=== PATIENT | male | born 1970 | race African-American/Black ===

== ENCOUNTER 2016-11-20 15:52 | Emergency (ER) | payer OTHER ==
[~2016-11-20] VITALS: Ht 177.8 cm; Wt 93.3 kg
[2016-11-20 16:01] VITALS: TEMP 36.8; Ht 177.8 cm; Wt 93.3 kg
--- NOTE | 2016-11-20 16:21 | EMERGENCY ROOM VISIT NOTE ---
History First contact with patient: 15:59 Chief Complaint: ALCOHOL OVERDOSE Stated Complaint: ALCOHOL History of Present Illness The patient is a 46 year old male who presents to the Emergency Room with complaints of alcohol intoxication. Patient reports no other chronic medical conditions; denies hypertension, reports chronic back pain This is an ongoing issue for this patient; who has been issued several citations for alcohol intoxication and was found with citations on his person when brought in. Review of Systems Limited due to patient's alcohol intoxication Constitutional: No fever, No chills, No sweats, No weight loss, No weakness , No fatigue, No problem reported Respiratory: No cough, No sputum, No wheezing, No shortness of breath, No dyspnea on exertion, No dyspnea at rest, No hemoptysis, No problem reported Cardiovascular: No chest pain, No orthopnea, No PND, No edema, No claudication, No palpitations, No problem reported Abdomen: No pain, No nausea, No vomiting, No diarrhea, No constipation, No GI bleeding, No problem reported Musculoskeletal: + problem reported (chronic back pain) Past Medical/Surgical History Medical Problems: (1) Alcohol Abuse-Unspec (2) Alcohol intoxication (3) Alcohol intoxication (4) Alcohol intoxication (5) Alcohol intoxication (6) Antisocial Personality (7) Back pain (8) Back strain (9) Chest pain (10) Chest pain (11) Chest pain (12) Chest pain (13) Depression (14) Depression (15) Depression (16) Diabetes (17) Esophagitis (18) Hypertension (19) Suicidal ideation (20) Unspecified Episodic Mood Disorder Family History FHx: heart disease Hypertension Social History Smoking Status: Current Every Day Smoker Alcohol Use: heavy Drug Use: none Marital Status: in relationship Housing Status: lives alone Occupation Status: unemployed Current/Historical Medications Scheduled Multivitamins/Minerals (Mvi With Minerals), 1 TAB PO DAILY Thiamine Hcl (Vitamin B-1), 100 MG PO DAILY Scheduled PRN Ibuprofen (Advil), 400-600 MG PO Q6H PRN for Pain Physical Exam Vital Signs Date Time Temp Pulse Resp B/P (MAP) Pulse Ox O2 Delivery O2 Flow Rate FiO2 11/20/16 19:06 108 18 179/119 96 Room Air 11/20/16 17:31 113 16 155/92 96 Room Air 11/20/16 16:02 105 11/20/16 16:01 36.8 113 16 180/136 97 Room Air Physical Exam GENERAL: Intoxicated, no distress HENT: Normocephalic, atraumatic. Oropharynx unremarkable. EYES: PERRL. Erythematous conjunctiva. Sclera non-icteric. NECK: Supple. No nuchal rigidity. FROM. RESPIRATORY: CTA CARDIAC: RRR GI/ABDOMEN: Soft, non distended. No tenderness to palpation. No rebound or guarding. No masses. MUSCULOSKELETAL: No edema. No discoloration. Gross motor strength 5/5 bilaterally. NEURO: Altered sensorium. No sensory or motor deficits noted. Speech slurred. SKIN: No rash or jaundice noted. Medical Decision & Procedures Laboratory Results Test 11/20/16 17:00 Ethyl Alcohol mg/dL 149.0 mg/dl (0-3) Medications Administered Medications (Trade) Dose Ordered Sig/Juan J Route Start Time Stop Time Status Last Admin Dose Admin Acetaminophen (Tylenol Tab) 650 mg NOW STAT PO 11/20/16 18:54 11/20/16 18:55 DC 11/20/16 18:58 650 MG Medical Decision Prior records/ancillary studies reviewed. Triage Nursing notes reviewed. The patient's history was concerning for altered mental status and a possible alcohol overdose. Differential diagnosis: Etiologies such as alcohol intoxication, toxicologic, infection, hypoglycemia, electrolyte abnormalities, cardiac sources, intracerebral event, neurologic, as well as others were entertained. Physical examination: As above. The patient is clinically intoxicated. No trauma noted. ER treatment provided: Monitoring Aspiration precautions The patient was frequently reassessed. Diagnostic interpretation by me: Cardiac monitoring did not reveal any evidence of dysrhythmia. The patient's blood alcohol level was 149 mg/dL. The patient's history was reviewed once they were more coherent and their intoxication cleared. The patient admitted to consuming alcohol. No additional concerning findings were noted. This appears to be consistent with an isolated overdose of alcohol. By the evaluation outlined above emergent etiologies such as trauma, infection, hypoglycemia, electrolyte abnormalities, cardiac sources, intracerebral event, neurologic,as well as others were deemed relatively unlikely. The patient was informed about the findings as listed above. The patient was counseled on the dangers of excessive alcohol use. I gave my usual and customary discussion regarding this issue. All questions were answered and the patient was pleased with the treatment. Return instructions were outlined and the patient was discharged in stable condition once their mental status improved and a safe destination was confirmed. Outpatient prescription management: None Impression Primary Impression: Alcohol abuse Additional Impression: Alcohol use with intoxication Departure Information Dispostion Home / Self-Care Condition FAIR Referrals Kevin Saldana M.D. (PCP) Patient Instructions My [facility] Additional Instructions You were evaluated today for alcohol intoxication. Your alcohol level was found to be 149mg/dL. ALCOHOL OVERDOSE INSTRUCTIONS: DO NOT drive, drink alcohol, operate machinery, or perform dangerous activities today. Rest and drink plenty of fluids. Drink alcohol responsibly and only in moderation. Return to the ER for vomiting, abdominal pain, severe headache, neck pain, vomiting blood or bloody stools, passing out, worsening of your condition, or as needed. Resident Tracking Resident Involvement: Resident Care Provided Care Provided: Adult ED Problem Qualifiers
--- NOTE | 2016-11-20 16:24 | EMERGENCY ROOM VISIT NOTE ---
History Report prepared by Fransico: Thomas Carbajal Under the Supervision of: Dr. Smitha Britt M.D. First contact with patient: 15:45 Chief Complaint: ALCOHOL OVERDOSE Stated Complaint: ALCOHOL Nursing Triage Summary: pt found outside [facility] was public drunkeness. staff told ems he is a frequent there. pt reports he has no sober ride. drank 9 beers per pt. History of Present Illness The patient is a 46 year old male who presents to the Emergency Room for an alcohol overdose occurring prior to arrival. Per the EMS, the patient was found outside [facility] after drinking 9 beers. The patient states that he was not injured. History is limited secondary to intoxication. Source of History: EMS History Limited By: intoxication Onset: prior to arrival Position: other (global) Quality: other (alcohol overdose) Review of Systems See HPI for pertinent positives & negatives. A total of 10 systems reviewed and were otherwise negative. Past Medical & Surgical Medical Problems: (1) Alcohol Abuse-Unspec (2) Alcohol intoxication (3) Alcohol intoxication (4) Alcohol intoxication (5) Alcohol intoxication (6) Antisocial Personality (7) Back pain (8) Back strain (9) Chest pain (10) Chest pain (11) Chest pain (12) Chest pain (13) Depression (14) Depression (15) Depression (16) Diabetes (17) Esophagitis (18) Hypertension (19) Suicidal ideation (20) Unspecified Episodic Mood Disorder Family History FHx: heart disease Hypertension Social History Smoking Status: Current Every Day Smoker Alcohol Use: heavy Drug Use: none Marital Status: in relationship Housing Status: lives alone Occupation Status: unemployed Current/Historical Medications Scheduled Multivitamins/Minerals (Mvi With Minerals), 1 TAB PO DAILY Thiamine Hcl (Vitamin B-1), 100 MG PO DAILY Scheduled PRN Ibuprofen (Advil), 400-600 MG PO Q6H PRN for Pain Allergies Coded Allergies: No Known Allergies (Unverified , 03/08/16) Physical Exam Vital Signs Date Time Temp Pulse Resp B/P (MAP) Pulse Ox O2 Delivery O2 Flow Rate FiO2 11/20/16 19:06 108 18 179/119 96 Room Air 11/20/16 17:31 113 16 155/92 96 Room Air 11/20/16 16:02 105 11/20/16 16:01 36.8 113 16 180/136 97 Room Air Physical Exam Vital signs reviewed. General: Odor of EtOH in the breath, disheveled 46-year-old male. No signs of trauma. HEENT: Mild scleral injection bilaterally, PERRLA, neck supple, dry mucous membranes. Cardiovascular: Regular rate and rhythm, no extra sounds. Pulmonary: Clear to auscultation bilaterally, normal work of breathing. Abdomen: Soft, nontender, nondistended, positive bowel sounds. Musculoskeletal: Upper and lower extremities atraumatic, no peripheral edema Skin: Warm, dry, no rash. Atraumatic. Neurologic: Patient is currently minimally verbal. Medical Decision & Procedures Laboratory Results Test 11/20/16 17:00 Ethyl Alcohol mg/dL 149.0 mg/dl (0-3) Laboratory results per my review. Medications Administered Medications (Trade) Dose Ordered Sig/Juan J Route Start Time Stop Time Status Last Admin Dose Admin Acetaminophen (Tylenol Tab) 650 mg NOW STAT PO 11/20/16 18:54 11/20/16 18:55 DC 11/20/16 18:58 650 MG ED Course 1620: Past medical records reviewed. The patient was evaluated in room B12. A complete history and physical examination was performed. 1853: Upon reevaluation, the patient appeared to have improvement of his symptoms. I discussed findings with him. He verbalized agreement of the treatment plan. He was discharged home. 1854: Tylenol Tab 650mg PO Medical Decision The differential diagnosis of the patient's presentation includes alcohol ingestion, illicit drug use, trauma, and dehydration. This patient was evaluated and appeared to be in no significant distress. Patient was placed on the corduroy cutting supervisor with aspiration precautions maintained. Blood alcohol level is 149. Patient was given Tylenol 650 mg after some observation in the emergency department. He did complain of a headache. Patient was awake and ambulatory. Patient was discharged to follow- up with the primary care provider for further management. Case management provided a bus token for the patient upon discharge. Medication Reconcilliation Current Medication List: was personally reviewed by me Blood Pressure Screening Patient's blood pressure: Elevated blood pressure Blood pressure disposition: Referred to PCP Impression Primary Impression: Alcohol intoxication Scribe Attestation The scribe's documentation has been prepared under my direction and personally reviewed by me in its entirety. I confirm that the note above accurately reflects all work, treatment, procedures, and medical decision making performed by me. Departure Information Dispostion Home / Self-Care Referrals Kevin Saldana M.D. (PCP) Forms HOME CARE DOCUMENTATION FORM, IMPORTANT VISIT INFORMATION Patient Instructions My [facility] Additional Instructions You were evaluated today for alcohol intoxication. Your alcohol level was found to be 149mg/dL. ALCOHOL OVERDOSE INSTRUCTIONS: DO NOT drive, drink alcohol, operate machinery, or perform dangerous activities today. Rest and drink plenty of fluids. Drink alcohol responsibly and only in moderation. Return to the ER for vomiting, abdominal pain, severe headache, neck pain, vomiting blood or bloody stools, passing out, worsening of your condition, or as needed.
[2016-11-20] MEDS ORDERED: THIA100T11 PO (16:49)
[2016-11-20] MEDS ORDERED: MULT-513 PO (16:49)
[2016-11-20] MEDS ORDERED: ACETAMINOPHEN 325 MG TAB PO STA (18:54)
[2016-11-20 19:06] VITALS: BP 179/119; PULSE 108; O2SAT 96
== END 2016-11-20 19:27 | disposition home or self-care (01) ==
LOC: EDBD 15:52 → C.EDB 15:53
DX: F10.129 Alcohol abuse with intoxication, unspecified (principal); F32.9 Major depressive disorder, single episode, unspecified; E11.9 Type 2 diabetes mellitus without complications; I10 Essential (primary) hypertension; F60.2 Antisocial personality disorder; Z82.49 Family history of ischemic heart disease and other diseases of the circulatory system; F17.210 Nicotine dependence, cigarettes, uncomplicated

== ENCOUNTER 2016-11-23 15:49 | Emergency (ER) | payer OTHER ==
[~2016-11-23] VITALS: Ht 177.8 cm; Wt 93.5 kg
[~2016-11-23 15:49] MED LIST: MULT-513 PO; THIA100T11 PO
--- NOTE | 2016-11-23 15:56 | EMERGENCY ROOM VISIT NOTE ---
History Report prepared by Fransico: Addy Estevez Under the Supervision of: Dr. Wayne Plaza M.D. First contact with patient: 15:54 Stated Complaint: ALCOHOL OVERDOSE/MHID History of Present Illness The patient is a 46 year old male who presents to the Emergency Room with an alcohol overdose beginning prior to arrival. EMS states the patient was found in the hallway of a [employer] drenched with water from head to toe. They report he had a full bottle of beer in his hand, and they did not know if the patient' s girlfriend threw him out again. When asked if the patient was suicidal, he states, "hell no". He also denies any pain and using drugs. The patient notes that he drinks everyday, and he will not state how much he consumed. HPI limited secondary to the patient's intoxication. Source of History: patient, EMS History Limited By: intoxication Review of Systems ROS limited secondary to the patient's intoxication. Past Medical & Surgical Medical Problems: (1) Alcohol Abuse-Unspec (2) Alcohol intoxication (3) Alcohol intoxication (4) Alcohol intoxication (5) Alcohol intoxication (6) Antisocial Personality (7) Back pain (8) Back strain (9) Chest pain (10) Chest pain (11) Chest pain (12) Chest pain (13) Depression (14) Depression (15) Depression (16) Diabetes (17) Esophagitis (18) Hypertension (19) Suicidal ideation (20) Unspecified Episodic Mood Disorder Family History FHx: heart disease Hypertension Social History Smoking Status: Current Every Day Smoker Alcohol Use: heavy Drug Use: none Marital Status: in relationship Housing Status: lives alone Occupation Status: unemployed Current/Historical Medications Scheduled PRN Ibuprofen (Advil), 400-600 MG PO Q6H PRN for Pain Allergies Coded Allergies: No Known Allergies (Unverified , 03/08/16) Physical Exam Vital Signs Date Time Temp Pulse Resp B/P (MAP) Pulse Ox O2 Delivery O2 Flow Rate FiO2 11/23/16 20:05 78 22 161/100 97 11/23/16 18:49 107 11/23/16 18:01 154/93 11/23/16 17:49 105 11/23/16 17:03 145/101 11/23/16 16:59 103 20 150/98 97 Room Air 11/23/16 16:49 99 11/23/16 16:01 96 11/23/16 16:00 36.7 98 20 155/104 98 Room Air 11/23/16 16:00 99 Room Air 11/23/16 15:54 155/104 Physical Exam GENERAL: Patient is heavily intoxicated. Smells of alcohol. Well appearing and in no acute distress. HEAD: No evidence of Trauma. AT/NC EYES: Injected conjunctiva. Normal EOM. Pupils equal/reactive. ENT: Mucous membranes moist, no nasal congestion, . NECK: No step-offs, no adenopathy, no meningismus, trachea is midline. LUNGS: No dyspnea. Clear to auscultation and equal bilaterally. No wheeze, no rhonchi. HEART: Regular rate and rhythm. No murmurs, rubs, gallops appreciated. ABDOMEN: Soft, nontender, bowel sounds positive, no masses appreciated, no peritonitis. BACK: No midline tenderness, no CVA tenderness EXTREMITIES: Normal motion all extremities, no cyanosis, no edema. NEUROLOGIC: Intoxicated. somnolent, slurred speech. No acute motor or sensory deficits, no focal weakness, cranial nerves grossly intact. SKIN: No rash, no jaundice, no diaphoresis. Medical Decision & Procedures Laboratory Results 11/23/16 16:35 Test 11/23/16 16:35 Anion Gap 11.0 mmol/L (3-11) Est Creatinine Clear Calc Drug Dose 103.8 ml/min Estimated GFR () 102.7 Estimated GFR (Non- 88.6 BUN/Creatinine Ratio 12.7 (10-20) Calcium Level 8.4 mg/dl (8.5-10.1) Magnesium Level 2.8 mg/dl (1.8-2.4) Total Bilirubin 0.2 mg/dl (0.2-1) Direct Bilirubin < 0.1 mg/dl (0-0.2) Aspartate Amino Transf (AST/SGOT) 37 U/L (15-37) Alanine Aminotransferase (ALT/SGPT) 39 U/L (12-78) Alkaline Phosphatase 129 U/L (45-117) Total Creatine Kinase 1641 U/L (39-308) Total Protein 7.7 gm/dl (6.4-8.2) Albumin 3.6 gm/dl (3.4-5.0) Salicylates Level < 1.7 mg/dl (2.8-20) Acetaminophen Level < 2 ug/ml (10-30) Ethyl Alcohol mg/dL 170.0 mg/dl (0-3) Laboratory results as reviewed by me. Medications Administered Medications (Trade) Dose Ordered Sig/Juan J Route Start Time Stop Time Status Last Admin Dose Admin Multivitamins 10 ml/Thiamine HCl 100 mg/Folic Acid 1 mg/Sodium Chloride 1,011.2 ml @ 500 mls/ hr Q2H2M ONCE IV 11/23/16 16:00 11/23/16 18:01 DC 11/23/16 17:05 500 MLS/HR Ibuprofen (Motrin Tab) 600 mg NOW STAT PO 11/23/16 16:59 11/23/16 17:00 DC 11/23/16 17:05 600 MG ED Course 1557: The patient was evaluated in room B05. A complete history and physical exam was performed. 1600: Ordered Multivitamins 10ml/Thiamine HCl 100mg/Folic Acid 1mg/Sodium Chloride 1,011.2 ml @ 500 mls/hr, IV 1659: The nurse called saying the patient would like Motrin. Ordered Ibuprofen 600mg PO 1902: I reevaluated the patient. He is awake and asking to be discharged. He denies suicidal and homicidal ideations. The patient demands immediate discharge. I advised him I have to watch him until he is sober and medically cleared. 1999: Reevaluated the patient. Discussed results and discharge instructions: he verbalized understanding and agreement. The patient is ready for discharge. Medical Decision Differential: Alcohol Intoxication, Drug Intoxication, Electrolyte Abnormality, Trauma, Intracranial Event, Toxicological, Excited Delirium, Serotonin Syndrome , amongst other pathologies entertained. 46 yr old intoxicated male found sleeping in hallway at local hotel. No one sober to care for him. He is unhappy being here. Given recent trip for etoh felt he is likely alcoholic (which he denies) thus given banana bag. Mildly elevated CK. Denies any muscle pains, cp, sob, nor other symptoms. He wishes to go home still. Monitored for 4 hours and etoh now legal. Sober, still demanding discharge. Advised fluids, rest, no further alcohol. He denies suicidal ideation nor psychiatric/mental health issues on multiple evaluations. Impression Primary Impression: Alcohol abuse Additional Impressions: Alcoholic intoxication Dehydration Elevated CK Scribe Attestation The scribe's documentation has been prepared under my direction and personally reviewed by me in its entirety. I confirm that the note above accurately reflects all work, treatment, procedures, and medical decision making performed by me. Departure Information Dispostion Home / Self-Care Referrals Kevin Saldana M.D. (PCP) Forms HOME CARE DOCUMENTATION FORM, IMPORTANT VISIT INFORMATION Patient Instructions Addiction Alcohol, My [facility] Additional Instructions We are always here to help. If you feel you are at risk of harm to self or others call 911 or return to emergency department. Your labs showed significant dehydration. Keep well hydrated and stop drinking alcohol. Return if body aches, fatigue, blood in urine, or other concerns. Problem Qualifiers
[2016-11-23 16:00] VITALS: TEMP 36.7; O2SAT 99; Ht 177.8 cm; Wt 93.5 kg
[2016-11-23] MEDS ORDERED: MULTI-VITAMIN INFUSION INJ 10 ML, THIAMINE HCL INJ 100 MG, FoLIC ACID INJ 1 MG in SODIU... IV ONE (16:00)
[2016-11-23] MEDS ORDERED: IBUP-1050 PO (16:49)
[2016-11-23] MEDS ORDERED: IBUPROFEN 600 MG TAB PO STA (16:59)
[2016-11-23 17:14] LABS: ALT/SGPT 39 U/L (12-78); AST/SGOT 37 U/L (15-37); BLOOD UREA NITROGEN 13 mg/dl (7-18); BUN/CREATININE RATIO 12.7 (10-20); CALCIUM 8.4 mg/dl (8.5-10.1); CARBON DIOXIDE 23 mmol/L (21-32); CHLORIDE 105 mmol/L (98-107); GLUCOSE 141 mg/dl (70-99); MAGNESIUM 2.8 mg/dl (1.8-2.4); POTASSIUM 3.3 mmol/L (3.5-5.1); SODIUM 139 mmol/L (136-145)
[2016-11-23 17:22] LABS: ACETAMINOPHEN < 2 ug/ml (10-30)
[2016-11-23 17:30] LABS: ALKALINE PHOSPHATASE 129 U/L (45-117)
[2016-11-23 20:05] VITALS: BP 161/100; PULSE 78; O2SAT 97
== END 2016-11-23 20:07 | disposition home or self-care (01) ==
LOC: EDBD 15:49 → C.EDB 15:51
DX: F10.129 Alcohol abuse with intoxication, unspecified (principal); E86.0 Dehydration; R74.8 Abnormal levels of other serum enzymes; F32.9 Major depressive disorder, single episode, unspecified; E11.9 Type 2 diabetes mellitus without complications; K20.9 Esophagitis, unspecified; I10 Essential (primary) hypertension; Z82.49 Family history of ischemic heart disease and other diseases of the circulatory system; F17.210 Nicotine dependence, cigarettes, uncomplicated

== ENCOUNTER 2016-11-28 19:54 | Emergency (ER) | payer OTHER ==
[~2016-11-28] VITALS: Ht 175.3 cm; Wt 88.3 kg
[~2016-11-28 19:54] MED LIST changes: +IBUP-1050 PO; -MULT-513 PO; -THIA100T11 PO
[2016-11-28 20:04] VITALS: TEMP 37.1; Ht 175.3 cm; Wt 88.3 kg
--- NOTE | 2016-11-28 20:58 | DIAGNOSTIC IMAGING REPORT ---
CHEST 2 VIEWS ROUTINE CLINICAL HISTORY: cough eval for pna pneumonia COMPARISON STUDY: 01/08/2016 FINDINGS: The bones soft tissues and hemidiaphragms are normal. The cardiomediastinal silhouette is normal. The lungs are clear. The pulmonary vasculature is normal. IMPRESSION: Negative chest. The above report was generated using voice recognition software. It may contain grammatical, syntax or spelling errors. Electronically signed by: Gregg Bajwa M.D. 11/28/2016 8:57 PM Dictated Date/Time: 11/28/2016 8:57 PM
[2016-11-28] MEDS ORDERED: GUAIFENESIN SUGAR FREE 100 MG/5 ML UDC PO STA (21:25)
[2016-11-28] MEDS ORDERED: ALBUTEROL HFA 8 GM INHALER INH ONE (21:30)
[2016-11-28 22:15] VITALS: BP 155/107; PULSE 85; O2SAT 99
--- NOTE | 2016-11-29 00:52 | EMERGENCY ROOM VISIT NOTE ---
History Report prepared by Fransico: Thomas Carbajal Under the Supervision of: Dr. Jose Manuel Warner M.D. First contact with patient: 20:15 Chief Complaint: COUGH Stated Complaint: ANXIETY/SOME ALCOHOL Nursing Triage Summary: patient brought in by [facility] patient picked up by eduin soliz for trespassing,police bringing in warrant patient drank beer today patient reports a cough for a few days to a week History of Present Illness The patient is a 46 year old male who presents to the Emergency Room with complaints of a constant cough for the past couple of weeks. Per the nursing staff, the patient was brought in by police because he was found trespassing. The patient states that he only drank one beer. The patient denies coughing up blood, fever, night sweats, institutionalization, and TB exposure. He denies any chest pain or shortness of breath. Source of History: patient, nursing staff Onset: a couple weeks ago Position: other (global) Quality: other (cough) Timing: constant Associated Symptoms: No fevers, No chest pain, No SOB Review of Systems See HPI for pertinent positives & negatives. A total of 10 systems reviewed and were otherwise negative. Past Medical & Surgical Medical Problems: (1) Alcohol Abuse-Unspec (2) Alcohol intoxication (3) Alcohol intoxication (4) Alcohol intoxication (5) Alcohol intoxication (6) Antisocial Personality (7) Back pain (8) Back strain (9) Chest pain (10) Chest pain (11) Chest pain (12) Chest pain (13) Depression (14) Depression (15) Depression (16) Diabetes (17) Esophagitis (18) Hypertension (19) Suicidal ideation (20) Unspecified Episodic Mood Disorder Family History FHx: heart disease Hypertension Social History Smoking Status: Current Every Day Smoker Alcohol Use: heavy Drug Use: none Marital Status: in relationship Housing Status: lives alone Occupation Status: unemployed Current/Historical Medications Scheduled PRN Ibuprofen (Advil), 400-600 MG PO Q6H PRN for Pain Allergies Coded Allergies: No Known Allergies (Unverified , 03/08/16) Physical Exam Vital Signs Date Time Temp Pulse Resp B/P (MAP) Pulse Ox O2 Delivery O2 Flow Rate FiO2 11/28/16 22:15 85 20 155/107 99 11/28/16 21:38 95 20 143/103 11/28/16 20:04 105 11/28/16 20:04 37.1 108 20 127/101 98 Room Air Physical Exam Constitutional: Vital signs reviewed. Eyes: Pupils are equal round reactive to light. Conjunctiva are noninjected. ENT: Pharynx is clear without erythema or exudate. Mucous membranes are moist. Neck supple without meningeal signs. Respiratory: Clear to auscultation bilaterally. Breath sounds are equal bilaterally. Cardiovascular: Regular rate and rhythm. No rubs or gallops. GI: Soft, nondistended and nontender. Bowel sounds are present. Musculoskeletal: No peripheral edema. No lower extremity tenderness. Integumentary: No cyanosis. Neurological: The patient is awake and alert. No focal deficits. Psychiatric: Normal affect. Medical Decision & Procedures ER Provider Diagnostic Interpretation: Radiology results as stated below per my review and the radiologist's interpretation: CHEST 2 VIEWS ROUTINE CLINICAL HISTORY: cough eval for pna pneumonia COMPARISON STUDY: 01/08/2016 FINDINGS: The bones soft tissues and hemidiaphragms are normal. The cardiomediastinal silhouette is normal. The lungs are clear. The pulmonary vasculature is normal. IMPRESSION: Negative chest. The above report was generated using voice recognition software. It may contain grammatical, syntax or spelling errors. Electronically signed by: Gregg Bajwa M.D. 11/28/2016 8:57 PM Dictated Date/Time: 11/28/2016 8:57 PM Medications Administered Medications (Trade) Dose Ordered Sig/Juan J Route Start Time Stop Time Status Last Admin Dose Admin Guaifenesin (Robitussin Sugar Free Syrup) 100 mg NOW STAT PO 11/28/16 21:25 11/28/16 21:26 DC 11/28/16 21:35 100 MG Albuterol (Ventolin Hfa Inhaler) 2 puffs NOW ONCE INH 11/28/16 21:30 11/28/16 21:31 DC 11/28/16 21:35 2 PUFFS ED Course 2014: The patient was evaluated in room B2. A complete history and physical exam was performed. 2124: Robitussin Sugar Free Syrup 100mg PO 2129: Albuterol 2 puffs INH 2204: The patient is ambulating without difficulty, and he wants to go home. The patient will be discharged home. Medical Decision This is a 46-year-old male who presents with a cough. Differential diagnosis includes pneumonia, bronchitis, lung cancer. I did perform a limited focused review of portions of the patient's old chart on the electronic medical record. The patient was here on November 23 for alcohol intoxication I did evaluate the patient as noted above. The patient is presenting with a cough. He does admit to drinking alcohol today but does not appear significantly intoxicated. He was given Robitussin for his cough. He was also given an albuterol MDI. I did order and personally review the patient's chest x-ray as described above. There is no evidence of pneumonia. The patient was informed of his test results. He was discharged and advised follow closely with his doctor. He was able to ambulate without any difficulty and was given a bus token. Medication Reconcilliation Current Medication List: was personally reviewed by me Blood Pressure Screening Patient's blood pressure: Elevated blood pressure Blood pressure disposition: Referred to PCP Impression Primary Impression: Bronchitis Scribe Attestation The scribe's documentation has been prepared under my direct and personally reviewed by me in its entirety. I confirm that the note above accurately reflects all work, treatment, procedures, and medical decision making performed by me. Departure Information Dispostion Home / Self-Care Referrals No Doctor, Assigned (PCP) Forms HOME CARE DOCUMENTATION FORM, IMPORTANT VISIT INFORMATION Patient Instructions Bronchitis Acute, My [facility] Additional Instructions You have been examined and treated today on an emergency basis only. This is not a substitute for, or an effort to provide, complete comprehensive medical care. It is impossible to recognize and treat all injuries or illnesses in a single emergency department visit. It is therefore important that you follow up closely with your physician. Call as soon as possible for an appointment. Return for worsening symptoms or if you develop fever, vomiting, chest pain or any other concerning symptoms.
== END 2016-11-28 22:15 | disposition home or self-care (01) ==
LOC: EDBD 19:54 → C.EDB 19:56
DX: J40 Bronchitis, not specified as acute or chronic (principal); F60.2 Antisocial personality disorder; F32.9 Major depressive disorder, single episode, unspecified; E11.9 Type 2 diabetes mellitus without complications; I10 Essential (primary) hypertension; F17.210 Nicotine dependence, cigarettes, uncomplicated; Z82.49 Family history of ischemic heart disease and other diseases of the circulatory system

== ENCOUNTER 2017-03-03 15:04 | Emergency (ER) | payer OTHER ==
[~2017-03-03] VITALS: Ht 177.8 cm; Wt 94.6 kg
[2017-03-03 15:08] VITALS: TEMP 36.6; Ht 177.8 cm; Wt 94.6 kg
--- NOTE | 2017-03-03 15:17 | EMERGENCY ROOM VISIT NOTE ---
History First contact with patient: 15:10 Chief Complaint: SWELLING TO EXTREMITY Stated Complaint: RIGHT ARM POSSIBLE BLOOD CLOT History of Present Illness The patient is a 46 year old male who presents to the Emergency Room from [facility] with complaints of right arm pain and swelling. The patient was working out with weights yesterday which is not unusual for him. He did not experience any pop or pain during his exercise regimen. He woke up this morning with pain in his right forearm worse with lifting any weights. Aching pain, 8/10 severity. He denies any pain in his neck, shoulder or wrist. He denies any change in sensation of his hand. He feels his forearm is much more swollen than the other side. He denies any fevers or chills, change in skin color, change in his urine. Review of Systems All systems reviewed and otherwise negative other than HPI. Constitutional: No fever, No chills Musculoskeletal: + muscle pain, + swelling, No joint pain Integumentary: No rash, No itch Past Medical/Surgical History Medical Problems: (1) Alcohol Abuse-Unspec (2) Alcohol intoxication (3) Alcohol intoxication (4) Alcohol intoxication (5) Alcohol intoxication (6) Antisocial Personality (7) Back pain (8) Back strain (9) Chest pain (10) Depression (11) Depression (12) Diabetes (13) Esophagitis (14) Hypertension (15) Suicidal ideation (16) Unspecified Episodic Mood Disorder Family History FHx: heart disease Hypertension Social History Smoking Status: Current Every Day Smoker Alcohol Use: heavy Drug Use: none Marital Status: in relationship Housing Status: lives alone Occupation Status: unemployed Current/Historical Medications Scheduled Amlodipine (Norvasc), 10 MG PO DAILY Quetiapine Fumarate (Seroquel), 100 MG PO HS Sertraline (Zoloft), 25 MG PO DAILY Scheduled PRN Acetaminophen (Tylenol), 1,000 MG PO BID PRN for Pain Physical Exam Vital Signs Date Time Temp Pulse Resp B/P (MAP) Pulse Ox O2 Delivery O2 Flow Rate FiO2 03/03/17 17:05 78 18 155/89 97 Room Air 03/03/17 15:08 36.6 95 16 169/105 100 Room Air Physical Exam General Appearance: WD/WN, + mild distress (holding right elbow stiff with pain, left leg in handcuffs to bed) Respiratory/Chest: lungs clear, normal breath sounds, no respiratory distress, no accessory muscle use Cardiovascular: regular rate, rhythm, no murmur, normal peripheral pulses Extremities: normal capillary refill (right hand), + pertinent finding ( tender to palpation on proximal part of volar forearm, No right sided neck/ shoulder/elbow/wrist pain on laura prominence palpation, Full ROM without stiffness or pain of elbow/shouder/wrist, Spurling's test negative, right proximal forearm circumference 1cm > left, biceps muscle appearance equal bilaterally, pronation and flexion of elbow notable equal power b/l) Neurologic/Psych: no motor/sensory deficits (Radial/median/ulnar nerve sensation intact distally on right hand, no motor weakness of right shoulder, elbow or wrist), alert, oriented x 3 Medical Decision & Procedures ER Provider Diagnostic Interpretation: R ELBOW MIN 3 VIEWS ROUTINE CLINICAL HISTORY: right elbow pain (proximal radial ulna anteriodly) ?fracture pain COMPARISON: None. DISCUSSION: The bones and joint spaces appear intact. There is no evidence of fracture, dislocation or bony disease. There is no evidence for soft tissue swelling. IMPRESSION: Negative study. The above report was generated using voice recognition software. It may contain grammatical, syntax or spelling errors. Electronically signed by: Gregg Bajwa M.D. 03/03/2017 3:56 PM Dictated Date/Time: 03/03/2017 3:55 PM R VENOUS DOPPLER UPR EXT UNIL HISTORY: 46 years-old Male right elbow/antecubital fossa pain and swelling ?DVT acute pain and swelling of the right upper extremity with concern for possible DVT COMPARISON: None available TECHNIQUE: Multiple real-time sonographic images of the right upper extremity deep venous structures were obtained assessing grayscale appearance, color and spectral flow FINDINGS: Study is limited secondary to patient cooperation. There is normal flow, compressibility, augmentation, and phasicity involving the deep venous structures. IMPRESSION: No sonographic evidence of deep venous thrombosis. The above report was generated using voice recognition software. It may contain grammatical, syntax or spelling errors. Electronically signed by: Adria Swanson M.D. 03/03/2017 4:57 PM Dictated Date/Time: 03/03/2017 4:56 PM Laboratory Results 03/03/17 15:40 Red Blood Count 4.71, Mean Corpuscular Volume 80.3, Mean Corpuscular Hemoglobin 27.2, Mean Corpuscular Hemoglobin Concent 33.9, Mean Platelet Volume 8.8, Neutrophils (%) (Auto) 41.7, Lymphocytes (%) (Auto) 46.5, Monocytes (%) (Auto) 9.5, Eosinophils (%) (Auto) 1.4, Basophils (%) (Auto) 0.5, Neutrophils # (Auto) 2.36, Lymphocytes # (Auto) 2.63, Monocytes # (Auto) 0.54, Eosinophils # (Auto) 0.08, Basophils # (Auto) 0.03 03/03/17 15:40 Test 03/03/17 15:40 White Blood Count 5.66 K/uL (4.8-10.8) Red Blood Count 4.71 M/uL (4.7-6.1) Hemoglobin 12.8 g/dL (14.0-18.0) Hematocrit 37.8 % (42-52) Mean Corpuscular Volume 80.3 fL (80-100) Mean Corpuscular Hemoglobin 27.2 pg (25-34) Mean Corpuscular Hemoglobin Concent 33.9 g/dl (32-36) Platelet Count 280 K/uL (130-400) Mean Platelet Volume 8.8 fL (7.4-10.4) Neutrophils (%) (Auto) 41.7 % Lymphocytes (%) (Auto) 46.5 % Monocytes (%) (Auto) 9.5 % Eosinophils (%) (Auto) 1.4 % Basophils (%) (Auto) 0.5 % Neutrophils # (Auto) 2.36 K/uL (1.4-6.5) Lymphocytes # (Auto) 2.63 K/uL (1.2-3.4) Monocytes # (Auto) 0.54 K/uL (0.11-0.59) Eosinophils # (Auto) 0.08 K/uL (0-0.5) Basophils # (Auto) 0.03 K/uL (0-0.2) RDW Standard Deviation 42.9 fL (36.4-46.3) RDW Coefficient of Variation 14.6 % (11.5-14.5) Immature Granulocyte % (Auto) 0.4 % Immature Granulocyte # (Auto) 0.02 K/uL (0.00-0.02) Anion Gap 5.0 mmol/L (3-11) Est Creatinine Clear Calc Drug Dose 133.7 ml/min Estimated GFR () 123.7 Estimated GFR (Non- 106.7 BUN/Creatinine Ratio 10.5 (10-20) Calcium Level 8.9 mg/dl (8.5-10.1) Total Bilirubin 0.2 mg/dl (0.2-1) Aspartate Amino Transf (AST/SGOT) 20 U/L (15-37) Alanine Aminotransferase (ALT/SGPT) 47 U/L (12-78) Alkaline Phosphatase 134 U/L (45-117) Total Creatine Kinase 419 U/L (39-308) Total Protein 8.1 gm/dl (6.4-8.2) Albumin 4.1 gm/dl (3.4-5.0) Globulin 4.0 gm/dl (2.5-4.0) Albumin/Globulin Ratio 1.0 (0.9-2) Medications Administered Medications (Trade) Dose Ordered Sig/Juan J Route Start Time Stop Time Status Last Admin Dose Admin Ketorolac Tromethamine (Toradol Inj) 30 mg NOW STAT IV 03/03/17 15:45 03/03/17 15:46 DC 03/03/17 15:50 30 MG ED Course 15:15 Complete history and physical was performed by myself 15:30 The patient was discussed with Dr Ca who separately performed history and physical, recommended labs, XR and US doppler 15:45 Toradol 30mg IV prescribed for pain 17:00 The patient was reassessed before discharge. Discussed normal labs, XR and US. Most likely diagnosis of muscle fatigue. Recommend he follows up with medical at [facility]. Medical Decision Prior records/ancillary studies reviewed. Triage Nursing notes reviewed. Additional history obtained from the patient. The patient's history was concerning for forearm pain. Differential diagnosis: Etiologies such as compartment syndrome, tendon injury, rhabdomyolysis, myositis , fracture, infection, nerve compression as well as others were entertained. Physical findings: As above. Patient was neurovascularly intact distally. Biceps tendon was intact. Pain was not limited to one compartment and muscles were soft to touch. ER treatment provided: Toradol 30 mg IV On reassessment the patient felt better. Diagnostics interpreted by me: The labs revealed mild anemia and mildly elevated creatine kinase which fits with history of exercising. Imaging studies: XR and US were negative for any acute pathology This appears to be consistent with muscle fatigue. By the evaluation outlined above emergent etiologies such as compartment syndrome, tendon injury, rhabdomyolysis, myositis, fracture, infection, nerve compression as well as others were entertained. as well as others were deemed relatively unlikely. The patient was informed about the findings as listed above. All questions were answered. Return instructions were outlined and the patient was discharged in stable condition. Referral: The patient was referred back to the medical team at [facility] for a recheck of the current condition in the next 1-2 days. Medication Reconcilliation Current Medication List: was personally reviewed by me Blood Pressure Screening Patient's blood pressure: Elevated blood pressure Blood pressure disposition: Elevated BP felt to be situational, Referred to PCP Impression Primary Impression: Right arm pain Departure Information Dispostion Other ([facility]) Condition GOOD Referrals [facility] (PCP) Patient Instructions My [facility] Additional Instructions You were evaluated in the ER for right arm pain and swelling. No cause was seen on US doppler or elbow XR. This is most likely due to your work out the previous day. Recommend you keep moving and stretching your elbow, shoulder and wrist to avoid any stiffness which can make it worse but do not work out until the pain has completely resolved and only then slowly work up to our maximum weights again. Take Ibuprofen (400mg three times /day) or Tylenol (650mg four times/day) as needed for pain Drink more clear liquids for the next 3 to 4 days. Follow up with the medical team at the [facility] within the next 1-2 days for a recheck of your condition and repeat blood pressure as this was elevated while in the ER. If you have an increasing pain, change in color of your urine, fevers, difficulty breathing, chest pain, recurrent vomiting or diarrhea, come back to the Emergency Department. Resident Tracking Resident Involvement: Resident Care Provided Care Provided: Adult ED
[2017-03-03] MEDS ORDERED: KETOROLAC TROMETHAMINE 60 MG/2 ML VIAL IM STA (15:43)
[2017-03-03] MEDS ORDERED: KETOROLAC TROMETHAMINE 30 MG/ML VIAL IV STA (15:45)
[2017-03-03 15:56] LABS: BASO % 0.5 %; BASO ABS # 0.03 K/uL (0-0.2); EOS % 1.4 %; EOS ABS # 0.08 K/uL (0-0.5); HEMATOCRIT 37.8 % (42-52); HEMOGLOBIN 12.8 g/dL (14.0-18.0); IG# 0.02 K/uL (0.00-0.02); LYMPH % 46.5 %; LYMPH ABS # 2.63 K/uL (1.2-3.4); MEAN CELL VOLUME 80.3 fL (80-100); MEAN CORPUSCULAR HEMOGLOBIN 27.2 pg (25-34); MEAN CORPUSCULAR HGB CONC 33.9 g/dl (32-36); MEAN PLATELET VOLUME 8.8 fL (7.4-10.4); MONO % 9.5 %; MONO ABS # 0.54 K/uL (0.11-0.59); NEUT % 41.7 %; NEUT ABS # 2.36 K/uL (1.4-6.5); PLATELET COUNT 280 K/uL (130-400); RED CELL DISTRIBUTION WIDTH CV 14.6 % (11.5-14.5); RED CELL DISTRIBUTION WIDTH SD 42.9 fL (36.4-46.3); WHITE BLOOD COUNT 5.66 K/uL (4.8-10.8)
--- NOTE | 2017-03-03 15:57 | DIAGNOSTIC IMAGING REPORT ---
R ELBOW MIN 3 VIEWS ROUTINE CLINICAL HISTORY: right elbow pain (proximal radial ulna anteriodly) ?fracture pain COMPARISON: None. DISCUSSION: The bones and joint spaces appear intact. There is no evidence of fracture, dislocation or bony disease. There is no evidence for soft tissue swelling. IMPRESSION: Negative study. The above report was generated using voice recognition software. It may contain grammatical, syntax or spelling errors. Electronically signed by: Gregg Bajwa M.D. 03/03/2017 3:56 PM Dictated Date/Time: 03/03/2017 3:55 PM
[2017-03-03] MEDS ORDERED: SERT25TA PO (16:07)
[2017-03-03] MEDS ORDERED: ACET-1256 PO (16:07)
[2017-03-03] MEDS ORDERED: QUET1TAB34 PO (16:07)
[2017-03-03] MEDS ORDERED: AMLO-114 PO (16:07)
[2017-03-03 16:17] LABS: ALBUMIN 4.1 gm/dl (3.4-5.0); CALCIUM 8.9 mg/dl (8.5-10.1); CREATININE 0.78 mg/dl (0.60-1.40); POTASSIUM 3.7 mmol/L (3.5-5.1)
[2017-03-03 16:19] LABS: TOTAL PROTEIN 8.1 gm/dl (6.4-8.2)
--- NOTE | 2017-03-03 16:59 | DIAGNOSTIC IMAGING REPORT ---
R VENOUS DOPPLER UPR EXT UNIL HISTORY: 46 years-old Male right elbow/antecubital fossa pain and swelling ?DVT acute pain and swelling of the right upper extremity with concern for possible DVT COMPARISON: None available TECHNIQUE: Multiple real-time sonographic images of the right upper extremity deep venous structures were obtained assessing grayscale appearance, color and spectral flow FINDINGS: Study is limited secondary to patient cooperation. There is normal flow, compressibility, augmentation, and phasicity involving the deep venous structures. IMPRESSION: No sonographic evidence of deep venous thrombosis. The above report was generated using voice recognition software. It may contain grammatical, syntax or spelling errors. Electronically signed by: Adria Swanson M.D. 03/03/2017 4:57 PM Dictated Date/Time: 03/03/2017 4:56 PM
[2017-03-03 17:05] VITALS: BP 155/89; PULSE 78; O2SAT 97
--- NOTE | 2017-03-03 20:52 | EMERGENCY ROOM VISIT NOTE ---
History Report prepared by Fransico: Renée Wagner Under the Supervision of: Dr. Bony Ca M.D. First contact with patient: 15:10 Chief Complaint: SWELLING TO EXTREMITY Stated Complaint: RIGHT ARM POSSIBLE BLOOD CLOT History of Present Illness The patient is a 46 year old male who presents to the Emergency Room with complaints of constant right arm swelling beginning this morning. The patient states that he was working out yesterday and did not have any injury. He is doing pull-ups and chin ups. He reports that he woke up with the pain and it is worsened with lifting the arm. He notes that the pain is aching. Pt denies LOC, headache, fevers, chills, diaphoresis, visual changes, neck pain, chest pain, breathing difficulties, nausea, vomiting, abdominal pain, back pain, melena, hematochezia, urinary symptoms, numbness, weakness, lymphadenopathy, rash, or other complaints. Source of History: patient Onset: this morning Position: arm (right) Quality: ache Timing: constant Modifying Factors (Worsening): other (lifting arm) Review of Systems See HPI for pertinent positives and negatives. A total of ten systems were reviewed and were otherwise negative. Past Medical & Surgical Medical Problems: (1) Alcohol Abuse-Unspec (2) Alcohol intoxication (3) Alcohol intoxication (4) Alcohol intoxication (5) Alcohol intoxication (6) Antisocial Personality (7) Back pain (8) Back strain (9) Chest pain (10) Depression (11) Depression (12) Diabetes (13) Esophagitis (14) Hypertension (15) Suicidal ideation (16) Unspecified Episodic Mood Disorder Family History FHx: heart disease Hypertension Social History Smoking Status: Current Every Day Smoker Alcohol Use: heavy Drug Use: none Marital Status: in relationship Housing Status: lives alone Occupation Status: unemployed Current/Historical Medications Scheduled Amlodipine (Norvasc), 10 MG PO DAILY Quetiapine Fumarate (Seroquel), 100 MG PO HS Sertraline (Zoloft), 25 MG PO DAILY Scheduled PRN Acetaminophen (Tylenol), 1,000 MG PO BID PRN for Pain Allergies Coded Allergies: No Known Allergies (Unverified , 03/08/16) Physical Exam Vital Signs Date Time Temp Pulse Resp B/P (MAP) Pulse Ox O2 Delivery O2 Flow Rate FiO2 03/03/17 17:05 78 18 155/89 97 Room Air 03/03/17 15:08 36.6 95 16 169/105 100 Room Air Physical Exam GENERAL: Awake, alert, well-appearing, in no distress HENT: Normocephalic, atraumatic. Oropharynx unremarkable. EYES: Normal conjunctiva. Sclera non-icteric. NECK: Supple. No nuchal rigidity. FROM. No JVD. RESPIRATORY: Clear to auscultation. CARDIAC: Regular rate, normal rhythm. Extremities warm and well perfused. Pulses equal. ABDOMEN: Soft, non-distended. No tenderness to palpation. No rebound or guarding. No masses. RECTAL: Deferred. MUSCULOSKELETAL: Chest examination reveals no tenderness. The back is symmetrical on inspection without obvious abnormality. There is no CVA tenderness to palpation. No joint edema. Mild tenderness of the volar right forearm flexors. No pain with passive flexion or extension, no elbow tenderness. LOWER EXTREMITIES: Calves are equal size bilaterally and non-tender. No edema. No discoloration. NEURO: Normal sensorium. No sensory or motor deficits noted. SKIN: No rash or jaundice noted. Medical Decision & Procedures ER Provider Diagnostic Interpretation: Radiology results as stated below per my review and radiologist interpretation: R ELBOW MIN 3 VIEWS ROUTINE DISCUSSION: The bones and joint spaces appear intact. There is no evidence of fracture, dislocation or bony disease. There is no evidence for soft tissue swelling. IMPRESSION: Negative study. The above report was generated using voice recognition software. It may contain grammatical, syntax or spelling errors. Electronically signed by: Gregg Bajwa M.D. 03/03/2017 3:56 PM Dictated Date/Time: 03/03/2017 3:55 PM R VENOUS DOPPLER UPR EXT UNIL FINDINGS: Study is limited secondary to patient cooperation. There is normal flow, compressibility, augmentation, and phasicity involving the deep venous structures. IMPRESSION: No sonographic evidence of deep venous thrombosis. The above report was generated using voice recognition software. It may contain grammatical, syntax or spelling errors. Electronically signed by: Adria Swanson M.D. 03/03/2017 4:57 PM Dictated Date/Time: 03/03/2017 4:56 PM Laboratory Results 03/03/17 15:40 Red Blood Count 4.71, Mean Corpuscular Volume 80.3, Mean Corpuscular Hemoglobin 27.2, Mean Corpuscular Hemoglobin Concent 33.9, Mean Platelet Volume 8.8, Neutrophils (%) (Auto) 41.7, Lymphocytes (%) (Auto) 46.5, Monocytes (%) (Auto) 9.5, Eosinophils (%) (Auto) 1.4, Basophils (%) (Auto) 0.5, Neutrophils # (Auto) 2.36, Lymphocytes # (Auto) 2.63, Monocytes # (Auto) 0.54, Eosinophils # (Auto) 0.08, Basophils # (Auto) 0.03 03/03/17 15:40 Test 03/03/17 15:40 White Blood Count 5.66 K/uL (4.8-10.8) Red Blood Count 4.71 M/uL (4.7-6.1) Hemoglobin 12.8 g/dL (14.0-18.0) Hematocrit 37.8 % (42-52) Mean Corpuscular Volume 80.3 fL (80-100) Mean Corpuscular Hemoglobin 27.2 pg (25-34) Mean Corpuscular Hemoglobin Concent 33.9 g/dl (32-36) Platelet Count 280 K/uL (130-400) Mean Platelet Volume 8.8 fL (7.4-10.4) Neutrophils (%) (Auto) 41.7 % Lymphocytes (%) (Auto) 46.5 % Monocytes (%) (Auto) 9.5 % Eosinophils (%) (Auto) 1.4 % Basophils (%) (Auto) 0.5 % Neutrophils # (Auto) 2.36 K/uL (1.4-6.5) Lymphocytes # (Auto) 2.63 K/uL (1.2-3.4) Monocytes # (Auto) 0.54 K/uL (0.11-0.59) Eosinophils # (Auto) 0.08 K/uL (0-0.5) Basophils # (Auto) 0.03 K/uL (0-0.2) RDW Standard Deviation 42.9 fL (36.4-46.3) RDW Coefficient of Variation 14.6 % (11.5-14.5) Immature Granulocyte % (Auto) 0.4 % Immature Granulocyte # (Auto) 0.02 K/uL (0.00-0.02) Anion Gap 5.0 mmol/L (3-11) Est Creatinine Clear Calc Drug Dose 133.7 ml/min Estimated GFR () 123.7 Estimated GFR (Non- 106.7 BUN/Creatinine Ratio 10.5 (10-20) Calcium Level 8.9 mg/dl (8.5-10.1) Total Bilirubin 0.2 mg/dl (0.2-1) Aspartate Amino Transf (AST/SGOT) 20 U/L (15-37) Alanine Aminotransferase (ALT/SGPT) 47 U/L (12-78) Alkaline Phosphatase 134 U/L (45-117) Total Creatine Kinase 419 U/L (39-308) Total Protein 8.1 gm/dl (6.4-8.2) Albumin 4.1 gm/dl (3.4-5.0) Globulin 4.0 gm/dl (2.5-4.0) Albumin/Globulin Ratio 1.0 (0.9-2) Laboratory results reviewed by me Medications Administered Medications (Trade) Dose Ordered Sig/Juan J Route Start Time Stop Time Status Last Admin Dose Admin Ketorolac Tromethamine (Toradol Inj) 30 mg NOW STAT IV 03/03/17 15:45 03/03/17 15:46 DC 03/03/17 15:50 30 MG ED Course 1534: The patient was evaluated in room C6. A complete history and physical exam was performed. 1543: Toradol Inj 60mg IM. 1545: Toradol 30mg IV. 1603: I reevaluated and updated the patient. 1724: I reevaluated the patient. Discussed results and discharge instructions: She verbalized understanding and agreement. The patient is ready for discharge. Medical Decision Triage Nursing notes reviewed. The patient's presentation and history were concerning for arm pain. Etiologies such as soft tissue injury, fracture, dislocation, neurovascular compromise, compartment syndrome, as well as others were entertained. The patient was evaluated. Clinically he was doing well. There is no signs of compartment syndrome on examination. He was neurovascularly intact. He had no pain with passive or active flexion of the wrist or elbow. He had some tenderness to palpation of the proximal forearm flexors. These were soft. There is no signs of infection. His pain was reproducible. He had no upper arm pain or chest pain to consider referred sources. The patient did have a slight elevation of his total CK on blood work. Imaging was unremarkable. Conservative management was recommended. The patient will be discharged back to senior care for follow-up. The patient was seen and examined with Dr. Desai, resident physician. We discussed the case and treatments ordered, reviewed the results, and determine the disposition. Please refer to the resident's note for additional details. I have been directly involved with the management and disposition as well as independently evaluated the patient as documented in this note. By the evaluation outlined above other emergent etiologies such as those listed in the differential, as well as others, were deemed relatively unlikely. The patient was educated about the findings as listed above. All questions were answered and the patient was pleased with the treatment. Return instructions were outlined and the patient was discharged in stable condition. The patient was referred to his senior care physician for follow-up for a recheck of the current condition. Medication Reconcilliation Current Medication List: was personally reviewed by me Blood Pressure Screening Patient's blood pressure: Elevated blood pressure Blood pressure disposition: Elevated BP felt to be situational Impression Primary Impression: Right arm pain Scribe Attestation The scribe's documentation has been prepared under my direction and personally reviewed by me in its entirety. I confirm that the note above accurately reflects all work, treatment, procedures, and medical decision making performed by me. Departure Information Dispostion Home / Self-Care Referrals [facility] (PCP) Patient Instructions My [facility] Additional Instructions You were evaluated in the ER for right arm pain and swelling. No cause was seen on US doppler or elbow XR. This is most likely due to your work out the previous day. Recommend you keep moving and stretching your elbow, shoulder and wrist to avoid any stiffness which can make it worse but do not work out until the pain has completely resolved and only then slowly work up to our maximum weights again. Take Ibuprofen (400mg three times /day) or Tylenol (650mg four times/day) as needed for pain Drink more clear liquids for the next 3 to 4 days. Follow up with the medical team at the senior care within the next 1-2 days for a recheck of your condition and repeat blood pressure as this was elevated while in the ER. The CPK was also mildly elevated at 419, recommend repeating in the next week to make sure stable. If you have an increasing pain, change in color of your urine, fevers, difficulty breathing, chest pain, recurrent vomiting or diarrhea, come back to the Emergency Department.
== END 2017-03-03 17:28 | disposition home or self-care (01) ==
LOC: C.EDB 15:07 → C.EDC 17:28
DX: M79.601 Pain in right arm (principal); F10.10 Alcohol abuse, uncomplicated; F17.200 Nicotine dependence, unspecified, uncomplicated; F60.2 Antisocial personality disorder; F32.9 Major depressive disorder, single episode, unspecified; E11.9 Type 2 diabetes mellitus without complications; I10 Essential (primary) hypertension; F39 Unspecified mood [affective] disorder; Z82.49 Family history of ischemic heart disease and other diseases of the circulatory system

== ENCOUNTER 2023-01-05 21:37 | Inpatient (IN) ==
[2023-01-05 22:33] LABS: Albumin Globulin Ratio 1.4 (0.9-2); BUN Creatinine Ratio 15.8 (10-20); Bilirubin,Total 0.5 mg/dl (0.2-1.0); Calcium 9.7 mg/dl (8.6-10.3); Est GFR (African American) 134.9 ml/min; Est GFR (Non-African American) 116.4 ml/min; Globulin 3.7 gm/dl (2.5-4.0); Potassium 3.2 mmol/L (3.5-5.1); Total Protein 8.7 gm/dl (6.0-8.3)
[2023-01-05] MEDS ORDERED: LORazepam 1 MG TAB SL STA (23:07)
[2023-01-05 23:31] LABS: Basophils # (auto) 0.06 K/uL (0.00-0.20); Basophils % (auto) 1.3 %; Eosinophils # (auto) 0.01 K/uL (0.00-0.50); Eosinophils % (auto) 0.2 %; Hemoglobin 15.1 g/dl (14.0-18.0); Immature Granulocytes # (auto) 0.01 K/uL (0.01-0.20); Immature Granulocytes % (auto) 0.2 %; Lymphocytes # (auto) 1.55 K/uL (1.20-3.40); Lymphocytes % (auto) 32.5 %; Mean Corpuscular Hemoglobin 28.5 pg (25.0-34.0); Mean Corpuscular Volume 79.4 fL (80.0-100.0); Mean Platelet Volume 8.6 fL (9.4-12.4); Monocytes # (auto) 0.56 K/uL (0.11-0.59); Monocytes % (auto) 11.7 %; Neutrophils # (auto) 2.58 K/uL (1.40-6.50); Neutrophils % (auto) 54.1 %; Platelet Count 262 K/uL (130-400); RDW Coefficient of Variation 14.1 % (11.5-14.5); RDW Standard Deviation 40.8 fL (36.4-46.3); Red Blood Count 5.29 M/uL (4.70-6.10); White Blood Count 4.77 K/ul (4.8-10.8)
--- NOTE | 2023-01-05 23:59 | Emergency Department Note ---
History of Present Illness General Chief complaint: Alcohol Intoxication Stated complaint: Alcohol Time Seen by Provider: 01/05/23 22:46 History of Present Illness Provider complaint: Alcohol intoxication mental health evaluation Maximum Pain Intensity: 10 52-year-old male presents emergency department. Patient reports he has been drinking beer all day and states "I want to be throughout the food". Patient states he needs help with his drinking. He denies any suicidal or homicidal ideation. He just keeps repeatedly saying "I want 302". Patient denies any fall. Patient was recently admitted to a psychiatric facility. Home Medications Medication Instructions Recorded Confirmed Type albuterol sulfate 90 mcg/actuation 2 puff inhalation QID 12/07/22 12/07/22 History aerosol inhaler amlodipine 10 mg tablet 10 mg PO DAILY 12/07/22 12/07/22 History atorvastatin 40 mg tablet 40 mg PO DAILY 12/07/22 12/07/22 History buprenorphine 8 mg-naloxone 2 mg 1 tab sublingual DAILY 12/07/22 12/07/22 History sublingual tablet gabapentin 800 mg tablet 800 mg PO TID 12/07/22 12/07/22 History lisinopril 20 mg tablet 20 mg PO DAILY 12/07/22 12/07/22 History metformin 500 mg tablet,extended 500 mg PO DAILY 12/07/22 12/07/22 History release 24 hr folic acid 1 mg tablet 1,000 mcg PO DAILY #30 tabs 12/09/22 Rx thiamine HCl (vitamin B1) 100 mg 100 mg PO DAILY #30 tabs 12/09/22 Rx tablet Allergies Allergy/AdvReac Type Severity Reaction Status Date / Time No Known Allergies Allergy Unverified 03/08/16 20:20 Past Med/Surg History Medical History Bronchitis Depression Social History Smoking Status: Current every day smoker Tobacco Type: Cigarettes Second Hand Exposure: No; Do You Dip or Chew Tobacco: No; Hx Alcohol Use: Yes Alcohol type: beer Hx Substance Use: No Preferred Language: Tamazight Communication Ability: Effective Clicker Operator Required: No Beliefs That Will Affect Care: None Current Living Situation: Family Current Living Situation Comment: lives alone Feels Safe at Home: Yes Assistive Devices: None Physical Exam Vital Signs Vital Signs - 24 hr 01/05/23 21:37 01/05/23 22:30 01/05/23 22:29 Temperature 36.6 C 36.3 C L Temperature Source Skin Oral Pulse Rate 113 H 112 H Pulse Rate [Left Brachial] 110 H Respiratory Rate 20 16 Respiratory Effort / Characteristics Respiratory Depth Normal Blood Pressure 154/111 H Blood Pressure [Left Arm] 151/125 H Blood Pressure Mean 125 Blood Pressure Mean [Left Arm] 133 Pulse Oximetry 99 99 Oxygen Delivery Method Room Air Room Air Sepsis Recent Fever Within 48 Hours No Sepsis New/Unexplained Change in Mental Status No Sepsis Action Taken by Nursing No Action Required 01/05/23 23:48 01/06/23 00:48 Temperature Temperature Source Pulse Rate Pulse Rate [Left Brachial] 112 H 112 H Respiratory Rate 18 18 Respiratory Effort / Characteristics Non-Labored Non-Labored Respiratory Depth Normal Normal Blood Pressure Blood Pressure [Left Arm] 162/123 H 173/109 H Blood Pressure Mean Blood Pressure Mean [Left Arm] 136 130 Pulse Oximetry 99 Oxygen Delivery Method Room Air Room Air Sepsis Recent Fever Within 48 Hours Sepsis New/Unexplained Change in Mental Status Sepsis Action Taken by Nursing Physical Exam GENERAL: Disheveled smells of alcohol HENT: Exam performed. - Head: Normocephalic and atraumatic. EYES: Conjunctivae and EOM are normal. Right eye exhibits no discharge. Left eye exhibits no discharge. No scleral icterus. NECK: Normal range of motion. Neck supple. No JVD present. CV: Normal rate, regular rhythm, normal heart sounds and intact distal pulses. There is no peripheral edema. Palpable radial pulses bue. PULM/CHEST: Effort normal and breath sounds normal. No respiratory distress. No stridor. no wheezes. no rales. ABD: The abdomen is soft. There is no tenderness. NEURO: Motor and sensation grossly intact. SKIN: Skin is warm and dry. He is not diaphoretic. PSYCH: Patient keeps requesting 302. Course Course 2246: The patient was evaluated in room A6. A complete history and physical exam was performed 0208: Patient medically cleared. CT scans are within normal limits. Awaiting evaluation by psychiatric case fitter. Case signed out to Dr. Britt. Administered Medications Discontinued Medications Lorazepam (Lorazepam 1 Mg Tab) 1 mg SL NOW STA Stop: 01/05/23 23:08 Last Admin: 01/05/23 23:31 Dose: 1 mg Documented By: SERENITY Medical Decision Making Laboratory Data Attestation: I reviewed the patient's lab results. 01/05/23 22:02 01/05/23 22:02 Lab Results 01/05/23 01/05/23 01/05/23 Range/Units 22:02 22:02 22:02 WBC 4.77 L (4.8-10.8) K/ul RBC 5.29 (4.70-6.10) M/uL Hgb 15.1 (14.0-18.0) g/dl Hct 42.0 (42.0-52.0) % MCV 79.4 L (80.0-100.0) fL MCH 28.5 (25.0-34.0) pg MCHC 36.0 (32.0-36.0) g/dL RDW Std Deviation 40.8 (36.4-46.3) fL RDW Coeff of Virgil 14.1 (11.5-14.5) % Plt Count 262 (130-400) K/uL MPV 8.6 L (9.4-12.4) fL Immature Gran % (Auto) 0.2 % Neut % (Auto) 54.1 % Lymph % (Auto) 32.5 % [place] % (Auto) 11.7 % Eos % (Auto) 0.2 % Baso % (Auto) 1.3 % Neut # (Auto) 2.58 (1.40-6.50) K/uL Lymph # (Auto) 1.55 (1.20-3.40) K/uL [place] # (Auto) 0.56 (0.11-0.59) K/uL Eos # (Auto) 0.01 (0.00-0.50) K/uL Baso # (Auto) 0.06 (0.00-0.20) K/uL Immature Gran # (Auto) 0.01 (0.01-0.20) K/uL Sodium 132 L (136-145) mmol/L Potassium 3.2 L (3.5-5.1) mmol/L Chloride 98 (98-107) mmol/L Carbon Dioxide 23 (21-32) mmol/L Anion Gap 11 (3-11) BUN 9 (6-23) mg/dl Creatinine 0.57 L (0.6-1.4) mg/dl Est Cr Clr Drug Dosing 153.0 ml/min Est GFR ( Amer) 134.9 ml/min Est GFR (Non-Af Amer) 116.4 ml/min BUN/Creatinine Ratio 15.8 (10-20) Glucose 101 H (70-99(Fasting)) mg/dl POC Glucose (70-99) mg/dl Calcium 9.7 (8.6-10.3) mg/dl Total Bilirubin 0.5 (0.2-1.0) mg/dl AST 57 H (13-39) U/L ALT 62 H (7-52) U/L Alkaline Phosphatase 107 H (34-104) U/L Total Protein 8.7 H (6.0-8.3) gm/dl Albumin 5.0 (3.4-5.0) gm/dl Globulin 3.7 (2.5-4.0) gm/dl Albumin/Globulin Ratio 1.4 (0.9-2) TSH (0.300-4.500) uIu/ml Salicylates (3.0-30) mg/dl Acetaminophen (10-30) ug/ml Ethyl Alcohol mg/dL 160.4 H (<10.0) mg/dl 01/05/23 01/05/23 01/05/23 Range/Units 22:02 22:02 22:33 WBC (4.8-10.8) K/ul RBC (4.70-6.10) M/uL Hgb (14.0-18.0) g/dl Hct (42.0-52.0) % MCV (80.0-100.0) fL MCH (25.0-34.0) pg MCHC (32.0-36.0) g/dL RDW Std Deviation (36.4-46.3) fL RDW Coeff of Virgil (11.5-14.5) % Plt Count (130-400) K/uL MPV (9.4-12.4) fL Immature Gran % (Auto) % Neut % (Auto) % Lymph % (Auto) % [place] % (Auto) % Eos % (Auto) % Baso % (Auto) % Neut # (Auto) (1.40-6.50) K/uL Lymph # (Auto) (1.20-3.40) K/uL [place] # (Auto) (0.11-0.59) K/uL Eos # (Auto) (0.00-0.50) K/uL Baso # (Auto) (0.00-0.20) K/uL Immature Gran # (Auto) (0.01-0.20) K/uL Sodium (136-145) mmol/L Potassium (3.5-5.1) mmol/L Chloride (98-107) mmol/L Carbon Dioxide (21-32) mmol/L Anion Gap (3-11) BUN (6-23) mg/dl Creatinine (0.6-1.4) mg/dl Est Cr Clr Drug Dosing ml/min Est GFR ( Amer) ml/min Est GFR (Non-Af Amer) ml/min BUN/Creatinine Ratio (10-20) Glucose (70-99(Fasting)) mg/dl POC Glucose 92 (70-99) mg/dl Calcium (8.6-10.3) mg/dl Total Bilirubin (0.2-1.0) mg/dl AST (13-39) U/L ALT (7-52) U/L Alkaline Phosphatase (34-104) U/L Total Protein (6.0-8.3) gm/dl Albumin (3.4-5.0) gm/dl Globulin (2.5-4.0) gm/dl Albumin/Globulin Ratio (0.9-2) TSH 0.989 (0.300-4.500) uIu/ml Salicylates < 3.0 L (3.0-30) mg/dl Acetaminophen < 3 L (10-30) ug/ml Ethyl Alcohol mg/dL (<10.0) mg/dl Imaging Data Radiologist's Impression: Cervical Spine CT 01/05/23 22:47 Exam(s): CT C SPINE EXAM: CT Cervical Spine Without Intravenous Contrast CLINICAL HISTORY: Reason for exam: etoh fall. TECHNIQUE: Axial computed tomography images of the cervical spine without intravenous contrast. CTDI is 26.43 mGy and DLP is 618.08 mGy-cm. Automated exposure control was utilized for the study. A dose lowering technique was utilized adhering to the principles of ALARA. COMPARISON: No relevant prior studies available. FINDINGS: No fracture or subluxations are noted. The vertebral body heights and alignment are preserved. No prevertebral soft tissue swelling. Note is made of multilevel cervical spondylosis with varying degrees of central canal and foramina stenoses. IMPRESSION: 1. No cervical fractures. 2. Cervical spondylosis with varying degrees of central canal and foramina stenoses. Electronically signed by: Tomás Rushing MD 01/05/23 23:[address] 01/05/23 22:47 Exam(s): CT HEAD Without Contrast EXAM: CT Head Without Intravenous Contrast CLINICAL HISTORY: Reason for exam: etoh fall. TECHNIQUE: Axial computed tomography images of the head/brain without intravenous contrast. CTDI is 39.03 mGy and DLP is 624.41 mGy-cm. Automated exposure control was utilized for the study. A dose lowering technique was utilized adhering to the principles of ALARA. COMPARISON: No relevant prior studies available. FINDINGS: Brain: Exam limited secondary to patient motion artifact. Within the limitations exam no acute intracranial hemorrhage or acute transcortical infarct is identified on this study.. Nondisplaced nasal bone fracture. No significant white matter disease. Ventricles: Unremarkable. No ventriculomegaly. Bones/joints: See above. Soft tissues: Unremarkable. Sinuses: Unremarkable as visualized. No acute sinusitis. Mastoid air cells: Unremarkable as visualized. No mastoid effusion. IMPRESSION: 1. Limited exam 2. Grossly no focal intracranial abnormality. Electronically signed by: Tomás Rushing MD 01/06/23 00:01 AM [facility] Narrative 2246: The patient was evaluated in room A6. A complete history and physical exam was performed 0208: Patient medically cleared. CT scans are within normal limits. Awaiting evaluation by psychiatric case fitter. Case signed out to Dr. Britt. Impression & Plan Alcoholic intoxication Discharge Plan Visit Data Chief Complaint: Alcohol Intoxication Stated Complaint: Alcohol ED Provider: Smitha Britt Discharge Problem: Alcoholic intoxication Patient Disposition: Still a Patient Discharge Instructions Kraarmani/Other Patient Handouts: ED [facility] Alcohol Abuse Forms Stand Alone Forms: My [facility] Crunchbutton Prescriptions Prescriptions: No Action atorvastatin 40 mg tablet 40 mg PO DAILY lisinopril 20 mg tablet 20 mg PO DAILY gabapentin 800 mg tablet 800 mg PO TID amlodipine 10 mg tablet 10 mg PO DAILY albuterol sulfate 90 mcg/actuation HFA aerosol inhaler 2 puff INHALATION QID metformin 500 mg tablet extended release 24 hr 500 mg PO DAILY buprenorphine-naloxone 8-2 mg tablet, sublingual 1 tab SUBLINGUAL DAILY thiamine HCl (vitamin B1) 100 mg tablet 100 mg PO DAILY Qty: 30 0RF folic acid 1 mg tablet 1,000 mcg PO DAILY Qty: 30 0RF Referrals Referrals: Katia Martin MD [Primary Care Provider] -
--- NOTE | 2023-01-06 00:02 | CT Scan Report ---
Exam(s): CT HEAD Without Contrast EXAM: CT Head Without Intravenous Contrast CLINICAL HISTORY: Reason for exam: etoh fall. TECHNIQUE: Axial computed tomography images of the head/brain without intravenous contrast. CTDI is 39.03 mGy and DLP is 624.41 mGy-cm. Automated exposure control was utilized for the study. A dose lowering technique was utilized adhering to the principles of ALARA. COMPARISON: No relevant prior studies available. FINDINGS: Brain: Exam limited secondary to patient motion artifact. Within the limitations exam no acute intracranial hemorrhage or acute transcortical infarct is identified on this study.. Nondisplaced nasal bone fracture. No significant white matter disease. Ventricles: Unremarkable. No ventriculomegaly. Bones/joints: See above. Soft tissues: Unremarkable. Sinuses: Unremarkable as visualized. No acute sinusitis. Mastoid air cells: Unremarkable as visualized. No mastoid effusion. IMPRESSION: 1. Limited exam 2. Grossly no focal intracranial abnormality. Electronically signed by: Tomás Rushing MD 01/06/23 00:01 AM
[2023-01-06 00:12] LABS: Acetaminophen < 3 ug/ml (10-30); Salicylate < 3.0 mg/dl (3.0-30)
--- NOTE | 2023-01-06 02:05 | Emergency Department Note ---
ED Visit Note I received this patient in signout at the change of shift from Dr. Melvin pending psychiatric case management evaluation. Patient was drinking alcohol earlier tonight and was not medically cleared for mental health case work aide's evaluation. Patient developed withdrawal symptoms with tachycardia and hypertension during the psychiatric evaluation. He is felt to be in acute alcohol withdrawal. He was given 2 mg of sublingual Ativan however he spit it out according to the nursing staff. IV access was obtained and the patient was given a banana bag and placed on the CIWA protocol for alcohol withdrawal. Intravenous Ativan was ordered. Patient was also started on the gabapentin oral load. Case was discussed with the hospitalist service who will evaluate patient for admission and further management. .
[2023-01-06] MEDS ORDERED: LORazepam 1 MG TAB SL STA (02:33)
[2023-01-06] MEDS ORDERED: MULTI-VITAMIN INFUSION 10 ML, THIAMINE HCL 100 MG, FOLIC ACID 1 MG in SODIUM CHLORIDE 0... IV ONE (02:33)
[2023-01-06] MEDS ORDERED: GABAPENTIN 1200MG ALCOHOL WITHDRAWAL LOAD PO STA (03:34)
[2023-01-06] MEDS ORDERED: LORazepam 2 MG/1 ML VIAL IV PRN ×2 (03:34)
[2023-01-06] MEDS ORDERED: Ativan IV Alcohol Withdrawal--Active Protocol IV PRN (03:34)
[2023-01-06 03:52] LABS: INR 0.9 (0.9-1.1); Prothrombin Time 10.1 Seconds (9.0-12.0)
[2023-01-06] MEDS: GABAPENTIN 600 MG TAB PO ONE ×2 (03:54→04:55)
[2023-01-06] MEDS ORDERED: cloNIDine HCL 0.1 MG TAB PO STA (03:54)
[2023-01-06 04:04] LABS: Magnesium 2.3 mg/dl (1.7-2.4)
[2023-01-06] MEDS ORDERED: METOPROLOL TARTRATE 1 MG/ML VIAL IV STA (04:18)
--- NOTE | 2023-01-06 04:19 | History & Physical Report ---
Date of Service January 06, 2023 Assessment & Plan (1) Alcohol withdrawal: Plan: hypertension, elevated secondary to illness hyperlipidemia, on statin Rx DM 2 on oral medications, well-controlled as of recent hemoglobin A1c of 5.4 last month chronic anemia, hemoglobin better than baseline secondary to hemoconcentration Hypokalemia ongoing tobacco abuse. PCU KELLI S, DT precautions Verify home medications with patient once more awake. Replace potassium ISS BG goal 1 10-1 40, carb count coverage Nicotine patch as needed DVT prophylaxis. Lovenox subcu Full code Text document was generated using [employer] voice recognition software. It may contain grammatical or spelling errors. Kindly contact undersigned for clarification of any documentation item in question. History of Present Illness Chief Complaint: Right eye pain, detox as per patient Primary Care Provider: Katia Martin MD History obtained from ER provider and records. Unable to obtain history from patient secondary to obtunded state post Ativan administration at the ER. Medical history significant for hypertension, hyperlipidemia, DM 2 on oral medications, chronic anemia (baseline hemoglobin of 13), ongoing tobacco/alcohol abuse. Recent confinement last month for alcoholic intoxication and possible aspiration patient left AGAINST MEDICAL ADVICE. Patient consulted ER last night because of right eye pain complaints and request for detox. 3 mg IV Ativan administered at the ER for alcohol withdrawal. Patient currently obtunded and unable to respond to questions. Medical History as above Surgical History : None Family History : Heart disease Personal/Social history : One 4 pack daily, alcohol abuse Allergies Allergy/AdvReac Type Severity Reaction Status Date / Time No Known Allergies Allergy Unverified 03/08/16 20:20 Home Medications Medication Instructions Recorded Confirmed Type albuterol sulfate 90 mcg/actuation 2 puff inhalation QID 12/07/22 12/07/22 History aerosol inhaler amlodipine 10 mg tablet 10 mg PO DAILY 12/07/22 12/07/22 History atorvastatin 40 mg tablet 40 mg PO DAILY 12/07/22 12/07/22 History buprenorphine 8 mg-naloxone 2 mg 1 tab sublingual DAILY 12/07/22 12/07/22 History sublingual tablet gabapentin 800 mg tablet 800 mg PO TID 12/07/22 12/07/22 History lisinopril 20 mg tablet 20 mg PO DAILY 12/07/22 12/07/22 History metformin 500 mg tablet,extended 500 mg PO DAILY 12/07/22 12/07/22 History release 24 hr folic acid 1 mg tablet 1,000 mcg PO DAILY #30 tabs 12/09/22 Rx thiamine HCl (vitamin B1) 100 mg 100 mg PO DAILY #30 tabs 12/09/22 Rx tablet Past Med/Surg History Medical History Bronchitis Depression Social History Smoking Status: Current every day smoker Tobacco Type: Cigarettes Second Hand Exposure: No; Do You Dip or Chew Tobacco: No; Hx Alcohol Use: Yes Alcohol type: beer Hx Substance Use: No Preferred Language: Yakut Communication Ability: Effective Manager Drug Safety Required: No Beliefs That Will Affect Care: None Current Living Situation: Family Current Living Situation Comment: lives alone Feels Safe at Home: Yes Assistive Devices: None Review of Systems Review of Systems: Could not be reliably obtained secondary to obtunded state Physical Exam Physical Exam: GENERAL: Obtunded, no respiratory distress SKIN: Pallor, warm HEENT: Pale palpebral conjunctivae, no ptosis, dry buccal mucosa NECK : Supple, no tenderness CHEST : CTA, no tenderness HEART : Tachycardic, no obvious murmurs ABDOMEN: Some distention, nontender EXTREMITIES : No LE swelling/tenderness, no other conspicuous deformities noted NEUROLOGIC : Obtunded, no facial asymmetry, gait and stance not assessed Results & Data Results & Data Vital Signs (Past 12 Hours) Vital Signs Temp Pulse Pulse Resp BP BP Pulse Ox 01/06/23 03:05 115 H 20 163/112 H 98 01/06/23 00:48 112 H 18 173/109 H 01/05/23 23:48 112 H 18 162/123 H 99 01/05/23 22:29 112 H 01/05/23 22:30 36.3 C L 110 H 16 151/125 H 99 01/05/23 21:37 36.6 C 113 H 20 154/111 H 99 O2 Del Method 01/06/23 03:05 Room Air 01/06/23 00:48 Room Air 01/05/23 23:48 Room Air 01/05/23 22:29 01/05/23 22:30 Room Air 01/05/23 21:37 Room Air Laboratory Results Laboratory Results WBC 4.77 K/ul (4.8-10.8) L 01/05/23 22: RBC 5.29 M/uL (4.70-6.10) 01/05/23 22: Hgb 15.1 g/dl (14.0-18.0) 01/05/23 22: Hct 42.0 % (42.0-52.0) 01/05/23 22: MCV 79.4 fL (80.0-100.0) L 01/05/23 22: MCH 28.5 pg (25.0-34.0) 01/05/23 22: MCHC 36.0 g/dL (32.0-36.0) 01/05/23: RDW Std Deviation 40.8 fL (36.4-46.3) 01/05/23: RDW Coeff of Virgil 14.1 % (11.5-14.5) 01/05/23: Plt Count 262 K/uL (130-400) 01/05/23 22: MPV 8.6 fL (9.4-12.4) L 01/05/23 22: Immature Gran % (Auto) 0.2 % 01/05/23 22: Neut % (Auto) 54.1 % 01/05/23: Lymph % (Auto) 32.5 % 01/05/23: [place] % (Auto) 11.7 % 01/05/23: Eos % (Auto) 0.2 % 01/05/23: Baso % (Auto) 1.3 % 01/05/23: Neut # (Auto) 2.58 K/uL (1.40-6.50) 01/05/23 22: Lymph # (Auto) 1.55 K/uL (1.20-3.40) 01/05/23 22: [place] # (Auto) 0.56 K/uL (0.11-0.59) 01/05/23 22: Eos # (Auto) 0.01 K/uL (0.00-0.50) 01/05/23 22: Baso # (Auto) 0.06 K/uL (0.00-0.20) 01/05/23: Immature Gran # (Auto) 0.01 K/uL (0.01-0.20) 01/05/23 22:02 PT 10.1 Seconds (9.0-12.0) 01/05/23 22:02 INR 0.9 (0.9-1.1) 01/05/23 22:02 Sodium 132 mmol/L (136-145) L 01/05/23 22:02 Potassium 3.2 mmol/L (3.5-5.1) L 01/05/23 22:02 Chloride 98 mmol/L (98-107) 01/05/23 22:02 Carbon Dioxide 23 mmol/L (21-32) 01/05/23 22:02 Anion Gap 11 (3-11) 01/05/23 22:02 BUN 9 mg/dl (6-23) 01/05/23 22:02 Creatinine 0.57 mg/dl (0.6-1.4) L 01/05/23 22:02 Est Cr Clr Drug Dosing 153.0 ml/min 01/05/23 22:02 Est GFR ( Amer) 134.9 ml/min 01/05/23 22:02 Est GFR (Non-Af Amer) 116.4 ml/min 01/05/23 22:02 BUN/Creatinine Ratio 15.8 (10-20) 01/05/23 22:02 Glucose 101 mg/dl (70-99(Fasting)) H 01/05/23 22:02 POC Glucose 92 mg/dl (70-99) 01/05/23 22:33 Calcium 9.7 mg/dl (8.6-10.3) 01/05/23 22: Magnesium 2.3 mg/dl (1.7-2.4) 01/05/23 22:02 Total Bilirubin 0.5 mg/dl (0.2-1.0) 01/05/23 22:02 AST 57 U/L (13-39) H 01/05/23 22:02 ALT 62 U/L (7-52) H 01/05/23 22:02 Alkaline Phosphatase 107 U/L (34-104) H 01/05/23 22:02 Total Protein 8.7 gm/dl (6.0-8.3) H 01/05/23 22: Albumin 5.0 gm/dl (3.4-5.0) 01/05/23 22:02 Globulin 3.7 gm/dl (2.5-4.0) 01/05/23 22:02 Albumin/Globulin Ratio 1.4 (0.9-2) 01/05/23 22:02 TSH 0.989 uIu/ml (0.300-4.500) 01/05/23 22:02 Salicylates < 3.0 mg/dl (3.0-30) L 01/05/23 22:02 Acetaminophen < 3 ug/ml (10-30) L 01/05/23 22:02 Ethyl Alcohol mg/dL 160.4 mg/dl (<10.0) H 01/05/23 22:[address] 01/05/23 22:47 Exam(s): CT C SPINE EXAM: CT Cervical Spine Without Intravenous Contrast CLINICAL HISTORY: Reason for exam: etoh fall. TECHNIQUE: Axial computed tomography images of the cervical spine without intravenous contrast. CTDI is 26.43 mGy and DLP is 618.08 mGy-cm. Automated exposure control was utilized for the study. A dose lowering technique was utilized adhering to the principles of ALARA. COMPARISON: No relevant prior studies available. FINDINGS: No fracture or subluxations are noted. The vertebral body heights and alignment are preserved. No prevertebral soft tissue swelling. Note is made of multilevel cervical spondylosis with varying degrees of central canal and foramina stenoses. IMPRESSION: 1. No cervical fractures. 2. Cervical spondylosis with varying degrees of central canal and foramina stenoses. Electronically signed by: Tomás Rushing MD 01/05/23 23:[address] 01/05/23 22:47 Exam(s): CT HEAD Without Contrast EXAM: CT Head Without Intravenous Contrast CLINICAL HISTORY: Reason for exam: etoh fall. TECHNIQUE: Axial computed tomography images of the head/brain without intravenous contrast. CTDI is 39.03 mGy and DLP is 624.41 mGy-cm. Automated exposure control was utilized for the study. A dose lowering technique was utilized adhering to the principles of ALARA. COMPARISON: No relevant prior studies available. FINDINGS: Brain: Exam limited secondary to patient motion artifact. Within the limitations exam no acute intracranial hemorrhage or acute transcortical infarct is identified on this study.. Nondisplaced nasal bone fracture. No significant white matter disease. Ventricles: Unremarkable. No ventriculomegaly. Bones/joints: See above. Soft tissues: Unremarkable. Sinuses: Unremarkable as visualized. No acute sinusitis. Mastoid air cells: Unremarkable as visualized. No mastoid effusion. IMPRESSION: 1. Limited exam 2. Grossly no focal intracranial abnormality. Electronically signed by: Tomás Rushing MD 01/06/23 00:01 AM Diagnostic Findings EKG as per my interpretation :Rate 115, sinus tachycardia, normal axis, incomplete RBBB, nonspecific T wave abnormalities
[2023-01-06] MEDS ORDERED: ACETAMINOPHEN 500 MG TAB PO PRN (04:24)
[2023-01-06] MEDS ORDERED: PROMETHAZINE HCL 6.25 MG in SODIUM CHLORIDE 0.9% 50 ML IV PRN (04:24)
[2023-01-06] MEDS: POTASSIUM CHLORIDE / WTR 10 MEQ/100 ML PLCT IV SCH ×4 (04:47→07:57)
[2023-01-06] MEDS ORDERED: DEXTROSE 50% 50 ML SYRINGE IV PRN (05:53)
[2023-01-06] MEDS ORDERED: GLUCOSE 40% GEL 15 GM TUBE PO PRN (05:53)
[2023-01-06] MEDS ORDERED: CARBOHYDRATES FOR HYPOGLYCEMIA PO PRN (05:53)
[2023-01-06] MEDS ORDERED: GLUCOSE 10 TAB/TUBE PO PRN (05:53)
[2023-01-06] MEDS ORDERED: GLUCAGON FOR INJ 1 MG VIAL SQ PRN (05:53)
[2023-01-06] MEDS: INSULIN ASPART PER UNIT CHARGE SC SCH ×4 (06:06→20:39)
--- NOTE | 2023-01-06 08:30 | XRay Report ---
XR chest 1V portable HISTORY: 52 years-old Male hyponatremia COMPARISON: 12/07/2022 TECHNIQUE: AP view of the chest FINDINGS: The cardiomediastinal and hilar silhouettes are within normal limits. No pneumothorax, pleural effusi on, airspace consolidation or pulmonary edema. Bones of the chest appear grossly intact. IMPRESSION: No acute process. ACT 112: Negative or not required by law. The above report was generated using voice recognition software. It may contain grammatical, syntax o r spelling errors. Electronically signed by: Adam Swanson M.D. 01/06/2023 8:29 AM
[2023-01-06] MEDS: ENOXAPARIN INJ 40 MG/0.4 ML SYR SQ SCH (10:36)
[2023-01-06] MEDS: GABAPENTIN 600 MG TAB PO SCH ×3 (10:36→23:33)
[2023-01-06 12:48] LABS: Basophils # (auto) 0.04 K/uL (0.00-0.20); Basophils % (auto) 0.8 %; Eosinophils # (auto) 0.03 K/uL (0.00-0.50); Eosinophils % (auto) 0.6 %; Hemoglobin 13.2 g/dl (14.0-18.0); Immature Granulocytes # (auto) 0.01 K/uL (0.01-0.20); Immature Granulocytes % (auto) 0.2 %; Lymphocytes # (auto) 1.26 K/uL (1.20-3.40); Mean Corpuscular Hemoglobin 28.6 pg (25.0-34.0); Mean Corpuscular Hgb Conc 34.7 g/dL (32.0-36.0); Mean Corpuscular Volume 82.4 fL (80.0-100.0); Mean Platelet Volume 8.6 fL (9.4-12.4); Monocytes # (auto) 0.75 K/uL (0.11-0.59); Monocytes % (auto) 14.3 %; Neutrophils # (auto) 3.16 K/uL (1.40-6.50); Neutrophils % (auto) 60.1 %; Platelet Count 199 K/uL (130-400); RDW Coefficient of Variation 14.5 % (11.5-14.5); RDW Standard Deviation 43.1 fL (36.4-46.3); Red Blood Count 4.61 M/uL (4.70-6.10); White Blood Count 5.25 K/ul (4.8-10.8)
[2023-01-06 13:02] LABS: Albumin Globulin Ratio 1.4 (0.9-2); Albumin Level 4.1 gm/dl (3.4-5.0); Bilirubin,Total 0.8 mg/dl (0.2-1.0); Calcium 8.6 mg/dl (8.6-10.3); Creatinine Clr Calc Pharmacy 142.9 ml/min; Est GFR (African American) 131.2 ml/min; Est GFR (Non-African American) 113.2 ml/min; Globulin 2.9 gm/dl (2.5-4.0); Potassium 3.8 mmol/L (3.5-5.1)
--- NOTE | 2023-01-06 13:20 | Electrocardiogram Report ---
Test Reason : Blood Pressure : / mmHG Vent. Rate : 113 BPM Atrial Rate : 113 BPM P-R Int : 168 ms QRS Dur : 080 ms QT Int : 330 ms P-R-T Axes : 063 032 014 degrees QTc Int : 452 ms Sinus tachycardia Biatrial enlargement Diffuse Minor Nonspecific T wave abnormality Abnormal ECG When compared with ECG of 06-DEC-2022 21:26, Premature ventricular complexes are no longer Present ST no longer elevated in Anterior leads Nonspecific T wave abnormality now present Confirmed by Pawan Rice ([id number]) on 01/06/2023 1:19:51 PM Referred By: REFERRED SELF Confirmed By:Pawan Rice
--- NOTE | 2023-01-06 15:05 | Communication Note ---
Date of Service: January 06, 2023 Patient was seen and examined at bedside. 52-year-old male w/ PMH of type 2 diabetes, hyperlipidemia, hypertension, bilateral hip joint arthritis, chronic back pain, schizophrenia, tobacco use disorder was brought in for detox. He is being managed for the following: Alcohol intoxication/Withdrawal Came in with request for detox, admitting alc level 160.4; was obtunded at presentation Admitting CT head/C-spine CT/CXR negative for acute findings. Patient has been counseled regarding alcohol cessation multiple times in the past; patient left AMA from his recent confinement for alcohol intoxication. He drinks 7-8 beers a day along with 3-4 drinks of bailey every day as per past interaction, today patient was drowsy and could not confirm his new baseline intake. Not sure about his last alcohol drink but given high alcohol level at presentation, most likely on the day of arrival. AWSS protocol, folic acid, thiamine, multivitamin tablets. Continue telemetry monitoring. Hyponatremia:Most likely beer potomania. Increase solute intake in diet. Improving. Hypokalemia: Monitor and replete Other chronic medical conditions: Continue with/resume home meds as and when able. hypertension, elevated secondary to illness. Continue with home amlodipine and lisinopril hyperlipidemia, on statin Rx DM 2 on oral medications, well-controlled as of recent hemoglobin A1c of 5.4 last month. Hold home metformin, on sliding scale chronic anemia, stable ongoing tobacco abuse. As needed nicotine patch. Full code DVT prophylaxis: Enoxaparin. For detailed information on the patient, refer to today's H&P note.
[2023-01-06 21:23] LABS: Appearance Urine Clear (Clear); Bilirubin Urine Negative (Negative); Blood Urine Negative (Negative); Color Urine Yellow; Glucose Urine UA Negative (Negative); Ketones Urine Trace (Negative); Leukocyte Esterase Urine Negative (Negative); Nitrite Urine Negative (Negative); Protein Urine Negative (Negative); Specific Gravity Urine 1.011 (1.000-1.030); Urobilinogen Urine Negative (Negative); pH Urine 7.5 (4.5-7.5)
[2023-01-06 21:50] LABS: Amphetamines+Metham, Urine Neg (Neg); Barbiturates, Urine Neg (Neg); Benzodiazepine, Urine Neg (Neg); Cocaine, Urine Neg (Neg); MDMA (Ecstacy), Urine Neg (Neg); Methadone, Urine Neg (Neg); Opiate, Urine Neg (Neg); Phencyclidine, Urine Neg (Neg)
[2023-01-07 07:20] LABS: Hematocrit (blood only) 37.7 % (42.0-52.0); Hemoglobin 12.9 g/dl (14.0-18.0); Mean Corpuscular Hemoglobin 28.2 pg (25.0-34.0); Mean Corpuscular Hgb Conc 34.2 g/dL (32.0-36.0); Mean Corpuscular Volume 82.5 fL (80.0-100.0); Mean Platelet Volume 8.7 fL (9.4-12.4); Platelet Count 192 K/uL (130-400); RDW Coefficient of Variation 14.2 % (11.5-14.5); RDW Standard Deviation 42.1 fL (36.4-46.3); Red Blood Count 4.57 M/uL (4.70-6.10)
[2023-01-07 07:45] LABS: Albumin Globulin Ratio 1.4 (0.9-2); Albumin Level 3.9 gm/dl (3.4-5.0); Bilirubin,Total 0.8 mg/dl (0.2-1.0); Calcium 8.9 mg/dl (8.6-10.3); Est GFR (African American) 134.9 ml/min; Est GFR (Non-African American) 116.4 ml/min; Globulin 2.7 gm/dl (2.5-4.0); Phosphorus 4.4 mg/dl (2.5-4.9); Potassium 3.4 mmol/L (3.5-5.1); Total Protein 6.6 gm/dl (6.0-8.3)
[2023-01-07] MEDS ORDERED: POTASSIUM CHLORIDE CRTAB 20 MEQ TABCR PO STA (08:38)
[2023-01-07] MEDS: INSULIN ASPART PER UNIT CHARGE SC SCH ×4 (08:39→21:42)
[2023-01-07] MEDS: BUPRENORPHINE/NALOXONE 8/2 MG TAB SL SCH (08:40)
[2023-01-07] MEDS: LORazepam 2 MG/1 ML VIAL IV PRN ×2 (08:41→13:07)
[2023-01-07] MEDS: ATORVASTATIN 40 MG TAB PO SCH (08:42)
[2023-01-07] MEDS: GABAPENTIN 600 MG TAB PO SCH ×2 (08:42→16:07)
[2023-01-07] MEDS: THIAMINE HCL 100 MG TAB PO SCH (08:43)
[2023-01-07] MEDS: FOLIC ACID 1 MG TAB PO SCH (08:43)
[2023-01-07] MEDS: amLODIPine BESYLATE 5 MG TAB PO SCH (08:43)
[2023-01-07] MEDS: MULTIVITAMIN TAB PO SCH (08:43)
[2023-01-07] MEDS: lisinopril 20 MG TAB PO SCH (08:44)
[2023-01-07] MEDS: ENOXAPARIN INJ 40 MG/0.4 ML SYR SQ SCH (08:44)
--- NOTE | 2023-01-07 15:46 | Hospitalist Progress Note ---
Date of Service January 07, 2023 Assessment & Plan (1) Alcohol withdrawal: Plan 52-year-old male w/ PMH of type 2 diabetes, hyperlipidemia, hypertension, bilateral hip joint arthritis, chronic back pain, schizophrenia, tobacco use disorder was brought in for detox. He is being managed for the following: Alcohol intoxication/Withdrawal Came in with request for detox, admitting alc level 160.4; was obtunded at presentation Admitting CT head/C-spine CT/CXR negative for acute findings. Patient has been counseled regarding alcohol cessation multiple times in the past; patient left AMA from his recent confinement for alcohol intoxication. He drinks 48 ounces of beers a day along with 5-7 drinks of bailey every day, last drink 01/05 per pt. AWSS protocol, folic acid, thiamine, multivitamin tablets. Continue telemetry monitoring. Hyponatremia:Most likely beer potomania. Increase solute intake in diet. Improving. Hypokalemia: Monitor and replete Other chronic medical conditions: Continue with/resume home meds as and when able. hypertension, elevated secondary to illness. Continue with home amlodipine and lisinopril hyperlipidemia, on statin Rx DM 2 on oral medications, well-controlled as of recent hemoglobin A1c of 5.4 last month. Hold home metformin, on sliding scale chronic anemia, stable ongoing tobacco abuse. As needed nicotine patch. Full code DVT prophylaxis: Enoxaparin. Admission and Anticipated Discharge Date Admission Date: January 06, 2023 Subjective Patient was seen and examined at bedside. Patient was drowsy, minimal history could be elicited, reports drinking 48 ounces of beer a day and several drinks of bailey. Denies pain. Denies headache or dizziness. Physical Exam Physical Exam: GENERAL: Drowsy. NAD, on RA. HEENT: No pallor, no icterus. Pupils equal, round and reactive to light. Oral mucosa moist. NECK: No JVD, no neck masses. HEART: S1 and S2 heard. Regular rate and rhythm. No murmur, no gallop. RESPIRATORY SYSTEM: Normal AP diameter. No accessory muscle use. No wheezing, no crackles. ABDOMEN: Soft, bowel sounds present, nontender, no distention. CENTRAL NERVOUS SYSTEM: No facial droop. Speech is clear. Obeys simple commands. Moves extremities. EXTREMITIES: No edema, no erythema seen. Results & Data Results & Data Vital Signs (Past 12 Hours) Vital Signs Temp Pulse Resp BP Pulse Ox Pulse Ox O2 Del Method 01/07/23 11:19 36.7 C 94 H 18 129/84 97 Room Air 01/07/23 08:27 37.4 C 99 H 18 130/85 99 Room Air 01/07/23 05:44 95
[2023-01-08] MEDS ORDERED: GABAPENTIN 600 MG TAB PO SCH (03:45)
[2023-01-08 08:25] LABS: Albumin Level 3.9 gm/dl (3.4-5.0); Bilirubin,Total 0.4 mg/dl (0.2-1.0); Calcium 8.9 mg/dl (8.6-10.3); Potassium 3.8 mmol/L (3.5-5.1)
[2023-01-08 08:31] LABS: Albumin Globulin Ratio 1.5 (0.9-2); BUN Creatinine Ratio 29.8 (10-20); Est GFR (African American) 134.9 ml/min; Est GFR (Non-African American) 116.4 ml/min; Globulin 2.6 gm/dl (2.5-4.0); Total Protein 6.5 gm/dl (6.0-8.3)
[2023-01-08] MEDS: LORazepam 2 MG/1 ML VIAL IV PRN (09:35)
[2023-01-08] MEDS: THIAMINE HCL 100 MG TAB PO SCH (09:35)
[2023-01-08] MEDS: amLODIPine BESYLATE 5 MG TAB PO SCH (09:35)
[2023-01-08] MEDS: MULTIVITAMIN TAB PO SCH (09:35)
[2023-01-08] MEDS: FOLIC ACID 1 MG TAB PO SCH (09:35)
[2023-01-08] MEDS: lisinopril 20 MG TAB PO SCH (09:35)
[2023-01-08] MEDS: ATORVASTATIN 40 MG TAB PO SCH (09:36)
[2023-01-08] MEDS: ENOXAPARIN INJ 40 MG/0.4 ML SYR SQ SCH (09:39)
[2023-01-08] MEDS: BUPRENORPHINE/NALOXONE 8/2 MG TAB SL SCH (09:39)
[2023-01-08] MEDS: INSULIN ASPART PER UNIT CHARGE SC SCH ×2 (09:40→13:35)
--- NOTE | 2023-01-08 14:20 | Discharge Summary ---
Date of Service January 08, 2023 Admission HPI Per Admitting Provider History obtained from ER provider and records. Unable to obtain history from patient secondary to obtunded state post Ativan administration at the ER. Medical history significant for hypertension, hyperlipidemia, DM 2 on oral medications, chronic anemia (baseline hemoglobin of 13), ongoing tobacco/alcohol abuse. Recent confinement last month for alcoholic intoxication and possible aspiration patient left AGAINST MEDICAL ADVICE. Patient consulted ER last night because of right eye pain complaints and request for detox. 3 mg IV Ativan administered at the ER for alcohol withdrawal. Patient currently obtunded and unable to respond to questions. Medical History as above Surgical History : None Family History : Heart disease Personal/Social history : One 4 pack daily, alcohol abuse Admission Exam Per Admitting Provider GENERAL: Drowsy. NAD, on RA. HEENT: No pallor, no icterus. Pupils equal, round and reactive to light. Oral mucosa moist. NECK: No JVD, no neck masses. HEART: S1 and S2 heard. Regular rate and rhythm. No murmur, no gallop. RESPIRATORY SYSTEM: Normal AP diameter. No accessory muscle use. No wheezing, no crackles. ABDOMEN: Soft, bowel sounds present, nontender, no distention. CENTRAL NERVOUS SYSTEM: No facial droop. Speech is clear. Obeys simple comma nds. Moves extremities. EXTREMITIES: No edema, no erythema seen. Principal Diagnosis Alcohol withdrawal Discharge Exam GENERAL: Alert and oriented x3. NAD, on RA. HEENT: No pallor, no icterus. Pupils equal, round and reactive to light. Oral mucosa moist. NECK: No JVD, no neck masses. HEART: S1 and S2 heard. Regular rate and rhythm. No murmur, no gallop. RESPIRATORY SYSTEM: Normal AP diameter. No accessory muscle use. No wheezing, no crackles. ABDOMEN: Soft, bowel sounds present, nontender, no distention. CENTRAL NERVOUS SYSTEM: No facial droop. Speech is clear. Obeys simple commands. Moves extremities. EXTREMITIES: No edema, no erythema seen. Discharge Data Allergies Allergy/AdvReac Type Severity Reaction Status Date / Time No Known Allergies Allergy Unverified 03/08/16 20:20 Consultations 01/06/23 03:30 ED Decision to Admit Stat Ordered Studies 01/05/23 22:47 CT cervical spine wo con Stat CT head/brain wo con Stat Hospital Course (1) Alcohol withdrawal: Plan 52-year-old male w/ PMH of type 2 diabetes, hyperlipidemia, hypertension, bilateral hip joint arthritis, chronic back pain, schizophrenia, tobacco use disorder was brought in for detox. He was being managed for the following: Alcohol intoxication/Withdrawal Came in with request for detox, admitting alc level 160.4; was obtunded at presentation Admitting CT head/C-spine CT/CXR negative for acute findings. Patient has been counseled regarding alcohol cessation multiple times in the past; patient left AMA from his recent confinement for alcohol intoxication. He drinks 48 ounces of beers a day along with 5-7 drinks of bailey every day, last drink 01/05 per pt. AWSS protocol, folic acid, thiamine, multivitamin tablets. Continue telemetry monitoring. Hyponatremia:Most likely beer potomania. Increase solute intake in diet. Improving. Hypokalemia: Monitor and replete Other chronic medical conditions: Continue with/resume home meds as and when able. hypertension, elevated secondary to illness. Continue with home amlodipine and lisinopril hyperlipidemia, on statin Rx DM 2 on oral medications, well-controlled as of recent hemoglobin A1c of 5.4 last month. Hold home metformin, on sliding scale chronic anemia, stable ongoing tobacco abuse. As needed nicotine patch. Full code DVT prophylaxis: Enoxaparin. On today's bedside exam, patient initially expressed regret that he left AMA last time. Later in the morning, he was upset at nursing because he could not go outside for smoking and also disappointed that his was not going to be able to move her stuff into his hospital room and stay with him during his stay at [facility]. I had d/w the patient in the morning during my rounds that if he chooses to leave AMA that there is risks of severe withdrawal including delirium/seizures/arrhythmia leading up to with he had voiced understanding and had expressed regret that he left AMA last time. Nursing reiterated the risks of leaving AMA. Patient signed AMA. [facility], [facility] Attestation I certify that this patient is under my care and that I, or a physicians corporate administrative assistant working with me, had a face to-face encounter that meets the [id number] encounter requirements with this patient. The encounter with the patient was in whole, or in part, for the following medical condition, which is the primary reason for home health care (list medical condition): I certify that, based on my findings, the following services are medically ne cessary home health services: My clinical findings support the need for the above services because: Further, I certify that my clinical findings support that this patient is homebound (i.e. absences from home require considerable and taxing effort and are for medical reasons or yarsanism services or infrequently or of short duration when for other reasons) because: Certification for Home Health Services: Based on the above findings, I certify that this patient is confined to the home and needs intermittent care home care, physical therapy and/or speech therapy or continues to need occupational therapy. The patient is under my care, and I have initiated the establishment of the plan of care. This patient will be followed by a physician who will periodically review the plan of care. Total Time Total Time Spent Total Time Spent (In Minutes): 45 Discharge Plan Discharge Items Patient Disposition: Against Medical Advice Reason For Visit: ETOH WITHDRAWAL Follow-up/Referrals: Katia Martin MD [Primary Care Provider] - Stand-Alone Forms: My [facility], Smoking Cessation Medications and DC Order Prescriptions: No Action atorvastatin 40 mg tablet 40 mg PO DAILY lisinopril 20 mg tablet 20 mg PO DAILY gabapentin 800 mg tablet 800 mg PO TID amlodipine 10 mg tablet 10 mg PO DAILY albuterol sulfate 90 mcg/actuation HFA aerosol inhaler 2 puff INHALATION QID metformin 500 mg tablet extended release 24 hr 500 mg PO DAILY buprenorphine-naloxone 8-2 mg tablet, sublingual 1 tab SUBLINGUAL DAILY thiamine HCl (vitamin B1) 100 mg tablet 100 mg PO DAILY Qty: 30 0RF folic acid 1 mg tablet 1,000 mcg PO DAILY Qty: 30 0RF Discharge Orders: Left Against Medical Advice (Routine); Ordered 01/08/23 Ordered By: Meche Espinal Admission Data Admit Date/Time: 01/06/23 04:21 Attending Provider: Meche Espinal Admit Provider: Ángel Page Primary Care Provider: Katia Martin Other Providers: Ángel Page
[2023-01-09 09:23] LABS: Marijuana Quant, GCMS Urine 77 ng/mL (<5)
[2023-01-09] MEDS ORDERED: GABAPENTIN 600 MG TAB PO SCH (15:45)
== END 2023-01-08 13:45 | disposition left against medical advice (07) | DRG 894 ==
LOC: ED 21:37 → EDINP 01-06 04:21 → 2S 01-06 05:53

== ENCOUNTER 2023-03-23 20:20 | Inpatient (IN) ==
--- NOTE | 2023-03-23 20:26 | Emergency Department Note ---
Impression & Plan Altered mental status, Dehydration ED Provider Note NAME: SHEREEN WHITE AGE: 52 SEX: M : 1970 ARRIVES VIA: Ambulance INFORMANT: Patient ED PROVIDER(S): Tomás Aguirre DO CHIEF COMPLAINT: AMS HPI: Patient is a 52-year-old male who was brought in as he was on a bench and reportedly drinking alcohol. EMS was called and he was found to be confused and tired. Per EMS there is no trauma. Bystander did call EMS as he saw him sitting there for a while. History is limited due to the confusion. Majority history was obtained from EMS. ADDITIONAL HISTORY OBTAINED: Per HPI Chronic Medical/Social Conditions Affecting Care: Per HPI PAST MEDICAL HISTORY:See Below PAST SURGICAL HISTORY:See Below FAMILY HISTORY:See Below SOCIAL HISTORY:See Below HOME MEDICATIONS:See Below ALLERGIES:See Below VITALS:See Below PHYSICAL EXAMINATION: GENERAL: Sitting up in bed, eyes are open not following commands EYE EXAM: normal conjunctiva. PERRL and EOM's grossly intact. OROPHARYNX:mucous membranes are moist NECK: supple, no nuchal rigidity, no adenopathy, non-tender LUNGS: Clear to auscultation. Normal chest wall mechanics HEART: no murmurs, S1 normal and S2 normal ABDOMEN: abdomen soft, non-tender, normo-active bowel sounds, no masses, no rebound or guarding. BACK: Back is symmetrical on inspection and there is no deformity, no midline tenderness, no CVA tenderness. SKIN: no rashes and no bruising UPPER EXTREMITIES: upper extremities are grossly normal. LOWER EXTREMITIES: No pitting edema. NEURO EXAM: Awake with eyes open groans moving upper and lower extremities but not talking, cranial nerves II-XII grossly intact, no gross weakness of arms, no gross weakness of legs. No drift. Finger to nose intact. Gross sensation intact. MEDICAL DECISION MAKING: Patient is a 52-year-old male who presents ER for above-stated complaint. IV was established blood work was obtained. Labs show no significant leukocytosis or anemia. BMP with LFTs bilirubin was unremarkable. Troponin was negative. UA was unremarkable. Alcohol was negative. There is no signs of trauma. CT of the head was negative. He is confused and not following commands intermittently mumbling. Question if he is postictal but does not appear to have bit his tongue. Patient was given IV fluids, Reglan as he did dry heave once. Thiamine and folate were negative. Completely benign abdomen. On repeat evaluation mentation was improving slightly while in the ER. Consults/Care Managements Discussions: Per MDM Triage Nursing notes reviewed. Limited review of prior medical records performed Vital Signs: reviewed and remarkable for no significant abnormalities Differential diagnosis: Differential diagnoses includes but is not limited to toxic, metabolic, infectious, traumatic, cardiac, neurologic, hematologic, psychiatric and inflammatory etiologies. ER treatment provided: See below Diagnostics interpreted by me include EKG and cardiac monitoring as listed below: -Cardiac Monitoring: An order was placed for continuous cardiac monitoring. The monitor shows a rate of 105 with sinus rhythm. -Laboratory studies:Interpreted by me as stated above in MDM and shown below. Imaging studies: Xrays: As interpreted by me:none CTs show: CT of the head per my preliminary interpretation showed no obvious large mass Procedures:none Critical Care: None Past Med/Surg History Medical History Bronchitis Depression Social History Smoking Status: Current every day smoker Tobacco Type: Cigarettes Second Hand Exposure: No; Do You Dip or Chew Tobacco: No; Hx Alcohol Use: Yes Alcohol type: beer and hard liquor Hx Substance Use: Yes Last Used Substance: Days (ago) Preferred Language: Japanese Communication Ability: Effective Hot Punch Press Operator Required: No Beliefs That Will Affect Care: None Current Living Situation: Significant Other Current Living Situation Comment: lives alone Feels Safe at Home: Yes Assistive Devices: None Allergies Allergies Allergy/AdvReac Type Severity Reaction Status Date / Time No Known Allergies Allergy Unverified 03/08/16 20:20 Home Meds Home Medications Medication Instructions Recorded Confirmed albuterol sulfate 90 mcg/actuation 2 puff inhalation Q4H PRN sob 03/24/23 03/24/23 aerosol inhaler amlodipine 10 mg tablet 10 mg PO DAILY 03/24/23 03/24/23 atorvastatin 40 mg tablet 40 mg PO DAILY 03/24/23 03/24/23 folic acid 1 mg tablet 1 mg PO DAILY 03/24/23 03/24/23 lisinopril 20 mg tablet 20 mg PO DAILY 03/24/23 03/24/23 metformin 500 mg tablet,extended 500 mg PO DAILY 01/04/24 01/04/24 release 24 hr thiamine HCl (vitamin B1) 100 mg 100 mg PO DAILY 03/24/23 03/24/23 tablet Results & Data (ED) Vital Signs Vital Signs - 24 hr 03/23/23 20:22 03/23/23 20:22 03/23/23 20:22 Temperature 37.0 C Temperature Source Oral Pulse Rate 106 H Pulse Rate [Apical] Pulse Rate from SpO2 Sensor Respiratory Rate 20 Blood Pressure 163/117 H Blood Pressure [Left Arm] Blood Pressure Mean 132 Blood Pressure Mean [Left Arm] Pulse Oximetry 99 99 Oxygen Delivery Method Room Air Room Air Room Air Sepsis Recent Fever Within 48 Hours No Sepsis New/Unexplained Change in Mental Status No Sepsis Action Taken by Nursing No Action Required 03/23/23 20:27 03/23/23 21:00 03/23/23 22:00 Temperature Temperature Source Pulse Rate 107 H 111 H 98 H Pulse Rate [Apical] Pulse Rate from SpO2 Sensor 107 H 92 H 100 H Respiratory Rate 18 19 18 Blood Pressure Blood Pressure [Left Arm] Blood Pressure Mean Blood Pressure Mean [Left Arm] Pulse Oximetry 99 100 100 Oxygen Delivery Method Sepsis Recent Fever Within 48 Hours Sepsis New/Unexplained Change in Mental Status Sepsis Action Taken by Nursing 03/23/23 22:15 03/23/23 22:15 03/23/23 22:36 Temperature Temperature Source Pulse Rate 101 H Pulse Rate [Apical] Pulse Rate from SpO2 Sensor 104 H Respiratory Rate 16 Blood Pressure 182/129 H Blood Pressure [Left Arm] Blood Pressure Mean 137 Blood Pressure Mean [Left Arm] Pulse Oximetry 99 98 Oxygen Delivery Method Room Air Sepsis Recent Fever Within 48 Hours Sepsis New/Unexplained Change in Mental Status Sepsis Action Taken by Nursing 03/23/23 22:50 03/23/23 23:42 Temperature Temperature Source Pulse Rate 103 H Pulse Rate [Apical] 99 H Pulse Rate from SpO2 Sensor 104 H Respiratory Rate 14 10 L Blood Pressure 154/117 H Blood Pressure [Left Arm] 177/120 H Blood Pressure Mean 129 Blood Pressure Mean [Left Arm] 139 Pulse Oximetry 99 99 Oxygen Delivery Method Room Air Room Air Sepsis Recent Fever Within 48 Hours Sepsis New/Unexplained Change in Mental Status Sepsis Action Taken by Nursing Laboratory Data 03/23/23 20:24 03/23/23 20:24 Lab Results 03/23/23 03/23/23 Range/Units 20:24 23:43 WBC 7.94 (4.8-10.8) K/ul RBC 4.92 (4.70-6.10) M/uL Hgb 14.1 (14.0-18.0) g/dl Hct 41.5 L (42.0-52.0) % MCV 84.3 (80.0-100.0) fL MCH 28.7 (25.0-34.0) pg MCHC 34.0 (32.0-36.0) g/dL RDW Std Deviation 39.2 (36.4-46.3) fL RDW Coeff of Virgil 12.8 (11.5-14.5) % Plt Count 316 (130-400) K/uL MPV 9.2 L (9.4-12.4) fL Immature Gran % (Auto) 0.3 % Neut % (Auto) 73.8 % Lymph % (Auto) 16.9 % [place] % (Auto) 8.2 % Eos % (Auto) 0.3 % Baso % (Auto) 0.5 % Neut # (Auto) 5.87 (1.40-6.50) K/uL Lymph # (Auto) 1.34 (1.20-3.40) K/uL [place] # (Auto) 0.65 H (0.11-0.59) K/uL Eos # (Auto) 0.02 (0.00-0.50) K/uL Baso # (Auto) 0.04 (0.00-0.20) K/uL Immature Gran # (Auto) 0.02 (0.01-0.20) K/uL Sodium 136 (136-145) mmol/L Potassium 4.0 (3.5-5.1) mmol/L Chloride 101 (98-107) mmol/L Carbon Dioxide 23 (21-32) mmol/L Anion Gap 12 H (3-11) BUN 18 (6-23) mg/dl Creatinine 0.80 (0.6-1.4) mg/dl Est Cr Clr Drug Dosing 112.4 ml/min Est GFR ( Amer) 117.4 ml/min Est GFR (Non-Af Amer) 101.3 ml/min BUN/Creatinine Ratio 22.5 H (10-20) Glucose 84 (70-99(Fasting)) mg/dl Calcium 9.7 (8.6-10.3) mg/dl Total Bilirubin 0.7 (0.2-1.0) mg/dl AST 26 (13-39) U/L ALT 15 (7-52) U/L Alkaline Phosphatase 120 H (34-104) U/L Troponin I High Sens 10.7 (0-20) pg/ml Total Protein 8.1 (6.0-8.3) gm/dl Albumin 4.8 (3.4-5.0) gm/dl Globulin 3.3 (2.5-4.0) gm/dl Albumin/Globulin Ratio 1.5 (0.9-2) Urine Color Yellow Urine Appearance Clear (Clear) Urine pH 6.0 (4.5-7.5) Ur Specific [place] 1.027 (1.000-1.030) Urine Protein 2+ H (Negative) Urine Glucose (UA) Negative (Negative) Urine Ketones 2+ H (Negative) Urine Blood Negative (Negative) Urine Nitrite Negative (Negative) Urine Bilirubin Negative (Negative) Urine Urobilinogen Negative (Negative) Ur Leukocyte Esterase Negative (Negative) Urine WBC (Auto) 1-5 (0-5) /hpf Urine RBC (Auto) 0-4 (0-4) /hpf U Hyaline Cast (Auto) 1-5 (0-5) /lpf U Epithel Cells (Auto) 0-5 (0-5) /lpf Urine Bacteria (Auto) Negative (Negative) Urine Opiates Screen Neg (Neg) Ur Methadone, Qual Neg (Neg) Urine Barbiturates Neg (Neg) Ur Phencyclidine (PCP) Neg (Neg) U Amphetamin/Meth Scrn Neg (Neg) MDMA (Ecstasy) Screen Neg (Neg) U Benzodiazepines Scrn Neg (Neg) Ur Cocaine Metabolite Neg (Neg) U Marijuana (THC) Screen Neg (Neg) Ethyl Alcohol mg/dL < 10.0 (<10.0) mg/dl Administered Medications Discontinued Medications Sodium Chloride (Nss) 1,000 mls @ 999 mls/hr IV .Q1H1M PAT Stop: 03/24/23 00:15 Last Infusion: 03/24/23 00:12 Dose: Infused Documented By: Admin: 03/23/23 22:50 Dose: 999 mls/hr Documented By: Infusion: 03/23/23 22:50 Dose: Infused Documented By: Admin: 03/23/23 22:14 Dose: 999 mls/hr Documented By: RADHA Thiamine HCl 100 mg/ Syringe 10 mls @ 2 mls/min IV NOW STA Stop: 03/23/23 22:18 Last Admin: 03/23/23 22:47 Dose: 2 mls/min Documented By: FÁTIMA Folic Acid 1 mg/ Syringe 10 mls @ 5 mls/min IV NOW STA Stop: 03/23/23 22:15 Last Admin: 03/23/23 22:47 Dose: 5 mls/min Documented By: FÁTIMA Metoclopramide HCl (Metoclopramide Hcl Inj 5 Mg/Ml 2 Ml Vial) 10 mg IV NOW STA Stop: 03/23/23 22:15 Last Admin: 03/23/23 22:47 Dose: 10 mg Documented By: FÁTIMA Imaging Data Radiologist's Impression: Head CT 03/23/23 20:45 Exam(s): CT HEAD Without Contrast EXAM: CT Head Without Intravenous Contrast CLINICAL HISTORY: Reason for exam: ams. TECHNIQUE: Axial computed tomography images of the head/brain without intravenous contrast. CTDI is 37.95 mGy and DLP is 1094.1 mGy-cm. Automated exposure control was utilized for the study. A dose lowering technique was utilized adhering to the principles of ALARA. COMPARISON: No relevant prior studies available. FINDINGS: No acute intracranial hemorrhage. No midline shift or mass effect. The territorial servin-white matter differentiation is maintained throughout. The ventricles and sulci are commensurate with age. The visualized orbits appear grossly unremarkable. The calvarium is intact. The visualized paranasal sinuses and mastoid air cells are grossly clear. IMPRESSION: No acute intracranial hemorrhage, midline shift, or mass effect. Electronically signed by: Kevin Jackson MD 03/23/23 21:26 PM Discharge Plan Visit Data Chief Complaint: Alcohol Intoxication ED Provider: Tomás Aguirre Discharge Problem: Altered mental status, Dehydration Forms Stand Alone Forms: My [facility] Prescriptions Prescriptions: No Action atorvastatin 40 mg tablet 40 mg PO DAILY lisinopril 20 mg tablet 20 mg PO DAILY thiamine HCl (vitamin B1) 100 mg tablet 100 mg PO DAILY amlodipine 10 mg tablet 10 mg PO DAILY folic acid 1 mg tablet 1 mg PO DAILY albuterol sulfate 90 mcg/actuation HFA aerosol inhaler 2 puff INHALATION Q4H PRN (Reason: sob) metformin 500 mg tablet extended release 24 hr 500 mg PO DAILY Referrals Referrals: Katia Martin MD [Primary Care Provider] - Discharge Problem: Altered mental status Qualifiers: Altered mental status type: unspecified Qualified Code(s): R41.82 - Altered mental status, unspecified
[2023-03-23 20:54] LABS: Basophils # (auto) 0.04 K/uL (0.00-0.20); Basophils % (auto) 0.5 %; Eosinophils # (auto) 0.02 K/uL (0.00-0.50); Eosinophils % (auto) 0.3 %; Hematocrit (blood only) 41.5 % (42.0-52.0); Hemoglobin 14.1 g/dl (14.0-18.0); Immature Granulocytes # (auto) 0.02 K/uL (0.01-0.20); Immature Granulocytes % (auto) 0.3 %; Lymphocytes # (auto) 1.34 K/uL (1.20-3.40); Lymphocytes % (auto) 16.9 %; Mean Corpuscular Hemoglobin 28.7 pg (25.0-34.0); Mean Corpuscular Volume 84.3 fL (80.0-100.0); Mean Platelet Volume 9.2 fL (9.4-12.4); Monocytes # (auto) 0.65 K/uL (0.11-0.59); Monocytes % (auto) 8.2 %; Neutrophils # (auto) 5.87 K/uL (1.40-6.50); Neutrophils % (auto) 73.8 %; Platelet Count 316 K/uL (130-400); RDW Coefficient of Variation 12.8 % (11.5-14.5); RDW Standard Deviation 39.2 fL (36.4-46.3); Red Blood Count 4.92 M/uL (4.70-6.10); White Blood Count 7.94 K/ul (4.8-10.8)
[2023-03-23 21:15] LABS: Albumin Globulin Ratio 1.5 (0.9-2); Albumin Level 4.8 gm/dl (3.4-5.0); BUN Creatinine Ratio 22.5 (10-20); Bilirubin,Total 0.7 mg/dl (0.2-1.0); Calcium 9.7 mg/dl (8.6-10.3); Creatinine Clr Calc Pharmacy 112.4 ml/min; Est GFR (African American) 117.4 ml/min; Est GFR (Non-African American) 101.3 ml/min; Globulin 3.3 gm/dl (2.5-4.0); Total Protein 8.1 gm/dl (6.0-8.3)
--- NOTE | 2023-03-23 21:27 | CT Scan Report ---
Exam(s): CT HEAD Without Contrast EXAM: CT Head Without Intravenous Contrast CLINICAL HISTORY: Reason for exam: ams. TECHNIQUE: Axial computed tomography images of the head/brain without intravenous contrast. CTDI is 37.95 mGy and DLP is 1094.1 mGy-cm. Automated exposure control was utilized for the study. A dose lowering technique was utilized adhering to the principles of ALARA. COMPARISON: No relevant prior studies available. FINDINGS: No acute intracranial hemorrhage. No midline shift or mass effect. The territorial servin-white matter differentiation is maintained throughout. The ventricles and sulci are commensurate with age. The visualized orbits appear grossly unremarkable. The calvarium is intact. The visualized paranasal sinuses and mastoid air cells are grossly clear. IMPRESSION: No acute intracranial hemorrhage, midline shift, or mass effect. Electronically signed by: Kevin Jackson MD 03/23/23 21:26 PM
[2023-03-23] MEDS ORDERED: THIAMINE HCL 100 MG in SYRINGE 9 ML IV STA (22:14)
[2023-03-23] MEDS ORDERED: METOCLOPRAMIDE HCL INJ 5 MG/ML 2 ML VIAL IV STA (22:14)
[2023-03-23] MEDS: SODIUM CHLORIDE 0.9% 1,000 ML IV SCH ×2 (22:14→22:50)
[2023-03-23] MEDS ORDERED: FOLIC ACID 1 MG in SYRINGE 9.8 ML IV STA (22:14)
[2023-03-23 22:58] LABS: Troponin I High Sensitivity 10.7 pg/ml (0-20)
[2023-03-24 00:03] LABS: Appearance Urine Clear (Clear); Bacteria Urine Automated Negative (Negative); Bilirubin Urine Negative (Negative); Blood Urine Negative (Negative); Color Urine Yellow; Epithelial Cell Urine Auto 0-5 /lpf (0-5); Glucose Urine UA Negative (Negative); Ketones Urine 2+ (Negative); Leukocyte Esterase Urine Negative (Negative); Nitrite Urine Negative (Negative); Protein Urine 2+ (Negative); RBC Urine Automated 0-4 /hpf (0-4); Specific Gravity Urine 1.027 (1.000-1.030); Urobilinogen Urine Negative (Negative)
[2023-03-24 00:31] LABS: Amphetamines+Metham, Urine Neg (Neg); Barbiturates, Urine Neg (Neg); Benzodiazepine, Urine Neg (Neg); Cocaine, Urine Neg (Neg); MDMA (Ecstacy), Urine Neg (Neg); Marijuana, Urine Neg (Neg); Methadone, Urine Neg (Neg); Opiate, Urine Neg (Neg); Phencyclidine, Urine Neg (Neg)
--- NOTE | 2023-03-24 01:54 | History & Physical Report ---
Date of Service March 24, 2023 Assessment & Plan (1) Altered mental status: Plan: 52-year-old male with past med history significant for type 2 diabetes, hyperlipidemia, hypertension, chronic bilateral low back pain, history of schizophrenia, history of stammering, ongoing tobacco abuse, history of alcohol abuse, was brought in because of altered mental status thought to be binge alcohol drinking. But his alcohol level and drug screen were negative in the ER. Patient is somewhat drowsy. Knows that he is in the hospital. Speaking very low voice volume. Nods head for yes or no. Denies any headache. Denies chest pain. Denies nausea. Denies shortness of breath. Afebrile. Denies drinking alcohol or drugs. Could not get much history from the patient currently. Was able to ambulate to bathroom without support in the ER. Hemodynamics are okay. Patient was admitted on January 06, 2023 for alcohol withdrawal. Patient has history of signing out AMA. Altered mental status History of alcohol withdrawal in the past Question of binge drinking Patient denies any alcoholism and drugs Alcohol level and drug screen negative CT head okay Possible alcohol withdrawal seizures and patient being postictal Will place on alcohol drawl protocol with gabapentin and IV Ativan as needed IV thiamine and IV folic acid IV fluids IV Ativan for as needed breakthrough seizures EEG Neuroconsult in a.m. Close monitoring telemetry floor History of diabetes Hold metformin Insulin sliding scale Follow the blood sugars Hypertension Continue home medications of amlodipine and lisinopril IV labetalol as needed Chronic pain Last admission he was on Suboxone Needs to confirm the patient medications when he is more awake DVT prophylaxis Lovenox Disposition Telemetry floor Full code History of Present Illness Chief Complaint: Altered mental status Primary Care Provider: Katia Martin MD 52-year-old male with past med history significant for type 2 diabetes, hyperlipidemia, hypertension, chronic bilateral low back pain, history of schizophrenia, history of stammering, ongoing tobacco abuse, history of alcohol abuse, was brought in because of altered mental status thought to be binge alcohol drinking. But his alcohol level and drug screen were negative in the ER. Patient is somewhat drowsy. Knows that he is in the hospital. Speaking very low voice volume. Nods head for yes or no. Denies any headache. Denies chest pain. Denies nausea. Denies shortness of breath. Afebrile. Denies drinking alcohol or drugs. Could not get much history from the patient currently. Was able to ambulate to bathroom without support in the ER. Hemodynamics are okay. Patient was admitted on January 06, 2023 for alcohol withdrawal. Patient has history of signing out AMA. Past medical history. As mentioned above Past surgical history. None as per [facility] Social history. Smokes quarter pack a day for 18 years as per [facility]. History of alcohol abuse. No drug use. Family history. Brother had heart disorder. Father had hypertension. Allergies Allergy/AdvReac Type Severity Reaction Status Date / Time No Known Allergies Allergy Unverified 03/08/16 20:20 Home Medications Medication Instructions Recorded Confirmed Type albuterol sulfate 90 mcg/actuation 2 puff inhalation Q4H PRN sob 03/24/23 03/24/23 History aerosol inhaler amlodipine 10 mg tablet 10 mg PO DAILY 03/24/23 03/24/23 History atorvastatin 40 mg tablet 40 mg PO DAILY 03/24/23 03/24/23 History folic acid 1 mg tablet 1 mg PO DAILY 03/24/23 03/24/23 History gabapentin 800 mg tablet 800 mg PO TID 03/24/23 03/24/23 History lisinopril 20 mg tablet 20 mg PO DAILY 03/24/23 03/24/23 History metformin 500 mg tablet,extended 500 mg PO DAILY 03/24/23 03/24/23 History release 24 hr thiamine HCl (vitamin B1) 100 mg 100 mg PO DAILY 03/24/23 03/24/23 History tablet Past Med/Surg History Medical History Bronchitis Depression Social History Smoking Status: Current every day smoker Tobacco Type: Cigarettes Second Hand Exposure: No; Do You Dip or Chew Tobacco: No; Hx Alcohol Use: Yes Alcohol type: beer and hard liquor Hx Substance Use: Yes Last Used Substance: Days (ago) Preferred Language: Kinyarwanda Communication Ability: Effective Dining Service Worker Required: No Beliefs That Will Affect Care: None Current Living Situation: Significant Other Current Living Situation Comment: lives alone Feels Safe at Home: Yes Safety Concerns: Feels Safe At This Time Assistive Devices: None Review of Systems Review of Systems: Unobtainable due to reduced consciousness Physical Exam Physical Exam: general- Drowsy. Head- atraumatic Eyes- PERRL. ENT- oropharynx clear Neck- supple, no JVD Lungs- clear to auscultation no wheezing or crackles Heart- regular rhythm; no murmur, no gallop. Abdomen- normal bowel sounds, soft, nontender, no distension Extremities- no pretibial edema, no erythema seen Neuro- Drowsy but arousable.; PERRL no facial palsy; no dysarthria; Obeys simple commands, Ambulating Skin- warm & dry Results & Data Results & Data Vital Signs (Past 12 Hours) Vital Signs Temp Pulse Pulse Resp BP BP Pulse Ox 03/23/23 23:42 103 H 10 L 154/117 H 99 03/23/23 22:50 99 H 14 177/120 H 99 03/23/23 22:36 98 03/23/23 22:15 182/129 H 03/23/23 22:15 101 H 16 99 03/23/23 22:00 98 H 18 100 03/23/23 21:00 111 H 19 100 03/23/23 20:27 107 H 18 99 03/23/23 20:22 99 03/23/23 20:22 03/23/23 20:22 37.0 C 106 H 20 163/117 H 99 O2 Del Method 03/23/23 23:42 Room Air 03/23/23 22:50 Room Air 03/23/23 22:36 Room Air 03/23/23 22:15 03/23/23 22:15 03/23/23 22:00 03/23/23 21:00 03/23/23 20:27 03/23/23 20:22 Room Air 03/23/23 20:22 Room Air 03/23/23 20:22 Room Air Diagnostic Findings Laboratory Results WBC 7.94 K/ul (4.8-10.8) 03/23/23 20:24 RBC 4.92 M/uL (4.70-6.10) 03/23/23 20:24 Hgb 14.1 g/dl (14.0-18.0) 03/23/23 20:24 Hct 41.5 % (42.0-52.0) L 03/23/23 20:24 MCV 84.3 fL (80.0-100.0) 03/23/23 20:24 MCH 28.7 pg (25.0-34.0) 03/23/23 20:24 MCHC 34.0 g/dL (32.0-36.0) 03/23/23 20: RDW Std Deviation 39.2 fL (36.4-46.3) 03/23/23 20: RDW Coeff of Virgil 12.8 % (11.5-14.5) 03/23/23 20: Plt Count 316 K/uL (130-400) 03/23/23 20:24 MPV 9.2 fL (9.4-12.4) L 03/23/23 20:24 Immature Gran % (Auto) 0.3 % 03/23/23 20: Neut % (Auto) 73.8 % 03/23/23 20: Lymph % (Auto) 16.9 % 03/23/23 20: [place] % (Auto) 8.2 % 03/23/23 20:24 Eos % (Auto) 0.3 % 03/23/23 20:24 Baso % (Auto) 0.5 % 03/23/23 20:24 Neut # (Auto) 5.87 K/uL (1.40-6.50) 03/23/23 20:24 Lymph # (Auto) 1.34 K/uL (1.20-3.40) 03/23/23 20:24 [place] # (Auto) 0.65 K/uL (0.11-0.59) H 03/23/23 20:24 Eos # (Auto) 0.02 K/uL (0.00-0.50) 03/23/23 20:24 Baso # (Auto) 0.04 K/uL (0.00-0.20) 03/23/23 20:24 Immature Gran # (Auto) 0.02 K/uL (0.01-0.20) 03/23/23 20:24 Sodium 136 mmol/L (136-145) 03/23/23 20:24 Potassium 4.0 mmol/L (3.5-5.1) 03/23/23 20:24 Chloride 101 mmol/L (98-107) 03/23/23 20:24 Carbon Dioxide 23 mmol/L (21-32) 03/23/23 20:24 Anion Gap 12 (3-11) H 03/23/23 20:24 BUN 18 mg/dl (6-23) 03/23/23 20:24 Creatinine 0.80 mg/dl (0.6-1.4) 03/23/23 20:24 Est Cr Clr Drug Dosing 112.4 ml/min 03/23/23 20:24 Est GFR ( Amer) 117.4 ml/min 03/23/23 20:24 Est GFR (Non-Af Amer) 101.3 ml/min 03/23/23 20:24 BUN/Creatinine Ratio 22.5 (10-20) H 03/23/23 20:24 Glucose 84 mg/dl (70-99(Fasting)) 03/23/23 20:24 Calcium 9.7 mg/dl (8.6-10.3) 03/23/23 20:24 Total Bilirubin 0.7 mg/dl (0.2-1.0) 03/23/23 20:24 AST 26 U/L (13-39) 03/23/23 20:24 ALT 15 U/L (7-52) 03/23/23 20:24 Alkaline Phosphatase 120 U/L (34-104) H 03/23/23 20:24 Troponin I High Sens 10.7 pg/ml (0-20) 03/23/23 20:24 Total Protein 8.1 gm/dl (6.0-8.3) 03/23/23 20:24 Albumin 4.8 gm/dl (3.4-5.0) 03/23/23 20:24 Globulin 3.3 gm/dl (2.5-4.0) 03/23/23 20:24 Albumin/Globulin Ratio 1.5 (0.9-2) 03/23/23 20:24 Urine Color Yellow 03/23/23 23:43 Urine Appearance Clear (Clear) 03/23/23 23:43 Urine pH 6.0 (4.5-7.5) 03/23/23 23:43 Ur Specific [place] 1.027 (1.000-1.030) 03/23/23 23:43 Urine Protein 2+ (Negative) H 03/23/23 23:43 Urine Glucose (UA) Negative (Negative) 03/23/23 23:43 Urine Ketones 2+ (Negative) H 03/23/23 23:43 Urine Blood Negative (Negative) 03/23/23 23:43 Urine Nitrite Negative (Negative) 03/23/23 23:43 Urine Bilirubin Negative (Negative) 03/23/23 23:43 Urine Urobilinogen Negative (Negative) 03/23/23 23:43 Ur Leukocyte Esterase Negative (Negative) 03/23/23 23:43 Urine WBC (Auto) 1-5 /hpf (0-5) 03/23/23 23:43 Urine RBC (Auto) 0-4 /hpf (0-4) 03/23/23 23:43 U Hyaline Cast (Auto) 1-5 /lpf (0-5) 03/23/23 23:43 U Epithel Cells (Auto) 0-5 /lpf (0-5) 03/23/23 23:43 Urine Bacteria (Auto) Negative (Negative) 03/23/23 23:43 Urine Opiates Screen Neg (Neg) 03/23/23 23:43 Ur Methadone, Qual Neg (Neg) 03/23/23 23:43 Urine Barbiturates Neg (Neg) 03/23/23 23:43 Ur Phencyclidine (PCP) Neg (Neg) 03/23/23 23:43 U Amphetamin/Meth Scrn Neg (Neg) 03/23/23 23:43 MDMA (Ecstasy) Screen Neg (Neg) 03/23/23 23:43 U Benzodiazepines Scrn Neg (Neg) 03/23/23 23:43 Ur Cocaine Metabolite Neg (Neg) 03/23/23 23:43 U Marijuana (THC) Screen Neg (Neg) 03/23/23 23:43 Ethyl Alcohol mg/dL < 10.0 mg/dl (<10.0) 03/23/23 20:[address] 03/23/23 20:45 Exam(s): CT HEAD Without Contrast EXAM: CT Head Without Intravenous Contrast CLINICAL HISTORY: Reason for exam: ams. TECHNIQUE: Axial computed tomography images of the head/brain without intravenous contrast. CTDI is 37.95 mGy and DLP is 1094.1 mGy-cm. Automated exposure control was utilized for the study. A dose lowering technique was utilized adhering to the principles of ALARA. COMPARISON: No relevant prior studies available. FINDINGS: No acute intracranial hemorrhage. No midline shift or mass effect. The territorial servin-white matter differentiation is maintained throughout. The ventricles and sulci are commensurate with age. The visualized orbits appear grossly unremarkable. The calvarium is intact. The visualized paranasal sinuses and mastoid air cells are grossly clear. IMPRESSION: No acute intracranial hemorrhage, midline shift, or mass effect. Electronically signed by: Kevin Jackson MD 03/23/23 21:26 PM Code Status & VTE Plan VTE Prophylaxis Plan VTE Prophylaxis will be ordered: Yes (1) Altered mental status Altered mental status type: unspecified Qualified Code(s): R41.82 - Altered mental status, unspecified
[2023-03-24] MEDS ORDERED: LORazepam 1 MG in SYRINGE 0.5 ML IV PRN (03:32)
[2023-03-24] MEDS ORDERED: GLUCOSE 10 TAB/TUBE PO PRN (03:32)
[2023-03-24] MEDS ORDERED: NITROGLYCERIN SL 0.4 MG/TAB TAB SL PRN (03:32)
[2023-03-24] MEDS ORDERED: CARBOHYDRATES FOR HYPOGLYCEMIA PO PRN (03:32)
[2023-03-24] MEDS ORDERED: LORazepam 2 MG in SYRINGE 1 ML IV PRN (03:32)
[2023-03-24] MEDS ORDERED: LORazepam 3 MG in SYRINGE 1.5 ML IV PRN (03:32)
[2023-03-24] MEDS ORDERED: ONDANSETRON INJ 2 MG/ML 2 ML VIAL IV PRN (03:32)
[2023-03-24] MEDS ORDERED: LABETALOL HCL IV 5 MG/ML 20ML IV PRN (03:32)
[2023-03-24] MEDS ORDERED: DEXTROSE 50% 50 ML SYRINGE IV PRN (03:32)
[2023-03-24] MEDS ORDERED: Ativan IV Alcohol Withdrawal--Active Protocol IV PRN (03:32)
[2023-03-24] MEDS ORDERED: GLUCOSE 40% GEL 15 GM TUBE PO PRN (03:32)
[2023-03-24] MEDS ORDERED: GLUCAGON FOR INJ 1 MG VIAL SQ PRN (03:32)
[2023-03-24] MEDS ORDERED: GABAPENTIN 1200MG ALCOHOL WITHDRAWAL LOAD PO STA (03:32)
[2023-03-24] MEDS ORDERED: ACETAMINOPHEN 325 MG TAB PO PRN (03:32)
[2023-03-24] MEDS ORDERED: GABAPENTIN 600 MG TAB PO ONE (03:45)
[2023-03-24] MEDS: SODIUM CHLORIDE 0.9% 1,000 ML IV SCH ×3 (04:41→20:55)
[2023-03-24 07:25] LABS: Basophils # (auto) 0.05 K/uL (0.00-0.20); Basophils % (auto) 1.1 %; Eosinophils # (auto) 0.03 K/uL (0.00-0.50); Eosinophils % (auto) 0.7 %; Hematocrit (blood only) 37.3 % (42.0-52.0); Hemoglobin 12.7 g/dl (14.0-18.0); Immature Granulocytes # (auto) 0.01 K/uL (0.01-0.20); Immature Granulocytes % (auto) 0.2 %; Lymphocytes # (auto) 1.06 K/uL (1.20-3.40); Lymphocytes % (auto) 23.1 %; Mean Corpuscular Hemoglobin 28.2 pg (25.0-34.0); Mean Corpuscular Volume 82.9 fL (80.0-100.0); Mean Platelet Volume 9.1 fL (9.4-12.4); Monocytes # (auto) 0.46 K/uL (0.11-0.59); Neutrophils # (auto) 2.97 K/uL (1.40-6.50); Neutrophils % (auto) 64.9 %; Platelet Count 294 K/uL (130-400); RDW Coefficient of Variation 12.9 % (11.5-14.5); RDW Standard Deviation 39.2 fL (36.4-46.3); White Blood Count 4.58 K/ul (4.8-10.8)
[2023-03-24 07:33] LABS: BUN Creatinine Ratio 19.4 (10-20); Calcium 8.3 mg/dl (8.6-10.3); Creatinine Clr Calc Pharmacy 145.1 ml/min; Est GFR (African American) 130.3 ml/min; Est GFR (Non-African American) 112.5 ml/min; Magnesium 1.9 mg/dl (1.7-2.4); Potassium 3.5 mmol/L (3.5-5.1)
[2023-03-24 07:39] LABS: Troponin I High Sensitivity 8.5 pg/ml (0-20)
--- OUTSIDE RECORDS SUMMARY | 2023-03-24 08:40 | External Medical Summary | Summary of Care ---
Author Name Unknown Organization [facility] Address [address] [place] [address] Phone [phone] Care Team Providers Care Laboratory Apparatus Glass Blower Name Role Phone Katia Martin MD Primary Care Provider [phone] Reason for Visit * Reason Onset Date Comments Medical Records Request 02/09/2023 Medical records Request from [facility] Medical Encounter Details Date Type Department Care Team (Late st Contact Info) Description 02/09/2023 Telephone General Internal Medicine [facility] [address] [place] [address] Katia Martin MD [address] [place] [address] Medical Records Request (Medical records R... Allergies No known active allergiesdocumented as of this encounter (statuses as of 02/09/2023) Medications Medication Sig Dispensed Refills Start Date End Date Status Acetaminophen 500 MG Oral Tablet (Tylenol)Indications :Chronic bilateral low back pain without sciatica,Lumbar facet arthropathy,Bilatera l hip joint arthritis Take 1 Tablet by mouth 3 times a day as needed for Pain, Breakthrough. 180 Tablet 1 02/10/2021 Active Atorvastatin Calcium 40 MG Oral Tablet (Lipitor)Indications :Type 2 diabetes mellitus with hemoglobin A1c goal of less than 7.0% (HCC),Dyslipidemia, goal LDL below 100 Take 1 Tablet by mouth in the morning. St 05/14/2022. 90 Tablet 1 05/14/2022 Active Lisinopril 20 MG Oral Tablet (Prinivil)Indication s:HTN, goal below 140/80 take 1 tablet by mouth every morning 30 Tablet 5 06/10/2022 Active amLODIPine Besylate 10 MG Oral Tablet (Norvasc)Indications :HTN, goal below 140/80 Take 1 Tablet by mouth in the morning. 90 Tablet 1 07/22/2022 Active metFORMIN HCl ER 500 MG Oral Tablet Extended Release 24 Hour (Glucophage XR)Indications:Type 2 diabetes mellitus with hemoglobin A1c goal of less than 7.0% (HCC) take 1 tablet by mouth daily WITH BREAKFAST STARTING 08/01/2019 90 Tablet 1 07/22/2022 Active Albuterol Sulfate HFA 108 (90 Base) MCG/ACT Inhalation Aerosol SolutionIndications: Bronchitis, complicated INHALE 2 PUFFS BY MOUTH 4 TIMES A DAY. 8.5 g 2 09/18/2022 Active Gabapentin 800 MG Oral Tablet (Neurontin)Indicatio ns:Lumbar facet arthropathy,Chronic bilateral low back pain without sciatica take 1 tablet by mouth every morning AT NOON and at bedtime 90 Tablet 5 11/12/2022 Active documented as of this encounter (statuses as of 02/09/2023) Active Problems Problem Noted Date Diagnosed Date Type 2 diabetes mellitus wit h diabetic neuropathy, unspecified 01/05/2021 Food insecurity 10/27/2020 Overview: Per [facility] Protocol Type 2 diabetes mellitus wit h hemoglobin A1c goal of less than 7.0% 02/22/2020 Dyslipidemia, goal LDL below 100 02/22/2020 Tobacco use disorder 02/22/2020 Lumbar facet arthropathy 02/22/2020 Bilateral hip joint arthritis 02/22/2020 HTN, goal below 130/80 09/01/2017 History of schizophrenia 09/01/2017 Chronic bilateral low back pain without sciatica 09/01/2017 [place] 09/01/2017 documented as of this encounter (statuses as of 02/09/2023) Resolved Problems Problem Noted Date Diagnosed Date Resolved Date Prediabetes 12/31/2019 02/22/2020 Overview: Per Prediabetes protocol Lipid screening 09/01/2017 02/22/2020 Screening for diabetes mellitus 09/01/2017 02/22/2020 documented as of this encounter (statuses as of 02/09/2023) Immunizations Name Administration Dates Next Due Pneumococcal Conjugate Vacci ne, 20-valent ([id number]) 05/14/2022 Pneumococcal Polysaccharide PPV23 (Pneumovax) 05/29/2019 SEASONAL INFLUENZA, PF, 6 M & Above, IM , (FLULAVAL or FLUZONE) 02/10/2021,11/29/2019,05/29/2019,01/02 TDAP (age 10 and older)(Boostrix) 11/29/2019 Zoster Vaccine Recombinant (Shingrix) 05/14/2022 documented as of this encounter Social History Tobacco Use Types Packs/Day Years Used Date Smoking Tobacco: Some Days Cigarettes 0.3 18 Smokeless Tobacco: Never Chew Alcohol Use Standard Drinks/Week Comments No 0 (1 standard drink = 0.6 oz pur e alcohol) 06/07--last 13 mths ago PHQ-2 Answer Date Recorded PHQ-2 Score 2 11/29/2019 Hunger Vital Sign Answer Date Recorded Worried About Running Out of Food in the Last Ye ar Sometimes true 05/29/2019 Ran Out of Food in the Last Year Sometimes true 05/29/2019 Sex and Gender Information Value Date Recorded Sex Assigned at Male 05/29/2019 10:07 AM EDT Gender Identity Male 05/29/2019 10:07 AM EDT Sexual Orientation Straight 05/29/2019 10 :07 AM EDT Job Start Date Occupation Industry Not on file Not on file Not on file documented as of this encounter Miscellaneous Notes * Telephone Encounter - Juan Carlos Beck OSA - 02/09/2023 11:41 AM EST Medical Records Request Med Rec Request from [facility] Med Rec Request forwarded to / documented in this encounter Plan of Treatment Health Maintenance Due Date Last Done Comments DISCUSS TOBACCO CESSATION (REFER TO SMARTSET #[id number]) 1968 Hepatitis B (1 of 3 - 3-dose series) 1968 COVID-19 Vaccine (#1) 04/22/1969 HIV Screening 10/21/1983 Diabetic Eye Exam 1986 Diabetic Foot Exam 1986 Cologuard 2013 Colonoscopy 2013 Colorectal Cancer Screening 2013 Fecal Occult Blood Test 2013 Sigmoidoscopy 2013 Depression Screening 11/28/2020 11/29/2019 HbA1c 11/03/2022 05/06/2022, 05/19, 11/29/2019, Additional history exists Influenza Vaccine (FLU shot) (#1) 2022 02/10/2021, 11/29/2019, 05/29/2019, Additional history exists Albumin/Creatinine Ratio 05/06/2023 05/06/2022, 11/19 GFR 05/06/2023 05/06/2022, 05/19, 11/29/2019, Additional history exists Lipid Panel 05/06/2027 05/06/2022, 05/19, 11/29/2019, Additional history exists DTaP,Tdap,and Td Vaccines (2 - Td or Tdap) 11/28/2029 11/29/2019 Pneumococcal Vaccine: Pediatrics (0 to 5 Years) and At-Risk Patients (6 to 64 Years) Completed 05/14/2022, 05/29/2019 GARDASIL-HPV IMMUNIZATION SERIES Aged Out No longer eligible based on patient's age to complete this topic MENINGOCOCCAL (MENACTRA/MENVEO) Aged Out No longer eligible based on patient's age to complete this topic documented as of this encounter Medical Devices Not on filedocumented as of this encounter Advance Directives Latest Code Status on File Code Status Date Activated Date Inactivated Comments Full Code 08/13/2014 9:32 PM 09/18/2014 3:06 PM This o rder reflects the patients wishes and were consensually agreed upon. Care Teams Laboratory Apparatus Glass Blower Relationship Specialty Start Date End Date Katia Martin MD [address] [place] [address] PCP - General Internal Medicine 07/27/19 documented as of this encounter
--- OUTSIDE RECORDS SUMMARY | 2023-03-24 08:40 | External Medical Summary | Summary of Care ---
Author Name Unknown Organization [facility] Address [address] [place] [address] Phone [phone] Care Team Providers Care Cvt Rn Name Role Phone Katia Martin MD Primary Care Provider [phone] Reason for Visit * Reason Comments eRx-Medication Refill Encounter Details Date Type Department Care Team (Late st Contact Info) Description 02/25/2023 Refill General Internal Medicine [facility] [address] [place] [address] Katia Martin MD [address] [place] [address] HTN, goal below 140/80 Allergies No known active allergiesdocumented as of this encounter (statuses as of 02/25/2023) Medications Medication Sig Dispensed Refills Start Date End Date Status Acetaminophen 500 MG Oral Tablet (Tylenol)Indicati ons:Chronic bilateral low back pain without sciatica,Lumbar facet arthropathy,Bilat eral hip joint arthritis Take 1 Tablet by mouth 3 times a day as needed for Pain, Breakthrough. 180 Tablet 1 02/10/2021 Active Atorvastatin Calcium 40 MG Oral Tablet (Lipitor)Indicati ons:Type 2 diabetes mellitus with hemoglobin A1c goal of less than 7.0% (HCC),Dyslipidemi a, goal LDL below 100 Take 1 Tablet by mouth in the morning. St 05/14/2022. 90 Tablet 1 05/14/2022 Active Lisinopril 20 MG Oral Tablet (Prinivil)Indicat ions:HTN, goal below 140/80 take 1 tablet by mouth every morning 30 Tablet 5 06/10/2022 Active metFORMIN HCl ER 500 MG Oral Tablet Extended Release 24 Hour (Glucophage XR)Indications:Ty pe 2 diabetes mellitus with hemoglobin A1c goal of less than 7.0% (HCC) take 1 tablet by mouth daily WITH BREAKFAST STARTING 08/01/2019 90 Tablet 1 07/22/2022 Active Albuterol Sulfate HFA 108 (90 Base) MCG/ACT Inhalation Aerosol SolutionIndicatio ns:Bronchitis, complicated INHALE 2 PUFFS BY MOUTH 4 TIMES A DAY. 8.5 g 2 09/18/2022 Active Gabapentin 800 MG Oral Tablet (Neurontin)Indica tions:Lumbar facet arthropathy,Chron ic bilateral low back pain without sciatica take 1 tablet by mouth every morning AT NOON and at bedtime 90 Tablet 5 11/12/2022 Active amLODIPine Besylate 10 MG Oral Tablet (Norvasc)Indicati ons:HTN, goal below 140/80 TAKE 1 TABLET BY MOUTH EVERY MORNING 90 Tablet 3 02/25/2023 Active amLODIPine Besylate 10 MG Oral Tablet (Norvasc)Indicati ons:HTN, goal below 140/80 Take 1 Tablet by mouth in the morning. 90 Tablet 1 07/22/2022 3 Discontinued documented as of this encounter (statuses as of 02/25/2023) Active Problems Problem Noted Date Diagnosed Date [...] as of this encounter (statuses as of 02/25/2023) Resolved Problems Problem Noted Date Diagnosed Date Resolved Date Prediabetes 12/31/2019 02/22/2020 Overview: Per Prediabetes protocol Lipid screening 09/01/2017 02/22/2020 Screening for diabetes mellitus 09/01/2017 02/22/2020 documented as of this encounter (statuses as of 02/25/2023) Immunizations Name Administration Dates Next Due Pneumococcal Conjugate Vacci ne, 20-valent ([id number]) 05/14/2022 Pneumococcal Polysaccharide PPV23 (Pneumovax) 05/29/2019 SEASONAL [...] encounter Miscellaneous Notes * Telephone Encounter - Jordon Woody RPh - 02/25/2023 5:21 PM ESTSigned Prescriptions: Disp Refills amLODIPine Besylate 10 MG Oral Tablet (Nor*90 Tab*3 Sig: TAKE 1 TABLET BY MOUTH EVERY MORNINGAuthorizing Provider: Shavonne MARTIN User: JORDON WOODY------- documented in this encounter Plan of Treatment [...] Not on filedocumented as of this encounter Visit Diagnoses Diagnosis HTN, goal below 140/80 Unspecified essential hypertension documented in this encounter Advance Directives Latest Code Status on File Code Status Date Activated Date Inactivated Comments Full Code 08/13/2014 9:32 PM 09/18/2014 3:06 PM This o rder reflects the patients wishes and were consensually agreed upon. Care Teams Cvt Rn Relationship Specialty Start Date End Date Katia Martin MD [address] [facility], [place] [address] PCP - General Internal Medicine 07/27/19 documented as of this encounter
--- OUTSIDE RECORDS SUMMARY | 2023-03-24 08:40 | External Medical Summary | Summary of Care ---
Author Name Unknown Organization [facility] Address [address] [place] [address] Phone [phone] Care Team Providers Care Engineering Technician Name Role Phone Katia Martin MD Primary Care Provider [phone] Encounter Details Date Type Department Care Team (Late st Contact Info) Description 02/09/2023 Population Health External Data Unspecified Department Allergies No known active allergiesdocumented as of [...] Next Due Pneumococcal Conjugate Vacci ne, 20-valent ([id number]) 05/14/2022 Pneumococcal Polysaccharide PPV23 (Pneumovax) 05/29/2019 SEASONAL [...] on file documented as of this encounter Plan of Treatment Health Maintenance [...] and were consensually agreed upon. Care Teams Engineering Technician Relationship Specialty Start Date End Date Katia Martin MD [address] [facility] [place] [address] PCP - General Internal Medicine 07/27/19 documented as of this encounter
[2023-03-24] MEDS: GABAPENTIN 600 MG TAB PO SCH ×2 (09:14→20:54)
[2023-03-24] MEDS: ENOXAPARIN INJ 40 MG/0.4 ML SYR SQ SCH ×2 (09:15→09:21)
[2023-03-24] MEDS: FOLIC ACID 1 MG in SYRINGE 9.8 ML IV SCH (09:16)
[2023-03-24] MEDS: THIAMINE HCL 100 MG in SYRINGE 9 ML IV SCH (09:16)
[2023-03-24] MEDS: INSULIN ASPART PER UNIT CHARGE SC SCH ×4 (09:24→21:03)
--- NOTE | 2023-03-24 14:55 | Neurology Consultation ---
Date of Consultation March 24, 2023 Assessment & Plan (1) Altered mental status: Patient presents with encephalopathy in the setting of known alcohol abuse but no active intoxication. Alcohol withdrawl is possible, doubt Wernicke as he is not confabulating and has no ophthalmoparesis. However, thiamine supplementation is reasonable. Agree with continued supportive care, otherwise reassured by his nonfocal exam. Do not suspect seizure with post-ictal period but can continue to monitor for seizures while he is admitted. I would not recommend starting an AED. Please contact us with further questions. Telehealth Consultation Telehealth Information Telehealth Information: I performed this visit using a real-time telehealth connection between my location and the patients location ([facility]). After connecting through interactive tele-video, patient was identified by name and date of and/or wristband check.Patient (or authorized healthcare passenger representative) was informed that this was a telemedicine visit and it was being conducted confidentially over secure lines. My office door was closed and no one else was present in the room with me.Patient (or authorized healthcare passenger representative) provided consent to proceed with the visit, expressed an understanding of privacy and security of the telemedicine visit, and gave permission to have a hospital passenger representative in the room in order to assist with the visit and to conduct portions of the visit, as needed. I informed the patient (or authorized healthcare passenger representative) that I reviewed their record and presented the opportunity for them to ask any questions regarding the visit today. The patient agreed to participate. History of Present Illness Reason for Consultation: [facility] Requesting Physician: Dr. Blanchard Attending Physician: Liliam Blanchard MD History of Present Illness Adolfo Duenas is a 52 yo M presenting after being found confused thought to be secondary to alcohol intoxication though alcohol level was 0. The patient denies drinking and otherwise reports feeling "fine" and requests that he be discharged. He denies any focal weakness or numbness, no headache or vision balbuena ges. He does report a remote history of seizures but has never seen neurology. He also thought he was taking a seizure medication but I was unable to find a record of any in either the [facility] or [facility]. He does otherwise have a history of alcohol withdrawal and could not tell me when his last drink was. He otherwise denies feeling confused, just tired and continued to fall asleep during our conversation. Allergies Allergy/AdvReac Type Severity Reaction Status Date / Time No Known Allergies Allergy Unverified 03/08/16 20:20 Home Medications Medication Instructions Recorded Confirmed Type albuterol sulfate 90 mcg/actuation 2 puff inhalation Q4H PRN sob 03/24/23 03/24/23 History aerosol inhaler amlodipine 10 mg tablet 10 mg PO DAILY 03/24/23 03/24/23 History atorvastatin 40 mg tablet 40 mg PO DAILY 03/24/23 03/24/23 History folic acid 1 mg tablet 1 mg PO DAILY 03/24/23 03/24/23 History gabapentin 800 mg tablet 800 mg PO TID 03/24/23 03/24/23 History lisinopril 20 mg tablet 20 mg PO DAILY 03/24/23 03/24/23 History metformin 500 mg tablet,extended 500 mg PO DAILY 03/24/23 03/24/23 History release 24 hr thiamine HCl (vitamin B1) 100 mg 100 mg PO DAILY 03/24/23 03/24/23 History tablet Patient History Medical History Bronchitis Depression Social History Smoking Status: Current every day smoker Tobacco Type: Cigarettes Second Hand Exposure: No; Do You Dip or Chew Tobacco: No; Hx Alcohol Use: Yes Alcohol type: beer and hard liquor Hx Substance Use: Yes Last Used Substance: Days (ago) Preferred Language: Belizean Communication Ability: Effective Agility Instructor Required: No Beliefs That Will Affect Care: None Current Living Situation: Significant Other Current Living Situation Comment: lives alone Feels Safe at Home: Yes Safety Concerns: Feels Safe At This Time Assistive Devices: None Physical Exam Neurological Examination: Mental Status: Alerts to voice and needs stim to maintain alertness. Oriented to person, place, and time. Fluent but speech is low volume and dysarthric, unclear baseline. Comprehension intact. Affect appropriate. Cranial Nerves: II: Reads NIHSS cards, pupils 3/3 to 2/2 III/IV/: Versions intact without nystagmus, no gaze preference. V: Facial sensation symmetric to light touch VII: Facial expression symmetric VIII: Hearing intact to voice Motor: Strength was symmetric and antigravity throughout. Pronator drift was absent. There were no abnormal movements. Sensory: Sensation to light touch was intact. Coordination: Finger to nose and heel to wilson were intact. Reflexes: Unable to assess over telemedicine Results & Data Vital Signs (Past 12 Hours) Vital Signs Temp Pulse Pulse Resp BP Pulse Ox O2 Del Method 03/24/23 08:25 89 03/24/23 07:30 92 H 20 169/108 H 99 Room Air 03/24/23 05:00 36.8 C 91 H 17 183/115 H 99 Room Air Laboratory Results Abnormal lab results 03/23/23 03/23/23 03/24/23 Range/Units 20:24 23:43 06:43 WBC 4.58 L (4.8-10.8) K/ul RBC 4.50 L (4.70-6.10) M/uL Hgb 12.7 L (14.0-18.0) g/dl Hct 41.5 L 37.3 L (42.0-52.0) % MPV 9.2 L 9.1 L (9.4-12.4) fL Lymph # (Auto) 1.06 L (1.20-3.40) K/uL Rich # (Auto) 0.65 H (0.11-0.59) K/uL Anion Gap 12 H (3-11) BUN/Creatinine Ratio 22.5 H (10-20) Glucose 69 L (70-99(Fasting)) mg/dl POC Glucose (70-99) mg/dl Calcium 8.3 L (8.6-10.3) mg/dl Alkaline Phosphatase 120 H (34-104) U/L Urine Protein 2+ H (Negative) Urine Ketones 2+ H (Negative) 03/24/23 Range/Units 12:14 WBC (4.8-10.8) K/ul RBC (4.70-6.10) M/uL Hgb (14.0-18.0) g/dl Hct (42.0-52.0) % MPV (9.4-12.4) fL Lymph # (Auto) (1.20-3.40) K/uL Rich # (Auto) (0.11-0.59) K/uL Anion Gap (3-11) BUN/Creatinine Ratio (10-20) Glucose (70-99(Fasting)) mg/dl POC Glucose 115 H (70-99) mg/dl Calcium (8.6-10.3) mg/dl Alkaline Phosphatase (34-104) U/L Urine Protein (Negative) Urine Ketones (Negative) Diagnostic Findings CT head - Unremarkable (1) Altered mental status Altered mental status type: unspecified Qualified Code(s): R41.82 - Altered mental status, unspecified
--- NOTE | 2023-03-24 15:11 | Electroencephalogram ---
EEG Procedure Note Date of Service March 24, 2023 Start / End Times Start Time: 07:33 End Time: 07:53 Referring Physician Farhat Rowe History A 52 with altered mental status. EEg performed for evaluation of epileptiform activity. Home Medication List Medication Instructions Recorded Confirmed Type albuterol sulfate 90 mcg/actuation 2 puff inhalation Q4H PRN sob 03/24/23 03/24/23 History aerosol inhaler amlodipine 10 mg tablet 10 mg PO DAILY 03/24/23 03/24/23 History atorvastatin 40 mg tablet 40 mg PO DAILY 03/24/23 03/24/23 History folic acid 1 mg tablet 1 mg PO DAILY 03/24/23 03/24/23 History gabapentin 800 mg tablet 800 mg PO TID 03/24/23 03/24/23 History lisinopril 20 mg tablet 20 mg PO DAILY 03/24/23 03/24/23 History metformin 500 mg tablet,extended 500 mg PO DAILY 03/24/23 03/24/23 History release 24 hr thiamine HCl (vitamin B1) 100 mg 100 mg PO DAILY 03/24/23 03/24/23 History tablet Inpatient Medication List Enoxaparin Sodium (Enoxaparin Inj 40 Mg/0.4 Ml Syr) 40 mg SQ Q24H [facility] Stop: 04/23/23 08:59 Last Admin: 03/24/23 09:21 Dose: Not Given Documented By: KIRAN Folic Acid 1 mg/ Syringe 10 mls @ 5 mls/min IV QAM [facility] Stop: 04/23/23 08:59 Last Admin: 03/24/23 09:16 Dose: 5 mls/min Documented By: KIRAN Sodium Chloride (Nss) 1,000 mls @ 125 mls/hr IV .Q8H [facility] Stop: 04/23/23 03:31 Last Admin: 03/24/23 12:43 Dose: 125 mls/hr Documented By: Infusion: 03/24/23 12:41 Dose: Infused Documented By: Admin: 03/24/23 04:41 Dose: 125 mls/hr Documented By: BRANDEN Thiamine HCl 100 mg/ Syringe 10 mls @ 2 mls/min IV QAM [facility] Stop: 04/23/23 08:59 Last Admin: 03/24/23 09:16 Dose: 2 mls/min Documented By: KIRAN Insulin Aspart (Insulin Aspart Per Unit Charge) 0 units SC ACHS [facility] Stop: 04/23/23 07:29 Last Admin: 03/24/23 12:42 Dose: Not Given Documented By: KIRAN Co-signed By: ERIKA Admin: 03/24/23 09:24 Dose: Not Given Documented By: KIRAN Discontinued Medications Gabapentin (Gabapentin 600 Mg Tab) 600 mg PO Q6H [facility] Stop: 03/24/23 13:46 Last Admin: 03/24/23 09:14 Dose: 600 mg Documented By: KIRAN Gabapentin (Gabapentin 600 Mg Tab) 1,200 mg PO NOW ONE Stop: 03/24/23 03:46 Last Admin: 03/24/23 04:37 Dose: 1,200 mg Documented By: BRANDEN Sodium Chloride (Nss) 1,000 mls @ 999 mls/hr IV .Q1H1M [facility] Stop: 03/24/23 00:15 Last Infusion: 03/24/23 00:12 Dose: Infused Documented By: Admin: 03/23/23 22:50 Dose: 999 mls/hr Documented By: Infusion: 03/23/23 22:50 Dose: Infused Documented By: Admin: 03/23/23 22:14 Dose: 999 mls/hr Documented By: RADHA Thiamine HCl 100 mg/ Syringe 10 mls @ 2 mls/min IV NOW STA Stop: 03/23/23 22:18 Last Admin: 03/23/23 22:47 Dose: 2 mls/min Documented By: FÁTIMA Folic Acid 1 mg/ Syringe 10 mls @ 5 mls/min IV NOW STA Stop: 03/23/23 22:15 Last Admin: 03/23/23 22:47 Dose: 5 mls/min Documented By: FÁTIMA Metoclopramide HCl (Metoclopramide Hcl Inj 5 Mg/Ml 2 Ml Vial) 10 mg IV NOW STA Stop: 03/23/23 22:15 Last Admin: 03/23/23 22:47 Dose: 10 mg Documented By: FÁTIMA Description This is a 21 electrode EEG with a single channel dedicated to limited EKG. The electrodes were placed in accordance with the International 10-20 system. Report: At the onset of the EEG the patient is awake. The background is symmetric and continuous. The background predominantly consists of low- amplitude 10-15 Hz beta activity. The posterior dominant rhythm is not well seen. No clear stage 2 sleep transients are seen. Drowsiness is characterized by reduced blink rate, and decreased myogenic artifact. Photic stimulation does not induce any abnormalities. Interpretation Impression: This is a normal awake and drowsy routine EEG. Excessive beta activity as a normal variant and can be secondary to medication side effect (ie benzodiazepines). No epileptiform activity is seen.
--- NOTE | 2023-03-24 15:39 | Hospitalist Progress Note ---
Date of Service March 24, 2023 Assessment & Plan (1) Altered mental status: Plan: 52-year-old male with past med history significant for type 2 diabetes, hyperlipidemia, hypertension, chronic bilateral low back pain, history of schizophrenia, history of stammering, ongoing tobacco abuse, history of alcohol abuse, was brought in because of altered mental status thought to be binge alcohol drinking. But his alcohol level and drug screen were negative in the ER. Patient is somewhat drowsy. Knows that he is in the hospital. Speaking very low voice volume. Nods head for yes or no. Denies any headache. Denies chest pain. Denies nausea. Denies shortness of breath. Afebrile. Denies drinking alcohol or drugs. Could not get much history from the patient currently. Was able to ambulate to bathroom without support in the ER. Hemodynamics are okay. Patient was admitted on January 06, 2023 for alcohol withdrawal. Patient has history of signing out AMA. Altered mental status likely secondary to alcoholism/withdrawal History of alcohol withdrawal in the past Question of binge drinking Patient denies any alcoholism and drugs Alcohol level and drug screen negative CT head okay Possible alcohol withdrawal seizures and patient being postictal Will place on alcohol drawl protocol with gabapentin and IV Ativan as needed IV thiamine and IV folic acid IV fluids IV Ativan for as needed breakthrough seizures EEG-normal without any epileptiform activities Appreciate neurology input and recommendation-doubt any seizures, no active intoxication, doubt any Warnicke encephalopathy and probably has alcohol withdrawal symptoms Remains pleasantly confused and wants to leave We will change thiamine and folic acid orally Has significant behavioral issues as per the [facility] Prior history of suicidal ideation not currently He does have anxiety but not aggressive Try to see his therapist as an outpatient Will ask for behavioral therapy recommendation during this admission History of diabetes Hold metformin Insulin sliding scale Follow the blood sugars Hypertension Continue home medications of amlodipine and lisinopril IV labetalol as needed Blood pressure remains elevated likely secondary to anxiety and withdrawal Chronic pain Last admission he was on Suboxone Needs to confirm the patient medications when he is more awake DVT prophylaxis Lovenox Disposition Telemetry floor Full code Discussed with the [facility] in detail Wanted to have a behavioral health evaluation while in the hospital Will get PT and OT evaluation Put him on one-to-one sitter for now and give him regular food Admission and Anticipated Discharge Date Admission Date: March 24, 2023 Subjective 03/24/2023 The patient was seen and examined in the emergency room He remains confused during my examination Not having any acute distress but felt nauseous during my examination 03/25/2023 The patient was seen and examined in the emergency room in presence of the fianc He has been all night and wants to go home Remains confused but not aggressive Denies any significant symptoms Review of Systems Review of Systems: Unobtainable due to cognitive status Physical Exam Physical Exam: Standing in the room without any acute distress Constitutional: well developed, well nourished, + ill appearing and average body habitus Eyes: PERRL, conjunctivae normal, anicteric sclerae ENMT: external ear and nose normal, oropharynx normal Neck: trachea midline, no thyromegaly Respiratory: no respiratory distress Auscultation: lungs clear to auscultation bilaterally Cardiovascular: Rate/Rhythm: regular rate and regular rhythm; not tachycardic Heart Sounds: normal S1 and normal S2; no murmur Extremities: no edema Gastrointestinal (Abdomen): Inspection/Auscultation: normal bowel sounds; abdomen not distended Percussion/Palpation: abdomen soft; abdomen nontender Musculoskeletal: No acute arthritis involving any of the joint Neurologic: Alert and awake. Remains pleasantly confused, Lymphatic: no cervical or axillary lymphadenopathy Results & Data Results & Data Vital Signs (Past 12 Hours) Vital Signs Temp Pulse Pulse Resp BP Pulse Ox O2 Del Method 03/24/23 08:25 89 03/24/23 07:30 92 H 20 169/108 H 99 Room Air 03/24/23 05:00 36.8 C 91 H 17 183/115 H 99 Room Air Laboratory Results Short CBC 03/23/23 03/24/23 Range/Units 20:24 06:43 WBC 7.94 4.58 L (4.8-10.8) K/ul Hgb 14.1 12.7 L (14.0-18.0) g/dl Hct 41.5 L 37.3 L (42.0-52.0) % Plt Count 316 294 (130-400) K/uL BMP 03/23/23 03/24/23 20:24 06:43 Sodium 136 137 Potassium 4.0 3.5 Chloride 101 105 Carbon Dioxide 23 22 BUN 18 12 Creatinine 0.80 0.62 Glucose 84 69 L Calcium 9.7 8.3 L Liver Function 03/23/23 Range/Units 20:24 Total Bilirubin 0.7 (0.2-1.0) mg/dl AST 26 (13-39) U/L ALT 15 (7-52) U/L Alkaline Phosphatase 120 H (34-104) U/L Albumin 4.8 (3.4-5.0) gm/dl Urine 03/23/23 Range/Units 23:43 Urine Color Yellow Urine Appearance Clear (Clear) Urine pH 6.0 (4.5-7.5) Ur Specific [place] 1.027 (1.000-1.030) Urine Protein 2+ H (Negative) Urine Glucose (UA) Negative (Negative) BMP 03/25/23 07:50 Sodium 136 Potassium 3.6 Chloride 102 Carbon Dioxide 26 BUN 10 Creatinine 0.71 Glucose 81 Calcium 8.8 Liver Function 03/25/23 Range/Units 07:50 Total Bilirubin 0.7 (0.2-1.0) mg/dl AST 21 (13-39) U/L ALT 15 (7-52) U/L Alkaline Phosphatase 93 (34-104) U/L Albumin 3.9 (3.4-5.0) gm/dl Medications Administered Current Inpatient Medications Acetaminophen (Acetaminophen 325 Mg Tab) 650 mg PO Q4H PRN PRN Reason: Pain or Fever Stop: 04/23/23 03:31 Dextrose (Dextrose 50% 50 Ml Syringe) 25 - 50 ml IV UD PRN; Protocol PRN Reason: Hypoglycemia Protocol Stop: 04/23/23 03:31 Enoxaparin Sodium (Enoxaparin Inj 40 Mg/0.4 Ml Syr) 40 mg SQ Q24H PAT Stop: 04/23/23 08:59 Last Admin: 03/24/23 09:21 Dose: Not Given Gabapentin (Gabapentin 600 Mg Tab) 600 mg PO Q24H PAT Stop: 03/27/23 13:46 Gabapentin (Gabapentin 600 Mg Tab) 600 mg PO Q12H PAT Stop: 03/26/23 13:46 Gabapentin (Gabapentin 600 Mg Tab) 600 mg PO Q8H PAT Stop: 03/25/23 13:46 Glucagon (Glucagon For Inj 1 Mg Vial) 1 mg SQ UD PRN; Protocol PRN Reason: Hypoglycemia Protocol Stop: 04/23/23 03:31 Glucose (Glucose 10 Tab/Tube) 4 - 8 tab PO UD PRN; Protocol PRN Reason: Hypoglycemia Treatment Stop: 04/23/23 03:31 Glucose (Glucose 40% Gel 15 Gm Tube) 15 - 30 gm PO UD PRN; Protocol PRN Reason: Hypoglycemia Protocol Stop: 04/23/23 03:31 Folic Acid 1 mg/ Syringe 10 mls @ 5 mls/min IV QAM [facility] Stop: 04/23/23 08:59 Last Admin: 03/24/23 09:16 Dose: 5 mls/min Sodium Chloride (Nss) 1,000 mls @ 125 mls/hr IV .Q8H [facility] Stop: 04/23/23 03:31 Last Admin: 03/24/23 12:43 Dose: 125 mls/hr Thiamine HCl 100 mg/ Syringe 10 mls @ 2 mls/min IV QAM [facility] Stop: 04/23/23 08:59 Last Admin: 03/24/23 09:16 Dose: 2 mls/min Lorazepam 1 mg/ Syringe 1 mls @ 2 mls/min IV UD PRN; Protocol PRN Reason: EtOH Withdrawal AWSS Score 6,7 Stop: 04/23/23 03:31 Lorazepam 2 mg/ Syringe 2 mls @ 2 mls/min IV UD PRN; Protocol PRN Reason: EtOH Withdrawal AWSS Score 8,9 Stop: 04/23/23 03:31 Lorazepam 3 mg/ Syringe 3 mls @ 2 mls/min IV ONCE PRN; Protocol PRN Reason: EtOH Withdrawal AWSS Score 10+ Lorazepam 2 mg/ Syringe 2 mls @ 2 mls/min IV Q2H PRN PRN Reason: Breakthrough Seizures Stop: 04/23/23 03:31 Insulin Aspart (Insulin Aspart Per Unit Charge) 0 units SC [facility] Stop: 04/23/23 07:29 Last Admin: 03/24/23 12:42 Dose: Not Given Labetalol HCl (Labetalol Hcl Iv 5 Mg/Ml 20ml) 5 mg IV Q4H PRN PRN Reason: Hypertension Stop: 04/23/23 03:31 Miscellaneous (Carbohydrates For Hypoglycemia ) 15 - 30 gm PO UD PRN PRN Reason: Hypoglycemia Protocol Stop: 04/23/23 03:31 Nitroglycerin (Nitroglycerin Sl 0.4 Mg/Tab Tab) 0.4 mg SL Q5M PRN PRN Reason: Chest Pain Stop: 04/23/23 03:31 Ondansetron HCl (Ondansetron Inj 2 Mg/Ml 2 Ml Vial) 4 mg IV Q6H PRN PRN Reason: Nausea Stop: 04/23/23 03:31 (1) Altered mental status Altered mental status type: unspecified Qualified Code(s): R41.82 - Altered mental status, unspecified
[2023-03-24] MEDS ORDERED: cloNIDine HCL 0.1 MG TAB PO ONE (21:32)
[2023-03-25] MEDS: SODIUM CHLORIDE 0.9% 1,000 ML IV SCH ×3 (04:28→21:49)
[2023-03-25] MEDS: GABAPENTIN 600 MG TAB PO SCH ×4 (04:37→21:52)
[2023-03-25 08:26] LABS: Albumin Globulin Ratio 1.3 (0.9-2); Albumin Level 3.9 gm/dl (3.4-5.0); BUN Creatinine Ratio 14.1 (10-20); Bilirubin,Total 0.7 mg/dl (0.2-1.0); Calcium 8.8 mg/dl (8.6-10.3); Creatinine Clr Calc Pharmacy 126.7 ml/min; Est GFR (African American) 123.3 ml/min; Est GFR (Non-African American) 106.4 ml/min; Globulin 2.9 gm/dl (2.5-4.0); Magnesium 2.1 mg/dl (1.7-2.4); Phosphorus 3.8 mg/dl (2.5-4.9); Potassium 3.6 mmol/L (3.5-5.1); Total Protein 6.8 gm/dl (6.0-8.3)
[2023-03-25] MEDS: INSULIN ASPART PER UNIT CHARGE SC SCH ×4 (10:36→21:41)
[2023-03-25] MEDS: ENOXAPARIN INJ 40 MG/0.4 ML SYR SQ SCH (10:36)
[2023-03-25] MEDS: FOLIC ACID 1 MG in SYRINGE 9.8 ML IV SCH (10:37)
[2023-03-25] MEDS: THIAMINE HCL 100 MG in SYRINGE 9 ML IV SCH (10:37)
[2023-03-26] MEDS ORDERED: GABAPENTIN 600 MG TAB PO SCH (01:45)
[2023-03-26] MEDS: SODIUM CHLORIDE 0.9% 1,000 ML IV SCH (05:02)
[2023-03-26 07:32] LABS: Basophils # (auto) 0.03 K/uL (0.00-0.20); Basophils % (auto) 0.8 %; Eosinophils # (auto) 0.04 K/uL (0.00-0.50); Eosinophils % (auto) 1.1 %; Hemoglobin 13.7 g/dl (14.0-18.0); Immature Granulocytes # (auto) 0.01 K/uL (0.01-0.20); Immature Granulocytes % (auto) 0.3 %; Lymphocytes # (auto) 1.57 K/uL (1.20-3.40); Lymphocytes % (auto) 44.4 %; Mean Corpuscular Hemoglobin 28.7 pg (25.0-34.0); Mean Corpuscular Hgb Conc 33.4 g/dL (32.0-36.0); Mean Corpuscular Volume 85.8 fL (80.0-100.0); Mean Platelet Volume 9.1 fL (9.4-12.4); Monocytes # (auto) 0.41 K/uL (0.11-0.59); Monocytes % (auto) 11.6 %; Neutrophils # (auto) 1.48 K/uL (1.40-6.50); Neutrophils % (auto) 41.8 %; Platelet Count 283 K/uL (130-400); RDW Coefficient of Variation 12.6 % (11.5-14.5); RDW Standard Deviation 39.8 fL (36.4-46.3); Red Blood Count 4.78 M/uL (4.70-6.10); White Blood Count 3.54 K/ul (4.8-10.8)
[2023-03-26 07:56] LABS: BUN Creatinine Ratio 13.4 (10-20); Calcium 8.6 mg/dl (8.6-10.3); Creatinine Clr Calc Pharmacy 134.2 ml/min; Est GFR (African American) 126.3 ml/min; Est GFR (Non-African American) 108.9 ml/min; Phosphorus 3.2 mg/dl (2.5-4.9); Potassium 3.6 mmol/L (3.5-5.1)
[2023-03-26] MEDS: INSULIN ASPART PER UNIT CHARGE SC SCH ×2 (08:00→12:53)
[2023-03-26] MEDS: ENOXAPARIN INJ 40 MG/0.4 ML SYR SQ SCH (08:24)
[2023-03-26] MEDS: THIAMINE HCL 100 MG in SYRINGE 9 ML IV SCH (08:24)
[2023-03-26] MEDS: FOLIC ACID 1 MG in SYRINGE 9.8 ML IV SCH (08:24)
--- NOTE | 2023-03-26 12:49 | Hospitalist Progress Note ---
Date of Service March 26, 2023 Assessment & Plan (1) Altered mental status: Plan: 52-year-old male with past med history significant for type 2 diabetes, hyperlipidemia, hypertension, chronic bilateral low back pain, history of schizophrenia, history of stammering, ongoing tobacco abuse, history of alcohol abuse, was brought in because of altered mental status thought to be binge alcohol drinking. But his alcohol level and drug screen were negative in the ER. Patient is somewhat drowsy. Knows that he is in the hospital. Speaking very low voice volume. Nods head for yes or no. Denies any headache. Denies chest pain. Denies nausea. Denies shortness of breath. Afebrile. Denies drinking alcohol or drugs. Could not get much history from the patient currently. Was able to ambulate to bathroom without support in the ER. Hemodynamics are okay. Patient was admitted on January 06, 2023 for alcohol withdrawal. Patient has history of signing out AMA. Altered mental status likely secondary to alcoholism/withdrawal History of alcohol withdrawal in the past Question of binge drinking Patient denies any alcoholism and drugs Alcohol level and drug screen negative CT head okay Possible alcohol withdrawal seizures and patient being postictal Will place on alcohol drawl protocol with gabapentin and IV Ativan as needed IV thiamine and IV folic acid IV fluids IV Ativan for as needed breakthrough seizures EEG-normal without any epileptiform activities Appreciate neurology input and recommendation-doubt any seizures, no active intoxication, doubt any Warnicke encephalopathy and probably has alcohol withdrawal symptoms Remains pleasantly confused and wants to leave We will change thiamine and folic acid orally Mental status has been normalized Was evaluated by behavioral service-no signs or symptoms of of psychosis, not suicidal or aggressiveness. Understand the consequences of leaving hospital and not taking medication. Has significant behavioral issues as per the [facility] Prior history of suicidal ideation not currently He does have anxiety but not aggressive Try to see his therapist as an outpatient Will ask for behavioral therapy recommendation during this admission Was evaluated by behavioral service-he was given the leaflet to contact their continue therapy At this time he does not need any therapy and he seems to be stable from the point of view History of diabetes Hold metformin Insulin sliding scale Follow the blood sugars Hypertension Continue home medications of amlodipine and lisinopril IV labetalol as needed Blood pressure remains elevated likely secondary to anxiety and withdrawal Blood pressure seems to be on the upper side at 150/101 Chronic pain Last admission he was on Suboxone Needs to confirm the patient medications when he is more awake DVT prophylaxis Lovenox Disposition Telemetry floor Full code Discussed with the [facility] in detail Wanted to have a behavioral health evaluation while in the hospital Will get PT and OT evaluation Put him on one-to-one sitter for now and give him regular food Does not need any more one-to-one sitter Likely be discharged this afternoon, if not discharged will sign out AMA, risk of not taking any medications and risk of early discharged discussed in detail with the patient He will accept the risk of going home He will get the medications and take it as directed and will be followed up with his primary care physician Admission and Anticipated Discharge Date Admission Date: March 24, 2023 Subjective 03/24/2023 The patient was seen and examined in the emergency room He remains confused during my examination Not having any acute distress but felt nauseous during my examination 03/25/2023 The patient was seen and examined in the emergency room in presence of the fianc He has been all night and wants to go home Remains confused but not aggressive Denies any significant symptoms 03/26/2023 The patient was seen and examined in telemetry unit He has been much better and denies any symptoms He does not have any tremors and has been ambulating in the room without any problem He wants to go home Review of Systems Review of Systems: All systems reviewed and are unremarkable except as noted below Physical Exam Physical Exam: Standing in the room without any acute distress Constitutional: well developed, well nourished and average body habitus; not ill appearing Eyes: PERRL, conjunctivae normal, anicteric sclerae ENMT: external ear and nose normal, oropharynx normal Neck: trachea midline, no thyromegaly Respiratory: no respiratory distress Auscultation: lungs clear to auscultation bilaterally Cardiovascular: Rate/Rhythm: regular rate and regular rhythm; not tachycardic Heart Sounds: normal S1 and normal S2; no murmur Extremities: no edema Gastrointestinal (Abdomen): Inspection/Auscultation: normal bowel sounds; abdomen not distended Percussion/Palpation: abdomen soft; abdomen nontender Musculoskeletal: No acute arthritis involving any of the joint Neurologic: normal touch/pain/proprioception and moves all extremities; no focal motor deficits No tremors involving the outstretched hand Lymphatic: no cervical or axillary lymphadenopathy Results & Data Results & Data Vital Signs (Past 12 Hours) Vital Signs Temp Pulse Resp BP Pulse Ox O2 Del Method 03/26/23 11:40 36.7 C 80 18 150/101 H 100 Room Air 03/26/23 07:12 36.3 C L 79 18 151/104 H 100 Room Air 03/26/23 03:07 36.4 C L 54 L 17 164/99 H 100 Room Air Laboratory Results Short CBC 03/26/23 Range/Units 07:07 WBC 3.54 L (4.8-10.8) K/ul Hgb 13.7 L (14.0-18.0) g/dl Hct 41.0 L (42.0-52.0) % Plt Count 283 (130-400) K/uL BMP 03/26/23 07:07 Sodium 139 Potassium 3.6 Chloride 106 Carbon Dioxide 28 BUN 9 Creatinine 0.67 Glucose 93 Calcium 8.6 Medications Administered Current Inpatient Medications Acetaminophen (Acetaminophen 325 Mg Tab) 650 mg PO Q4H PRN PRN Reason: Pain or Fever Stop: 04/23/23 03:31 Dextrose (Dextrose 50% 50 Ml Syringe) 25 - 50 ml IV UD PRN; Protocol PRN Reason: Hypoglycemia Protocol Stop: 04/23/23 03:31 Enoxaparin Sodium (Enoxaparin Inj 40 Mg/0.4 Ml Syr) 40 mg SQ Q24H PAT Stop: 04/23/23 08:59 Last Admin: 03/26/23 08:24 Dose: Not Given Folic Acid (Folic Acid 1 Mg Tab) 1 mg PO QAM PAT Stop: 04/26/23 08:59 Gabapentin (Gabapentin 600 Mg Tab) 600 mg PO Q24H PAT Stop: 03/27/23 13:46 Gabapentin (Gabapentin 600 Mg Tab) 600 mg PO Q12H PAT Stop: 03/26/23 21:01 Last Admin: 03/26/23 08:25 Dose: 600 mg Glucagon (Glucagon For Inj 1 Mg Vial) 1 mg SQ UD PRN; Protocol PRN Reason: Hypoglycemia Protocol Stop: 04/23/23 03:31 Glucose (Glucose 10 Tab/Tube) 4 - 8 tab PO UD PRN; Protocol PRN Reason: Hypoglycemia Treatment Stop: 04/23/23 03:31 Glucose (Glucose 40% Gel 15 Gm Tube) 15 - 30 gm PO UD PRN; Protocol PRN Reason: Hypoglycemia Protocol Stop: 04/23/23 03:31 Sodium Chloride (Nss) 1,000 mls @ 125 mls/hr IV .Q8H PAT Stop: 04/23/23 03:31 Last Admin: 03/26/23 05:02 Dose: 125 mls/hr Lorazepam 1 mg/ Syringe 1 mls @ 2 mls/min IV UD PRN; Protocol PRN Reason: EtOH Withdrawal AWSS Score 6,7 Stop: 04/23/23 03:31 Last Admin: 03/25/23 23:46 Dose: 2 mls/min Lorazepam 2 mg/ Syringe 2 mls @ 2 mls/min IV UD PRN; Protocol PRN Reason: EtOH Withdrawal AWSS Score 8,9 Stop: 04/23/23 03:31 Lorazepam 3 mg/ Syringe 3 mls @ 2 mls/min IV ONCE PRN; Protocol PRN Reason: EtOH Withdrawal AWSS Score 10+ Lorazepam 2 mg/ Syringe 2 mls @ 2 mls/min IV Q2H PRN PRN Reason: Breakthrough Seizures Stop: 04/23/23 03:31 Last Admin: 03/25/23 22:23 Dose: 2 mls/min Insulin Aspart (Insulin Aspart Per Unit Charge) 0 units SC [facility] Stop: 04/23/23 07:29 Last Admin: 03/26/23 08:00 Dose: Not Given Labetalol HCl (Labetalol Hcl Iv 5 Mg/Ml 20ml) 5 mg IV Q4H PRN PRN Reason: Hypertension Stop: 04/23/23 03:31 Miscellaneous (Carbohydrates For Hypoglycemia ) 15 - 30 gm PO UD PRN PRN Reason: Hypoglycemia Protocol Stop: 04/23/23 03:31 Nitroglycerin (Nitroglycerin Sl 0.4 Mg/Tab Tab) 0.4 mg SL Q5M PRN PRN Reason: Chest Pain Stop: 04/23/23 03:31 Ondansetron HCl (Ondansetron Inj 2 Mg/Ml 2 Ml Vial) 4 mg IV Q6H PRN PRN Reason: Nausea Stop: 04/23/23 03:31 Thiamine HCl (Thiamine Hcl 100 Mg Tab) 100 mg PO QAM [facility] Stop: 04/26/23 08:59 (1) Altered mental status Altered mental status type: unspecified Qualified Code(s): R41.82 - Altered mental status, unspecified
--- NOTE | 2023-03-27 08:43 | Discharge Summary ---
Date of Service March 26, 2023 Admission HPI Per Admitting Provider 52-year-old male with past med history significant for type 2 diabetes, hyperlipidemia, hypertension, chronic bilateral low back pain, history of schizophrenia, history of stammering, ongoing tobacco abuse, history of alcohol abuse, was brought in because of altered mental status thought to be binge alcohol drinking. But his alcohol level and drug screen were negative in the ER. Patient is somewhat drowsy. Knows that he is in the hospital. Speaking very low voice volume. Nods head for yes or no. Denies any headache. Denies chest pain. Denies nausea. Denies shortness of breath. Afebrile. Denies drinking alcohol or drugs. Could not get much history from the patient currently. Was able to ambulate to bathroom without support in the ER. Hemodynamics are okay. Patient was admitted on January 06, 2023 for alcohol withdrawal. Patient has history of signing out AMA. Past medical history. As mentioned above Past surgical history. None as per [facility] Social history. Smokes quarter pack a day for 18 years as per epic. History of alcohol abuse. No drug use. Family history. Brother had heart disorder. Father had hypertension. Admission Exam Per Admitting Provider Physical Exam: general- Drowsy. Head- atraumatic Eyes- PERRL. ENT- oropharynx clear Neck- supple, no JVD Lungs- clear to auscultation no wheezing or crackles Heart- regular rhythm; no murmur, no gallop. Abdomen- normal bowel sounds, soft, nontender, no distension Extremities- no pretibial edema, no erythema seen Neuro- Drowsy but arousable.; PERRL no facial palsy; no dysarthria; Obeys simple commands, Ambulating Skin- warm & dry Principal Diagnosis AMS-resolved, alcoholism without significant withdrawal symptoms, hypertension Discharge Exam Standing in the room without any acute distress Constitutional well developed, well nourished and average body habitus; not ill appearing Eyes PERRL, conjunctivae normal, anicteric sclerae ENMT external ear and nose normal, oropharynx normal Neck trachea midline, no thyromegaly Respiratory no respiratory distress Auscultation: lungs clear to auscultation bilaterally Cardiovascular Rate/Rhythm: regular rate and regular rhythm; not tachycardic Heart Sounds: normal S1 and normal S2; no murmur Extremities: no edema Gastrointestinal (Abdomen) Inspection/Auscultation: normal bowel sounds; abdomen not distended Percussion/Palpation: abdomen soft; abdomen nontender Neurologic normal touch/pain/proprioception and moves all extremities; no focal motor deficits Lymphatic no cervical or axillary lymphadenopathy Discharge Data Allergies Allergy/AdvReac Type Severity Reaction Status Date / Time No Known Allergies Allergy Unverified 03/08/16 20:20 Consultations 03/23/23 22:53 ED Decision to Admit Stat 03/24/23 08:00 Consult Neurology Routine 03/25/23 10:10 Consult Behavioral Health Liaison Routine Ordered Studies 03/23/23 20:45 CT head/brain wo con Stat Hospital Course (1) Altered mental status: 52-year-old male with past med history significant for type 2 diabetes, hyperlipidemia, hypertension, chronic bilateral low back pain, history of schizophrenia, history of stammering, ongoing tobacco abuse, history of alcohol abuse, was brought in because of altered mental status thought to be binge alcohol drinking. But his alcohol level and drug screen were negative in the ER. Patient is somewhat drowsy. Knows that he is in the hospital. Speaking very low voice volume. Nods head for yes or no. Denies any headache. Denies chest pain. Denies nausea. Denies shortness of breath. Afebrile. Denies drinking alcohol or drugs. Could not get much history from the patient currently. Was able to ambulate to bathroom without support in the ER. Hemodynamics are okay. Patient was admitted on January 06, 2023 for alcohol withdrawal. Patient has history of signing out AMA. Altered mental status likely secondary to alcoholism/withdrawal History of alcohol withdrawal in the past Question of binge drinking Patient denies any alcoholism and drugs Alcohol level and drug screen negative CT head okay Possible alcohol withdrawal seizures and patient being postictal Will place on alcohol drawl protocol with gabapentin and IV Ativan as needed IV thiamine and IV folic acid IV fluids IV Ativan for as needed breakthrough seizures EEG-normal without any epileptiform activities Appreciate neurology input and recommendation-doubt any seizures, no active intoxication, doubt any Warnicke encephalopathy and probably has alcohol withdrawal symptoms Remains pleasantly confused and wants to leave We will change thiamine and folic acid orally Mental status has been normalized Was evaluated by behavioral service-no signs or symptoms of of psychosis, not suicidal or aggressiveness. Understand the consequences of leaving hospital and not taking medication. Has significant behavioral issues as per the [facility] Prior history of suicidal ideation not currently He does have anxiety but not aggressive Try to see his therapist as an outpatient Will ask for behavioral therapy recommendation during this admission Was evaluated by behavioral service-he was given the leaflet to contact their continue therapy At this time he does not need any therapy and he seems to be stable from the point of view History of diabetes Hold metformin Insulin sliding scale Follow the blood sugars Hypertension Continue home medications of amlodipine and lisinopril IV labetalol as needed Blood pressure remains elevated likely secondary to anxiety and withdrawal Blood pressure seems to be on the upper side at 150/101 Chronic pain Last admission he was on Suboxone Needs to confirm the patient medications when he is more awake DVT prophylaxis Lovenox Disposition Telemetry floor Full code Discussed with the [facility] in detail Wanted to have a behavioral health evaluation while in the hospital Will get PT and OT evaluation Put him on one-to-one sitter for now and give him regular food Does not need any more one-to-one sitter Likely be discharged this afternoon, if not discharged will sign out AMA, risk of not taking any medications and risk of early discharged discussed in detail with the patient He will accept the risk of going home He will get the medications and take it as directed and will be followed up with his primary care physician Total Time Total Time Spent Total Time Spent (In Minutes): 45 minutes Discharge Plan Discharge Items Patient Disposition: Home - Self-Care Reason For Visit: AMS Discharge Diagnosis: AMS-resolved, alcoholism without significant withdrawal symptoms, hypertension Condition on Discharge: Fair Activity: Resume your previous activity Non-emergency contact: Primary Care Provider Call non-emergency contact if: you have any medication questions and your symptoms worsen Follow-up/Referrals: Katia aMrtin MD [Primary Care Provider] - (Date & Time 03/30/2023 4:00 PM Provider Katia Martin MD Department General Internal Medicine [facility] ) Diet: Carb Consistent or DM2, Low Potassium (2gm) and Low Sodium (2gm) Addtl Attending Provider Instructions: Please take precautions to avoid falls Take your medications as advised Strongly advised not to drink any more alcohol Please give appointments with the healthcare providers Pending Studies at Discharge: No Stand-Alone Forms: My [employer], Smoking Cessation Medications and DC Order Prescriptions: Continued atorvastatin 40 mg tablet 40 mg PO DAILY lisinopril 20 mg tablet 20 mg PO DAILY amlodipine 10 mg tablet 10 mg PO DAILY albuterol sulfate 90 mcg/actuation HFA aerosol inhaler 2 puff INHALATION Q4H PRN (Reason: sob) metformin 500 mg tablet extended release 24 hr 500 mg PO DAILY thiamine HCl (vitamin B1) 100 mg tablet 100 mg PO DAILY Qty: 30 0RF folic acid 1 mg tablet 1 mg PO DAILY Qty: 30 0RF gabapentin 800 mg tablet 800 mg PO TID Qty: 30 0RF Discharge Orders: Discharge Order (Routine); Ordered 03/26/23 Ordered By: Liliam Blanchard Admission Data Admit Date/Time: 03/24/23 01:42 Attending Provider: Liliam Blanchard Admit Provider: Farhat Rowe Primary Care Provider: Katia Martin Other Providers: Farhat Rowe; Adele De Dios; Bony Dee; Adele Calderón; Minh Gregory; Herman Chamorro; Milind Marc; Pawan Goyal; Lilia Nino; Gunner Lockwood; Edmund Bain; Lucrecia Morris; Charlie Monroy; Dayana Carpenter; Faina Cordero; Pawan Beatty Other Interventions: Discharge Summary Assessment (RN) Last Done: 03/26/23 13:09
[2023-03-27] MEDS ORDERED: THIAMINE HCL 100 MG TAB PO SCH (09:00)
[2023-03-27] MEDS ORDERED: FOLIC ACID 1 MG TAB PO SCH (09:00)
[2023-03-27] MEDS ORDERED: GABAPENTIN 600 MG TAB PO SCH (13:45)
== END 2023-03-26 14:46 | disposition home or self-care (01) | DRG 897 ==
LOC: ED 20:20 → SUATTDRO 03-24 01:42 → EDINP 03-24 01:42 → 2S 03-24 03:33

== ENCOUNTER 2023-04-14 17:21 | Inpatient (IN) ==
[2023-04-14] MEDS ORDERED: MULTI-VITAMIN INFUSION 10 ML, THIAMINE HCL 100 MG, FOLIC ACID 1 MG in SODIUM CHLORIDE 0... IV ONE (17:51)
[2023-04-14] MEDS ORDERED: THIAMINE HCL 200 MG in SODIUM CHLORIDE 0.9% 50 ML IV STA (17:51)
--- NOTE | 2023-04-14 17:53 | Emergency Department Note ---
Impression & Plan Alcohol abuse, Alcoholic intoxication, Altered mental status, Misuse of prescription only drugs ED Provider Note NAME: SHEREEN WHITE AGE: 52 SEX: M ARRIVES VIA: Ambulance INFORMANT: Patient ED PROVIDER(S): Andriy Rae MD CHIEF COMPLAINT: Alcohol intoxication. PLAN: Disposition: Admit MEDICAL DECISION MAKING: The patient is a 52-year-old gentleman with a past medical history of alcohol abuse, alcohol withdrawal, hypertension, esophagitis, medical noncompliance who presents to the emergency department via EMS for evaluation of suspected alcohol intoxication after the patient was found lying on the ground outside of the liquor store. There was no report or evidence of trauma. The patient has been brought to this emergency department numerous times recently with a recent admission at the beginning of March for altered mental status which was ultimately suspected to be related to alcohol withdrawal. Tonight the patient was found with a bottle of 800 mg tablets of gabapentin which were prescribed to be taken in the morning and evening and a 90 count was filled on 04/07 but it was noted by staff that only 19 tablets were remaining in the bottle. After the patient had metabolized this was discussed with him and he reported that he did not know why there would be any tablets missing and he is taking it as prescribed. He denies giving tablets to anyone else. He denies any single moment large ingestion. On my evaluation the patient is intoxicated appearing, somnolent but awakens to voice and will follow commands but then will return to sleep. He is afebrile with heart in the 90s and blood pressure 140s/100s and otherwise stable vital signs. Head is atraumatic. His back is atraumatic. He is moving all extremities equally without focal deficits. EKG without overt acute ischemia. WBC and platelets within normal limits. H/H similar to prior. Chemistry without metabolic acidosis. LFTs are unremarkable. Salicylates and acetaminophen are undetectable. Medical alcohol was 249 with sample taken at 1740. CT of the head and C-spine were performed and were negative for acute abnormalities. Patient was treated with IV fluid hydration with banana bag and given IV thiamine. Patient observed in the emergency department for 6+ hours and did show steady improvement though still drowsy/somnolent. He was able to awaken to request something to eat but still to impaired for independent discharge. With his permission I did attempt to contact his sister who is listed as a contact but the number is out of service. Given the persistence of the patient's somnolence which may be related to taking his gabapentin and drinking alcohol reasonable admit the patient for further observation as the patient is a high risk to suddenly develop withdrawal symptoms. AWSS ordered every 2 hours. Case was discussed with Dr. Page [facility] hospitalist who will evaluate the patient for admission. Triage Nursing notes reviewed and agree them. Prior/external medical records reviewed Vital Signs: reviewed Differential diagnosis: Alcohol intoxication, toxicologic, infection, hypoglycemia, electrolyte abnormalities, cardiac sources, intracerebral event, neurologic, trauma, as well as other pathologies. ER treatment provided: See below. Diagnostics interpreted by me: ECG: Normal sinus rhythm, 89 bpm, no ectopy, no overt ST elevation or depression, QTc 474, QRS 78 Cardiac Monitoring: An order for continuous cardiac monitoring was placed and demonstrated Normal sinus rhythm, 89 bpm, no ectopy Laboratory studies: See below Imaging studies: See below Consultation(s): [facility]. HPI: The patient is a 52-year-old gentleman with a past medical history of alcohol abuse, alcohol withdrawal, hypertension, esophagitis, medical noncompliance who presents to the emergency department via EMS for evaluation of suspected alcohol intoxication after the patient was found lying on the ground outside of the liquor store. There was no report or evidence of trauma. The patient has been brought to this emergency department numerous times recently with a recent admission at the beginning of March for altered mental status which was ultimately suspected to be related to alcohol withdrawal. Tonight the patient was found with a bottle of 800 mg tablets of gabapentin which were prescribed to be taken in the morning and evening and a 90 count was filled on 04/07 but it was noted by staff that only 19 tablets were remaining in the bottle. After the patient had metabolized this was discussed with him and he reported that he did not know why there would be any tablets missing and he is taking it as prescribed. He denies giving tablets to anyone else. He denies any single moment large ingestion. ROS: See above HPI for pertinent positives & negatives. A total of 10 systems reviewed and were otherwise negative. VITALS:See Below PHYSICAL EXAMINATION: GENERAL: Somnolent but awake and alert to voice. Intoxicated-appearing, in no distress HENT: Normocephalic, atraumatic. Oropharynx unremarkable. EYES: Normal conjunctiva. Sclera non-icteric. EOMI. No nystamgus. PEARRL. NECK: Supple. No nuchal rigidity. FROM. No JVD. RESPIRATORY: Clear to auscultation. CARDIAC: Regular rate, normal rhythm. Extremities warm and well perfused. Pulses equal. ABDOMEN: Soft, non-distended. No tenderness to palpation. No rebound or guarding. No masses. RECTAL: Deferred. MUSCULOSKELETAL: Chest examination reveals no tenderness. The back is symmetrical on inspection without obvious abnormality. There is no CVA tenderness to palpation. No joint edema. LOWER EXTREMITIES: Calves are equal size bilaterally and non-tender. No edema. No discoloration. NEURO: Mild dysarthric speech in the setting of alcohol intoxication. No focal sensory or motor deficits noted. SKIN: No rash or jaundice noted. Andriy Rae MD Past Med/Surg History Medical History HTN (hypertension) Alcohol withdrawal Alcoholic intoxication Hyponatremia Esophagitis Bronchitis Depression Social History Smoking Status: Current every day smoker Tobacco Type: Cigarettes Second Hand Exposure: No; Do You Dip or Chew Tobacco: No; Hx Alcohol Use: Yes Alcohol type: beer and hard liquor Hx Substance Use: Yes Last Used Substance: Days (ago) Preferred Language: Urdu Communication Ability: Effective [employer] Required: No Beliefs That Will Affect Care: None Current Living Situation: Significant Other Current Living Situation Comment: lives alone Feels Safe at Home: Yes Assistive Devices: None Allergies Allergies Allergy/AdvReac Type Severity Reaction Status Date / Time No Known Allergies Allergy Unverified 04/15/23 00:43 Home Meds Home Medications Medication Instructions Recorded Confirmed albuterol sulfate 90 mcg/actuation 2 puff inhalation Q4H PRN sob 03/24/23 04/15/23 aerosol inhaler amlodipine 10 mg tablet 10 mg PO QAM 03/24/23 04/15/23 atorvastatin 40 mg tablet 40 mg PO QAM 03/24/23 04/15/23 lisinopril 20 mg tablet 20 mg PO QAM 03/24/23 04/15/23 metformin 500 mg tablet,extended 500 mg PO QDB 03/24/23 04/15/23 release 24 hr Previous Rx's Medication Instructions Recorded folic acid 1 mg tablet 1 mg PO DAILY #30 tabs 03/26/23 gabapentin 800 mg tablet 800 mg PO TID #30 tabs 03/26/23 thiamine HCl (vitamin B1) 100 mg 100 mg PO DAILY #30 tabs 03/26/23 tablet Results & Data (ED) Vital Signs Vital Signs - 24 hr 04/14/23 16:53 04/14/23 17:23 04/14/23 17:29 Pulse Rate 98 H 86 87 Pulse Rate [Apical] Pulse Rhythm [Apical] Respiratory Rate 17 19 Respiratory Effort / Characteristics Non-Labored Respiratory Depth Normal Blood Pressure 145/101 H Blood Pressure [Right Arm] Blood Pressure Mean 115 Blood Pressure Mean [Right Arm] Pulse Oximetry 96 96 Oxygen Delivery Method Room Air Room Air Sepsis Recent Fever Within 48 Hours No Sepsis New/Unexplained Change in Mental Status No Sepsis Action Taken by Nursing No Action Required 04/14/23 17:31 04/14/23 17:31 04/14/23 18:54 Pulse Rate Pulse Rate [Apical] 88 Pulse Rhythm [Apical] Respiratory Rate 18 Respiratory Effort / Characteristics Respiratory Depth Blood Pressure Blood Pressure [Right Arm] Blood Pressure Mean Blood Pressure Mean [Right Arm] Pulse Oximetry 97 96 Oxygen Delivery Method Room Air Room Air Room Air Sepsis Recent Fever Within 48 Hours Sepsis New/Unexplained Change in Mental Status Sepsis Action Taken by Nursing 04/14/23 19:00 04/14/23 21:00 04/14/23 21:26 Pulse Rate 85 Pulse Rate [Apical] 87 79 Pulse Rhythm [Apical] Regular Respiratory Rate 18 20 Respiratory Effort / Characteristics Non-Labored Non-Labored Respiratory Depth Normal Normal Blood Pressure Blood Pressure [Right Arm] 149/106 H 150/101 H Blood Pressure Mean Blood Pressure Mean [Right Arm] 120 117 Pulse Oximetry 97 96 Oxygen Delivery Method Room Air Room Air Sepsis Recent Fever Within 48 Hours Sepsis New/Unexplained Change in Mental Status Sepsis Action Taken by Nursing 04/14/23 23:00 Pulse Rate Pulse Rate [Apical] 75 Pulse Rhythm [Apical] Respiratory Rate 18 Respiratory Effort / Characteristics Respiratory Depth Blood Pressure Blood Pressure [Right Arm] 134/97 Blood Pressure Mean Blood Pressure Mean [Right Arm] 109 Pulse Oximetry 97 Oxygen Delivery Method Room Air Sepsis Recent Fever Within 48 Hours Sepsis New/Unexplained Change in Mental Status Sepsis Action Taken by Nursing Laboratory Data Attestation: I reviewed the patient's lab results. 04/14/23 17:40 04/14/23 17:40 Lab Results 04/14/23 04/14/23 Range/Units 17:40 18:22 WBC 5.70 (4.8-10.8) K/ul RBC 4.85 (4.70-6.10) M/uL Hgb 13.5 L (14.0-18.0) g/dl Hct 40.7 L (42.0-52.0) % MCV 83.9 (80.0-100.0) fL MCH 27.8 (25.0-34.0) pg MCHC 33.2 (32.0-36.0) g/dL RDW Std Deviation 41.8 (36.4-46.3) fL RDW Coeff of Virgil 13.6 (11.5-14.5) % Plt Count 337 (130-400) K/uL MPV 9.1 L (9.4-12.4) fL Immature Gran % (Auto) 0.2 % Neut % (Auto) 51.6 % Lymph % (Auto) 35.6 % [place] % (Auto) 10.0 % Eos % (Auto) 1.4 % Baso % (Auto) 1.2 % Neut # (Auto) 2.94 (1.40-6.50) K/uL Lymph # (Auto) 2.03 (1.20-3.40) K/uL [place] # (Auto) 0.57 (0.11-0.59) K/uL Eos # (Auto) 0.08 (0.00-0.50) K/uL Baso # (Auto) 0.07 (0.00-0.20) K/uL Immature Gran # (Auto) 0.01 (0.01-0.20) K/uL PT 10.0 (9.0-12.0) Seconds INR 0.9 (0.9-1.1) Sodium 138 (136-145) mmol/L Potassium 3.8 (3.5-5.1) mmol/L Chloride 102 (98-107) mmol/L Carbon Dioxide 26 (21-32) mmol/L Anion Gap 10 (3-11) BUN 15 (6-23) mg/dl Creatinine 0.68 (0.6-1.4) mg/dl Est Cr Clr Drug Dosing 132.3 ml/min Est GFR ( Amer) 125.5 ml/min Est GFR (Non-Af Amer) 108.3 ml/min BUN/Creatinine Ratio 22.1 H (10-20) Glucose 118 H (70-99(Fasting)) mg/dl POC Glucose 117 H (70-99) mg/dl Calcium 8.7 (8.6-10.3) mg/dl Magnesium 2.5 H (1.7-2.4) mg/dl Total Bilirubin 0.2 (0.2-1.0) mg/dl AST 16 (13-39) U/L ALT 15 (7-52) U/L Alkaline Phosphatase 103 (34-104) U/L Total Protein 7.4 (6.0-8.3) gm/dl Albumin 4.2 (3.4-5.0) gm/dl Globulin 3.2 (2.5-4.0) gm/dl Albumin/Globulin Ratio 1.3 (0.9-2) Salicylates < 3.0 L (3.0-30) mg/dl Acetaminophen < 3 L (10-30) ug/ml Ethyl Alcohol mg/dL 249.2 H (<10.0) mg/dl Administered Medications Discontinued Medications Multivitamins 10 ml/ Thiamine HCl 100 mg/ Folic Acid 1 mg/Sodium Chloride 1,011.2 mls @ 500 mls/hr IV .Q2H2M ONE Stop: 04/14/23 19:52 Last Infusion: 04/14/23 21:04 Dose: Infused Documented By: Admin: 04/14/23 18:40 Dose: 500 mls/hr Documented By: PRUDENCIO Thiamine HCl 200 mg/ Sodium (Chloride) 52 mls @ 210 mls/hr IV NOW STA Stop: 04/14/23 18:05 Last Infusion: 04/14/23 18:43 Dose: Infused Documented By: Admin: 04/14/23 18:23 Dose: 210 mls/hr Documented By: PRUDENCIO Imaging Data Radiologist's Impression: Cervical Spine CT 04/14/23 20:00 Exam(s): CT C SPINE EXAM: CT Cervical Spine Without Intravenous Contrast CLINICAL HISTORY: Reason for exam: fall etoh. TECHNIQUE: Axial computed tomography images of the cervical spine without intravenous contrast. CTDI is 26.51 mGy and DLP is 646.59 mGy-cm. Automated exposure control was utilized for the study. A dose lowering technique was utilized adhering to the principles of ALARA. COMPARISON: January 05, 2023 FINDINGS: Vertebrae: Unremarkable. No acute fracture. Soft tissues: Unremarkable. DISCS/SPINAL CANAL/NEURAL FORAMINA: C2-C3: Unremarkable. No significant disc disease. No stenosis. C3-C4: Unremarkable. No significant disc disease. No stenosis. C4-C5: Mild degenerative disc disease. No stenosis. C5-C6: Mild degenerative there disc disease. No stenosis. C6-C7: Unremarkable. No significant disc disease. No stenosis. C7-T1: Unremarkable. No significant disc disease. No stenosis. IMPRESSION: Mild degenerative disc disease in the mid to lower cervical spine. No acute fracture, subluxation, or significant spinal stenosis is seen. Electronically signed by: Basil Gasca MD 04/14/23 21:[address] 04/14/23 20:00 Exam(s): CT HEAD Without Contrast EXAM: CT Head Without Intravenous Contrast CLINICAL HISTORY: Reason for exam: fall etoh. TECHNIQUE: Axial computed tomography images of the head/brain without intravenous contrast. CTDI is 38.55 mGy and DLP is 624.41 mGy-cm. Automated exposure control was utilized for the study. A dose lowering technique was utilized adhering to the principles of ALARA. COMPARISON: March 23, 2023 FINDINGS: Brain: A trace amount of periventricular white matter low density consistent with chronic small vessel disease. The brain is otherwise unremarkable. No acute large vessel infarct or intracranial hemorrhage is seen. Ventricles: Unremarkable. No ventriculomegaly. Bones/joints: Unremarkable. No acute fracture. Soft tissues: Unremarkable. Sinuses: Unremarkable as visualized. No acute sinusitis. Mastoid air cells: Unremarkable as visualized. No mastoid effusion. IMPRESSION: A trace amount of periventricular white matter low density consistent with chronic small vessel disease. The brain is otherwise unremarkable. No acute large vessel infarct or intracranial hemorrhage is seen. Electronically signed by: Basil Gasca MD 04/14/23 21:21 PM Discharge Plan Visit Data Chief Complaint: Alcohol Intoxication Stated Complaint: ETOH ED Provider: Andriy Rae Discharge Problem: Alcohol abuse, Alcoholic intoxication, Altered mental status, Misuse of prescription only drugs Forms Stand Alone Forms: [facility] [employer] [employer] Prescriptions Prescriptions: No Action atorvastatin 40 mg tablet 40 mg PO QAM lisinopril 20 mg tablet 20 mg PO QAM amlodipine 10 mg tablet 10 mg PO QAM albuterol sulfate 90 mcg/actuation HFA aerosol inhaler 2 puff INHALATION Q4H PRN (Reason: sob) metformin 500 mg tablet extended release 24 hr 500 mg PO QDB thiamine HCl (vitamin B1) 100 mg tablet 100 mg PO DAILY Qty: 30 0RF folic acid 1 mg tablet 1 mg PO DAILY Qty: 30 0RF gabapentin 800 mg tablet 800 mg PO TID Qty: 30 0RF Referrals Referrals: Katia Martin MD [Primary Care Provider] - Discharge Problem: Alcoholic intoxication Qualifiers: Complication of substance-induced condition: with delirium Qualified Code(s): F 10.921 - Alcohol use, unspecified with intoxication delirium Altered mental status Qualifiers: Altered mental status type: delirium Qualified Code(s): R41.0 - Disorientation, unspecified
[2023-04-14 18:15] LABS: Basophils # (auto) 0.07 K/uL (0.00-0.20); Basophils % (auto) 1.2 %; Eosinophils # (auto) 0.08 K/uL (0.00-0.50); Eosinophils % (auto) 1.4 %; Hematocrit (blood only) 40.7 % (42.0-52.0); Hemoglobin 13.5 g/dl (14.0-18.0); Immature Granulocytes # (auto) 0.01 K/uL (0.01-0.20); Immature Granulocytes % (auto) 0.2 %; Lymphocytes # (auto) 2.03 K/uL (1.20-3.40); Lymphocytes % (auto) 35.6 %; Mean Corpuscular Hemoglobin 27.8 pg (25.0-34.0); Mean Corpuscular Hgb Conc 33.2 g/dL (32.0-36.0); Mean Corpuscular Volume 83.9 fL (80.0-100.0); Mean Platelet Volume 9.1 fL (9.4-12.4); Monocytes # (auto) 0.57 K/uL (0.11-0.59); Neutrophils # (auto) 2.94 K/uL (1.40-6.50); Neutrophils % (auto) 51.6 %; Platelet Count 337 K/uL (130-400); RDW Coefficient of Variation 13.6 % (11.5-14.5); RDW Standard Deviation 41.8 fL (36.4-46.3); Red Blood Count 4.85 M/uL (4.70-6.10)
[2023-04-14 18:29] LABS: Albumin Globulin Ratio 1.3 (0.9-2); Albumin Level 4.2 gm/dl (3.4-5.0); BUN Creatinine Ratio 22.1 (10-20); Bilirubin,Total 0.2 mg/dl (0.2-1.0); Calcium 8.7 mg/dl (8.6-10.3); Creatinine Clr Calc Pharmacy 132.3 ml/min; Est GFR (African American) 125.5 ml/min; Est GFR (Non-African American) 108.3 ml/min; Globulin 3.2 gm/dl (2.5-4.0); Magnesium 2.5 mg/dl (1.7-2.4); Potassium 3.8 mmol/L (3.5-5.1); Total Protein 7.4 gm/dl (6.0-8.3)
[2023-04-14 18:33] LABS: Acetaminophen < 3 ug/ml (10-30); Salicylate < 3.0 mg/dl (3.0-30)
[2023-04-14 18:42] LABS: INR 0.9 (0.9-1.1)
--- NOTE | 2023-04-14 21:22 | CT Scan Report ---
Exam(s): CT HEAD Without Contrast EXAM: CT Head Without Intravenous Contrast CLINICAL HISTORY: Reason for exam: fall etoh. TECHNIQUE: Axial computed tomography images of the head/brain without intravenous contrast. CTDI is 38.55 mGy and DLP is 624.41 mGy-cm. Automated exposure control was utilized for the study. A dose lowering technique was utilized adhering to the principles of ALARA. COMPARISON: March 23, 2023 FINDINGS: Brain: A trace amount of periventricular white matter low density consistent with chronic small vessel disease. The brain is otherwise unremarkable. No acute large vessel infarct or intracranial hemorrhage is seen. Ventricles: Unremarkable. No ventriculomegaly. Bones/joints: Unremarkable. No acute fracture. Soft tissues: Unremarkable. Sinuses: Unremarkable as visualized. No acute sinusitis. Mastoid air cells: Unremarkable as visualized. No mastoid effusion. IMPRESSION: A trace amount of periventricular white matter low density consistent with chronic small vessel disease. The brain is otherwise unremarkable. No acute large vessel infarct or intracranial hemorrhage is seen. Electronically signed by: Basil Gasca MD 04/14/23 21:21 PM
--- NOTE | 2023-04-14 21:27 | CT Scan Report ---
Exam(s): CT C SPINE EXAM: CT Cervical Spine Without Intravenous Contrast CLINICAL HISTORY: Reason for exam: fall etoh. TECHNIQUE: Axial computed tomography images of the cervical spine without intravenous contrast. CTDI is 26.51 mGy and DLP is 646.59 mGy-cm. Automated exposure control was utilized for the study. A dose lowering technique was utilized adhering to the principles of ALARA. COMPARISON: January 05, 2023 FINDINGS: Vertebrae: Unremarkable. No acute fracture. Soft tissues: Unremarkable. DISCS/SPINAL CANAL/NEURAL FORAMINA: C2-C3: Unremarkable. No significant disc disease. No stenosis. C3-C4: Unremarkable. No significant disc disease. No stenosis. C4-C5: Mild degenerative disc disease. No stenosis. C5-C6: Mild degenerative there disc disease. No stenosis. C6-C7: Unremarkable. No significant disc disease. No stenosis. C7-T1: Unremarkable. No significant disc disease. No stenosis. IMPRESSION: Mild degenerative disc disease in the mid to lower cervical spine. No acute fracture, subluxation, or significant spinal stenosis is seen. Electronically signed by: Basil Gasca MD 04/14/23 21:26 PM
--- NOTE | 2023-04-15 02:08 | History & Physical Report ---
Date of Service April 15, 2023 Assessment & Plan (1) Encephalopathy: Plan: Secondary to alcohol intoxication Rule out gabapentin misuse hypertension, slightly elevated hyperlipidemia, on statin Rx DM 2 on oral medications, well-controlled as of recent hemoglobin A1c of 5.4 last November 2022 chronic anemia, hemoglobin at baseline ongoing tobacco abuse Medical telemetry KELLI S at risk protocol, DT precautions Hold gabapentin for now until able to query patient regarding abuse concerns. ISS BG goal 1 10-1 40, carb count coverage Nicotine patch as needed DVT prophylaxis. Lovenox subcu Full code Text document was generated using [employer] voice recognition software. It may contain grammatical or spelling errors. Kindly contact undersigned for clarification of any documentation item in question. History of Present Illness Chief Complaint: Alcohol intoxication as per records Primary Care Provider: Katia Martin MD History obtained from ER provider and records. Unable to obtain history from patient secondary to intoxicated state. Medical history significant for hypertension, hyperlipidemia, DM 2 on oral medications, chronic anemia (baseline hemoglobin of 13), ongoing tobacco/alcohol abuse. Recent confinement 3 weeks ago alcohol intoxication. Patient not answering outpatient calls from healthcare social worker as per records. Patient found lying on the ground outside a liquor store last night. Patient found to have bottle of gabapentin medications. 19 tablets remaining from 90 tabs filled last April 07 as per ER provider. Patient brought to the ER for evaluation. Patient unable to answer questions at time of exam. Medical History as above Surgical History : None Family History : Heart disease Personal/Social history : One 4 pack daily, alcohol abuse Allergies Allergy/AdvReac Type Severity Reaction Status Date / Time No Known Allergies Allergy Unverified 04/15/23 00:43 Home Medications Medication Instructions Recorded Confirmed Type albuterol sulfate 90 mcg/actuation 2 puff inhalation Q4H PRN sob 03/24/23 04/15/23 History aerosol inhaler amlodipine 10 mg tablet 10 mg PO QAM 03/24/23 04/15/23 History atorvastatin 40 mg tablet 40 mg PO QAM 03/24/23 04/15/23 History lisinopril 20 mg tablet 20 mg PO QAM 03/24/23 04/15/23 History metformin 500 mg tablet,extended 500 mg PO QDB 03/24/23 04/15/23 History release 24 hr folic acid 1 mg tablet 1 mg PO DAILY #30 tabs 03/26/23 04/15/23 Rx gabapentin 800 mg tablet 800 mg PO TID #30 tabs 03/26/23 04/15/23 Rx thiamine HCl (vitamin B1) 100 mg 100 mg PO DAILY #30 tabs 03/26/23 04/15/23 Rx tablet Past Med/Surg History Medical History HTN (hypertension) Alcohol withdrawal Alcoholic intoxication Hyponatremia Esophagitis Bronchitis Depression Social History Smoking Status: Current every day smoker Tobacco Type: Cigarettes Second Hand Exposure: No; Do You Dip or Chew Tobacco: No; Hx Alcohol Use: Yes Alcohol type: beer and hard liquor Hx Substance Use: Yes Last Used Substance: Days (ago) Preferred Language: [place] Communication Ability: Effective Educational Therapist Required: No Beliefs That Will Affect Care: None Current Living Situation: Significant Other Current Living Situation Comment: lives alone Feels Safe at Home: Yes Assistive Devices: None Review of Systems Review of Systems: Could not be reliably obtained secondary to obtunded state Physical Exam Physical Exam: GENERAL: Obtunded, lying down in the prone position, alcoholic fetor, no respiratory distress SKIN: Pallor, warm HEENT: Pale palpebral conjunctivae, no ptosis, dry buccal mucosa NECK : Supple, no tenderness CHEST : Decreased breath sounds, no tenderness HEART : RRR, no obvious murmurs ABDOMEN: Some distention, nontender EXTREMITIES : No LE swelling/tenderness, no other conspicuous deformities noted NEUROLOGIC : Obtunded, no facial asymmetry, gait and stance not assessed Results & Data Results & Data Vital Signs (Past 12 Hours) Vital Signs Pulse Pulse Resp BP BP Pulse Ox O2 Del Method 04/15/23 01:26 85 04/15/23 01:00 73 17 147/80 H 96 Room Air 04/14/23 23:00 75 18 134/97 97 Room Air 04/14/23 21:26 85 04/14/23 21:00 79 20 150/101 H 96 Room Air 04/14/23 19:00 87 18 149/106 H 97 Room Air 04/14/23 18:54 96 Room Air 04/14/23 17:31 88 18 97 Room Air 04/14/23 17:31 Room Air 04/14/23 17:29 87 04/14/23 17:23 86 19 145/101 H 96 Room Air 04/14/23 16:53 98 H 17 96 Room Air Laboratory Results Laboratory Results WBC 5.70 K/ul (4.8-10.8) 04/14/23 17:40 RBC 4.85 M/uL (4.70-6.10) 04/14/23 17:40 Hgb 13.5 g/dl (14.0-18.0) L 04/14/23 17:40 Hct 40.7 % (42.0-52.0) L 04/14/23 17:40 MCV 83.9 fL (80.0-100.0) 04/14/23 17:40 MCH 27.8 pg (25.0-34.0) 04/14/23 17:40 MCHC 33.2 g/dL (32.0-36.0) 04/14/23 17:40 RDW Std Deviation 41.8 fL (36.4-46.3) 04/14/23 17:40 RDW Coeff of Virgil 13.6 % (11.5-14.5) 04/14/23 17:40 Plt Count 337 K/uL (130-400) 04/14/23 17:40 MPV 9.1 fL (9.4-12.4) L 04/14/23 17:40 Immature Gran % (Auto) 0.2 % 04/14/23 17:40 Neut % (Auto) 51.6 % 04/14/23 17:40 Lymph % (Auto) 35.6 % 04/14/23 17:40 [place] % (Auto) 10.0 % 04/14/23 17:40 Eos % (Auto) 1.4 % 04/14/23 17:40 Baso % (Auto) 1.2 % 04/14/23 17:40 Neut # (Auto) 2.94 K/uL (1.40-6.50) 04/14/23 17:40 Lymph # (Auto) 2.03 K/uL (1.20-3.40) 04/14/23 17:40 [place] # (Auto) 0.57 K/uL (0.11-0.59) 04/14/23 17:40 Eos # (Auto) 0.08 K/uL (0.00-0.50) 04/14/23 17:40 Baso # (Auto) 0.07 K/uL (0.00-0.20) 04/14/23 17:40 Immature Gran # (Auto) 0.01 K/uL (0.01-0.20) 04/14/23 17:40 PT 10.0 Seconds (9.0-12.0) 04/14/23 17:40 INR 0.9 (0.9-1.1) 04/14/23 17:40 Sodium 138 mmol/L (136-145) 04/14/23 17:40 Potassium 3.8 mmol/L (3.5-5.1) 04/14/23 17:40 Chloride 102 mmol/L (98-107) 04/14/23 17:40 Carbon Dioxide 26 mmol/L (21-32) 04/14/23 17:40 Anion Gap 10 (3-11) 04/14/23 17:40 BUN 15 mg/dl (6-23) 04/14/23 17:40 Creatinine 0.68 mg/dl (0.6-1.4) 04/14/23 17:40 Est Cr Clr Drug Dosing 132.3 ml/min 04/14/23 17:40 Est GFR ( Amer) 125.5 ml/min 04/14/23 17:40 Est GFR (Non-Af Amer) 108.3 ml/min 04/14/23 17:40 BUN/Creatinine Ratio 22.1 (10-20) H 04/14/23 17:40 Glucose 118 mg/dl (70-99(Fasting)) H 04/14/23 17:40 POC Glucose 117 mg/dl (70-99) H 04/14/23 18:22 Calcium 8.7 mg/dl (8.6-10.3) 04/14/23 17:40 Magnesium 2.5 mg/dl (1.7-2.4) H 04/14/23 17:40 Total Bilirubin 0.2 mg/dl (0.2-1.0) 04/14/23 17:40 AST 16 U/L (13-39) 04/14/23 17:40 ALT 15 U/L (7-52) 04/14/23 17:40 Alkaline Phosphatase 103 U/L (34-104) 04/14/23 17:40 Total Protein 7.4 gm/dl (6.0-8.3) 04/14/23 17:40 Albumin 4.2 gm/dl (3.4-5.0) 04/14/23 17:40 Globulin 3.2 gm/dl (2.5-4.0) 04/14/23 17:40 Albumin/Globulin Ratio 1.3 (0.9-2) 04/14/23 17:40 Salicylates < 3.0 mg/dl (3.0-30) L 04/14/23 17:40 Acetaminophen < 3 ug/ml (10-30) L 04/14/23 17:40 Ethyl Alcohol mg/dL 249.2 mg/dl (<10.0) H 04/14/23 17:[address] 04/14/23 20:00 Exam(s): CT C SPINE EXAM: CT Cervical Spine Without Intravenous Contrast CLINICAL HISTORY: Reason for exam: fall etoh. TECHNIQUE: Axial computed tomography images of the cervical spine without intravenous contrast. CTDI is 26.51 mGy and DLP is 646.59 mGy-cm. Automated exposure control was utilized for the study. A dose lowering technique was utilized adhering to the principles of ALARA. COMPARISON: January 05, 2023 FINDINGS: Vertebrae: Unremarkable. No acute fracture. Soft tissues: Unremarkable. DISCS/SPINAL CANAL/NEURAL FORAMINA: C2-C3: Unremarkable. No significant disc disease. No stenosis. C3-C4: Unremarkable. No significant disc disease. No stenosis. C4-C5: Mild degenerative disc disease. No stenosis. C5-C6: Mild degenerative there disc disease. No stenosis. C6-C7: Unremarkable. No significant disc disease. No stenosis. C7-T1: Unremarkable. No significant disc disease. No stenosis. IMPRESSION: Mild degenerative disc disease in the mid to lower cervical spine. No acute fracture, subluxation, or significant spinal stenosis is seen. Electronically signed by: Basil Gasca MD 04/14/23 21:[address] 04/14/23 20:00 Exam(s): CT HEAD Without Contrast EXAM: CT Head Without Intravenous Contrast CLINICAL HISTORY: Reason for exam: fall etoh. TECHNIQUE: Axial computed tomography images of the head/brain without intravenous contrast. CTDI is 38.55 mGy and DLP is 624.41 mGy-cm. Automated exposure control was utilized for the study. A dose lowering technique was utilized adhering to the principles of ALARA. COMPARISON: March 23, 2023 FINDINGS: Brain: A trace amount of periventricular white matter low density consistent with chronic small vessel disease. The brain is otherwise unremarkable. No acute large vessel infarct or intracranial hemorrhage is seen. Ventricles: Unremarkable. No ventriculomegaly. Bones/joints: Unremarkable. No acute fracture. Soft tissues: Unremarkable. Sinuses: Unremarkable as visualized. No acute sinusitis. Mastoid air cells: Unremarkable as visualized. No mastoid effusion. IMPRESSION: A trace amount of periventricular white matter low density consistent with chronic small vessel disease. The brain is otherwise unremarkable. No acute large vessel infarct or intracranial hemorrhage is seen. Electronically signed by: Basil Gasca MD 04/14/23 21:21 PM Diagnostic Findings EKG as per my interpretation : Rate 90, NSR, LAD, LAFB, T wave flattening anteroseptal leads
[2023-04-15] MEDS ORDERED: LORazepam 1 MG in SYRINGE 0.5 ML IV PRN (02:11)
[2023-04-15] MEDS ORDERED: PROMETHAZINE HCL 6.25 MG in SODIUM CHLORIDE 0.9% 50 ML IV PRN ×2 (02:11→02:49)
[2023-04-15] MEDS ORDERED: LACTATED RINGER'S 1,000 ML IV ONE (02:13)
[2023-04-15] MEDS ORDERED: DEXTROSE 50% 50 ML SYRINGE IV PRN (02:49)
[2023-04-15] MEDS ORDERED: GLUCAGON FOR INJ 1 MG VIAL SQ PRN (02:49)
[2023-04-15] MEDS ORDERED: CARBOHYDRATES FOR HYPOGLYCEMIA PO PRN (02:49)
[2023-04-15] MEDS ORDERED: GLUCOSE 40% GEL 15 GM TUBE PO PRN (02:49)
[2023-04-15] MEDS ORDERED: ACETAMINOPHEN 325 MG TAB PO PRN (02:49)
[2023-04-15] MEDS ORDERED: GLUCOSE 10 TAB/TUBE PO PRN (02:49)
[2023-04-15] MEDS: INSULIN ASPART PER UNIT CHARGE SC SCH ×4 (03:41→20:38)
[2023-04-15 04:54] LABS: Basophils # (auto) 0.06 K/uL (0.00-0.20); Basophils % (auto) 1.3 %; Eosinophils # (auto) 0.06 K/uL (0.00-0.50); Eosinophils % (auto) 1.3 %; Hematocrit (blood only) 37.1 % (42.0-52.0); Hemoglobin 12.8 g/dl (14.0-18.0); Immature Granulocytes # (auto) 0.02 K/uL (0.01-0.20); Immature Granulocytes % (auto) 0.4 %; Lymphocytes # (auto) 1.69 K/uL (1.20-3.40); Lymphocytes % (auto) 36.2 %; Mean Corpuscular Hemoglobin 28.2 pg (25.0-34.0); Mean Corpuscular Hgb Conc 34.5 g/dL (32.0-36.0); Mean Corpuscular Volume 81.7 fL (80.0-100.0); Mean Platelet Volume 9.1 fL (9.4-12.4); Monocytes # (auto) 0.62 K/uL (0.11-0.59); Monocytes % (auto) 13.3 %; Neutrophils # (auto) 2.22 K/uL (1.40-6.50); Neutrophils % (auto) 47.5 %; Platelet Count 326 K/uL (130-400); RDW Coefficient of Variation 13.4 % (11.5-14.5); RDW Standard Deviation 39.8 fL (36.4-46.3); Red Blood Count 4.54 M/uL (4.70-6.10); White Blood Count 4.67 K/ul (4.8-10.8)
[2023-04-15 05:06] LABS: BUN Creatinine Ratio 18.6 (10-20); Calcium 8.4 mg/dl (8.6-10.3); Creatinine Clr Calc Pharmacy 152.4 ml/min; Est GFR (Non-African American) 114.8 ml/min
[2023-04-15 06:41] LABS: Appearance Urine Clear (Clear); Bilirubin Urine Negative (Negative); Blood Urine Negative (Negative); Color Urine Yellow; Glucose Urine UA Negative (Negative); Ketones Urine Negative (Negative); Leukocyte Esterase Urine Negative (Negative); Nitrite Urine Negative (Negative); Protein Urine Negative (Negative); Specific Gravity Urine 1.018 (1.000-1.030); Urobilinogen Urine Negative (Negative); pH Urine 6.5 (4.5-7.5)
[2023-04-15 07:06] LABS: Amphetamines+Metham, Urine Neg (Neg); Barbiturates, Urine Neg (Neg); Benzodiazepine, Urine Neg (Neg); Cocaine, Urine Neg (Neg); MDMA (Ecstacy), Urine Neg (Neg); Marijuana, Urine Neg (Neg); Methadone, Urine Neg (Neg); Opiate, Urine Neg (Neg); Phencyclidine, Urine Neg (Neg)
[2023-04-15] MEDS ORDERED: GABAPENTIN 800 MG TAB PO SCH (09:00)
[2023-04-15] MEDS: ATORVASTATIN 40 MG TAB PO SCH (09:59)
[2023-04-15] MEDS: ENOXAPARIN INJ 40 MG/0.4 ML SYR SQ SCH (09:59)
[2023-04-15] MEDS: FOLIC ACID 1 MG TAB PO SCH (09:59)
[2023-04-15] MEDS: lisinopril 20 MG TAB PO SCH (10:00)
[2023-04-15] MEDS: THIAMINE HCL 100 MG TAB PO SCH (10:00)
[2023-04-15] MEDS: amLODIPine BESYLATE 5 MG TAB PO SCH (10:01)
[2023-04-15] MEDS ORDERED: PNEUMOCOCCAL VACCINE (PCV20) 20-VAL CONJ-DIP CRM/PF 0.5 ML SYR IM ONE (11:53)
--- NOTE | 2023-04-15 13:37 | Communication Note ---
Date of Service: April 15, 2023 Pt was seen while down in the ED. Was awake, stutters when he speaks. Was requesting a change to his diet/meals ordered, wanted regular food. Was AAOx3 on exam though appeared confused at times during the evaluation. States that he has been taking his gabapentin "two to three times a day". Denies abnormal use of the gabapentin, states he just drank too much last night and passed out. Was agreeable to staying as long as he got food and snacks. For further details, please refer to the History and Physical from the same date of service.
--- NOTE | 2023-04-15 17:25 | Electrocardiogram Report ---
Test Reason : Blood Pressure : / mmHG Vent. Rate : 089 BPM Atrial Rate : 089 BPM P-R Int : 142 ms QRS Dur : 078 ms QT Int : 390 ms P-R-T Axes : 061 -21 023 degrees QTc Int : 474 ms Normal sinus rhythm Low voltage QRS Incomplete right bundle branch block Abnormal ECG When compared with ECG of 02-APR-2023 06:25, ST no longer elevated in Anterior leads Nonspecific T wave abnormality now evident in Anterior leads Confirmed by Andrea Ramon ([id number]) on 04/15/2023 5:25:04 PM Referred By: REFERRED SELF Confirmed By:Ron Ramon
[2023-04-16 07:27] LABS: Hematocrit (blood only) 39.4 % (42.0-52.0); Hemoglobin 13.2 g/dl (14.0-18.0); Mean Corpuscular Hemoglobin 28.1 pg (25.0-34.0); Mean Corpuscular Hgb Conc 33.5 g/dL (32.0-36.0); Mean Corpuscular Volume 83.8 fL (80.0-100.0); Platelet Count 340 K/uL (130-400); RDW Coefficient of Variation 13.5 % (11.5-14.5); RDW Standard Deviation 41.5 fL (36.4-46.3); White Blood Count 4.42 K/ul (4.8-10.8)
[2023-04-16 08:08] LABS: Albumin Globulin Ratio 1.5 (0.9-2); BUN Creatinine Ratio 17.9 (10-20); Bilirubin,Total 0.4 mg/dl (0.2-1.0); Calcium 9.1 mg/dl (8.6-10.3); Creatinine Clr Calc Pharmacy 133.5 ml/min; Est GFR (African American) 126.3 ml/min; Est GFR (Non-African American) 108.9 ml/min; Globulin 2.7 gm/dl (2.5-4.0); Magnesium 2.2 mg/dl (1.7-2.4); Phosphorus 4.1 mg/dl (2.5-4.9); Total Protein 6.7 gm/dl (6.0-8.3)
[2023-04-16] MEDS: FOLIC ACID 1 MG TAB PO SCH (08:08)
[2023-04-16] MEDS: amLODIPine BESYLATE 5 MG TAB PO SCH (08:08)
[2023-04-16] MEDS: ATORVASTATIN 40 MG TAB PO SCH (08:08)
[2023-04-16] MEDS: lisinopril 20 MG TAB PO SCH (08:08)
[2023-04-16] MEDS: THIAMINE HCL 100 MG TAB PO SCH (08:08)
[2023-04-16] MEDS: ENOXAPARIN INJ 40 MG/0.4 ML SYR SQ SCH (08:10)
--- NOTE | 2023-04-16 08:43 | Discharge Summary ---
Discharge Summary Date of Service April 16, 2023 Notes For Next Care Provider Pt left AMA while starting to undergo alcohol withdrawal- was becoming increasingly agitated. Was alert and oriented to self, place and time. Discussed risks and benefit of his decision and pt stated that he would still like to be discharged. Please ensure close follow up. Please encourage alcohol cessation Medication Changes From Visit None Admission HPI Per Admitting Provider History obtained from ER provider and records. Unable to obtain history from patient secondary to intoxicated state. Medical history significant for hypertension, hyperlipidemia, DM 2 on oral medications, chronic anemia (baseline hemoglobin of 13), ongoing tobacco/alcohol abuse. Recent confinement 3 weeks ago alcohol intoxication. Patient not answering outpatient calls from child protective services social worker as per records. Patient found lying on the ground outside a liquor store last night. Patient found to have bottle of gabapentin medications. 19 tablets remaining from 90 tabs filled last April 07 as per ER provider. Patient brought to the ER for evaluation. Patient unable to answer questions at time of exam. Medical History as above Surgical History : None Family History : Heart disease Personal/Social history : One 4 pack daily, alcohol abuse Admission Exam Per Admitting Provider GENERAL: Obtunded, lying down in the prone position, alcoholic fetor, no respiratory distress SKIN: Pallor, warm HEENT: Pale palpebral conjunctivae, no ptosis, dry buccal mucosa NECK : Supple, no tenderness CHEST : Decreased breath sounds, no tenderness HEART : RRR, no obvious murmurs ABDOMEN: Some distention, nontender EXTREMITIES : No LE swelling/tenderness, no other conspicuous deformities noted NEUROLOGIC : Obtunded, no facial asymmetry, gait and stance not assessed Principal Dx & Hospital Course #1 = Principal Diagnosis (1) Encephalopathy: Plan Pt is a 52yoM with PMHx significant for hypertension, hyperlipidemia, DM 2 on oral medications, chronic anemia (baseline hemoglobin of 13), ongoing tobacco/alcohol abuse admitted with acute alcohol intoxication. Encephalopathy Alcohol Intoxication Pt presented with encephalopathy secondary to alcohol intoxication There was a question of gabapentin misuse as patient was found to have bottle of gabapentin medications with 19 tablets remaining from 90 tabs filled last April 07 as per ER provider. Pt was AAOx3 the morning after admission and denied misuse, states that he has been taking his gabapentin as prescribed. Alcohol level of 249.2 on admission Urine toxicology screen completely negative UA without signs of infection Electrolytes within normal limits CT head with no acute changes, notes chronic ischemic disease Was placed on AWSS protocol with DT precautions Gabapentin was held out of concern for possible overdose On 04/16 pt becoming increasingly agitated and refusing medications. He left AMA while there was concern that he was starting to undergo alcohol withdrawal. At that time, he was alert and oriented to self, place and time. Discussed risks and benefit of his decision to leave AMA and pt stated that he would still like to be discharged. Please ensure close follow up Please encourage alcohol cessation Hypertension-BP slightly elevated on admission but within normal limits on discharge. His home medications were continued. Hyperlipidemia- on statin Rx, continue DMII-on oral medications, well-controlled as of recent hemoglobin A1c of 5.4 last November 2022. ISS while hospitalized. Continue home metformin after discharge Chronic anemia- hemoglobin at baseline Ongoing tobacco abuse- encourage cessation Discharge Exam General: Alert, oriented. Stutters when he speaks Skin: No noted rashes or bruises Psych: Anxious mood and affect HEENT: NC/AT Chest: Nontender to palpation. CV: RRR Resp: Breath sounds clear bilaterally, no increased effort of breathing. Abdomen: Soft, nontender, nondistended. Extremities: No edema in lower extremities bilaterally. Updated Medication List Medication Instructions Recorded Confirmed Type albuterol sulfate 90 mcg/actuation 2 puff inhalation Q4H PRN sob 03/24/23 04/15/23 History aerosol inhaler amlodipine 10 mg tablet 10 mg PO QAM 03/24/23 04/15/23 History atorvastatin 40 mg tablet 40 mg PO QAM 03/24/23 04/15/23 History lisinopril 20 mg tablet 20 mg PO QAM 03/24/23 04/15/23 History metformin 500 mg tablet,extended 500 mg PO QDB 03/24/23 04/15/23 History release 24 hr folic acid 1 mg tablet 1 mg PO DAILY #30 tabs 03/26/23 04/15/23 Rx gabapentin 800 mg tablet 800 mg PO TID #30 tabs 03/26/23 04/15/23 Rx thiamine HCl (vitamin B1) 100 mg 100 mg PO DAILY #30 tabs 03/26/23 04/15/23 Rx tablet Hospital Stay Data Consultations 04/15/23 00:24 ED Decision to Admit Stat Diagnostic Imagining Performed 04/14/23 20:00 CT cervical spine wo con Stat CT head/brain wo con Stat Cervical Spine CT 04/14/23 20:00 Exam(s): CT C SPINE EXAM: CT Cervical Spine Without Intravenous Contrast CLINICAL HISTORY: Reason for exam: fall etoh. TECHNIQUE: Axial computed tomography images of the cervical spine without intravenous contrast. CTDI is 26.51 mGy and DLP is 646.59 mGy-cm. Automated exposure control was utilized for the study. A dose lowering technique was utilized adhering to the principles of ALARA. COMPARISON: January 05, 2023 FINDINGS: Vertebrae: Unremarkable. No acute fracture. Soft tissues: Unremarkable. DISCS/SPINAL CANAL/NEURAL FORAMINA: C2-C3: Unremarkable. No significant disc disease. No stenosis. C3-C4: Unremarkable. No significant disc disease. No stenosis. C4-C5: Mild degenerative disc disease. No stenosis. C5-C6: Mild degenerative there disc disease. No stenosis. C6-C7: Unremarkable. No significant disc disease. No stenosis. C7-T1: Unremarkable. No significant disc disease. No stenosis. IMPRESSION: Mild degenerative disc disease in the mid to lower cervical spine. No acute fracture, subluxation, or significant spinal stenosis is seen. Electronically signed by: Basil Gasca MD 04/14/23 21:[address] 04/14/23 20:00 Exam(s): CT HEAD Without Contrast EXAM: CT Head Without Intravenous Contrast CLINICAL HISTORY: Reason for exam: fall etoh. TECHNIQUE: Axial computed tomography images of the head/brain without intravenous contrast. CTDI is 38.55 mGy and DLP is 624.41 mGy-cm. Automated exposure control was utilized for the study. A dose lowering technique was utilized adhering to the principles of ALARA. COMPARISON: March 23, 2023 FINDINGS: Brain: A trace amount of periventricular white matter low density consistent with chronic small vessel disease. The brain is otherwise unremarkable. No acute large vessel infarct or intracranial hemorrhage is seen. Ventricles: Unremarkable. No ventriculomegaly. Bones/joints: Unremarkable. No acute fracture. Soft tissues: Unremarkable. Sinuses: Unremarkable as visualized. No acute sinusitis. Mastoid air cells: Unremarkable as visualized. No mastoid effusion. IMPRESSION: A trace amount of periventricular white matter low density consistent with chronic small vessel disease. The brain is otherwise unremarkable. No acute large vessel infarct or intracranial hemorrhage is seen. Electronically signed by: Basil Gasca MD 04/14/23 21:21 PM Pending Results Patient Have Any Pending Studies at Discharge: No Total Time Total Time Spent Total Time Spent (In Minutes): > 30 minutes
== END 2023-04-16 10:56 | disposition left against medical advice (07) | DRG 894 ==
LOC: EDSEX → ED 17:21 → EDINP 04-15 02:10 → 2S 04-15 22:05

== ENCOUNTER 2023-04-27 10:44 | Inpatient (IN) ==
--- NOTE | 2023-04-27 10:55 | Emergency Department Note ---
Impression & Plan Metabolic encephalopathy, Alcohol use with intoxication, Alcohol abuse ED Provider Note NAME: SHEREEN WHITE AGE: 52 SEX: M : 1970 ARRIVES VIA: Ambulance INFORMANT: [Patient][, ] ED PROVIDER(S): [Mustapha Worrell MD] CHIEF COMPLAINT: Confusion MEDICAL DECISION MAKING: Patient presents due to concern for confusion and possible alcohol intoxication as the patient does have a known history. IV was established and blood work was obtained. Left eye exotropia noted and confusion so CT head obtained along with a chest x-ray. Patient's blood work showed a leukopenia with a normal hemoglobin and platelet count kidney functions unremarkable. Alcohol +184 talk screen and urine drug screen ordered. CT head shows acute on chronic maxillary sinusitis chest x-ray is negative. Patient was reset several times and reportedly did have chest pain. EKG does not show any significant changes but is tachycardic. The patient was ordered IV fluids. The patient could only intermittently respond but does have a prior history of encephalopathy. CT angiography's were ordered but the patient was not cooperative with the exam. When I went back to see the patient the patient was calm and could intermittently tell me that he wanted a soda but was unable to convey anything else. Patient does have a prior history of using medications inappropriately as he had been noted to take gabapentin potentially not under the prescribed uses. Given the patient's persistent encephalopathy I did speak with Mary Aguirre PA-C and the patient was admitted by Dr. Jackson. Patient was ordered CIWA protocol and thiamine as well as a banana bag. Discussion w/ other healthcare providers: Nubia Aguirre PA-C and Dr. Jackson Prior /Outside records reviewed: I did review a discharge summary from Dr. Beauchamp. The patient left AMA while starting undergo alcohol drawl become increasingly agitated and was oriented and alert. Patient did have a recent confinement weeks prior to this due to concern for alcohol intoxication. Patient was noted of gabapentin filled with the remaining tablets. Patient was noted to have encephalopathy. Differential diagnosis: Infection, dehydration, metabolic abnormality, hypo/hyperglycemia, electrolyte imbalance, anemia, UTI, pneumonia, thyroid dysfunction among others were considered. Diagnostics, as interpreted by me: ECG: [none] Cardiac monitoring: An order was placed for continuous cardiac monitoring. The monitor shows a rate of [] with [] rhythm. [Patient was placed on pulse oximetry] Medical decision rules: [none] Imaging studies: [I informally interpreted the patient's [] with formal report to follow.] [] HPI: Patient presents due to concern for being found on parking lot likely intoxicated. The patient has a prior history of being undomiciled and alcohol abuse. No reported trauma but does have a known history of the alcohol use. No reported additional substances on scene. History is limited given the patient's confusion and possible alcohol intoxication. PAST MEDICAL HISTORY: [See Below] PAST SURGICAL HISTORY: [See Below] SOCIAL HISTORY: [See Below] HOME MEDICATIONS: [See Below] ALLERGIES: [See Below] VITALS: [See Below] PHYSICAL EXAMINATION: GENERAL: NAD, non-toxic. EYE EXAM: Normal conjunctiva. PERRL, no anisocoria and EOM's grossly intact w/o pain. With eyes closed and trying to open left eye exotropia noted. When awake eyes are midline. OROPHARYNX: Moist mucus membranes, grossly normal dentition. NECK: Trachea midline, no stridor. [Supple, no nuchal rigidity, no adenopathy, non-tender. No signs of meningismus. FROM of the neck with good chin to chest and neck extension.] LUNGS: Clear to auscultation. Normal chest wall mechanics. HEART: Tachycardic and regular, no MRG. ABDOMEN: Abdomen soft, non-tender, no masses, no rebound or guarding. BACK: No CVA TTP. SKIN: No rashes and no bruising. UPPER EXTREMITIES: Upper extremities are grossly normal. LOWER EXTREMITIES: Grossly normal, no edema. NEURO EXAM: Awake and alert follows basic commands moves all 4 extremities weakly occasionally able to utter comprehensible words but other times will just monitor. 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 Beliefs That Will Affect Care: None Current Living Situation: Significant Other Current Living Situation Comment: with significant other Other Information That Helps Us Care for You: No Feels Safe at Home: Yes Safety Concerns: Feels Safe At This Time Assistive Devices: None Allergies Allergies Allergy/AdvReac Type Severity Reaction Status Date / Time No Known Allergies Allergy Verified 04/27/23 15:23 Home Meds Home Medications Medication Instructions Recorded Confirmed albuterol sulfate 90 mcg/actuation 2 puff inhalation Q4H PRN sob 03/24/23 04/27/23 aerosol inhaler amlodipine 10 mg tablet 10 mg PO QAM 03/24/23 04/27/23 atorvastatin 40 mg tablet 40 mg PO QAM 03/24/23 04/27/23 lisinopril 20 mg tablet 20 mg PO QAM 03/24/23 04/27/23 metformin 500 mg tablet,extended 500 mg PO QDB 03/24/23 04/27/23 release 24 hr acetaminophen 500 mg tablet 500 mg PO TID PRN Pain 04/25/23 04/27/23 (Tylenol Extra Strength) Previous Rx's Medication Instructions Recorded gabapentin 800 mg tablet 800 mg PO TID #30 tabs 03/26/23 folic acid 1 mg tablet 1 mg PO QAM #30 tabs 04/28/23 thiamine HCl (vitamin B1) 100 mg 100 mg PO DAILY #30 tabs 04/28/23 tablet Results & Data (ED) Vital Signs Vital Signs - 24 hr 04/27/23 10:57 04/27/23 11:03 04/27/23 11:03 Temperature 36.8 C Temperature Source Axillary Pulse Rate 89 Pulse Rate [Apical] 90 Respiratory Rate 26 H 25 H Blood Pressure 165/117 H Blood Pressure Mean 133 Pulse Oximetry 94 94 94 Oxygen Delivery Method Room Air Room Air Room Air Oxygen Flow Rate 0 Sepsis Recent Fever Within 48 Hours No Sepsis New/Unexplained Change in Mental Status No Sepsis Action Taken by Nursing No Action Required 04/27/23 12:03 Temperature Temperature Source Pulse Rate 98 H Pulse Rate [Apical] Respiratory Rate Blood Pressure Blood Pressure Mean Pulse Oximetry Oxygen Delivery Method Oxygen Flow Rate Sepsis Recent Fever Within 48 Hours Sepsis New/Unexplained Change in Mental Status Sepsis Action Taken by Long Term Medications Current Medication List: was personally reviewed by vt Laboratory Data Attestation: I reviewed the patient's lab results. 04/28/23 07:10 04/28/23 07:10 Lab Results 04/27/23 04/27/23 Range/Units 10:54 10:54 WBC 3.76 L (4.8-10.8) K/ul RBC 5.14 (4.70-6.10) M/uL Hgb 14.1 (14.0-18.0) g/dl Hct 41.6 L (42.0-52.0) % MCV 80.9 (80.0-100.0) fL MCH 27.4 (25.0-34.0) pg MCHC 33.9 (32.0-36.0) g/dL RDW Std Deviation 39.7 (36.4-46.3) fL RDW Coeff of Virgil 13.5 (11.5-14.5) % Plt Count 239 (130-400) K/uL MPV 9.1 L (9.4-12.4) fL Immature Gran % (Auto) 0.3 % Neut % (Auto) 40.1 % Lymph % (Auto) 48.7 % Cannon % (Auto) 9.8 % Eos % (Auto) 0.3 % Baso % (Auto) 0.8 % Neut # (Auto) 1.51 (1.40-6.50) K/uL Lymph # (Auto) 1.83 (1.20-3.40) K/uL Cannon # (Auto) 0.37 (0.11-0.59) K/uL Eos # (Auto) 0.01 (0.00-0.50) K/uL Baso # (Auto) 0.03 (0.00-0.20) K/uL Immature Gran # (Auto) 0.01 (0.01-0.20) K/uL Sodium 138 (136-145) mmol/L Potassium 3.0 L (3.5-5.1) mmol/L Chloride 102 (98-107) mmol/L Carbon Dioxide 25 (21-32) mmol/L Anion Gap 11 (3-11) BUN 11 (6-23) mg/dl Creatinine 0.75 (0.6-1.4) mg/dl Est Cr Clr Drug Dosing 108.9 ml/min Est GFR ( Amer) 120.5 ml/min Est GFR (Non-Af Amer) 104.0 ml/min BUN/Creatinine Ratio 14.7 (10-20) Glucose 116 H (70-99(Fasting)) mg/dl Calcium 8.4 L (8.6-10.3) mg/dl Total Bilirubin 0.3 (0.2-1.0) mg/dl AST 24 (13-39) U/L ALT 20 (7-52) U/L Alkaline Phosphatase 114 H (34-104) U/L Troponin I High Sens 10.8 Cancelled (0-20) pg/ml Total Protein 7.6 (6.0-8.3) gm/dl Albumin 4.2 (3.4-5.0) gm/dl Globulin 3.4 (2.5-4.0) gm/dl Albumin/Globulin Ratio 1.2 (0.9-2) Salicylates < 3.0 L (3.0-30) mg/dl Acetaminophen < 3 L (10-30) ug/ml Ethyl Alcohol mg/dL 184.9 H (<10.0) mg/dl Administered Medications Discontinued Medications Folic Acid (Folic Acid 1 Mg Tab) 1 mg PO QAM PAT Stop: 05/28/23 08:59 Last Admin: 04/28/23 10:03 Dose: 1 mg Documented By: Gabapentin (Gabapentin 600 Mg Tab) 600 mg PO Q6H PAT Stop: 04/28/23 10:01 Last Admin: 04/28/23 09:31 Dose: 600 mg Documented By: Admin: 04/28/23 03:44 Dose: 600 mg Documented By: JAGRUTI Gabapentin (Gabapentin 600 Mg Tab) 1,200 mg PO NOW ONE Stop: 04/27/23 21:55 Last Admin: 04/27/23 22:14 Dose: 1,200 mg Documented By: JAGRUTI Sodium Chloride (Nss) 500 mls @ 999 mls/hr IV .Q31M ONE Stop: 04/27/23 11:48 Last Infusion: 04/27/23 17:05 Dose: Infused Documented By: Admin: 04/27/23 11:43 Dose: 999 mls/hr Documented By: DEVENDRA Calcium Gluconate () 1,000 mg in 60 mls @ 240 mls/hr IV NOW STA Stop: 04/27/23 14:47 Last Infusion: 04/27/23 17:04 Dose: Infused Documented By: Admin: 04/27/23 16:01 Dose: 240 mls/hr Documented By: RADHA Sodium Chloride (Nss) 1,000 mls @ 999 mls/hr IV .Q1H1M ONE Stop: 04/27/23 16:56 Last Infusion: 04/27/23 17:04 Dose: Infused Documented By: Admin: 04/27/23 16:01 Dose: 999 mls/hr Documented By: RADHA Multivitamins 10 ml/ Thiamine HCl 100 mg/ Folic Acid 1 mg/Sodium Chloride 1,011.2 mls @ 500 mls/hr IV .Q2H2M ONE Stop: 04/27/23 18:01 Last Infusion: 04/27/23 19:47 Dose: Infused Documented By: Admin: 04/27/23 17:09 Dose: 500 mls/hr Documented By: RADHA Thiamine HCl 500 mg/ Sodium (Chloride) 55 mls @ 210 mls/hr IV NOW STA Stop: 04/27/23 16:14 Last Infusion: 04/27/23 17:54 Dose: Infused Documented By: Admin: 04/27/23 17:11 Dose: 210 mls/hr Documented By: RADHA Potassium Chloride ([place] / Wtr) 10 meq in 100 mls @ 100 mls/hr IV Q1H PAT Stop: 04/27/23 20:44 Last Infusion: 04/27/23 21:43 Dose: Infused Documented By: Admin: 04/27/23 20:29 Dose: 100 mls/hr Documented By: Infusion: 04/27/23 20:29 Dose: Infused Documented By: Admin: 04/27/23 20:01 Dose: 100 mls/hr Documented By: Infusion: 04/27/23 19:54 Dose: Infused Documented By: Admin: 04/27/23 18:54 Dose: 100 mls/hr Documented By: Infusion: 04/27/23 18:54 Dose: Infused Documented By: Admin: 04/27/23 17:54 Dose: 100 mls/hr Documented By: RADHA Lorazepam 1 mg/ Syringe 1 mls @ 2 mls/min IV NOW STA Stop: 04/27/23 16:53 Last Admin: 04/27/23 17:08 Dose: 2 mls/min Documented By: RADHA Lorazepam 1 mg/ Syringe 1 mls @ 2 mls/min IV Q6H PRN PRN Reason: CIWA score > 6 Stop: 05/27/23 16:57 Last Admin: 04/28/23 12:37 Dose: 2 mls/min Documented By: Potassium Chloride/Sodium Chloride (Normal Saline W/20 Meq Kcl) 20 meq in 1,000 mls @ 75 mls/hr IV .[id number] PAT Stop: 05/27/23 19:59 Last Infusion: 04/28/23 08:40 Dose: Infused Documented By: Admin: 04/27/23 20:28 Dose: 75 mls/hr Documented By: JAGRUTI Insulin Aspart (Insulin Aspart Per Unit Charge) 0 units SC ACHS PAT Stop: 05/27/23 20:59 Last Admin: 04/28/23 12:43 Dose: Not Given Documented By: Admin: 04/28/23 09:08 Dose: Not Given Documented By: Admin: 04/27/23 21:06 Dose: 2 units Documented By: JAGRUTI Co-signed By: PATRIZIA Labetalol HCl (Labetalol Hcl Iv 5 Mg/Ml 20ml) 10 mg IV NOW STA Stop: 04/27/23 17:59 Last Admin: 04/27/23 19:46 Dose: Not Given Documented By: JAGRUTI Ondansetron HCl (Ondansetron Inj 2 Mg/Ml 2 Ml Vial) 4 mg IV NOW STA Stop: 04/27/23 15:57 Last Admin: 04/27/23 16:01 Dose: 4 mg Documented By: RADHA Potassium Chloride (Potassium Chloride Crtab 20 Meq Tabcr) 40 meq PO NOW STA Stop: 04/28/23 08:23 Last Admin: 04/28/23 08:57 Dose: 40 meq Documented By: Thiamine HCl (Thiamine Hcl 100 Mg Tab) 200 mg PO BID PAT Stop: 05/28/23 08:59 Last Admin: 04/28/23 10:03 Dose: 200 mg Documented By: Imaging Data Radiologist's Impression: Chest X-Ray 04/27/23 11:11 XR chest 1V portable HISTORY: Alcohol intoxication. COMPARISON: Chest 04/25/2023. FINDINGS: The cardiac silhouette remains borderline enlarged. The lungs are clear. No pleural effusions. No pneumothorax. No evidence for pulmonary edema. No acute fractures. IMPRESSION: No significant change compared to the prior study. No acute process. ACT 112: Negative or not required by law. Electronically signed by: Julio Downing M.D. 04/27/2023 11:[address] 04/27/23 11:[address] DOSE: 625.8 mGy.cm HISTORY: Alcohol intoxication. etoh, L eye exotropia TECHNIQUE: Multiaxial CT images of the head were performed without the use of intravenous contrast. Automated exposure control was utilized for this study. A dose lowering technique was utilized adhering to the principles of ALARA. Comparison: Head CT 04/25/2023. 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 There is a small fluid level and mild mucosal thickening within the partially visualized left maxillary sinus. Partially visualized left anterior ethmoid air cells are noted. The calvarium and skull base are intact. The ventricles and sulci are within normal limits. There is no mass, hematoma, midline shift, or acute infarct. Impression: 1. No acute infarct or intracranial hemorrhage. 2. Acute on chronic left maxillary sinusitis. ACT 112: Negative or not required by law. Electronically signed by: Julio Downing M.D. 04/27/2023 11:37 AM Discharge Plan Visit Data Chief Complaint: Alcohol Intoxication Stated Complaint: ETOH ED Provider: Mustapha Worrell Discharge Problem: Metabolic encephalopathy, Alcohol use with intoxication, Alcohol abuse Patient Disposition: Admitted As Inpatient Discharge Instructions Interventions: ED Discharge Assessment Last Done: 04/27/23 19:15
[2023-04-27 11:27] LABS: Basophils # (auto) 0.03 K/uL (0.00-0.20); Basophils % (auto) 0.8 %; Eosinophils # (auto) 0.01 K/uL (0.00-0.50); Eosinophils % (auto) 0.3 %; Hematocrit (blood only) 41.6 % (42.0-52.0); Hemoglobin 14.1 g/dl (14.0-18.0); Immature Granulocytes # (auto) 0.01 K/uL (0.01-0.20); Immature Granulocytes % (auto) 0.3 %; Lymphocytes # (auto) 1.83 K/uL (1.20-3.40); Lymphocytes % (auto) 48.7 %; Mean Corpuscular Hemoglobin 27.4 pg (25.0-34.0); Mean Corpuscular Hgb Conc 33.9 g/dL (32.0-36.0); Mean Corpuscular Volume 80.9 fL (80.0-100.0); Mean Platelet Volume 9.1 fL (9.4-12.4); Monocytes # (auto) 0.37 K/uL (0.11-0.59); Monocytes % (auto) 9.8 %; Neutrophils # (auto) 1.51 K/uL (1.40-6.50); Neutrophils % (auto) 40.1 %; Platelet Count 239 K/uL (130-400); RDW Coefficient of Variation 13.5 % (11.5-14.5); RDW Standard Deviation 39.7 fL (36.4-46.3); Red Blood Count 5.14 M/uL (4.70-6.10); White Blood Count 3.76 K/ul (4.8-10.8)
--- NOTE | 2023-04-27 11:33 | XRay Report ---
XR chest 1V portable HISTORY: Alcohol intoxication. COMPARISON: Chest 04/25/2023. FINDINGS: The cardiac silhouette remains borderline enlarged. The lungs are clear. No pleural effusio ns. No pneumothorax. No evidence for pulmonary edema. No acute fractures. IMPRESSION: No significant change compared to the prior study. No acute process. ACT 112: Negative or not required by law. Electronically signed by: Julio Downing M.D. 04/27/2023 11:32 AM
--- NOTE | 2023-04-27 11:38 | CT Scan Report ---
HEAD CT NONCONTRAST CT DOSE: 625.8 mGy.cm HISTORY: Alcohol intoxication. etoh, L eye exotropia TECHNIQUE: Multiaxial CT images of the head were performed without the use of intravenous contrast. A utomated exposure control was utilized for this study. A dose lowering technique was utilized adheri ng to the principles of ALARA. Comparison: Head CT 04/25/2023. 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 There is a small fluid level and mild mucosal thi ckening within the partially visualized left maxillary sinus. Partially visualized left anterior ethm oid air cells are noted. The calvarium and skull base are intact. The ventricles and sulci are within normal limits. There is no mass, hematoma, midline shift, or acute infarct. Impression: 1. No acute infarct or intracranial hemorrhage. 2. Acute on chronic left maxillary sinusitis. ACT 112: Negative or not required by law. Electronically signed by: Julio Downing M.D. 04/27/2023 11:37 AM
[2023-04-27 11:39] LABS: Albumin Globulin Ratio 1.2 (0.9-2); Albumin Level 4.2 gm/dl (3.4-5.0); BUN Creatinine Ratio 14.7 (10-20); Bilirubin,Total 0.3 mg/dl (0.2-1.0); Calcium 8.4 mg/dl (8.6-10.3); Creatinine Clr Calc Pharmacy 108.9 ml/min; Est GFR (African American) 120.5 ml/min; Globulin 3.4 gm/dl (2.5-4.0); Total Protein 7.6 gm/dl (6.0-8.3)
[2023-04-27 11:40] LABS: Acetaminophen < 3 ug/ml (10-30); Salicylate < 3.0 mg/dl (3.0-30)
[2023-04-27] MEDS: SODIUM CHLORIDE 0.9% 500 ML IV ONE (11:43)
--- NOTE | 2023-04-27 15:05 | Electrocardiogram Report ---
Test Reason : Blood Pressure : / mmHG Vent. Rate : 085 BPM Atrial Rate : 085 BPM P-R Int : 104 ms QRS Dur : 084 ms QT Int : 386 ms P-R-T Axes : 063 -03 -63 degrees QTc Int : 459 ms Poor data quality, interpretation may be adversely affected Sinus rhythm with short [place] Incomplete right bundle branch block Left ventricular hypertrophy with repolarization abnormality Borderline Criteria for Anteroseptal infarct Nonspecific ST abnormality Anterolateral leads Abnormal ECG When compared with ECG of 25-APR-2023 02:35, Nonspecific ST abnormality Anterolateral leads now present Borderline Criteria for Anteroseptal infarct now present Confirmed by Pawan Rice ([id number]) on 04/27/2023 3:05:28 PM Referred By: Confirmed By:Pawan Rice
[2023-04-27 15:17] LABS: Troponin I High Sensitivity 10.8 pg/ml (0-20)
[2023-04-27] MEDS: CALCIUM GLUCONATE 1,000 MG/60 ML BAG IV STA (16:01)
[2023-04-27] MEDS: SODIUM CHLORIDE 0.9% 1,000 ML IV ONE (16:01)
[2023-04-27] MEDS: ONDANSETRON INJ 2 MG/ML 2 ML VIAL IV STA (16:01)
--- NOTE | 2023-04-27 16:58 | Electrocardiogram Report ---
Test Reason : Blood Pressure : / mmHG Vent. Rate : 125 BPM Atrial Rate : 125 BPM P-R Int : 128 ms QRS Dur : 080 ms QT Int : 328 ms P-R-T Axes : 082 031 030 degrees QTc Int : 473 ms Sinus tachycardia with occasional Premature ventricular complexes Possible Old Anteroseptal infarct Abnormal ECG When compared with ECG of 27-APR-2023 10:54, Premature ventricular complexes are now Present Nonspecific ST abnormality Anterolateral leads no longer present Confirmed by Pawan Rice ([id number]) on 04/27/2023 4:57:53 PM Referred By: Confirmed By:Pawan Rice
[2023-04-27] MEDS: LORazepam 1 MG in SYRINGE 0.5 ML IV STA (17:08)
[2023-04-27] MEDS: MULTI-VITAMIN INFUSION 10 ML, THIAMINE HCL 100 MG, FOLIC ACID 1 MG in SODIUM CHLORIDE 0... IV ONE (17:09)
[2023-04-27] MEDS: THIAMINE HCL 500 MG in SODIUM CHLORIDE 0.9% 50 ML IV STA (17:11)
--- NOTE | 2023-04-27 17:45 | History & Physical Report ---
Date of Service April 27, 2023 Assessment & Plan (1) Alcohol intoxication: (2) Metabolic encephalopathy: (3) Alcohol withdrawal: (4) COVID-19: (5) Hypokalemia: (6) T2DM (type 2 diabetes mellitus): Plan This is a 52-year-old -[place] male who has a significant past medical history of schizophrenia, T2DM, HTN, HLD, chronic back pain, tobacco abuse and alcohol abuse who presents to ED secondary to altered mental status. Alcohol intoxication Metabolic encephalopathy Alcohol withdrawal admit to PCU pt presented intoxicated and is not entering phase of withdrawal in setting of elevated BP/tacyhcardia will give lorazepam 1mg x 1 now AWSS protocol lorazepam 1mg q6 hr prn CIWA > 6 DT precautions, seizure precautions received banana bag in ED continue IVF NSS + 20meq KCL @ 75cc/hr keep npo for now until more alert once more alert would recommend adding librium taper daily thiamine, folic acid pt with multiple ER visits/evals for intoxication Once pt becomes sober would benefit from Psych eval in setting of known hx of schizophrenia as pt appears catatonic, not maintaining hygiene vs pure alcohol abuse/addiction Pt would benefit from counseling and offering rehab once sober Hypokalemia replace with K riders and KCL in IVF follow in a.m SARS COV-2 positive asymptomatic he does not meet critera for directed therapies monitor, supportive care T2DM prescribed metformin, unknown compliance a1c in a.m. novolog per protocol HTN bp significantly elevated in setting of withdrawal pt prescribed amlodipine and lisinopril but unlikely compliant monitor closely, may need IV antihypertensive therapy if persists despite ativan HLD prescribed statin, unknown compliance DVT ppx: SQ Lovenox FULL CODE Dispo: admit to PCU PCP: Dr. Martin Pt was seen and examined in collaboration with Dr. Jackson, please see addendum A total of 76 minutes was spent coordinating, documenting, and providing care for this patient excluding time spent in the performance of separately billed services. This included personally viewing all current laboratories and imaging studies, medication reconciliation, outpatient chart review, and discussion with specialists. History of Present Illness Chief Complaint: Altered mental status Primary Care Provider: Katia Martin MD This is a 52-year-old -[place] male who has a significant past medical history of schizophrenia, T2DM, HTN, HLD, chronic back pain, tobacco abuse and alcohol abuse who presents to ED secondary to altered mental status. Of significance patient has had multiple recent visits to ED as well as recent hospitalization. He was seen on 04/25 secondary to altered mental status as well as a positive COVID-19 diagnosis. His alcohol level during that evaluation was elevated at 104.3. He ultimately stabilized and was discharged home. He was then again seen on 04/17/2023 due to being found intoxicated lying down and unresponsive outside of [facility]. At that point time he was also found to have a bottle of gabapentin on him and 5 empty shooter bottles. He obtained sobriety and was discharged home. Lastly he was then hospitalized 04/15 and ended up signing out AMA on 04/16 due to entering alcohol withdrawal becoming agitated and being discharged home. Currently patient is awake and alert but minimally responsive to verbal communication. ROS unobtainable due to current altered mental status. Unable to elicit appropriate past medical, social and family history. It is unknown if patient may have also consumed additional substances. In ED he was significantly hypertensive and tachycardic. Lab work notable for low potassium 3.0 and elevated ethyl alcohol at 184.9. He was started on IV fluids. He was also ordered a banana bag and IV thiamine. Allergies Allergy/AdvReac Type Severity Reaction Status Date / Time No Known Allergies Allergy Verified 04/27/23 15:23 Home Medications Medication Instructions Recorded Confirmed Type albuterol sulfate 90 mcg/actuation 2 puff inhalation Q4H PRN sob 03/24/23 04/27/23 History aerosol inhaler amlodipine 10 mg tablet 10 mg PO QAM 03/24/23 04/27/23 History atorvastatin 40 mg tablet 40 mg PO QAM 03/24/23 04/27/23 History lisinopril 20 mg tablet 20 mg PO QAM 03/24/23 04/27/23 History metformin 500 mg tablet,extended 500 mg PO QDB 03/24/23 04/27/23 History release 24 hr gabapentin 800 mg tablet 800 mg PO TID #30 tabs 03/26/23 04/27/23 Rx acetaminophen 500 mg tablet 500 mg PO TID PRN Pain 04/25/23 04/27/23 History (Tylenol Extra Strength) Past Med/Surg History Medical History (Updated 04/27/23 @ 17:49 by Mary Aguirre PA-C) T2DM (type 2 diabetes mellitus) HTN (hypertension) Alcohol withdrawal Alcoholic intoxication Hyponatremia Esophagitis Bronchitis Depression Family History Other Coronary heart disease Social History Smoking Status: Current every day smoker Tobacco Type: Cigarettes Second Hand Exposure: No; Do You Dip or Chew Tobacco: No; Hx Alcohol Use: Yes Alcohol type: beer and hard liquor Hx Substance Use: No Preferred Language: Upper Sorbian Communication Ability: Effective Advertising Solicitor Required: No Beliefs That Will Affect Care: None Current Living Situation: Significant Other Current Living Situation Comment: with significant other Other Information That Helps Us Care for You: No Feels Safe at Home: Yes Safety Concerns: Feels Safe At This Time Assistive Devices: None Review of Systems Review of Systems: Unobtainable due to cognitive status Physical Exam Physical Exam: Constitutional: WD/WN, male, appears catatonic, vitals as above, NAD, sitting up in bed, doesn't answer questions approp, smells of urine Head: Normocephalic, Atraumatic Eyes: PERRL, conjunctivae normal, anicteric sclerae ENMT: external ear and nose normal, oropharynx normal dry membranes Neck: trachea midline, no thyromegaly normal visual inspection Respiratory: normal respiratory effort, lungs clear to auscultation, no wheeze, rales, rhonchi. Normal insp/exp effort, no accessory muscle use Cardiovascular: tachycardic rate, regular rhythm, no murmur, no edema Vessels: no JVD or carotid bruit Chest: normal inspection of chest Abdomen: normal bowel sounds, soft, nontender, no hepatosplenomegaly Musculoskeletal: no cyanosis or clubbing, pt will not follow commands to perform MSK exam Skin: no rashes, warm and dry normal turgor Neurologic: PERRL, no face palsy,+garbled speech , unable to access CN's II-XI. Psychiatric: alert but not oriented, euthymic affect Lymphatic: no cervical or axillary lymphadenopathy : deferred Results & Data Results & Data Vital Signs (Past 12 Hours) Vital Signs Temp Pulse Pulse Resp BP Pulse Ox O2 Del Method 04/27/23 16:13 91 H 04/27/23 12:03 98 H 04/27/23 11:03 90 25 H 94 Room Air 04/27/23 11:03 94 Room Air 04/27/23 10:57 36.8 C 89 26 H 165/117 H 94 Room Air O2 Flow Rate 04/27/23 16:13 04/27/23 12:03 04/27/23 11:03 04/27/23 11:03 0 04/27/23 10:57 Laboratory Results I have independently reviewed and interpreted patient's admitting labs including CBC, CMP, PTT, ETOH, APAP, ASA and troponin. Diagnostic Findings Chest X-Ray 04/27/23 11:11 XR chest 1V portable HISTORY: Alcohol intoxication. COMPARISON: Chest 04/25/2023. FINDINGS: The cardiac silhouette remains borderline enlarged. The lungs are clear. No pleural effusions. No pneumothorax. No evidence for pulmonary edema. No acute fractures. IMPRESSION: No significant change compared to the prior study. No acute process. ACT 112: Negative or not required by law. Electronically signed by: Julio Downing M.D. 04/27/2023 11:[address] 04/27/23 11:[address] DOSE: 625.8 mGy.cm HISTORY: Alcohol intoxication. etoh, L eye exotropia TECHNIQUE: Multiaxial CT images of the head were performed without the use of intravenous contrast. Automated exposure control was utilized for this study. A dose lowering technique was utilized adhering to the principles of ALARA. Comparison: Head CT 04/25/2023. 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 There is a small fluid level and mild mucosal thickening within the partially visualized left maxillary sinus. Partially visualized left anterior ethmoid air cells are noted. The calvarium and skull base are intact. The ventricles and sulci are within normal limits. There is no mass, hematoma, midline shift, or acute infarct. Impression: 1. No acute infarct or intracranial hemorrhage. 2. Acute on chronic left maxillary sinusitis. ACT 112: Negative or not required by law. Electronically signed by: Julio Downing M.D. 04/27/2023 11:37 AM Medications Administered Medication List Multivitamins 10 ml/ Thiamine HCl 100 mg/ Folic Acid 1 mg/Sodium Chloride 1,011.2 mls @ 500 mls/hr IV .Q2H2M ONE Stop: 04/27/23 18:01 Last Admin: 04/27/23 17:09 Dose: 500 mls/hr Documented By: RADHA Discontinued Medications Sodium Chloride (Nss) 500 mls @ 999 mls/hr IV .Q31M ONE Stop: 04/27/23 11:48 Last Infusion: 04/27/23 17:05 Dose: Infused Documented By: Admin: 04/27/23 11:43 Dose: 999 mls/hr Documented By: DEVENDRA Calcium Gluconate () 1,000 mg in 60 mls @ 240 mls/hr IV NOW STA Stop: 04/27/23 14:47 Last Infusion: 04/27/23 17:04 Dose: Infused Documented By: Admin: 04/27/23 16:01 Dose: 240 mls/hr Documented By: RADHA Sodium Chloride (Nss) 1,000 mls @ 999 mls/hr IV .Q1H1M ONE Stop: 04/27/23 16:56 Last Infusion: 04/27/23 17:04 Dose: Infused Documented By: Admin: 04/27/23 16:01 Dose: 999 mls/hr Documented By: RADHA Thiamine HCl 500 mg/ Sodium (Chloride) 55 mls @ 210 mls/hr IV NOW STA Stop: 04/27/23 16:14 Last Admin: 04/27/23 17:11 Dose: 210 mls/hr Documented By: RADHA Lorazepam 1 mg/ Syringe 1 mls @ 2 mls/min IV NOW STA Stop: 04/27/23 16:53 Last Admin: 04/27/23 17:08 Dose: 2 mls/min Documented By: RADHA Ondansetron HCl (Ondansetron Inj 2 Mg/Ml 2 Ml Vial) 4 mg IV NOW STA Stop: 04/27/23 15:57 Last Admin: 04/27/23 16:01 Dose: 4 mg Documented By: RADHA ECG Additional Comments: I have independently reviewed and interpreted patient's admitting EKG which revealed: 125 bpm, ST, PVC COVID-19 Results Results COVID-19 Adm Lab Results: RBC 5.14 M/uL (4.70-6.10) 04/27/23 WBC 3.76 K/ul (4.8-10.8) L 04/27/23 Hgb 14.1 g/dl (14.0-18.0) 04/27/23 Hct 41.6 % (42.0-52.0) L 04/27/23 Plt Count 239 K/uL (130-400) 04/27/23 Neutrophils (%) (Auto) 40.1 % 04/27/23 Lymphocytes (%) (Auto) 48.7 % 04/27/23 Monocytes # (Auto) 0.37 K/uL (0.11-0.59) 04/27/23 Eosinophils # (Auto) 0.01 K/uL (0.00-0.50) 04/27/23 Immature Granulocyte % (Auto) 0.3 % 04/27/23 Neutrophils # (Auto) 1.51 K/uL (1.40-6.50) 04/27/23 Lymphocytes # (Auto) 1.83 K/uL (1.20-3.40) 04/27/23 Monocytes # (Auto) 0.37 K/uL (0.11-0.59) 04/27/23 Eosinophils # (Auto) 0.01 K/uL (0.00-0.50) 04/27/23 Basophils # (Auto) 0.03 K/uL (0.00-0.20) 04/27/23 Immature Granulocyte # (Auto) 0.01 K/uL (0.01-0.20) 4 Na 138 mmol/L (136-145) 04/27/23 K 3.0 mmol/L (3.5-5.1) L 04/27/23 Cl 102 mmol/L (98-107) 04/27/23 CO2 25 mmol/L (21-32) 04/27/23 Anion Gap 11 (3-11) 04/27/23 BUN 11 mg/dl (6-23) 04/27/23 Creatinine 0.75 mg/dl (0.6-1.4) 04/27/23 BUN/Creatinine Ratio 14.7 (10-20) 04/27/23 Glucose Level 116 mg/dl (70-99(Fasting)) H 04/27/23 Ca 8.4 mg/dl (8.6-10.3) L 04/27/23 Total Bilirubin 0.3 mg/dl (0.2-1.0) 04/27/23 AST/SGOT 24 U/L (13-39) 04/27/23 ALT/SGPT 20 U/L (7-52) 04/27/23 Alkaline Phosphatase 114 U/L (34-104) H 04/27/23 Total Protein 7.6 gm/dl (6.0-8.3) 04/27/23 Albumin 4.2 gm/dl (3.4-5.0) 04/27/23 Globulin 3.4 gm/dl (2.5-4.0) 04/27/23 Albumin/Globulin Ratio 1.2 (0.9-2) 04/27/23 Chest X-Ray 04/27/23 Code Status & VTE Plan Code Status FULL CODE VTE Prophylaxis Plan VTE Prophylaxis will be ordered: No Reason for no VTE drug order: Treatment not indicated Supervising Physician Co-Signing Physician Notes I have seen and examined the patient and have discussed the case with the provider above. I have reviewed the advanced practitioner's documentation, and I agree with, and take responsibility for that plan of care. 52-year-old man with history of schizophrenia and alcohol abuse presents again with alcohol intoxication and evidence of alcohol withdrawal. The patient is confused and unable to answer questions appropriately. He is able to sit up in bed and drink his milk and is more awake and alert. History as noted above. There is concerned that he frequently signed out AGAINST MEDICAL ADVICE and comes back again. As he is clearing up mentally he is declining to answer some of my questions and saying that he just wants to go upstairs and rest. I am concerned that he will wake up in the morning and want to leave again. As noted above suggest there may be a component of schizophrenia here that is uncontrolled. Will ask psychiatry to evaluate. He does not report any suicidal ideations but again is encephalopathic at this time and the history is limited as a result. He is well-nourished well-developed and in no acute distress. He is moving arms and legs appropriately. Workup reviewed including his positive COVID test from 2 days ago. It is unclear the length of time he has had symptoms. He is hypertensive and tachycardic but appears in NAD on exam. CV exam with tachy rate and reg rhythm, no murmurs or edema. Examines as euvolemic. Lungs are CTAB. Abdomen is soft NTND. He does not qualify for any specific treatment at this time. I cannot get him to answer me when I ask if he thinks he has a problem with alcohol. I cannot get him to answer the question of where he lives. He mentions something about a fianc which she is not present in the room. Social obstacles are unclear but are present as noted and case management notes during prior visits. Now that he is more awake, will order gabapentin taper for alcohol withdrawal. Cont to monitor progress on telemetry. I spent a total of30 minutes coordinating, documenting, and providing care for this patient excluding time spent in the performance of separately billed services DO Manuel (1) Alcohol intoxication Complication of substance-induced condition: uncomplicated Qualified Code(s): F10.920 - Alcohol use, unspecified with intoxication, uncomplicated
[2023-04-27] MEDS: POTASSIUM CHLORIDE / WTR 10 MEQ/100 ML PLCT IV SCH (17:54)
[2023-04-27 19:04] LABS: Appearance Urine Clear (Clear); Bilirubin Urine Negative (Negative); Blood Urine Negative (Negative); Color Urine Yellow; Glucose Urine UA Negative (Negative); Ketones Urine Negative (Negative); Leukocyte Esterase Urine Negative (Negative); Nitrite Urine Negative (Negative); Protein Urine Negative (Negative); Urobilinogen Urine Negative (Negative)
[2023-04-27 19:35] LABS: Amphetamines+Metham, Urine Neg (Neg); Barbiturates, Urine Neg (Neg); Benzodiazepine, Urine Neg (Neg); Cocaine, Urine Neg (Neg); MDMA (Ecstacy), Urine Neg (Neg); Marijuana, Urine Neg (Neg); Methadone, Urine Neg (Neg); Opiate, Urine Neg (Neg); Phencyclidine, Urine Neg (Neg)
[2023-04-27] MEDS ORDERED: ALUMINUM/MAGNESIUM SUSP 30 ML UDC PO PRN (19:41)
[2023-04-27] MEDS ORDERED: DEXTROSE 50% 50 ML SYRINGE IV PRN (19:41)
[2023-04-27] MEDS ORDERED: ACETAMINOPHEN 325 MG TAB PO PRN (19:41)
[2023-04-27] MEDS ORDERED: GLUCAGON FOR INJ 1 MG VIAL SQ PRN (19:41)
[2023-04-27] MEDS ORDERED: GLUCOSE 10 TAB/TUBE PO PRN (19:41)
[2023-04-27] MEDS ORDERED: POLYETHYLENE (MIRALAX) 17 GM PACK PO PRN (19:41)
[2023-04-27] MEDS ORDERED: ONDANSETRON INJ 2 MG/ML 2 ML VIAL IV PRN (19:41)
[2023-04-27] MEDS ORDERED: MAGNESIUM HYDROXIDE SUSP 30 ML UDC PO PRN (19:41)
[2023-04-27] MEDS ORDERED: CARBOHYDRATES FOR HYPOGLYCEMIA PO PRN (19:41)
[2023-04-27] MEDS ORDERED: GLUCOSE 40% GEL 15 GM TUBE PO PRN (19:41)
[2023-04-27] MEDS: LABETALOL HCL IV 5 MG/ML 20ML IV STA (19:46)
[2023-04-27] MEDS: NSS + 20MEQ KCL 20 MEQ/1,000 ML BAG IV SCH (20:28)
[2023-04-27] MEDS: INSULIN ASPART PER UNIT CHARGE SC SCH (21:06)
[2023-04-27] MEDS ORDERED: GABAPENTIN 1200MG ALCOHOL WITHDRAWAL LOAD PO STA (21:54)
[2023-04-27] MEDS: GABAPENTIN 600 MG TAB PO ONE (22:14)
[2023-04-28] MEDS: GABAPENTIN 600 MG TAB PO SCH ×2 (03:44→08:58)
[2023-04-28 07:41] LABS: Basophils # (auto) 0.03 K/uL (0.00-0.20); Basophils % (auto) 0.8 %; Eosinophils # (auto) 0.03 K/uL (0.00-0.50); Eosinophils % (auto) 0.8 %; Hematocrit (blood only) 40.7 % (42.0-52.0); Hemoglobin 14.1 g/dl (14.0-18.0); Immature Granulocytes # (auto) 0.01 K/uL (0.01-0.20); Immature Granulocytes % (auto) 0.3 %; Lymphocytes # (auto) 1.92 K/uL (1.20-3.40); Lymphocytes % (auto) 48.1 %; Mean Corpuscular Hemoglobin 28.5 pg (25.0-34.0); Mean Corpuscular Hgb Conc 34.6 g/dL (32.0-36.0); Mean Corpuscular Volume 82.4 fL (80.0-100.0); Mean Platelet Volume 9.4 fL (9.4-12.4); Monocytes # (auto) 0.53 K/uL (0.11-0.59); Monocytes % (auto) 13.3 %; Neutrophils # (auto) 1.47 K/uL (1.40-6.50); Neutrophils % (auto) 36.7 %; Platelet Count 237 K/uL (130-400); RDW Coefficient of Variation 13.8 % (11.5-14.5); RDW Standard Deviation 40.8 fL (36.4-46.3); Red Blood Count 4.94 M/uL (4.70-6.10); White Blood Count 3.99 K/ul (4.8-10.8)
[2023-04-28 08:07] LABS: Albumin Globulin Ratio 1.3 (0.9-2); Albumin Level 3.9 gm/dl (3.4-5.0); Bilirubin,Total 0.5 mg/dl (0.2-1.0); Calcium 8.3 mg/dl (8.6-10.3); Creatinine Clr Calc Pharmacy 116.7 ml/min; Globulin 3.1 gm/dl (2.5-4.0); Magnesium 1.9 mg/dl (1.7-2.4); Potassium 3.4 mmol/L (3.5-5.1)
[2023-04-28] MEDS: POTASSIUM CHLORIDE CRTAB 20 MEQ TABCR PO STA (08:57)
[2023-04-28] MEDS: FOLIC ACID 1 MG TAB PO SCH (08:58)
[2023-04-28] MEDS ORDERED: FOLIC ACID 1 MG in SYRINGE 9.8 ML IV SCH (09:00)
[2023-04-28] MEDS ORDERED: THIAMINE HCL 100 MG TAB PO SCH (09:00)
[2023-04-28] MEDS ORDERED: THIAMINE HCL 200 MG in SODIUM CHLORIDE 0.9% 50 ML IV SCH (09:00)
[2023-04-28] MEDS ORDERED: FOLIC ACID 1 MG TAB PO SCH (09:00)
[2023-04-28 09:09] LABS: Estimated Average Glucose 117 mg/dl; Hemoglobin A1C 5.7 % (4.5-5.6)
[2023-04-28] MEDS: THIAMINE HCL 100 MG TAB PO SCH (10:03)
[2023-04-28] MEDS: LORazepam 1 MG in SYRINGE 0.5 ML IV PRN (12:37)
--- NOTE | 2023-04-28 14:44 | Discharge Summary ---
Date of Service April 28, 2023 Admission HPI Per Admitting Provider This is a 52-year-old -[place] male who has a significant past medical history of schizophrenia, T2DM, HTN, HLD, chronic back pain, tobacco abuse and alcohol abuse who presents to ED secondary to altered mental status. Of significance patient has had multiple recent visits to ED as well as recent hospitalization. He was seen on 04/25 secondary to altered mental status as well as a positive COVID-19 diagnosis. His alcohol level during that evaluation was elevated at 104.3. He ultimately stabilized and was discharged home. He was then again seen on 04/17/2023 due to being found intoxicated lying down and unresponsive outside of [facility]. At that point time he was also found to have a bottle of gabapentin on him and 5 empty shooter bottles. He obtained sobriety and was discharged home. Lastly he was then hospitalized 04/15 and ended up signing out AMA on 04/16 due to entering alcohol withdrawal becoming agitated and being discharged home. Currently patient is awake and alert but minimally responsive to verbal communication. ROS unobtainable due to current altered mental status. Unable to elicit appropriate past medical, social and family history. It is unknown if patient may have also consumed additional substances. In ED he was significantly hypertensive and tachycardic. Lab work notable for low potassium 3.0 and elevated ethyl alcohol at 184.9. He was started on IV fluids. He was also ordered a banana bag and IV thiamine. Admission Exam Per Admitting Provider Constitutional: WD/WN, male, appears catatonic, vitals as above, NAD, sitting up in bed, doesn't answer questions approp, smells of urine Head: Normocephalic, Atraumatic Eyes: PERRL, conjunctivae normal, anicteric sclerae ENMT: external ear and nose normal, oropharynx normal dry membranes Neck: trachea midline, no thyromegaly normal visual inspection Respiratory: normal respiratory effort, lungs clear to auscultation, no wheeze, rales, rhonchi. Normal insp/exp effort, no accessory muscle use Cardiovascular: tachycardic rate, regular rhythm, no murmur, no edema Vessels: no JVD or carotid bruit Chest: normal inspection of chest Abdomen: normal bowel sounds, soft, nontender, no hepatosplenomegaly Musculoskeletal: no cyanosis or clubbing, pt will not follow commands to perform MSK exam Skin: no rashes, warm and dry normal turgor Neurologic: PERRL, no face palsy,+garbled speech , unable to access CN's II-XI. Psychiatric: alert but not oriented, euthymic affect Lymphatic: no cervical or axillary lymphadenopathy : deferred Principal Diagnosis Alcohol intoxication High risks of severe Withdrawal Infection due to COVID-19 virus Discharge Exam GENERAL: Alert and oriented x4. NAD, on RA. HEENT: No pallor, no icterus. Pupils equal, round and reactive to light. Oral mucosa moist. NECK: No JVD, no neck masses. HEART: S1 and S2 heard. Regular rate and rhythm. No murmur, no gallop. RESPIRATORY SYSTEM: Normal AP diameter. No accessory muscle use. No wheezing, no crackles. ABDOMEN: Soft, bowel sounds present, nontender, no distention. CENTRAL NERVOUS SYSTEM: No facial droop. garbled speech. Obeys simple commands. Moves extremities. EXTREMITIES: No edema, no erythema seen. Discharge Data Allergies Allergy/AdvReac Type Severity Reaction Status Date / Time No Known Allergies Allergy Verified 04/27/23 15:23 Consultations 04/27/23 16:08 ED Decision to Admit Stat 04/28/23 10:36 Consult Behavioral Health Liaison Routine Ordered Studies 04/27/23 11:11 CT head/brain wo con Stat Hospital Course (1) Alcohol intoxication: (2) Metabolic encephalopathy: (3) Alcohol withdrawal: (4) COVID-19: (5) Hypokalemia: (6) T2DM (type 2 diabetes mellitus): Plan Per prior attending with addendum: This is a 52-year-old -[place] male who has a significant past medical history of schizophrenia, T2DM, HTN, HLD, chronic back pain, tobacco abuse and alcohol abuse who presents to ED secondary to altered mental status. Alcohol intoxication Metabolic encephalopathy Alcohol withdrawal admit to PCU pt presented intoxicated and is not entering phase of withdrawal in setting of elevated BP/tacyhcardia will give lorazepam 1mg x 1 now AWSS protocol lorazepam 1mg q6 hr prn CIWA > 6 DT precautions, seizure precautions received banana bag in ED continue IVF NSS + 20meq KCL @ 75cc/hr keep npo for now until more alert once more alert would recommend adding librium taper daily thiamine, folic acid pt with multiple ER visits/evals for intoxication Once pt becomes sober would benefit from Psych eval in setting of known hx of schizophrenia as pt appears catatonic, not maintaining hygiene vs pure alcohol abuse/addiction Pt would benefit from counseling and offering rehab once sober Hypokalemia replace with K riders and KCL in IVF follow in a.m SARS COV-2 positive asymptomatic he does not meet critera for directed therapies monitor, supportive care T2DM prescribed metformin, unknown compliance a1c in a.m. novolog per protocol HTN bp significantly elevated in setting of withdrawal pt prescribed amlodipine and lisinopril but unlikely compliant monitor closely, may need IV antihypertensive therapy if persists despite ativan HLD prescribed statin, unknown compliance DVT ppx: SQ Lovenox FULL CODE Dispo: admit to PCU PCP: Dr. Martin Pt was seen and examined in collaboration with Dr. Jackson, please see addendum A total of 76 minutes was spent coordinating, documenting, and providing care for this patient excluding time spent in the performance of separately billed services. This included personally viewing all current laboratories and imaging studies, medication reconciliation, outpatient chart review, and discussion with specialists. Addendum 04/28/2023: Patient was seen and examined at bedside as a follow-up of alcohol intoxication/risks of severe withdrawal/metabolic encephalopathy/electrolyte abnormality/infection due to COVID-19 virus. Patient was already pacing in the room, asked him to have a seat and stay calm. He was oriented x 4. He stated he wants to go home. Upon further questioning, he stated he will quit drinking alcohol. But declined inpatient rehab in the near future. Initially I counseled him if he were to quit drinking, it would be safe for him to stay in the hospital to manage his alcohol withdrawal syndrome which might put him into risks of severe withdrawal/seizure/arrhythmia and including . He voiced understanding and was agreeable to stay. Later on he decided to leave the hospital, upon bringing up the issues with not treating for alcohol withdrawal, he decided to sign AMA. Patient encouraged to follow-up with his PCP in a week time and encouraged to come back to the hospital if he has withdrawal symptoms if he actually decides to quit drinking. Home Health Attestation I certify that this patient is under my care and that I, or a physicians catering administrative assistant working with me, had a face to-face encounter that meets the home health [id number] encounter requirements with this patient. The encounter with the patient was in whole, or in part, for the following medical condition, which is the primary reason for home health care (list medical condition): I certify that, based on my findings, the following services are medically necessary home health services: My clinical findings support the need for the above services because: Further, I certify that my clinical findings support that this patient is homebound (i.e. absences from home require considerable and taxing effort and are for medical reasons or [facility] services or infrequently or of short duration when for other reasons) because: Certification for Home Health Services: Based on the above findings, I certify that this patient is confined to the home and needs intermittent detention care, physical therapy and/or speech therapy or continues to need occupational therapy. The patient is under my care, and I have initiated the establishment of the plan of care. This patient will be followed by a physician who will periodically review the plan of care. Total Time Total Time Spent Total Time Spent (In Minutes): 45 Discharge Plan Discharge Items Patient Disposition: Against Medical Advice Reason For Visit: ALCOHOL WITHDRAWAL Activity: Resume your previous activity Non-emergency contact: Primary Care Provider Follow-up/Referrals: Katia Martin MD [Primary Care Provider] - Pending Studies at Discharge: No Stand-Alone Forms: My [facility], Smoking Cessation Medications and DC Order Prescriptions: New folic acid 1 mg Tablet 1 mg PO QAM Qty: 30 0RF thiamine HCl (vitamin B1) 100 mg Tablet 100 mg PO DAILY Qty: 30 0RF Continued atorvastatin 40 mg tablet 40 mg PO QAM Rx Instructions: LAST FILLED 09/26/22- 90 DAYS lisinopril 20 mg tablet 20 mg PO QAM Rx Instructions: LAST FILLED 02/25/23-30 DAYS amlodipine 10 mg tablet 10 mg PO QAM Rx Instructions: LAST FILLED 03/31/23--30 DAYS albuterol sulfate 90 mcg/actuation HFA aerosol inhaler 2 puff INHALATION Q4H PRN (Reason: sob) Rx Instructions: LAST FILLED 09/26/22 metformin 500 mg tablet extended release 24 hr 500 mg PO QDB Rx Instructions: LAST FILLED 07/22/22--90 DAYS gabapentin 800 mg tablet 800 mg PO TID Qty: 30 0RF Rx Instructions: LAST FILLED 04/07/23-30 DAYS acetaminophen [Tylenol Extra Strength] 500 mg Tablet 500 mg PO TID PRN (Reason: Pain) Discharge Orders: Left Against Medical Advice (Routine); Ordered 04/28/23 Ordered By: Meche Espinal Admission Data Admit Date/Time: 04/27/23 16:23 Attending Provider: Meche Espinal Admit Provider: Lisa Jackson Primary Care Provider: Katia Martin Other Providers: Lisa Jackson
[2023-04-28] MEDS ORDERED: GABAPENTIN 600 MG TAB PO SCH (18:00)
[2023-04-29] MEDS ORDERED: GABAPENTIN 600 MG TAB PO SCH (22:00)
== END 2023-04-28 14:54 | disposition left against medical advice (07) | DRG 894 ==
LOC: ED 10:44 → SUATTDRO 16:23 → 2S 16:23

== ENCOUNTER 2023-09-09 10:29 | Inpatient (IN) ==
--- NOTE | 2023-09-09 10:42 | Emergency Department Note ---
Impression & Plan Alcohol withdrawal ADMIT ED Provider Note HPI: History obtained from bedside RN via EMS report. The patient is a 52-year-old gentleman with history of alcohol abuse, presents the emergency department with assumed alcohol intoxication. Patient was found outside of a liquor store sleeping on the sidewalk with empty liquor bottle nearby. Police were contacted and the patient was brought in via EMS for assessment. On arrival here to the ED the patient is very lethargic, he does respond to verbal stimuli but he is not speaking to me. Patient is hemodynamically stable on arrival, no outward evidence of trauma is noted. ROS: - Per HPI Differential Diagnosis: Alcohol intoxication, polysubstance abuse/drug intoxication, underlying psychiatric disorder, intracranial injury to include subdural hematoma, epidural hematoma, amongst other potential pathologies. *Outpatient medications and allergy history reviewed. PE: General: Lethargic appearing but alert to verbal stimuli, disheveled appearing, no outward evidence of trauma is noted HEENT: Normocephalic, trachea midline Eyes: Extraocular eye movement is intact, no scleral erythema Pulmonary: Clear to auscultation bilaterally, no wheezing Cardio: Regular rate and rhythm GI: Abdomen is soft to palpation : No suprapubic tenderness MSK: No evidence of trauma or malformation of the extremities, no edema Skin: No evidence of rash Neuro: Alert, no focal deficits Psychiatric: Lethargic INDEPENDENT INTERPRETATIONS: media monitor: (As interpreted by myself): - An order was placed for continuous cardiac monitoring - Patient was noted to be in sinus rhythm with a rate of 75 Interventions provided in ED: -IV banana bag, IV Ativan Medical Decision Making: IV was established and lab work obtained, patient was ordered an IV banana bag, lab work shows no critical electrolyte abnormalities, alcohol level is not elevated very much and only at 23.9, CT imaging of the head was therefore obtained and does not show any evidence of any acute intracranial process. On my reassessment the patient remains with some apparent encephalopathy, at times answer certain questions appropriately and at times will fall back asleep. He does not have any focal deficits. He is not tachycardic, he is not significantly hypertensive, he has had similar presentations in the past and he does have a history of alcohol withdrawal syndrome. I do have concern that with his metabolic encephalopathy he would require admission for observation and further monitoring for alcohol withdrawal syndrome. Patient was ordered a dose of IV Ativan. Case was discussed with the on-call [facility] hospitalist service, Dr. Espinal, and the patient was placed for admission in stable condition. Consultants/Discussions held with other healthcare providers: -Hospitalist, Dr. Espinal Diagnosis: 1. Altered mental status, acute 2. Concern for alcohol withdrawal syndrome Disposition: Admission Gregg Mcfarlane DO Emergency Medicine Past Med/Surg History Problem List (Updated 09/09/23 @ 15:26 by Gregg Mcfarlane DO) Alcohol withdrawal (Acute) AMS (altered mental status) (Acute) T2DM (type 2 diabetes mellitus) Hypokalemia Metabolic encephalopathy (Acute) Altered mental state (Acute) Alcohol intoxication (Acute) COVID-19 (Acute) Encephalopathy Misuse of prescription only drugs (Acute) Hyponatremia (Acute) Alcoholic intoxication (Acute) Alcohol withdrawal AMS (altered mental status) (Acute) Dehydration (Acute) Altered mental status (Acute) Hypoxia (Acute) Nausea (Acute) Left sided abdominal pain (Acute) Alcohol use with intoxication (Acute) Alcohol abuse (Acute) Right arm pain (Acute) Medical History HTN (hypertension) Bronchitis Depression Family History Other Coronary heart disease Social History Smoking Status: Unknown if ever smoked Tobacco Type: Cigarettes Second Hand Exposure: No; Do You Dip or Chew Tobacco: No; Hx Alcohol Use: Yes Alcohol type: beer and hard liquor Hx Substance Use: No Preferred Language: Occitan Communication Ability: Effective [employer] Required: No Beliefs That Will Affect Care: None Current Living Situation: Significant Other Current Living Situation Comment: with significant other Feels Safe at Home: Declines to Answer Assistive Devices: None Allergies Allergies Allergy/AdvReac Type Severity Reaction Status Date / Time No Known Allergies Allergy Verified 04/27/23 15:23 Home Meds Home Medications Medication Instructions Recorded Confirmed amlodipine 10 mg tablet 10 mg PO QAM 03/24/23 09/09/23 atorvastatin 40 mg tablet 40 mg PO QAM 03/24/23 09/09/23 lisinopril 20 mg tablet 20 mg PO QAM 03/24/23 09/09/23 metformin 500 mg tablet,extended 500 mg PO QDB 03/24/23 09/09/23 release 24 hr acetaminophen 500 mg tablet 500 mg PO TID PRN Pain 04/25/23 09/09/23 (Tylenol Extra Strength) Previous Rx's Medication Instructions Recorded gabapentin 800 mg tablet 800 mg PO TID #30 tabs 03/26/23 folic acid 1 mg tablet 1 mg PO QAM #30 tabs 04/28/23 thiamine HCl (vitamin B1) 100 mg 100 mg PO DAILY #30 tabs 04/28/23 tablet Results & Data (ED) Vital Signs Vital Signs - 24 hr 09/09/23 10:21 09/09/23 10:21 09/09/23 10:40 Temperature 36.3 C L Temperature Source Oral Pulse Rate 83 Pulse Rate [Apical] Respiratory Rate 12 Respiratory Effort / Characteristics Non-Labored Spontaneous Respiratory Depth Normal Respiratory Pattern Regular Blood Pressure 143/98 H Blood Pressure [Left Arm] Blood Pressure Mean 113 Blood Pressure Mean [Left Arm] Pulse Oximetry 99 99 99 Oxygen Delivery Method Room Air Room Air Room Air Oxygen Flow Rate 0 Sepsis Recent Fever Within 48 Hours No Sepsis New/Unexplained Change in Mental Status N/A Sepsis Action Taken by Nursing No Action Required 09/09/23 12:07 09/09/23 12:21 09/09/23 14:53 Temperature Temperature Source Pulse Rate 86 Pulse Rate [Apical] 80 77 Respiratory Rate 18 18 Respiratory Effort / Characteristics Non-Labored Spontaneous Non-Labored Spontaneous Respiratory Depth Normal Normal Respiratory Pattern Regular Regular Blood Pressure Blood Pressure [Left Arm] 146/84 H 130/80 Blood Pressure Mean Blood Pressure Mean [Left Arm] 104 96 Pulse Oximetry 100 99 Oxygen Delivery Method Room Air Room Air Oxygen Flow Rate Sepsis Recent Fever Within 48 Hours Sepsis New/Unexplained Change in Mental Status Sepsis Action Taken by Nursing Laboratory Data 09/09/23 10:55 Lab Results 09/09/23 09/09/23 09/09/23 Range/Units 10:55 10:57 11:25 Sodium 137 (136-145) mmol/L Potassium 3.4 L (3.5-5.1) mmol/L Chloride 103 (98-107) mmol/L Carbon Dioxide 25 (21-32) mmol/L Anion Gap 9 (3-11) BUN 13 (6-23) mg/dl Creatinine 0.67 (0.6-1.4) mg/dl Est Cr Clr Drug Dosing 135.5 ml/min Est GFR ( Amer) 126.3 ml/min Est GFR (Non-Af Amer) 108.9 ml/min BUN/Creatinine Ratio 19.4 (10-20) Glucose 77 (70-99(Fasting)) mg/dl POC Glucose 67 L* 178 H (70-99) mg/dl Calcium 8.9 (8.6-10.3) mg/dl Total Bilirubin 0.4 (0.2-1.0) mg/dl AST 24 (13-39) U/L ALT 16 (7-52) U/L Alkaline Phosphatase 93 (34-104) U/L Total Protein 6.9 (6.0-8.3) gm/dl Albumin 4.0 (3.4-5.0) gm/dl Globulin 2.9 (2.5-4.0) gm/dl Albumin/Globulin Ratio 1.4 (0.9-2) Ethyl Alcohol mg/dL 23.9 H (<10.0) mg/dl Administered Medications Discontinued Medications Dextrose (Dextrose 50% 50 Ml Syringe) 50 ml IV NOW ONE Stop: 09/09/23 11:00 Last Admin: 09/09/23 11:04 Dose: 50 ml Documented By: IFEOMA Multivitamins 10 ml/ Thiamine HCl 100 mg/ Folic Acid 1 mg/Sodium Chloride 1,011.2 mls @ 500 mls/hr IV .Q2H2M ONE Stop: 09/09/23 12:41 Last Admin: 09/09/23 11:26 Dose: 500 mls/hr Documented By: IFEOMA Lorazepam (Lorazepam 1 Mg/1 Ml Syr Ed Inj Use) 1 mg IV ONE STA Stop: 09/09/23 13:15 Last Admin: 09/09/23 13:21 Dose: 1 mg Documented By: SALINAS Imaging Data Radiologist's Impression: Head CT 09/09/23 13:17 CT head/brain wo con CLINICAL HISTORY: 52 years-old Male with AMS. Acutely altered mental status TECHNIQUE: Multiple axial CT images of the head were obtained without contrast. A dose lowering technique was utilized adhering to the principles of ALARA. CT DOSE: 625.8 mGy.cm COMPARISON: 09/01/2023 FINDINGS: No acute intracranial hemorrhage, midline shift, intracranial mass, hydrocephalus, territorial ischemia or abnormal extra-axial collection. The calvarium is intact. Chronic appearing nasal bone fractures, angulated on the left. The paranasal sinuses, mastoid air cells, and middle ear cavities are clear. IMPRESSION: No acute intracranial abnormality. ACT 112: Negative or not required by law. The above report was generated using voice recognition software. It may contain grammatical, syntax or spelling errors. Electronically signed by: Adam Swanson M.D. 09/09/2023 2:34 PM Discharge Plan Visit Data Chief Complaint: Alcohol Intoxication Stated Complaint: ETOH OD ED Provider: Gregg Mcfarlane Discharge Problem: Alcohol withdrawal Forms Stand Alone Forms: My [facility] Prescriptions Prescriptions: No Action atorvastatin 40 mg tablet 40 mg PO QAM lisinopril 20 mg tablet 20 mg PO QAM amlodipine 10 mg tablet 10 mg PO QAM metformin 500 mg tablet extended release 24 hr 500 mg PO QDB gabapentin 800 mg tablet 800 mg PO TID Qty: 30 0RF Rx Instructions: LAST FILLED 04/07/23-30 DAYS acetaminophen [Tylenol Extra Strength] 500 mg Tablet 500 mg PO TID PRN (Reason: Pain) folic acid 1 mg Tablet 1 mg PO QAM Qty: 30 0RF thiamine HCl (vitamin B1) 100 mg Tablet 100 mg PO DAILY Qty: 30 0RF Referrals Referrals: Katia Martin MD [Primary Care Provider] - Discharge Problem: Alcohol withdrawal Qualifiers: Complication of substance-induced condition: uncomplicated Qualified Code(s): F 10.930 - Alcohol use, unspecified with withdrawal, uncomplicated
[2023-09-09] MEDS: DEXTROSE 50% 50 ML SYRINGE IV ONE (11:04)
[2023-09-09] MEDS: MULTI-VITAMIN INFUSION 10 ML, THIAMINE HCL 100 MG, FOLIC ACID 1 MG in SODIUM CHLORIDE 0... IV ONE (11:26)
[2023-09-09 11:45] LABS: Bilirubin,Total 0.4 mg/dl (0.2-1.0); Calcium 8.9 mg/dl (8.6-10.3); Potassium 3.4 mmol/L (3.5-5.1)
[2023-09-09 11:51] LABS: Albumin Globulin Ratio 1.4 (0.9-2); BUN Creatinine Ratio 19.4 (10-20); Creatinine Clr Calc Pharmacy 135.5 ml/min; Est GFR (African American) 126.3 ml/min; Est GFR (Non-African American) 108.9 ml/min; Globulin 2.9 gm/dl (2.5-4.0); Total Protein 6.9 gm/dl (6.0-8.3)
[2023-09-09] MEDS: LORazepam 1 MG/1 ML SYR ED Inj Use IV STA (13:21)
--- NOTE | 2023-09-09 14:33 | History & Physical Report ---
Date of Service September 09, 2023 Assessment & Plan (1) AMS (altered mental status): (2) Alcohol intoxication: (3) Hypokalemia: (4) Metabolic encephalopathy: (5) T2DM (type 2 diabetes mellitus): Plan: Alcohol intoxication Metabolic encephalopathy Alcohol withdrawal - admit to PCU pt presented intoxicated and is not entering phase of withdrawal - ER administered lorazepam 1mg x 1 - AWSS protocol, alcohol level 24 in the ER, there was delay in results for this by several hours due to machine dysfunction and therefore likely was higher when he arrived here. - lorazepam 1mg q6 hr prn CIWA > 6 - DT precautions, seizure precautions - received banana bag in ED, not yet completed, pt is pulling IV line out earlier delaying time for fluids, continue IVF NSS + 40 meq KCL @ 80 cc/hr x 500 ml - Allow diet as he is tolerating at bedside - Pt is tolerating gabapentin as outpatient - will switch to librium taper while here for possible withdrawal - daily thiamine, folic acid - pt with multiple ER visits/evals for intoxication - CT head negative today. Reviewed personally. He has had 6 CT of the head since March 2023 for similar presentation. His most recent was on 09/02/23 and was negative. Await results. - Once pt becomes sober would benefit from Psych eval in setting of known hx of schizophrenia as pt appears catatonic, not maintaining hygiene vs pure alcohol abuse/addiction Pt would benefit from counseling and offering rehab once sober. Pt denies visual and auditory hallucinations, SI or HI. T2DM - prescribed metformin - pt does not list this in meds that he takes -- pt glucose was in 60s on arrival and given 1 amp D50 with glucose to 170s. - a1c 5.7 in Fe - novolog per protocol HTN - bp slightly elevated - pt prescribed amlodipine and lisinopril - unknown compliance - monitor closely, may need IV antihypertensive therapy if persists despite ativan HLD - prescribed statin, unknown compliance Schizophrenia Depression - Consider Psychiatric eval, does not appear to be on any medication for mood stabilization, likely is contributing to behavior. Would recommend therapist and establishment without outpt psych on discharge. DVT ppx: SQ Lovenox FEN/GI: Allow once more awake Lines: PIV x 1 Code: FULL A total of 78 minutes were spent with greater than 50% of that time face to face with the patient, personally reviewing all current laboratories, imaging studies, past medication reconciliation, outpatient chart review, and discussion with specialists to collaborate care for the patient with attending. Please see attending documentation for corrections and/or additions. History of Present Illness Chief Complaint: AMS, alcohol intoxication Primary Care Provider: Katia Martin MD This is a 52-year-old -English male who has a significant past medical history of schizophrenia, T2DM, HTN, HLD, chronic back pain, tobacco abuse and alcohol abuse who presents to ED secondary to altered mental status. Pt was found outside of a liquor store earlier today, EMS brought him to the hospital. He was noted that he was recently seen in the ER in the past week for similar presentation. He has been admitted to our facility back in April where his alcohol was found to be intoxicated, tachycardic with concern for withdrawal. He did leave AMA when his symptoms improved. Today the patient is able to follow commands without difficulty, but he is difficult to understand due to soft-spoken and somewhat dry mouth making it difficult to understand him. He is lethargic and falls asleep easily during exam, but then is easily awoken with verbal stimuli and tapping his shoulder. He denies any acute pain. Patient states that he last drank around 10 PM last night, states he had beer, cannot quantify the amount. He cannot recall how he arrived to the ER but knows that he is in the hospital. Patient is very hungry, asking for food and what we are going to feed him while he is here, requesting jovon crackers and eating an entire 1 at once. Patient states that he lives by himself in [facility]. He walks without assistive devices, denies any recent falls. He does recall being on blood pressure medication, Seroquel at night, gabapentin for chronic pain and nerve pain and is asking for gabapentin. Today the patient is found to have an alcohol level of 23.8. No tachycardia, mildly hypokalemic with potassium of 3.4 on admission Allergies Allergy/AdvReac Type Severity Reaction Status Date / Time No Known Allergies Allergy Verified 04/27/23 15:23 Home Medications Medication Instructions Recorded Confirmed Type amlodipine 10 mg tablet 10 mg PO QAM 03/24/23 09/09/23 History atorvastatin 40 mg tablet 40 mg PO QAM 03/24/23 09/09/23 History lisinopril 20 mg tablet 20 mg PO QAM 03/24/23 09/09/23 History metformin 500 mg tablet,extended 500 mg PO QDB 03/24/23 09/09/23 History release 24 hr gabapentin 800 mg tablet 800 mg PO TID #30 tabs 03/26/23 09/09/23 Rx acetaminophen 500 mg tablet 500 mg PO TID PRN Pain 04/25/23 09/09/23 History (Tylenol Extra Strength) folic acid 1 mg tablet 1 mg PO QAM #30 tabs 04/28/23 09/09/23 Rx thiamine HCl (vitamin B1) 100 mg 100 mg PO DAILY #30 tabs 04/28/23 09/09/23 Rx tablet Past Med/Surg History Problem List (Updated 09/09/23 @ 15:26 by Gregg Mcfarlane DO) Alcohol withdrawal (Acute) AMS (altered mental status) (Acute) T2DM (type 2 diabetes mellitus) Hypokalemia Metabolic encephalopathy (Acute) Altered mental state (Acute) Alcohol intoxication (Acute) COVID-19 (Acute) Encephalopathy Misuse of prescription only drugs (Acute) Hyponatremia (Acute) Alcoholic intoxication (Acute) Alcohol withdrawal AMS (altered mental status) (Acute) Dehydration (Acute) Altered mental status (Acute) Hypoxia (Acute) Nausea (Acute) Left sided abdominal pain (Acute) Alcohol use with intoxication (Acute) Alcohol abuse (Acute) Right arm pain (Acute) Medical History HTN (hypertension) Bronchitis Depression Family History Other Coronary heart disease Social History Smoking Status: Unknown if ever smoked Tobacco Type: Cigarettes Second Hand Exposure: No; Do You Dip or Chew Tobacco: No; Hx Alcohol Use: Yes Alcohol type: beer and hard liquor Hx Substance Use: No Preferred Language: Upper Sorbian Communication Ability: Effective Forensic Photographer Required: No Beliefs That Will Affect Care: None Current Living Situation: Significant Other Current Living Situation Comment: with significant other Feels Safe at Home: Declines to Answer Assistive Devices: None Review of Systems Review of Systems: Constitutional: No fever, sweats or chills Eyes: No diplopia, no worsening or blurred vision ENT: normal hearing, no trouble swallowing Respiratory: No cough, sputum, dyspnea at rest or on exertion Cardiovascular: No chest pain, tightness or palpitations Abdomen: No pain, nausea, vomiting, diarrhea or constipation Musculoskeletal: No joint pain, calf pain, swelling Neurologic: + generalized weakness, + nerve pain with associated numbness/tingling, walks independently Psychiatric: + schizophrenia, depression, no suicidal or homicidal ideations, no auditory or visual hallucinations Skin: No rash or itch Physical Exam Physical Exam: Please see attending addendum Results & Data Results & Data Vital Signs (Past 12 Hours) Vital Signs Temp Pulse Pulse Resp BP BP Pulse Ox 09/09/23 12:21 80 18 146/84 H 100 09/09/23 12:07 86 09/09/23 10:40 99 09/09/23 10:21 99 09/09/23 10:21 36.3 C L 83 12 143/98 H 99 O2 Del Method O2 Flow Rate 09/09/23 12:21 Room Air 09/09/23 12:07 09/09/23 10:40 Room Air 09/09/23 10:21 Room Air 0 09/09/23 10:21 Room Air Laboratory Results 09/09/23 09/09/23 09/09/23 11:25 10:57 10:55 Sodium 137 Potassium 3.4 L Chloride 103 Carbon Dioxide 25 Anion Gap 9 BUN 13 Creatinine 0.67 Est Cr Clr Drug Dosing 135.5 Est GFR ( Amer) 126.3 Est GFR (Non-Af Amer) 108.9 BUN/Creatinine Ratio 19.4 Glucose 77 POC Glucose 178 H 67 L* Calcium 8.9 Total Bilirubin 0.4 AST 24 ALT 16 Alkaline Phosphatase 93 Total Protein 6.9 Albumin 4.0 Globulin 2.9 Albumin/Globulin Ratio 1.4 Ethyl Alcohol mg/dL 23.9 H Code Status & VTE Plan Code Status Full code Supervising Physician Co-Signing Physician Notes 52 yo M w/ PMH of alc abuse, admissions from alc intoxications/leaving AMA, non compliance, schizophrenia, T2DM, HTN, HLD, Chronic back pain, tobacco abuse presented to ED as he was found outside liquor store altered/sleeping w/ bottle of liquor nearby. He is very drowsy at bedside exam, his voice is very soft and difficult to understand most of it. He denies pain, denies taking any other drugs, reports he lives alone in [facility]. Per ED, pt has been refusing IVF. Pt reports he is very hungry and eating voraciously. Food will be ordered, RN made aware. Alc intoxication/toxic encephalopathy/high risk of withdrawal: BMP and CT H reviewed. Replete PO KCL 40 meq x 1 . Pt refusing iv lines per nursing. Maintain iv lines , will need some IVF. Send CBC, urine drug screen. Tele monitoring. AWSS, libirium taper, ativan prn, iv thiamine, iv folic acid and ivf. Upon Exam: GENERAL: drowsy, nad, minimally cooperative, incomprehensible/soft speech. HEENT: No pallor, no icterus. Pupils equal, round and reactive to light. Oral mucosa dry. NECK: No JVD, no neck masses. HEART: S1 and S2 heard. Regular rate and rhythm. No murmur, no gallop. RESPIRATORY SYSTEM: Normal AP diameter. No accessory muscle use. No wheezing, no crackles. ABDOMEN: Soft, bowel sounds present, nontender, no distention. CENTRAL NERVOUS SYSTEM: No facial droop. Moves extremities. EXTREMITIES: No edema, no erythema seen. I have seen and examined the patient and have discussed the case with the provider above. I agree with the assessment and plan as stated.
--- NOTE | 2023-09-09 14:36 | CT Scan Report ---
CT head/brain wo con CLINICAL HISTORY: 52 years-old Male with AMS. Acutely altered mental status TECHNIQUE: Multiple axial CT images of the head were obtained without contrast. A dose lowering tech nique was utilized adhering to the principles of ALARA. CT DOSE: 625.8 mGy.cm COMPARISON: 09/01/2023 FINDINGS: No acute intracranial hemorrhage, midline shift, intracranial mass, hydrocephalus, territorial ischem ia or abnormal extra-axial collection. The calvarium is intact. Chronic appearing nasal bone fractures, angulated on the left. The paranasal sinuses, mastoid air cells, and middle ear cavities are clear. IMPRESSION: No acute intracranial abnormality. ACT 112: Negative or not required by law. The above report was generated using voice recognition software. It may contain grammatical, syntax o r spelling errors. Electronically signed by: Adam Swanson M.D. 09/09/2023 2:34 PM
[2023-09-09 15:47] LABS: Hematocrit (blood only) 33.3 % (42.0-52.0); Hemoglobin 10.7 g/dl (14.0-18.0); Mean Corpuscular Hemoglobin 26.2 pg (25.0-34.0); Mean Corpuscular Hgb Conc 32.1 g/dL (32.0-36.0); Mean Corpuscular Volume 81.4 fL (80.0-100.0); Mean Platelet Volume 8.4 fL (9.4-12.4); Platelet Count 318 K/uL (130-400); RDW Coefficient of Variation 14.6 % (11.5-14.5); RDW Standard Deviation 42.6 fL (36.4-46.3); Red Blood Count 4.09 M/uL (4.70-6.10); White Blood Count 5.79 K/ul (4.8-10.8)
[2023-09-09] MEDS ORDERED: GLUCOSE 40% GEL 15 GM TUBE PO PRN (16:44)
[2023-09-09] MEDS ORDERED: DEXTROSE 50% 50 ML SYRINGE IV PRN (16:44)
[2023-09-09] MEDS ORDERED: GLUCAGON FOR INJ 1 MG VIAL SQ PRN (16:44)
[2023-09-09] MEDS ORDERED: GLUCOSE 10 TAB/TUBE PO PRN (16:44)
[2023-09-09] MEDS ORDERED: CARBOHYDRATES FOR HYPOGLYCEMIA PO PRN (16:44)
[2023-09-09] MEDS ORDERED: chlordiazePOXIDE ALCOHOL WITHDRAWL 50MG PO STA (16:44)
[2023-09-09] MEDS: INSULIN ASPART PER UNIT CHARGE SC SCH (17:10)
[2023-09-09] MEDS: chlordiazePOXIDE HCl 25 MG CAP PO SCH (17:15)
[2023-09-09] MEDS: POTASSIUM CHLORIDE 40 MEQ in SODIUM CHLORIDE 0.9% 1,000 ML IV SCH (17:27)
--- NOTE | 2023-09-09 20:31 | Communication Note ---
Date of Service: September 09, 2023 Patient asking for home gabapentin Rx. KELLI S score of 3 as per RN. Hold Librium protocol for now while on gabapentin. Librium protocol may need to be resumed if with elevated KELLI scores.
[2023-09-09] MEDS: GABAPENTIN 800 MG TAB PO SCH (21:06)
[2023-09-10 07:02] LABS: Hematocrit (blood only) 32.3 % (42.0-52.0); Hemoglobin 10.4 g/dl (14.0-18.0); Mean Corpuscular Hemoglobin 26.4 pg (25.0-34.0); Mean Corpuscular Hgb Conc 32.2 g/dL (32.0-36.0); Mean Platelet Volume 8.6 fL (9.4-12.4); Platelet Count 313 K/uL (130-400); RDW Coefficient of Variation 14.5 % (11.5-14.5); RDW Standard Deviation 42.5 fL (36.4-46.3); Red Blood Count 3.94 M/uL (4.70-6.10); White Blood Count 4.32 K/ul (4.8-10.8)
[2023-09-10 07:35] LABS: Estimated Average Glucose 108 mg/dl; Hemoglobin A1C 5.4 % (4.5-5.6)
[2023-09-10 07:54] LABS: Calcium 8.7 mg/dl (8.6-10.3); Creatinine Clr Calc Pharmacy 156.5 ml/min; Est GFR (Non-African American) 115.6 ml/min; Potassium 4.2 mmol/L (3.5-5.1)
[2023-09-10] MEDS: FOLIC ACID 1 MG TAB PO SCH (08:22)
[2023-09-10] MEDS: THIAMINE HCL 100 MG TAB PO SCH (08:22)
[2023-09-10] MEDS: LORazepam 1 MG in SYRINGE 0.5 ML IV PRN (12:31)
[2023-09-10] MEDS ORDERED: LORazepam 0.5 MG in SYRINGE 0.25 ML IV PRN (12:52)
[2023-09-10] MEDS ORDERED: LORazepam 1 MG in SYRINGE 0.5 ML IV PRN (12:52)
[2023-09-10] MEDS: chlordiazePOXIDE HCl 25 MG CAP PO SCH (13:57)
--- NOTE | 2023-09-10 14:44 | Hospitalist Progress Note ---
Date of Service September 10, 2023 Assessment & Plan (1) AMS (altered mental status): Plan: Acute metabolic encephalopathy Alcohol intoxication Alcohol withdrawal pt presented intoxicated and is not entering phase of withdrawal - ER administered lorazepam 1mg x 1 - AWSS protocol, alcohol level 24 in the ER, there was delay in results for this by several hours due to machine dysfunction and therefore likely was higher when he arrived here. - DT precautions, seizure precautions - received banana bag in ED, not yet completed, pt is pulling IV line out earlier delaying time for fluids, continue IVF NSS + 40 meq KCL @ 80 cc/hr x 500 ml - Allow diet as he is tolerating at bedside - Pt is tolerating gabapentin as outpatient - will switch to librium taper while here for possible withdrawal - daily thiamine, folic acid - pt with multiple ER visits/evals for intoxication - CT head negative today. Reviewed personally. He has had 6 CT of the head since March 2023 for similar presentation. His most recent was on 09/02/23 and was negative.-Repeat CT of the head has been unremarkable - Once pt becomes sober would benefit from Psych eval in setting of known hx of schizophrenia as pt appears catatonic, not maintaining hygiene vs pure alcohol abuse/addiction -Gets agitated at times -Will continue Librium as a tapering dose and the patient might need intravenous Ativan as needed -Will get a psychiatric evaluation on further improvement (2) Alcohol intoxication: Plan: Remains alert and awake (3) Hypokalemia: Plan: Electrolytes have been normalized Will monitor (4) Metabolic encephalopathy: Plan: As above Is complicated by known schizophrenia and with ongoing alcoholism (5) T2DM (type 2 diabetes mellitus): Plan: T2DM - prescribed metformin - pt does not list this in meds that he takes -- pt glucose was in 60s on arrival and given 1 amp D50 with glucose to 170s. - a1c 5.7 in Feb - novolog per protocol HTN - bp slightly elevated - pt prescribed amlodipine and lisinopril - unknown compliance - monitor closely, may need IV antihypertensive therapy if persists despite ativan HLD - prescribed statin, unknown compliance Schizophrenia Depression - Consider Psychiatric eval, does not appear to be on any medication for mood stabilization, likely is contributing to behavior. Would recommend therapist and establishment without outpt psych on discharge. - DVT ppx: SQ Lovenox FEN/GI: Allow once more awake Lines: PIV x 1 Code: FULL Admission and Anticipated Discharge Date Admission Date: September 09, 2023 Subjective 09/10/2023 The patient was seen and examined in medical telemetry unit He is a schizophrenic and was admitted with alcoholism and possible withdrawal He has been agitated at times He has not been keeping his IV lines Review of Systems Review of Systems: All systems reviewed and are unremarkable except as noted below Physical Exam Physical Exam: Lying in bed without any acute distress Constitutional: + ill appearing and average body habitus Eyes: PERRL, conjunctivae normal, anicteric sclerae ENMT: external ear and nose normal, oropharynx normal Neck: trachea midline, no thyromegaly Respiratory: no respiratory distress Auscultation: lungs clear to auscultation bilaterally Cardiovascular: Rate/Rhythm: regular rate and regular rhythm; not tachycardic Heart Sounds: normal S1 and normal S2; no murmur Extremities: no edema Gastrointestinal (Abdomen): Inspection/Auscultation: normal bowel sounds; abdomen not distended Percussion/Palpation: abdomen soft; abdomen nontender Musculoskeletal: No acute arthritis involving any of the joints Neurologic: normal touch/pain/proprioception and moves all extremities; no focal motor deficits Lymphatic: no cervical or axillary lymphadenopathy Results & Data Results & Data Vital Signs (Past 12 Hours) Vital Signs Temp Pulse Pulse Pulse Resp BP Pulse Ox 09/10/23 11:38 36.8 C 65 14 129/81 98 09/10/23 07:45 60 09/10/23 07:42 36.9 C 63 16 147/92 H 99 09/10/23 03:27 36.7 C 65 18 129/83 99 O2 Del Method 09/10/23 11:38 Room Air 09/10/23 07:45 09/10/23 07:42 Room Air 09/10/23 03:27 Room Air Laboratory Results Short CBC 09/09/23 09/10/23 Range/Units 15:17 06:17 WBC 5.79 4.32 L (4.8-10.8) K/ul Hgb 10.7 L 10.4 L (14.0-18.0) g/dl Hct 33.3 L 32.3 L (42.0-52.0) % Plt Count 318 313 (130-400) K/uL BMP 09/10/23 06:17 Sodium 141 Potassium 4.2 D Chloride 109 H Carbon Dioxide 29 BUN 11 Creatinine 0.58 L Glucose 95 Calcium 8.7 Medications Administered Current Inpatient Medications Chlordiazepoxide HCl (Chlordiazepoxide Hcl 25 Mg Cap) 50 mg PO Q6H PAT Stop: 09/11/23 08:01 Last Admin: 09/10/23 13:57 Dose: 50 mg Chlordiazepoxide HCl (Chlordiazepoxide Hcl 25 Mg Cap) 50 mg PO Q8H PAT Stop: 09/12/23 08:01 Chlordiazepoxide HCl (Chlordiazepoxide Hcl 25 Mg Cap) 25 mg PO Q8H PAT Stop: 09/13/23 08:01 Chlordiazepoxide HCl (Chlordiazepoxide Hcl 10 Mg Cap) 10 mg PO Q12H [facility] Stop: 09/14/23 08:01 Dextrose (Dextrose 50% 50 Ml Syringe) 25 - 50 ml IV UD PRN; Protocol PRN Reason: Hypoglycemia Protocol Stop: 10/09/23 16:43 Folic Acid (Folic Acid 1 Mg Tab) 1 mg PO QAM PAT Stop: 10/10/23 08:59 Last Admin: 09/10/23 08:22 Dose: 1 mg Gabapentin (Gabapentin 800 Mg Tab) 800 mg PO TID PAT Stop: 10/09/23 20:34 Last Admin: 09/10/23 13:57 Dose: 800 mg Glucagon (Glucagon For Inj 1 Mg Vial) 1 mg SQ UD PRN; Protocol PRN Reason: Hypoglycemia Protocol Stop: 10/09/23 16:43 Glucose (Glucose 40% Gel 15 Gm Tube) 15 - 30 gm PO UD PRN; Protocol PRN Reason: Hypoglycemia Protocol Stop: 10/09/23 16:43 Glucose (Glucose 10 Tab/Tube) 4 - 8 tab PO UD PRN; Protocol PRN Reason: Hypoglycemia Treatment Stop: 10/09/23 16:43 Potassium Chloride 40 meq/ (Sodium Chloride) 1,020 mls @ 80 mls/hr IV .[id number] [facility] Stop: 10/09/23 17:29 Last Admin: 09/10/23 06:16 Dose: 80 mls/hr Insulin Aspart (Insulin Aspart Per Unit Charge) 0 units SC ACHS [facility] Stop: 10/09/23 16:43 Last Admin: 09/10/23 13:54 Dose: Not Given Miscellaneous (Carbohydrates For Hypoglycemia ) 15 - 30 gm PO UD PRN PRN Reason: Hypoglycemia Protocol Stop: 10/09/23 16:43 Thiamine HCl (Thiamine Hcl 100 Mg Tab) [facility] [place] [place] Stop: 10/10/23 08:59 Last Admin: 09/10/23 08:22 Dose: 100 mg
[2023-09-10] MEDS ORDERED: chlordiazePOXIDE HCl 25 MG CAP PO SCH (20:00)
--- NOTE | 2023-09-11 14:51 | Hospitalist Progress Note ---
Date of Service September 11, 2023 Assessment & Plan (1) AMS (altered mental status): Plan: Acute metabolic encephalopathy Alcohol intoxication Alcohol withdrawal pt presented intoxicated and is not entering phase of withdrawal - ER administered lorazepam 1mg x 1 - AWSS protocol, alcohol level 24 in the ER, there was delay in results for this by several hours due to machine dysfunction and therefore likely was higher when he arrived here. - DT precautions, seizure precautions - received banana bag in ED, not yet completed, pt is pulling IV line out earlier delaying time for fluids, continue IVF NSS + 40 meq KCL @ 80 cc/hr x 500 ml - Allow diet as he is tolerating at bedside - Pt is tolerating gabapentin as outpatient - will switch to librium taper while here for possible withdrawal - daily thiamine, folic acid - pt with multiple ER visits/evals for intoxication - CT head negative today. Reviewed personally. He has had 6 CT of the head since March 2023 for similar presentation. His most recent was on 09/02/23 and was negative.-Repeat CT of the head has been unremarkable - Once pt becomes sober would benefit from Psych eval in setting of known hx of schizophrenia as pt appears catatonic, not maintaining hygiene vs pure alcohol abuse/addiction -Gets agitated at times -Will continue Librium as a tapering dose and the patient might need intravenous Ativan as needed -Will get a psychiatric evaluation on further improvement -Remains medically stable and has not been taking anything intravenously -Will change IV to oral medications -He was agreeable to a psychiatrist for his schizophrenia Schizophrenia Depression - Consider Psychiatric eval, does not appear to be on any medication for mood stabilization, likely is contributing to behavior. Would recommend therapist and establishment without outpt psych on discharge. -Awaiting psychiatric evaluation (2) Alcohol intoxication: Plan: Remains alert and awake No signs of withdrawal and or intoxication (3) Hypokalemia: Plan: Electrolytes have been normalized Will monitor (4) Metabolic encephalopathy: Plan: As above Is complicated by known schizophrenia and with ongoing alcoholism (5) T2DM (type 2 diabetes mellitus): Plan: T2DM - prescribed metformin - pt does not list this in meds that he takes -- pt glucose was in 60s on arrival and given 1 amp D50 with glucose to 170s. - a1c 5.7 in Apr - novolog per protocol HTN - bp slightly elevated - pt prescribed amlodipine and lisinopril - unknown compliance - monitor closely, may need IV antihypertensive therapy if persists despite ativan HLD - prescribed statin, unknown compliance - DVT ppx: SQ Lovenox FEN/GI: Allow once more awake Lines: PIV x 1 Code: FULL Admission and Anticipated Discharge Date Admission Date: September 09, 2023 Subjective 09/10/2023 The patient was seen and examined in medical telemetry unit He is a schizophrenic and was admitted with alcoholism and possible withdrawal He has been agitated at times He has not been keeping his IV lines 09/11/2023 The patient was seen and examined in medical telemetry unit He has been stable and did not have any more aggressiveness or agitation Not been giving his IV lines Agreed to have psychiatric evaluation for his schizophrenia Review of Systems Review of Systems: All systems reviewed and are unremarkable except as noted below Physical Exam Physical Exam: Lying in bed without any acute distress Constitutional: + ill appearing and average body habitus Eyes: PERRL, conjunctivae normal, anicteric sclerae ENMT: external ear and nose normal, oropharynx normal Neck: trachea midline, no thyromegaly Respiratory: no respiratory distress Auscultation: lungs clear to auscultation bilaterally Cardiovascular: Rate/Rhythm: regular rate and regular rhythm; not tachycardic Heart Sounds: normal S1 and normal S2; no murmur Extremities: no edema Gastrointestinal (Abdomen): Inspection/Auscultation: normal bowel sounds; abdomen not distended Percussion/Palpation: abdomen soft; abdomen nontender Musculoskeletal: No acute arthritis involving any of the joints Neurologic: normal touch/pain/proprioception and moves all extremities; no focal motor deficits Lymphatic: no cervical or axillary lymphadenopathy Results & Data Results & Data Vital Signs (Past 12 Hours) Vital Signs Temp Pulse Pulse Resp BP Pulse Ox O2 Del Method 09/11/23 14:39 77 09/11/23 11:21 36.7 C 69 18 127/80 98 Room Air 09/11/23 07:57 73 09/11/23 07:53 36.5 C 59 L 18 151/93 H 100 Room Air 09/11/23 04:03 36.6 C 72 18 115/73 98 Room Air Medications Administered Current Inpatient Medications Chlordiazepoxide HCl (Chlordiazepoxide Hcl 25 Mg Cap) 50 mg PO Q8H PAT Stop: 09/12/23 08:01 Chlordiazepoxide HCl (Chlordiazepoxide Hcl 25 Mg Cap) 25 mg PO Q8H PAT Stop: 09/13/23 08:01 Chlordiazepoxide HCl (Chlordiazepoxide Hcl 10 Mg Cap) 10 mg PO Q12H PAT Stop: 09/14/23 08:01 Dextrose (Dextrose 50% 50 Ml Syringe) 25 - 50 ml IV UD PRN; Protocol PRN Reason: Hypoglycemia Protocol Stop: 10/09/23 16:43 Folic Acid (Folic Acid 1 Mg Tab) 1 mg PO QAM PAT Stop: 10/10/23 08:59 Last Admin: 09/11/23 08:24 Dose: 1 mg Gabapentin (Gabapentin 800 Mg Tab) 800 mg PO TID PAT Stop: 10/09/23 20:34 Last Admin: 09/11/23 13:11 Dose: 800 mg Glucagon (Glucagon For Inj 1 Mg Vial) 1 mg SQ UD PRN; Protocol PRN Reason: Hypoglycemia Protocol Stop: 10/09/23 16:43 Glucose (Glucose 40% Gel 15 Gm Tube) 15 - 30 gm PO UD PRN; Protocol PRN Reason: Hypoglycemia Protocol Stop: 10/09/23 16:43 Glucose (Glucose 10 Tab/Tube) 4 - 8 tab PO UD PRN; Protocol PRN Reason: Hypoglycemia Treatment Stop: 10/09/23 16:43 Potassium Chloride 40 meq/ (Sodium Chloride) 1,020 mls @ 80 mls/hr IV .[id number] [facility] Stop: 10/09/23 17:29 Last Admin: 09/11/23 06:50 Dose: Not Given Insulin Aspart (Insulin Aspart Per Unit Charge) 0 units SC ACHS PAT Stop: 10/09/23 16:43 Last Admin: 09/11/23 13:11 Dose: Not Given Miscellaneous (Carbohydrates For Hypoglycemia ) 15 - 30 gm PO UD PRN PRN Reason: Hypoglycemia Protocol Stop: 10/09/23 16:43 Thiamine HCl (Thiamine Hcl 100 Mg Tab) 100 mg PO QAM [facility] Stop: 10/10/23 08:59 Last Admin: 09/11/23 08:23 Dose: 100 mg
[2023-09-11] MEDS: chlordiazePOXIDE HCl 25 MG CAP PO SCH (16:14)
[2023-09-11] MEDS ORDERED: chlordiazePOXIDE HCl 25 MG CAP PO SCH (20:00)
[2023-09-12 07:48] LABS: BUN Creatinine Ratio 19.1 (10-20); Calcium 8.4 mg/dl (8.6-10.3); Creatinine Clr Calc Pharmacy 133.5 ml/min; Est GFR (African American) 125.5 ml/min; Est GFR (Non-African American) 108.3 ml/min; Magnesium 1.9 mg/dl (1.7-2.4); Phosphorus 3.8 mg/dl (2.5-4.9); Potassium 3.9 mmol/L (3.5-5.1)
[2023-09-12] MEDS ORDERED: chlordiazePOXIDE HCl 25 MG CAP PO SCH (16:00)
--- NOTE | 2023-09-13 07:24 | Discharge Summary ---
Date of Service September 13, 2023 Admission HPI Per Admitting Provider This is a 52-year-old -[place] male who has a significant past medical history of schizophrenia, T2DM, HTN, HLD, chronic back pain, tobacco abuse and alcohol abuse who presents to ED secondary to altered mental status. Pt was found outside of a liquor store earlier today, EMS brought him to the hospital. He was noted that he was recently seen in the ER in the past week for similar presentation. He has been admitted to our facility back in April where his alcohol was found to be intoxicated, tachycardic with concern for withdrawal. He did leave AMA when his symptoms improved. Today the patient is able to follow commands without difficulty, but he is difficult to understand due to soft-spoken and somewhat dry mouth making it difficult to understand him. He is lethargic and falls asleep easily during exam, but then is easily awoken with verbal stimuli and tapping his shoulder. He denies any acute pain. Patient states that he last drank around 10 PM last night, states he had beer, cannot quantify the amount. He cannot recall how he arrived to the ER but knows that he is in the hospital. Patient is very hungry, asking for food and what we are going to feed him while he is here, requesting jovon crackers and eating an entire 1 at once. Patient states that he lives by himself in [facility]. He walks without assistive devices, denies any recent falls. He does recall being on blood pressure medication, Seroquel at night, gabapentin for chronic pain and nerve pain and is asking for gabapentin. Today the patient is found to have an alcohol level of 23.8. No tachycardia, mildly hypokalemic with potassium of 3.4 on admission Admission Exam Per Admitting Provider GENERAL: drowsy, nad, minimally cooperative, incomprehensible/soft speech. HEENT: No pallor, no icterus. Pupils equal, round and reactive to light. Oral mucosa dry. NECK: No JVD, no neck masses. HEART: S1 and S2 heard. Regular rate and rhythm. No murmur, no gallop. RESPIRATORY SYSTEM: Normal AP diameter. No accessory muscle use. No wheezing, no crackles. ABDOMEN: Soft, bowel sounds present, nontender, no distention. CENTRAL NERVOUS SYSTEM: No facial droop. Moves extremities. EXTREMITIES: No edema, no erythema seen. Principal Diagnosis ALCOHOL INTOXICATION, HYPOKALEMIA Discharge Exam Lying in bed without any acute distress Constitutional + ill appearing and average body habitus Eyes PERRL, conjunctivae normal, anicteric sclerae ENMT external ear and nose normal, oropharynx normal Neck trachea midline, no thyromegaly Respiratory no respiratory distress Auscultation: lungs clear to auscultation bilaterally Cardiovascular Rate/Rhythm: regular rate and regular rhythm; not tachycardic Heart Sounds: normal S1 and normal S2; no murmur Extremities: no edema Gastrointestinal (Abdomen) Inspection/Auscultation: normal bowel sounds; abdomen not distended Percussion/Palpation: abdomen soft; abdomen nontender Neurologic normal touch/pain/proprioception and moves all extremities; no focal motor deficits Lymphatic no cervical or axillary lymphadenopathy Discharge Data Allergies Allergy/AdvReac Type Severity Reaction Status Date / Time No Known Allergies Allergy Verified 04/27/23 15:23 Consultations 09/09/23 13:23 ED Decision to Admit Stat 09/12/23 07:46 Consult Behavioral Health Liaison Routine Ordered Studies 09/09/23 13:17 CT head/brain wo con Stat Hospital Course (1) AMS (altered mental status): Acute metabolic encephalopathy Alcohol intoxication Alcohol withdrawal pt presented intoxicated and is not entering phase of withdrawal - ER administered lorazepam 1mg x 1 - AWSS protocol, alcohol level 24 in the ER, there was delay in results for this by several hours due to machine dysfunction and therefore likely was higher when he arrived here. - DT precautions, seizure precautions - received banana bag in ED, not yet completed, pt is pulling IV line out earlier delaying time for fluids, continue IVF NSS + 40 meq KCL @ 80 cc/hr x 500 ml - Allow diet as he is tolerating at bedside - Pt is tolerating gabapentin as outpatient - will switch to librium taper while here for possible withdrawal - daily thiamine, folic acid - pt with multiple ER visits/evals for intoxication - CT head negative today. Reviewed personally. He has had 6 CT of the head since March 2023 for similar presentation. His most recent was on 09/02/23 and was negative.-Repeat CT of the head has been unremarkable - Once pt becomes sober would benefit from Psych eval in setting of known hx of schizophrenia as pt appears catatonic, not maintaining hygiene vs pure alcohol abuse/addiction -Gets agitated at times -Will continue Librium as a tapering dose and the patient might need intravenous Ativan as needed -Will get a psychiatric evaluation on further improvement -Remains medically stable and has not been taking anything intravenously -Will change IV to oral medications -He was agreeable to a psychiatrist for his schizophrenia Schizophrenia Depression - Consider Psychiatric eval, does not appear to be on any medication for mood stabilization, likely is contributing to behavior. Would recommend therapist and establishment without outpt psych on discharge. -Awaiting psychiatric evaluation (2) Alcohol intoxication: Remains alert and awake No signs of withdrawal and or intoxication (3) Hypokalemia: Electrolytes have been normalized Will monitor (4) Metabolic encephalopathy: As above Is complicated by known schizophrenia and with ongoing alcoholism (5) T2DM (type 2 diabetes mellitus): T2DM - prescribed metformin - pt does not list this in meds that he takes -- pt glucose was in 60s on arrival and given 1 amp D50 with glucose to 170s. - a1c 5.7 in Apr - novolog per protocol HTN - bp slightly elevated - pt prescribed amlodipine and lisinopril - unknown compliance - monitor closely, may need IV antihypertensive therapy if persists despite ativan HLD - prescribed statin, unknown compliance - DVT ppx: SQ Lovenox FEN/GI: Allow once more awake Lines: PIV x 1 Code: FULL Total Time Total Time Spent Total Time Spent (In Minutes): 20 minutes Discharge Plan Discharge Items Patient Disposition: Against Medical Advice Reason For Visit: ALCOHOL INTOXICATION, HYPOKALEMIA Activity: Resume your previous activity Non-emergency contact: Primary Care Provider Follow-up/Referrals: Katia Martin MD [Primary Care Provider] - Pending Studies at Discharge: No Stand-Alone Forms: My [facility] [employer], Smoking Cessation Medications and DC Order Prescriptions: Continued atorvastatin 40 mg tablet 40 mg PO QAM lisinopril 20 mg tablet 20 mg PO QAM amlodipine 10 mg tablet 10 mg PO QAM metformin 500 mg tablet extended release 24 hr 500 mg PO QDB gabapentin 800 mg tablet 800 mg PO TID Qty: 30 0RF Rx Instructions: LAST FILLED 04/07/23-30 DAYS acetaminophen [Tylenol Extra Strength] 500 mg Tablet 500 mg PO TID PRN (Reason: Pain) folic acid 1 mg Tablet 1 mg PO QAM Qty: 30 0RF thiamine HCl (vitamin B1) 100 mg Tablet 100 mg PO DAILY Qty: 30 0RF Discharge Orders: Discharge Order (Routine); Ordered 09/12/23 Ordered By: Liliam Blanchard Left Against Medical Advice (Routine); Ordered 09/12/23 Ordered By: Liliam Blanchard Admission Data Admit Date/Time: 09/09/23 14:41 Attending Provider: Liliam Blanchard Admit Provider: Meche Espinal Primary Care Provider: Katia Martin Other Providers: Meche Espinal
== END 2023-09-12 10:05 | disposition left against medical advice (07) | DRG 894 ==
LOC: ED 10:29 → SUATTDRO 14:41 → EDINP 14:41 → 2W 20:24

== ENCOUNTER 2025-02-28 13:23 | Observation (INO) ==
--- NOTE | 2025-02-28 13:42 | Emergency Department Note ---
Impression & Plan Altered mental status, Alcohol use disorder ED Provider Note CHIEF COMPLAINT: Altered mental status HISTORY OF PRESENTING ILLNESS: This 54-year-old male patient presents to the emergency department via EMS for evaluation of altered mental status. The patient was found at [facility] with altered mental status. EMS stated that he had alcohol in his pockets, but did not smell like alcohol. The patient only mumbles when questions are asked. The patient was unable to give any additional history. REVIEW OF SYSTEMS: Unable to obtain ALLERGIES: NKDA MEDICATIONS: See below PAST MEDICAL HISTORY: See below PHYSICAL EXAM: VITALS: Vitals are noted on the nurse's note and reviewed by myself. GENERAL: The patient was curled up on the bed sleeping and would only mumble when questions were asked. SKIN: Capillary refill <2 sec. EYES: PERRLA. EOMI. Conjunctivae without injection, sclerae without icterus. NOSE: Patent without discharge. MOUTH: Mucous membranes dry. Uvula midline. Airway patent. NECK: Supple without nuchal rigidity. HEART: Regular rate and rhythm without murmurs gallops or rubs. LUNGS: Clear to auscultation bilaterally without wheezes, rales or rhonchi. No retractions or accessory muscle use. ABDOMEN: Positive bowel sounds x 4. Normal tympanic percussion. Soft, nontender to palpation. No masses or hepatosplenomegaly. Mccollum sign negative. No CVA tenderness. No guarding, rigidity, or rebound tenderness. No focal RLQ or LLQ tenderness. MUSCULOSKELETAL: The patient has edema of the left olecranon bursa, but no erythema, warmth, or tenderness to palpation. No significant peripheral edema. Peripheral pulses 2+. NEURO: The patient is altered and only mumbling in bed. Unclear whether this is true altered mental status or patient not wanting to cooperate. DIFFERENTIAL DIAGNOSIS: Differential diagnosis includes alcohol intoxication, drug intoxication, toxicologic, infection, hypoglycemia, DKA, electrolyte abnormalities, cardiac sources, intracerebral event, neurologic, trauma, psychosis, acute intracranial abnormality, acute intracranial bleed, pneumonia, other acute cardiopulmonary etiology, UTI, sepsis, as well as other pathologies. ED COURSE AND MEDICAL DECISION MAKING: HISTORY FROM INDEPENDENT HISTORIAN: All history is obtained from the patient's EMS due to his altered mental status. MEDICATIONS GIVEN: 1 L normal saline solution bolus. Ativan 1 mg IV. MONITOR: Continuous catcher filter tip: Order was placed for continuous catcher filter tip. Patient was placed on the catcher filter tip and continuous pulse ox. Patient was noted to be in sinus tachycardia at an initial rate of 100 bpm per my interpretation. EKG: EKG was interpreted by myself as sinus rhythm at 98 bpm with no acute ST or T wave changes and no significant change from his previous EKG. INTERPRETATION OF LABS: I interpreted the labs with full lab results as below in the lab section of this note. Laboratory results pertinent to the emergent complaint are discussed in the MDM section below. The patient was advised to follow up with their PCP and/or specialist(s) for further outpatient monitoring and management of any abnormal results. INTERPRETATION OF IMAGING: Imaging studies were interpreted by myself and read by radiology as per the imaging section of this note. The patient was advised to follow up with their PCP and/or specialist(s) for further outpatient management of any non-emergent abnormal findings. Chest x-ray shows cardiomegaly with no acute cardiopulmonary etiology. CT scan of the head without contrast showed no acute intracranial abnormalities. CHRONIC MEDICAL/SOCIAL CONDITIONS AFFECTING CARE: Alcohol use disorder. Unhoused. CONSULTATIONS: On-call hospitalist MDM SUMMARY: I examined the patient. The patient presents via EMS for evaluation of altered mental status after being found at [facility]. EMS states that the patient had alcohol in his pockets, but did not smell of alcohol. The patient does have a history of alcohol use disorder, alcohol withdrawal/encephalopathy, as well as diabetes. The patient also has frequent ER visits for altered mental status. The patient does appear more altered than usual at today's ER visit. An IV lock was placed and labs were drawn. The patient was given 1 L normal saline solution bolus. The patient did some persisting hypertension and tachycardia and he was given Ativan 1 mg IV to treat for possible withdrawal. This did improve his vital signs somewhat. White blood cell count normal at 5.39. Hemoglobin low, but stable at 12.7. Platelet count normal at 298. Coags were normal. VBG normal. Sodium low at 135, but CMP otherwise normal. Magnesium normal. High-sensitivity troponin normal. Lipase normal. Urinalysis normal. Urine drug screen negative. Medical alcohol level of 13.8. Chest x-ray shows cardiomegaly with no acute cardiopulmonary etiology. CT scan of the head without contrast showed no acute intracranial abnormalities. The patient was observed in the emergency department for 6 hours, but did not have improvement of his symptoms as per his usual course. The patient symptoms may be secondary to encephalopathy from his alcohol use disorder. I had a meaningful discussion about this patient with Dr. Olivier who agrees with my assessment and the treatment plan. Due to the patient's persisting symptoms without improvement per his usual course, the patient will be admitted for further evaluation and treatment. I spoke with the on-call hospitalist who agreed to admit the patient for further management. Please refer to their dictation for further details. The patient's care was transferred in stable condition. DIAGNOSIS: Altered mental status Alcohol use disorder Past Med/Surg History Problem List (Updated 03/01/25 @ 11:40 by John Saenz DO) Prediabetes Psychiatric diagnosis Altered mental status (Acute) Abdominal pain (Acute) Hypertension (Acute) Alcohol use disorder (Acute) Hypertension (Acute) Chest pain (Acute) Alcohol withdrawal (Acute) T2DM (type 2 diabetes mellitus) Hypokalemia Metabolic encephalopathy (Acute) Altered mental state (Acute) Alcohol intoxication (Acute) COVID-19 (Acute) Encephalopathy Misuse of prescription only drugs (Acute) Hyponatremia (Acute) Alcoholic intoxication (Acute) Alcohol withdrawal AMS (altered mental status) (Acute) Dehydration (Acute) Altered mental status (Acute) Hypoxia (Acute) Nausea (Acute) Left sided abdominal pain (Acute) Alcohol use with intoxication (Acute) Alcohol abuse (Acute) Right arm pain (Acute) Medical History HTN (hypertension) Bronchitis Depression Family History Other Coronary heart disease Social History Smoking Status: Current every day smoker Tobacco Type: Cigarettes Cigarettes Per Day: 3; Second Hand Exposure: No; Do You Dip or Chew Tobacco: No; Tobacco Cessation Education Requested by Patient: No Hx Alcohol Use: Yes Alcohol type: beer Hx Substance Use: No Preferred Language: Romanian Communication Ability: Effective 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 Beliefs That Will Affect Care: None Current Living Situation: Alone and Homeless Current Living Situation Comment: with significant other Other Information That Helps Us Care for You: No Feels Safe at Home: Yes Safety Concerns: Feels Safe At This Time Gender Identity: Male Assistive Devices: None Allergies Allergies Allergy/AdvReac Type Severity Reaction Status Date / Time No Known Allergies Allergy Verified 02/20/25 19:32 Home Meds Home Medications Medication Instructions Recorded Confirmed Unobtainable 02/19/25 02/28/25 Results & Data (ED) Vital Signs Vital Signs - 24 hr 02/28/25 16:00 02/28/25 18:00 02/28/25 20:30 Pulse Rate [Apical] 97 H 89 88 Respiratory Rate 16 16 18 Respiratory Effort / Characteristics Non-Labored Spontaneous Non-Labored Spontaneous Non-Labored Spontaneous Respiratory Depth Normal Normal Normal Respiratory Pattern Regular Regular Regular Blood Pressure [Right Arm] 171/133 H 102/82 122/84 Blood Pressure Mean [Right Arm] 145 88 96 Blood Pressure Position [Right Arm] Lying Pulse Oximetry 100 96 96 Oxygen Delivery Method Room Air Room Air Room Air Laboratory Data 03/01/25 06:19 03/01/25 06:19 Lab Results 02/28/25 02/28/25 02/28/25 Range/Units 13:31 13:46 14:40 WBC 5.39 (4.8-10.8) K/ul RBC 4.84 (4.70-6.10) M/uL Hgb 12.7 L (14.0-18.0) g/dL Hct 38.2 L (42.0-52.0) % MCV 78.9 L (80.0-100.0) fL MCH 26.2 (25.0-34.0) pg MCHC 33.2 (32.0-36.0) g/dL RDW Std Deviation 43.5 (36.4-46.3) fL RDW Coeff of Virgil 15.4 H (11.5-14.5) % Plt Count 298 (130-400) K/uL MPV 8.7 L (9.4-12.4) fL Immature Gran % (Auto) 0.2 % Neut % (Auto) 57.7 % Lymph % (Auto) 30.6 % Atkinson % (Auto) 10.6 % Eos % (Auto) 0.2 % Baso % (Auto) 0.7 % Neut # (Auto) 3.11 (1.40-6.50) K/uL Lymph # (Auto) 1.65 (1.20-3.40) K/uL Atkinson # (Auto) 0.57 (0.11-0.59) K/uL Eos # (Auto) 0.01 (0.00-0.50) K/uL Baso # (Auto) 0.04 (0.00-0.20) K/uL Immature Gran # (Auto) 0.01 (0.01-0.20) K/uL PT 10.3 (9.0-12.0) Seconds INR 1.0 (0.9-1.1) APTT 28 (21-31) Seconds PTT Ratio 1.0 VBG pH 7.41 (7.36-7.41) VBG pCO2 41 (38-50) mmHg VBG pO2 46 mmHg VBG HCO3 26 mmol/L VBG O2 Saturation 80.8 % VBG Base Excess 1.2 mEq/L Sodium 135 L (136-145) mmol/L Potassium 3.9 (3.5-5.1) mmol/L Chloride 99 (98-107) mmol/L Carbon Dioxide 26 (21-32) mmol/L Anion Gap 10 (3-11) BUN 7 (6-23) mg/dl Creatinine 0.65 (0.6-1.4) mg/dl Est Cr Clr Drug Dosing 132.6 ml/min eGFR 110.59 BUN/Creatinine Ratio 10.8 (10-20) Glucose 85 (70-99(Fasting)) mg/dl POC Glucose 123 H (70-99) mg/dl Calcium 9.2 (8.6-10.3) mg/dl Magnesium 2.2 (1.7-2.4) mg/dl Total Bilirubin 0.3 (0.2-1.0) mg/dl AST 25 (13-39) U/L ALT 14 (7-52) U/L Alkaline Phosphatase 98 (34-104) U/L Troponin I High Sens 5.3 (0-20) pg/ml Total Protein 7.9 (6.0-8.3) gm/dl Albumin 4.2 (3.4-5.0) gm/dl Globulin 3.7 (2.5-4.0) gm/dl Albumin/Globulin Ratio 1.1 (0.9-2) Lipase 18 (11-82) U/L Urine Color Urine Appearance (Clear) Urine pH (4.5-7.5) Ur Specific [place] (1.000-1.030) Urine Protein (Negative) Urine Glucose (UA) (Negative) Urine Ketones (Negative) Urine Blood (Negative) Urine Nitrite (Negative) Urine Bilirubin (Negative) Urine Urobilinogen (Negative) Ur Leukocyte Esterase (Negative) Urine Comment Urine Opiates Screen (Neg) Ur Methadone, Qual (Neg) Urine Fentanyl Screen (Neg) Urine Barbiturates (Neg) Ur Phencyclidine (PCP) (Neg) U Amphetamin/Meth Scrn (Neg) MDMA (Ecstasy) Screen (Neg) U Benzodiazepines Scrn (Neg) Ur Cocaine Metabolite (Neg) U Marijuana (THC) Screen (Neg) Ethyl Alcohol mg/dL 13.8 H (<10.0) mg/dl 02/28/25 Range/Units 15:03 WBC (4.8-10.8) K/ul RBC (4.70-6.10) M/uL Hgb (14.0-18.0) g/dL Hct (42.0-52.0) % MCV (80.0-100.0) fL MCH (25.0-34.0) pg MCHC (32.0-36.0) g/dL RDW Std Deviation (36.4-46.3) fL RDW Coeff of Virgil (11.5-14.5) % Plt Count (130-400) K/uL MPV (9.4-12.4) fL Immature Gran % (Auto) % Neut % (Auto) % Lymph % (Auto) % Atkinson % (Auto) % Eos % (Auto) % Baso % (Auto) % Neut # (Auto) (1.40-6.50) K/uL Lymph # (Auto) (1.20-3.40) K/uL Atkinson # (Auto) (0.11-0.59) K/uL Eos # (Auto) (0.00-0.50) K/uL Baso # (Auto) (0.00-0.20) K/uL Immature Gran # (Auto) (0.01-0.20) K/uL PT (9.0-12.0) Seconds INR (0.9-1.1) APTT (21-31) Seconds PTT Ratio VBG pH (7.36-7.41) VBG pCO2 (38-50) mmHg VBG pO2 mmHg VBG HCO3 mmol/L VBG O2 Saturation % VBG Base Excess mEq/L Sodium (136-145) mmol/L Potassium (3.5-5.1) mmol/L Chloride (98-107) mmol/L Carbon Dioxide (21-32) mmol/L Anion Gap (3-11) BUN (6-23) mg/dl Creatinine (0.6-1.4) mg/dl Est Cr Clr Drug Dosing ml/min eGFR BUN/Creatinine Ratio (10-20) Glucose (70-99(Fasting)) mg/dl POC Glucose (70-99) mg/dl Calcium (8.6-10.3) mg/dl Magnesium (1.7-2.4) mg/dl Total Bilirubin (0.2-1.0) mg/dl AST (13-39) U/L ALT (7-52) U/L Alkaline Phosphatase (34-104) U/L Troponin I High Sens (0-20) pg/ml Total Protein (6.0-8.3) gm/dl Albumin (3.4-5.0) gm/dl Globulin (2.5-4.0) gm/dl Albumin/Globulin Ratio (0.9-2) Lipase (11-82) U/L Urine Color Yellow Urine Appearance Clear (Clear) Urine pH 8.0 H (4.5-7.5) Ur Specific [place] 1.007 (1.000-1.030) Urine Protein Negative (Negative) Urine Glucose (UA) Negative (Negative) Urine Ketones Negative (Negative) Urine Blood Negative (Negative) Urine Nitrite Negative (Negative) Urine Bilirubin Negative (Negative) Urine Urobilinogen Negative (Negative) Ur Leukocyte Esterase Negative (Negative) Urine Comment Urine Opiates Screen Neg (Neg) Ur Methadone, Qual Neg (Neg) Urine Fentanyl Screen Neg (Neg) Urine Barbiturates Neg (Neg) Ur Phencyclidine (PCP) Neg (Neg) U Amphetamin/Meth Scrn Neg (Neg) MDMA (Ecstasy) Screen Neg (Neg) U Benzodiazepines Scrn Neg (Neg) Ur Cocaine Metabolite Neg (Neg) U Marijuana (THC) Screen Neg (Neg) Ethyl Alcohol mg/dL (<10.0) mg/dl Administered Medications Discontinued Medications Acetaminophen (Acetaminophen 325 Mg Tab) 650 mg PO QID PRN PRN Reason: pain/fever Stop: 03/30/25 20:50 Last Admin: 03/01/25 02:43 Dose: 650 mg Documented By: CHINYERE Enoxaparin Sodium (Enoxaparin Inj 40 Mg/0.4 Ml Syr) 40 mg SQ [facility] Stop: 03/31/25 08:59 Last Admin: 03/01/25 08:25 Dose: 40 mg Documented By: quincy Folic Acid (Folic Acid 1 Mg Tab) [facility] Stop: 03/31/25 08:59 Last Admin: 03/01/25 08:24 Dose: 1 mg Documented By: quincy Sodium Chloride (Nss) 1,000 mls @ 999 mls/hr IV .[id number] ONE Stop: 02/28/25 14:46 Last Infusion: 02/28/25 19:34 Dose: Infused Documented By: Admin: 02/28/25 15:03 Dose: 999 mls/hr Documented By: CHANTELLE Thiamine HCl 100 mg/ Syringe 10 mls @ 2 mls/min IV NOW STA Stop: 02/28/25 20:11 Last Admin: 02/28/25 20:46 Dose: 2 mls/min Documented By: Sodium Chloride (Nss) 1,000 mls @ 75 mls/hr IV .[id number] ONE Stop: 03/01/25 09:36 Last Infusion: 03/01/25 10:46 Dose: Infused Documented By: quincy Admin: 02/28/25 20:46 Dose: 75 mls/hr Documented By: Insulin Aspart (Insulin Aspart Per Unit Charge) 0 units SC ACHS [facility] Stop: 03/31/25 00:39 Last Admin: 03/01/25 08:22 Dose: Not Given Documented By: quincy Admin: 03/01/25 01:49 Dose: Not Given Documented By: CHINYERE Lorazepam (Lorazepam 1 Mg/1 Ml Syr Ed Inj Use) 1 mg IV ONE STA Stop: 02/28/25 16:33 Last Admin: 02/28/25 16:39 Dose: 1 mg Documented By: CHANTELLE Multivitamins (Multivitamin Tab) 1 tab PO QAM [facility] Stop: 03/31/25 08:59 Last Admin: 03/01/25 08:24 Dose: 1 tab Documented By: quincy Thiamine HCl (Thiamine Hcl 100 Mg Tab) 100 mg PO QAM [facility] Stop: 03/31/25 08:59 Last Admin: 03/01/25 08:24 Dose: 100 mg Documented By: [facility] Imaging Data Radiologist's Impression: Chest X-Ray 02/28/25 13:46 SINGLE VIEW CHEST CLINICAL HISTORY: Chest pain FINDINGS: An AP, portable, supine chest radiograph is compared to study dated 02/20/2025 and correlated with chest CT dated 12/09/2014. The examination is degraded by portable technique, apical lordotic positioning, and patient rotation. The heart is enlarged. The pulmonary vasculature is noncongested. Chronic interstitial thickening is similar to previous. No airspace consolidation or large pleural effusion is identified. No pneumothorax is seen. The skeletal structures are osteopenic. The bony thorax is grossly intact. IMPRESSION: Cardiomegaly with no acute cardiopulmonary abnormality identified. ACT 112: Negative or not required by law. Electronically signed by: Spencer Orourke M.D. 02/28/2025 3:[address] 02/28/25 13:46 CT head without contrast History: AMS Comparison: 11/10/2024 Technique: Using multidetector thin collimation helical acquisition technique, axial, coronal and sagittal CT images from the skull base to the vertex were obtained without intravenous contrast. Dose reduction techniques were achieved by using automatic exposure control and/or adjustment of mA and/or kV according to patient size and/or use of iterative reconstruction technique. Findings: No intracranial hemorrhage, mass-effect, or midline shift. The ventricles are proportionate to the cerebral sulci. The servin to white matter differentiation of the cerebral hemispheres is preserved. The basal cisterns are patent. The visualized paranasal sinuses are clear. Mastoid air cells are clear. Impression: No acute intracranial pathology. Electronically signed by Andrae Heller 02-28-2025 4:27 PM Discharge Plan Visit Data Chief Complaint: Altered Mental Status Stated Complaint: AMS ED Provider: Chad Olivier ED Midlevel Provider: Mercy Meza Discharge Problem: Altered mental status, Alcohol use disorder Patient Disposition: Admitted As Inpatient Condition: Fair Discharge Instructions Interventions: ED Discharge Assessment Last Done: 03/01/25 00:53 Discharge Problem: Altered mental status Qualifiers: Altered mental status type: unspecified Qualified Code(s): R41.82 - Altered mental status, unspecified
[2025-02-28 14:55] LABS: Base Excess VBG 1.2 mEq/L; HCO3 VBG 26 mmol/L; Oxygen Saturation VBG 80.8 %; PCO2 VBG 41 mmHg (38-50); PO2 VBG 46 mmHg; pH VBG 7.41 (7.36-7.41)
[2025-02-28 15:01] LABS: Hematocrit (blood only) 38.2 % (42.0-52.0); Hemoglobin 12.7 g/dL (14.0-18.0); Immature Granulocytes # (auto) 0.01 K/uL (0.01-0.20); Immature Granulocytes % (auto) 0.2 %; Mean Corpuscular Hemoglobin 26.2 pg (25.0-34.0); Mean Corpuscular Volume 78.9 fL (80.0-100.0); Platelet Count 298 K/uL (130-400); RDW Standard Deviation 43.5 fL (36.4-46.3); Red Blood Count 4.84 M/uL (4.70-6.10); White Blood Count 5.39 K/ul (4.8-10.8)
[2025-02-28] MEDS: SODIUM CHLORIDE 0.9% 1,000 ML IV ONE ×2 (15:03→20:46)
--- NOTE | 2025-02-28 15:10 | XRay Report ---
SINGLE VIEW CHEST CLINICAL HISTORY: Chest pain FINDINGS: An AP, portable, supine chest radiograph is compared to study dated 02/20/2025 and correlate d with chest CT dated 12/09/2014. The examination is degraded by portable technique, apical lordotic p ositioning, and patient rotation. The heart is enlarged. The pulmonary vasculature is noncongested. Chronic interstitial thickening is similar to previous. No airspace consolidation or large pleural ef fusion is identified. No pneumothorax is seen. The skeletal structures are osteopenic. The bony thora x is grossly intact. IMPRESSION: Cardiomegaly with no acute cardiopulmonary abnormality identified. ACT 112: Negative or not required by law. Electronically signed by: Spencer Orourke M.D. 02/28/2025 3:08 PM
[2025-02-28 15:17] LABS: Appearance Urine Clear (Clear); Glucose Urine UA Negative (Negative)
[2025-02-28 15:19] LABS: Alanine Aminotransferase 14.0 U/L (7-52); Albumin Globulin Ratio 1.1 (0.9-2); Albumin Level 4.2 gm/dl (3.4-5.0); Alkaline Phosphatase 98.0 U/L (34-104); Anion Gap 10.0 (3-11); Bilirubin,Total 0.3 mg/dl (0.2-1.0); Blood Urea Nitrogen 7.0 mg/dl (6-23); Calcium 9.2 mg/dl (8.6-10.3); Carbon Dioxide 26.0 mmol/L (21-32); Chloride 99.0 mmol/L (98-107); Creatinine Clr Calc Pharmacy 132.6 ml/min; Globulin 3.7 gm/dl (2.5-4.0); Glucose 85.0 mg/dl (70-99(Fasting)); Lipase 18.0 U/L (11-82); Magnesium 2.2 mg/dl (1.7-2.4); Potassium 3.9 mmol/L (3.5-5.1); Sodium 135.0 mmol/L (136-145); Total Protein 7.9 gm/dl (6.0-8.3)
[2025-02-28 15:29] LABS: INR 1.0 (0.9-1.1); Partial Thromboplastin Time 28 Seconds (21-31); Prothrombin Time 10.3 Seconds (9.0-12.0)
[2025-02-28 15:55] LABS: Amphetamines+Metham, Urine Neg (Neg); MDMA (Ecstacy), Urine Neg (Neg); Marijuana, Urine Neg (Neg)
--- NOTE | 2025-02-28 16:27 | CT Scan Report ---
CT head without contrast History: AMS Comparison: 11/10/2024 Technique: Using multidetector thin collimation helical acquisition technique, axial, coronal and sagittal CT images from the skull base to the vertex were obtained without intravenous contrast. Dose reduction techniques were achieved by using automatic exposure control and/or adjustment of mA and/or kV according to patient size and/or use of iterative reconstruction technique. Findings: No intracranial hemorrhage, mass-effect, or midline shift. The ventricles are proportionate to the cerebral sulci. The servin to white matter differentiation of the cerebral hemispheres is preserved. The basal cisterns are patent. The visualized paranasal sinuses are clear. Mastoid air cells are clear. Impression: No acute intracranial pathology. Electronically signed by Andrea Heller 02-28-2025 4:27 PM
--- NOTE | 2025-02-28 16:28 | Electrocardiogram Report ---
Test Reason : Blood Pressure : */* mmHG Vent. Rate : 98 BPM Atrial Rate : 98 BPM P-R Int : 130 ms QRS Dur : 72 ms QT Int : 380 ms P-R-T Axes : 65 3 36 degrees QTcB Int : 485 ms Poor data quality, interpretation may be adversely affected Sinus rhythm with sinus arrhythmia Increased R/S ratio in V1, consider early transition or posterior infarct Abnormal ECG When compared with ECG of 20-Feb-2025 19:25, No significant change Confirmed by Lonnie Viveros ([id number]) on 02/28/2025 4:28:19 PM Referred By: Confirmed By: Lonnie Viveros
[2025-02-28] MEDS: LORazepam 1 MG/1 ML SYR ED Inj Use IV STA (16:39)
--- NOTE | 2025-02-28 20:15 | History & Physical Report ---
Date of Service February 28, 2025 Assessment & Plan (1) Altered mental status: Plan: Assessment and plan below following discussion of case with ED provider and reviewing patient history/pertinent normal/abnormal diagnostic test results. Encephalopathy ? Organic brain disease, history alcohol/substance abuse ? Psychosis history mood disorder/schizophrenia as per records hypertension, currently stable, initially elevated upon arrival at the ER hyperlipidemia, on statin Rx DM 2 on oral medications, well-controlled as of recent hemoglobin A1c of 5.4 last August 2023 chronic anemia, hemoglobin at baseline ongoing tobacco abuse OBS Admit to medical telemetry Consider MRI brain if mentation unimproved in a.m. May benefit from inpatient Neurology and Psychiatry evaluations if mentation does not improve overnight. KELLI S at risk protocol, DT precautions ISS BG goal 1 10-1 40, carb count coverage, update hemoglobin A1c Nicotine patch as needed PT OT eval DVT prophylaxis. Lovenox subcu Full code Text document was generated using [employer] voice recognition software. It may contain grammatical or spelling errors. Kindly contact undersigned for clarification of any documentation item in question. History of Present Illness Chief Complaint: Sick as per patient. Altered mental status as per records Primary Care Provider: Katia Martin MD History obtained from patient, ER provider and records. Limited history from patient secondary disorientation. Medical history significant for hypertension, hyperlipidemia, DM 2 on oral medications, chronic anemia (baseline hemoglobin of 12-13), mood disorder/schizophrenia as per records, ongoing tobacco/alcohol abuse. Last confinement August 2023 for metabolic encephalopathy in the setting of alcohol intoxication/withdrawal. 3 [facility] ER visits this month. Last ER visit last week for abdominal pain. Patient not feeling well the last few days. Patient found confused outside a local restaurant. Patient mumbling to himself. Patient denies headache, chest pain, cough, SOB, abdominal pain. Medical History as above Surgical History : None Family History : Heart disease Personal/Social history : One 4 pack daily, alcohol abuse Allergies Allergy/AdvReac Type Severity Reaction Status Date / Time No Known Allergies Allergy Verified 02/20/25 19:32 Home Medications Medication Instructions Recorded Confirmed Type Unobtainable 02/19/25 02/28/25 History Past Med/Surg History Problem List (Updated 02/28/25 @ 23:33 by Mercy Meza PA-C) Altered mental status (Acute) Abdominal pain (Acute) Hypertension (Acute) Alcohol use disorder (Acute) Hypertension (Acute) Chest pain (Acute) Alcohol withdrawal (Acute) T2DM (type 2 diabetes mellitus) Hypokalemia Metabolic encephalopathy (Acute) Altered mental state (Acute) Alcohol intoxication (Acute) COVID-19 (Acute) Encephalopathy Misuse of prescription only drugs (Acute) Hyponatremia (Acute) Alcoholic intoxication (Acute) Alcohol withdrawal AMS (altered mental status) (Acute) Dehydration (Acute) Altered mental status (Acute) Hypoxia (Acute) Nausea (Acute) Left sided abdominal pain (Acute) Alcohol use with intoxication (Acute) Alcohol abuse (Acute) Right arm pain (Acute) Medical History HTN (hypertension) Bronchitis Depression Family History Other Coronary heart disease Social History Smoking Status: Current every day smoker Tobacco Type: Cigarettes Cigarettes Per Day: 3; Second Hand Exposure: No; Do You Dip or Chew Tobacco: No; Tobacco Cessation Education Requested by Patient: No Hx Alcohol Use: Yes Alcohol type: beer Hx Substance Use: No Preferred Language: Ukrainian Communication Ability: Effective Pharmacy Tech Required: No Beliefs That Will Affect Care: None Current Living Situation: Alone and Homeless Current Living Situation Comment: with significant other Other Information That Helps Us Care for You: No Feels Safe at Home: Yes Safety Concerns: Feels Safe At This Time Gender Identity: Male Assistive Devices: None Review of Systems Review of Systems: Could not be reliably obtained secondary to disorientation/incoherence Physical Exam Physical Exam: GENERAL: Disoriented, mumbling to self, incoherent, covered with blankets, no respiratory distress SKIN: Pallor, warm HEENT: Pale palpebral conjunctivae, no ptosis, dry buccal mucosa NECK : Supple, no tenderness CHEST : Decreased breath sounds, no tenderness HEART : RRR, no obvious murmurs ABDOMEN: Some distention, nontender EXTREMITIES : No LE swelling/tenderness, no other conspicuous deformities noted NEUROLOGIC : Incoherent, no facial asymmetry, gait and stance not assessed Results & Data Results & Data Vital Signs (Past 12 Hours) Vital Signs Temp Pulse Pulse Resp BP BP Pulse Ox 02/28/25 18:00 89 16 102/82 96 02/28/25 16:00 97 H 16 171/133 H 100 02/28/25 14:50 96 02/28/25 14:12 97 H 02/28/25 13:31 36.4 C L 100 H 16 178/126 H 100 02/28/25 13:30 36.4 C L 100 H 16 178/126 H 100 02/28/25 13:30 100 O2 Del Method 02/28/25 18:00 Room Air 02/28/25 16:00 Room Air 02/28/25 14:50 Room Air 02/28/25 14:12 02/28/25 13:31 Room Air 02/28/25 13:30 Room Air 02/28/25 13:30 Room Air Laboratory Results Laboratory Results WBC 5.39 K/ul (4.8-10.8) 02/28/25 14:40 RBC 4.84 M/uL (4.70-6.10) 02/28/25 14:40 Hgb 12.7 g/dL (14.0-18.0) L 02/28/25 14:40 Hct 38.2 % (42.0-52.0) L 02/28/25 14:40 MCV 78.9 fL (80.0-100.0) L 02/28/25 14:40 MCH 26.2 pg (25.0-34.0) 02/28/25 14:40 MCHC 33.2 g/dL (32.0-36.0) 02/28/25 14:40 RDW Std Deviation 43.5 fL (36.4-46.3) 02/28/25 14:40 RDW Coeff of Virgil 15.4 % (11.5-14.5) H 02/28/25 14:40 Plt Count 298 K/uL (130-400) 02/28/25 14:40 MPV 8.7 fL (9.4-12.4) L 02/28/25 14:40 Immature Gran % (Auto) 0.2 % 02/28/25 14:40 Neut % (Auto) 57.7 % 02/28/25 14:40 Lymph % (Auto) 30.6 % 02/28/25 14:40 Divide % (Auto) 10.6 % 02/28/25 14:40 Eos % (Auto) 0.2 % 02/28/25 14:40 Baso % (Auto) 0.7 % 02/28/25 14:40 Neut # (Auto) 3.11 K/uL (1.40-6.50) 02/28/25 14:40 Lymph # (Auto) 1.65 K/uL (1.20-3.40) 02/28/25 14:40 Divide # (Auto) 0.57 K/uL (0.11-0.59) 02/28/25 14:40 Eos # (Auto) 0.01 K/uL (0.00-0.50) 02/28/25 14:40 Baso # (Auto) 0.04 K/uL (0.00-0.20) 02/28/25 14:40 Immature Gran # (Auto) 0.01 K/uL (0.01-0.20) 02/28/25 14:40 PT 10.3 Seconds (9.0-12.0) 02/28/25 14:40 INR 1.0 (0.9-1.1) 02/28/25 14:40 APTT 28 Seconds (21-31) 02/28/25 14:40 PTT Ratio 1.0 02/28/25 14:40 VBG pH 7.41 (7.36-7.41) 02/28/25 14:40 VBG pCO2 41 mmHg (38-50) 02/28/25 14:40 VBG pO2 46 mmHg 02/28/25 14:40 VBG HCO3 26 mmol/L 02/28/25 14:40 VBG O2 Saturation 80.8 % 02/28/25 14:40 VBG Base Excess 1.2 mEq/L 02/28/25 14:40 Sodium 135 mmol/L (136-145) L 02/28/25 14:40 Potassium 3.9 mmol/L (3.5-5.1) 02/28/25 14:40 Chloride 99 mmol/L (98-107) 02/28/25 14:40 Carbon Dioxide 26 mmol/L (21-32) 02/28/25 14:40 Anion Gap 10 (3-11) 02/28/25 14:40 BUN 7 mg/dl (6-23) 02/28/25 14:40 Creatinine 0.65 mg/dl (0.6-1.4) 02/28/25 14:40 Est Cr Clr Drug Dosing 132.6 ml/min 02/28/25 14:40 eGFR 110.59 02/28/25 14:40 BUN/Creatinine Ratio 10.8 (10-20) 02/28/25 14:40 Glucose 85 mg/dl (70-99(Fasting)) 02/28/25 14:40 POC Glucose 123 mg/dl (70-99) H 02/28/25 13:31 Calcium 9.2 mg/dl (8.6-10.3) 02/28/25 14:40 Magnesium 2.2 mg/dl (1.7-2.4) 02/28/25 14:40 Total Bilirubin 0.3 mg/dl (0.2-1.0) 02/28/25 14:40 AST 25 U/L (13-39) 02/28/25 14:40 ALT 14 U/L (7-52) 02/28/25 14:40 Alkaline Phosphatase 98 U/L (34-104) 02/28/25 14:40 Troponin I High Sens 5.3 pg/ml (0-20) 02/28/25 14:40 Total Protein 7.9 gm/dl (6.0-8.3) 02/28/25 14:40 Albumin 4.2 gm/dl (3.4-5.0) 02/28/25 14:40 Globulin 3.7 gm/dl (2.5-4.0) 02/28/25 14:40 Albumin/Globulin Ratio 1.1 (0.9-2) 02/28/25 14:40 Lipase 18 U/L (11-82) 02/28/25 14:40 Urine Color Yellow 02/28/25 15:03 Urine Appearance Clear (Clear) 02/28/25 15:03 Urine pH 8.0 (4.5-7.5) H 02/28/25 15:03 Ur Specific [place] 1.007 (1.000-1.030) 02/28/25 15:03 Urine Protein Negative (Negative) 02/28/25 15:03 Urine Glucose (UA) Negative (Negative) 02/28/25 15:03 Urine Ketones Negative (Negative) 02/28/25 15:03 Urine Blood Negative (Negative) 02/28/25 15:03 Urine Nitrite Negative (Negative) 02/28/25 15:03 Urine Bilirubin Negative (Negative) 02/28/25 15:03 Urine Urobilinogen Negative (Negative) 02/28/25 15:03 Ur Leukocyte Esterase Negative (Negative) 02/28/25 15:03 Urine Comment 02/28/25 15:03 Urine Opiates Screen Neg (Neg) 02/28/25 15:03 Ur Methadone, Qual Neg (Neg) 02/28/25 15:03 Urine Fentanyl Screen Neg (Neg) 02/28/25 15:03 Urine Barbiturates Neg (Neg) 02/28/25 15:03 Ur Phencyclidine (PCP) Neg (Neg) 02/28/25 15:03 U Amphetamin/Meth Scrn Neg (Neg) 02/28/25 15:03 MDMA (Ecstasy) Screen Neg (Neg) 02/28/25 15:03 U Benzodiazepines Scrn Neg (Neg) 02/28/25 15:03 Ur Cocaine Metabolite Neg (Neg) 02/28/25 15:03 U Marijuana (THC) Screen Neg (Neg) 02/28/25 15:03 Ethyl Alcohol mg/dL 13.8 mg/dl (<10.0) H 02/28/25 13:46 Impressions Chest X-Ray 02/28/25 13:46 SINGLE VIEW CHEST CLINICAL HISTORY: Chest pain FINDINGS: An AP, portable, supine chest radiograph is compared to study dated 02/20/2025 and correlated with chest CT dated 12/09/2014. The examination is degraded by portable technique, apical lordotic positioning, and patient rotation. The heart is enlarged. The pulmonary vasculature is noncongested. Chronic interstitial thickening is similar to previous. No airspace consolidation or large pleural effusion is identified. No pneumothorax is seen. The skeletal structures are osteopenic. The bony thorax is grossly intact. IMPRESSION: Cardiomegaly with no acute cardiopulmonary abnormality identified. ACT 112: Negative or not required by law. Electronically signed by: Spencer Orourke M.D. 02/28/2025 3:[address] 02/28/25 13:46 CT head without contrast History: AMS Comparison: 11/10/2024 Technique: Using multidetector thin collimation helical acquisition technique, axial, coronal and sagittal CT images from the skull base to the vertex were obtained without intravenous contrast. Dose reduction techniques were achieved by using automatic exposure control and/or adjustment of mA and/or kV according to patient size and/or use of iterative reconstruction technique. Findings: No intracranial hemorrhage, mass-effect, or midline shift. The ventricles are proportionate to the cerebral sulci. The servin to white matter differentiation of the cerebral hemispheres is preserved. The basal cisterns are patent. The visualized paranasal sinuses are clear. Mastoid air cells are clear. Impression: No acute intracranial pathology. Electronically signed by Andrea Heller 02-28-2025 4:27 PM Diagnostic Findings EKG as per my interpretation :Rate 100, NSR, normal axis, incomplete RBBB, no ischemia (1) Altered mental status Altered mental status type: unspecified Qualified Code(s): R41.82 - Altered mental status, unspecified
[2025-02-28] MEDS: THIAMINE HCL 100 MG in SYRINGE 9 ML IV STA (20:46)
[2025-02-28] MEDS ORDERED: PROMETHAZINE 6.25 MG/50.25 ML BAG IV PRN (20:51)
[2025-02-28] MEDS ORDERED: LORazepam Inj 1 MG in SYRINGE 0.5 ML IV PRN (22:39)
[2025-03-01] MEDS ORDERED: DEXTROSE 50% 50 ML SYRINGE IV PRN (00:40)
[2025-03-01] MEDS ORDERED: GLUCOSE 10 TAB/TUBE PO PRN (00:40)
[2025-03-01] MEDS ORDERED: GLUCAGON FOR INJ 1 MG VIAL SQ PRN (00:40)
[2025-03-01] MEDS ORDERED: CARBOHYDRATES FOR HYPOGLYCEMIA PO PRN (00:40)
[2025-03-01] MEDS ORDERED: GLUCOSE 40% GEL 15 GM TUBE PO PRN (00:40)
[2025-03-01] MEDS: INSULIN ASPART PER UNIT CHARGE SC SCH (01:49)
[2025-03-01 01:56] LABS: Influenza A virus by PCR Negative (Neg); Influenza B virus by PCR Negative (Neg); SARS CoV2 RNA(COVID-19) Ceph NEGATIVE (Negative)
[2025-03-01] MEDS: ACETAMINOPHEN 325 MG TAB PO PRN (02:43)
[2025-03-01 06:39] LABS: Hematocrit (blood only) 32.5 % (42.0-52.0); Hemoglobin 10.8 g/dL (14.0-18.0); Immature Granulocytes # (auto) 0.01 K/uL (0.01-0.20); Immature Granulocytes % (auto) 0.3 %; Mean Corpuscular Hemoglobin 26.5 pg (25.0-34.0); Mean Corpuscular Volume 79.9 fL (80.0-100.0); Platelet Count 247 K/uL (130-400); RDW Standard Deviation 44.5 fL (36.4-46.3); Red Blood Count 4.07 M/uL (4.70-6.10); White Blood Count 3.57 K/ul (4.8-10.8)
[2025-03-01 07:15] LABS: Anion Gap 5.0 (3-11); Blood Urea Nitrogen 11.0 mg/dl (6-23); Calcium 8.1 mg/dl (8.6-10.3); Carbon Dioxide 25.0 mmol/L (21-32); Chloride 108.0 mmol/L (98-107); Creatinine Clr Calc Pharmacy 102.0 ml/min; Glucose 82.0 mg/dl (70-99(Fasting)); Potassium 3.6 mmol/L (3.5-5.1); Sodium 138.0 mmol/L (136-145)
[2025-03-01 07:51] VITALS: RESP 18; TEMP 98.2; O2SAT 98
[2025-03-01 07:51] LABS: Hemoglobin A1C 5.8 % (4.5-5.6)
[2025-03-01] MEDS: MULTIVITAMIN TAB PO SCH (08:24)
[2025-03-01] MEDS: FOLIC ACID 1 MG TAB PO SCH (08:24)
[2025-03-01] MEDS: THIAMINE HCL 100 MG TAB PO SCH (08:24)
[2025-03-01] MEDS: ENOXAPARIN INJ 40 MG/0.4 ML SYR SQ SCH (08:25)
--- NOTE | 2025-03-01 11:43 | Discharge Summary ---
Discharge Summary Date of Service March 01, 2025 Principal Dx & Hospital Course #1 = Principal Diagnosis (1) Alcohol intoxication: (2) Metabolic encephalopathy: (3) Alcohol use disorder: (4) Hypertension: (5) Psychiatric diagnosis: (6) Prediabetes: Plan Patient 54-year-old gentleman presented to the emergency room with altered mental status and found to be in toxic 8 with alcohol. Patient was observed in the hospital. No significant signs of withdrawal. On the morning of discharge he was up and ambulating on his own in the halls. Requesting double breakfast portion. Seems to be back to his baseline mental status. He denied excessive alcohol use despite his alcohol level. Reviewing his history and previous visits has had multiple visits to the emergency room for alcohol intoxication. Has not seen his PCP for greater than 2 years. Is not on any chronic medications that been prescribed in the past. Patient has been no-show and has not followed up with his outpatient appointments as scheduled. Patient does not meet any criteria for inpatient behavioral health unit care at this time. No other acute medical issues require hospital level care at this time. He seems back to his baseline. Case management will be involved to help coordinate outpatient follow-up care. Recommend close follow-up with his PCP, may need referral to behavioral health specialist. Reviewing his history he does carry a mental health diagnosis of mood disorder/schizophrenia. Notes For Next Care Provider Recommend close monitoring outpatient Consider psychiatry consultation outpatient Medication Changes From Visit None Admission HPI Per Admitting Provider History obtained from patient, ER provider and records. Limited history from patient secondary disorientation. Medical history significant for hypertension, hyperlipidemia, DM 2 on oral medications, chronic anemia (baseline hemoglobin of 12-13), mood disorder/schizophrenia as per records, ongoing tobacco/alcohol abuse. Last confinement August 2023 for metabolic encephalopathy in the setting of alcohol intoxication/withdrawal. [address] [facility] ER visits this month. Last ER visit last week for abdominal pain. Patient not feeling well the last few days. Patient found confused outside a local restaurant. Patient mumbling to himself. Patient denies headache, chest pain, cough, SOB, abdominal pain. Medical History as above Surgical History : None Family History : Heart disease Personal/Social history : One 4 pack daily, alcohol abuse Admission Exam Per Admitting Provider See H&P Discharge Exam Constitutional: Alert, nontoxic, no acute distress, up and ambulating halls HEENT: Mucous membranes moist. Lungs: Clear to auscultation, decreased, no wheezes rales or rhonchi CV: S1-S2, regular Abdomen: Soft, nontender, nondistended Extremities: No significant edema Neuro: No focal deficits Psych: Cooperative, normal mood Updated Medication List Medication Instructions Recorded Confirmed Type Unobtainable 02/19/25 02/28/25 History Hospital Stay Data Consultations 02/28/25 19:27 ED Decision to Admit Stat Diagnostic Imagining Performed 02/28/25 13:46 CT head/brain wo con Stat Reviewed imaging, laboratory and diagnostic studies. Pertinent findings as below. Hemoglobin A1c 5.8% WBC 3.5 Hemoglobin 10.8 Platelets of 247 Coags within normal range Electrolytes stable Creatinine 0.70 LFTs within normal range Urinalysis negative for signs of infection Urine drug screen negative COVID, influenza, RSV negative EKG sinus rhythm Chest x-ray cardiomegaly with no acute abnormalities Head CT no acute intracranial pathology Pending Results Patient Have Any Pending Studies at Discharge: No Discharge Instructions Given to Patient (Per Discharging Provider) Strongly recommend you follow-up with your mental health issues either with your PCP or with a outpatient psychiatrist Strongly recommend you stop all beer and alcohol Total Time Total Time Spent Total Time Spent (In Minutes): 35
[2025-03-01 12:04] VITALS: BP 114/76; PULSE 83
--- NOTE | 2025-03-01 14:55 | Emergency Department Note ---
ED Visit Note Late entry for 02/28 I was consulted by the Advanced Practice Provider, Mercy Timmons. I performed a substantive portion of the visit. This includes aspects of: History: This is a well-known 54-year-old male to the emergency department presenting for altered mental status. He was found at a local restaurant and was altered. He does have known alcohol use disorder. Workup was initiated including imaging and labs. MDM: Patient's vital signs remained stable. Labs shows slightly worsening leukopenia and anemia. There is no significant electrolyte derangements or significant kidney dysfunction from baseline. No changes in LFTs. CTH independently interpreted by me reveals no evidence of ICH. No significant hydrocephalus. No major skull fractures. CTH does not demonstrate findings to suggest an etiology of the patient's symptoms or presentation, today. CXR independently interpreted by me reveals no evidence of focal consolidation to suggest pna. No large pneumothorax or pleural effusion. No obvious displaced rib fracture. He was managed with IV fluid resuscitation as well as Ativan. The patient's ethanol level does not explain his acute encephalopathy. We have found no objective evidence of the etiology of his acute encephalopathy. Given that we are unable to explain the patient's acute encephalopathy and concerns for safety, the patient will be admitted to the hospitalist service. Chad Olivier DO Emergency Medicine .
== END 2025-03-01 14:05 | disposition home or self-care (01) ==
LOC: ED 13:23 → 2N 13:23

== ENCOUNTER 2025-03-03 14:15 | Observation (INO) ==
--- NOTE | 2025-03-03 14:39 | Emergency Department Note ---
Impression & Plan Altered mental status, Anemia, Weakness ED Provider Note NAME: SHEREEN WHITE AGE: 54 SEX: M : 1970 ARRIVES VIA: Ambulance INFORMANT: Patient ED PROVIDER(S): Tomás Aguirre DO CHIEF COMPLAINT: Altered mental status HPI: Patient is a 54-year-old known alcoholic, diabetic who presents to the ER as he was walking around sheets asking for money. He was evaluated by the police and cited. He was slightly confused but did request to go to the hospital. He denies any headache or change in vision. No chest pain or shortness of breath. No nausea, vomiting or diarrhea. No dysuria, urgency or frequency. He notes he just does not feel well. He is oriented to person but not place or year. He is unable to give any other additional history. ADDITIONAL HISTORY OBTAINED: Per HPI Chronic Medical/Social Conditions Affecting Care: Per HPI PAST MEDICAL HISTORY:See Below PAST SURGICAL HISTORY:See Below FAMILY HISTORY:See Below SOCIAL HISTORY:See Below HOME MEDICATIONS:See Below ALLERGIES:See Below VITALS:See Below PHYSICAL EXAMINATION: GENERAL: Sitting up in bed, alert, small marijuana on him, covered in urine EYE EXAM: normal conjunctiva. PERRL and EOM's grossly intact. OROPHARYNX: no exudate, no erythema, lips, buccal mucosa, and tongue normal and mucous membranes are moist NECK: supple, no nuchal rigidity, no adenopathy, non-tender LUNGS: Clear to auscultation. Normal chest wall mechanics HEART: no murmurs, S1 normal and S2 normal ABDOMEN: abdomen soft, non-tender, normo-active bowel sounds, no masses, no rebound or guarding. UPPER EXTREMITIES: upper extremities are grossly normal. LOWER EXTREMITIES: No pitting edema. NEURO EXAM: Oriented to person but not place or year, cranial nerves II-XII intact, normal speech, no weakness of arms, no weakness of legs. MEDICAL DECISION MAKING: Patient is a 54-year-old male who is an alcoholic brought in by EMS. IV was established blood work was obtained. Labs show no significant leukocytosis. Mild anemia 12. BMP along LFTs bilirubin and troponin was negative. Lipase was normal. Alcohol of 14. CT of the head was negative. Chest x-ray unremarkable. Patient was very agitated slurring his words with a smell of marijuana. He was given Ativan. He was updated bedside. Discussed case with the hospitalist for further evaluation management treatment. Consults/Care Managements Discussions: Per MDM Triage Nursing notes reviewed. Limited review of prior medical records performed Vital Signs: reviewed and remarkable for no significant abnormalities Differential diagnosis: Differential diagnoses includes but is not limited to toxic, metabolic, infectious, traumatic, cardiac, neurologic, hematologic, psychiatric and inflammatory etiologies. ER treatment provided: See below Diagnostics interpreted by me include EKG and cardiac monitoring as listed below: -Cardiac Monitoring: An order was placed for continuous cardiac monitoring. The monitor shows a rate of 92 with sinus rhythm. -ECG: Sinus rhythm rate of 97 Normal axis No PVCs QTc 462 -Laboratory studies:Interpreted by me as stated above in MDM and shown below. Imaging studies: Xrays: As interpreted by me: Portable AP upright 1 view of the chest shows no focal Lutrate CTs show: CT head was negative per radiology Procedures:none Critical Care: None Past Med/Surg History Problem List (Updated 03/03/25 @ 17:26 by Tomás Aguirre DO) Weakness (Acute) Anemia (Acute) Altered mental status (Acute) Episode of confusion Prediabetes Psychiatric diagnosis Altered mental status (Acute) Abdominal pain (Acute) Hypertension (Acute) Alcohol use disorder (Acute) Hypertension (Acute) Chest pain (Acute) Alcohol withdrawal (Acute) T2DM (type 2 diabetes mellitus) Hypokalemia Metabolic encephalopathy (Acute) Altered mental state (Acute) Alcohol intoxication (Acute) COVID-19 (Acute) Encephalopathy Misuse of prescription only drugs (Acute) Hyponatremia (Acute) Alcoholic intoxication (Acute) Alcohol withdrawal AMS (altered mental status) (Acute) Dehydration (Acute) Altered mental status (Acute) Hypoxia (Acute) Nausea (Acute) Left sided abdominal pain (Acute) Alcohol use with intoxication (Acute) Alcohol abuse (Acute) Right arm pain (Acute) Medical History HTN (hypertension) Bronchitis Depression Family History Other Coronary heart disease Social History Smoking Status: Current every day smoker Tobacco Type: Cigarettes Cigarettes Per Day: 3; Second Hand Exposure: No; Do You Dip or Chew Tobacco: No; Hx Alcohol Use: Yes Alcohol type: beer Hx Substance Use: No Preferred Language: Khmer Communication Ability: Effective Returner Required: No Beliefs That Will Affect Care: None Current Living Situation: Alone and Homeless Current Living Situation Comment: with significant other Feels Safe at Home: Yes and Declines to Answer Gender Identity: Male Assistive Devices: None Allergies Allergies Allergy/AdvReac Type Severity Reaction Status Date / Time No Known Allergies Allergy Verified 02/20/25 19:32 Home Meds Home Medications Medication Instructions Recorded Confirmed Unobtainable 02/19/25 03/03/25 Results & Data (ED) Vital Signs Vital Signs - 24 hr 03/03/25 14:15 03/03/25 14:42 03/03/25 14:45 Temperature 36.2 C L Temperature Source Oral Pulse Rate 102 H 100 H Pulse Rate [Apical] Pulse Rate from SpO2 Sensor 100 H Respiratory Rate 18 18 Blood Pressure 156/99 H Blood Pressure [Left Arm] Blood Pressure Mean 118 Blood Pressure Mean [Left Arm] Pulse Oximetry 99 96 99 Oxygen Delivery Method Room Air Room Air Sepsis Recent Fever Within 48 Hours No Sepsis New/Unexplained Change in Mental Status No Sepsis Action Taken by Nursing No Action Required 03/03/25 14:51 03/03/25 15:09 03/03/25 15:09 Temperature Temperature Source Pulse Rate 102 H Pulse Rate [Apical] Pulse Rate from SpO2 Sensor 105 H Respiratory Rate 16 Blood Pressure 149/103 H 149/103 H Blood Pressure [Left Arm] Blood Pressure Mean 123 123 Blood Pressure Mean [Left Arm] Pulse Oximetry 90 Oxygen Delivery Method Sepsis Recent Fever Within 48 Hours Sepsis New/Unexplained Change in Mental Status Sepsis Action Taken by Nursing 03/03/25 15:09 03/03/25 15:09 03/03/25 15:09 Temperature Temperature Source Pulse Rate Pulse Rate [Apical] Pulse Rate from SpO2 Sensor Respiratory Rate Blood Pressure 149/103 H 149/103 H 149/103 H Blood Pressure [Left Arm] Blood Pressure Mean 123 123 123 Blood Pressure Mean [Left Arm] Pulse Oximetry Oxygen Delivery Method Sepsis Recent Fever Within 48 Hours Sepsis New/Unexplained Change in Mental Status Sepsis Action Taken by Nursing 03/03/25 15:09 03/03/25 15:12 03/03/25 15:21 Temperature Temperature Source Pulse Rate 102 H 102 H Pulse Rate [Apical] 90 Pulse Rate from SpO2 Sensor 101 H 102 H Respiratory Rate 11 L 21 12 Blood Pressure Blood Pressure [Left Arm] 149/103 H Blood Pressure Mean Blood Pressure Mean [Left Arm] 118 Pulse Oximetry 97 98 93 Oxygen Delivery Method Room Air Sepsis Recent Fever Within 48 Hours Sepsis New/Unexplained Change in Mental Status Sepsis Action Taken by Nursing 03/03/25 15:21 03/03/25 15:30 03/03/25 15:30 Temperature Temperature Source Pulse Rate 91 H 87 Pulse Rate [Apical] Pulse Rate from SpO2 Sensor 93 H 87 Respiratory Rate 10 L 12 Blood Pressure 136/95 Blood Pressure [Left Arm] Blood Pressure Mean 107 Blood Pressure Mean [Left Arm] Pulse Oximetry 96 94 Oxygen Delivery Method Sepsis Recent Fever Within 48 Hours Sepsis New/Unexplained Change in Mental Status Sepsis Action Taken by Nursing 03/03/25 15:30 03/03/25 15:30 03/03/25 15:30 Temperature Temperature Source Pulse Rate Pulse Rate [Apical] Pulse Rate from SpO2 Sensor Respiratory Rate Blood Pressure 136/95 136/95 136/95 Blood Pressure [Left Arm] Blood Pressure Mean 107 107 107 Blood Pressure Mean [Left Arm] Pulse Oximetry Oxygen Delivery Method Sepsis Recent Fever Within 48 Hours Sepsis New/Unexplained Change in Mental Status Sepsis Action Taken by Nursing 03/03/25 15:30 03/03/25 15:31 03/03/25 15:42 Temperature Temperature Source Pulse Rate 92 H 82 Pulse Rate [Apical] Pulse Rate from SpO2 Sensor 82 Respiratory Rate 13 Blood Pressure 136/95 Blood Pressure [Left Arm] Blood Pressure Mean 107 Blood Pressure Mean [Left Arm] Pulse Oximetry 95 Oxygen Delivery Method Sepsis Recent Fever Within 48 Hours Sepsis New/Unexplained Change in Mental Status Sepsis Action Taken by Nursing 03/03/25 15:51 03/03/25 16:00 03/03/25 16:01 Temperature Temperature Source Pulse Rate 85 106 H Pulse Rate [Apical] Pulse Rate from SpO2 Sensor 87 Respiratory Rate 11 L 17 Blood Pressure 160/112 H Blood Pressure [Left Arm] Blood Pressure Mean 120 Blood Pressure Mean [Left Arm] Pulse Oximetry 93 Oxygen Delivery Method Sepsis Recent Fever Within 48 Hours Sepsis New/Unexplained Change in Mental Status Sepsis Action Taken by Nursing 03/03/25 16:01 03/03/25 16:01 03/03/25 16:01 Temperature Temperature Source Pulse Rate Pulse Rate [Apical] Pulse Rate from SpO2 Sensor Respiratory Rate Blood Pressure 160/112 H 160/112 H 160/112 H Blood Pressure [Left Arm] Blood Pressure Mean 120 120 120 Blood Pressure Mean [Left Arm] Pulse Oximetry Oxygen Delivery Method Sepsis Recent Fever Within 48 Hours Sepsis New/Unexplained Change in Mental Status Sepsis Action Taken by Nursing 03/03/25 16:01 03/03/25 16:12 03/03/25 16:21 Temperature Temperature Source Pulse Rate 88 81 Pulse Rate [Apical] Pulse Rate from SpO2 Sensor Respiratory Rate 18 16 Blood Pressure 160/112 H Blood Pressure [Left Arm] Blood Pressure Mean 120 Blood Pressure Mean [Left Arm] Pulse Oximetry Oxygen Delivery Method Sepsis Recent Fever Within 48 Hours Sepsis New/Unexplained Change in Mental Status Sepsis Action Taken by Nursing 03/03/25 16:30 03/03/25 16:31 03/03/25 16:31 Temperature Temperature Source Pulse Rate 86 Pulse Rate [Apical] Pulse Rate from SpO2 Sensor Respiratory Rate 15 Blood Pressure 183/117 H 183/117 H Blood Pressure [Left Arm] Blood Pressure Mean 129 129 Blood Pressure Mean [Left Arm] Pulse Oximetry Oxygen Delivery Method Sepsis Recent Fever Within 48 Hours Sepsis New/Unexplained Change in Mental Status Sepsis Action Taken by Nursing 03/03/25 16:31 03/03/25 16:31 03/03/25 16:31 Temperature Temperature Source Pulse Rate Pulse Rate [Apical] Pulse Rate from SpO2 Sensor Respiratory Rate Blood Pressure 183/117 H 183/117 H 183/117 H Blood Pressure [Left Arm] Blood Pressure Mean 129 129 129 Blood Pressure Mean [Left Arm] Pulse Oximetry Oxygen Delivery Method Sepsis Recent Fever Within 48 Hours Sepsis New/Unexplained Change in Mental Status Sepsis Action Taken by Nursing 03/03/25 16:42 03/03/25 16:51 03/03/25 17:00 Temperature Temperature Source Pulse Rate 91 H 98 H 100 H Pulse Rate [Apical] Pulse Rate from SpO2 Sensor Respiratory Rate 25 H 21 13 Blood Pressure Blood Pressure [Left Arm] Blood Pressure Mean Blood Pressure Mean [Left Arm] Pulse Oximetry Oxygen Delivery Method Sepsis Recent Fever Within 48 Hours Sepsis New/Unexplained Change in Mental Status Sepsis Action Taken by Nursing 03/03/25 17:01 03/03/25 17:01 03/03/25 17:01 Temperature Temperature Source Pulse Rate Pulse Rate [Apical] Pulse Rate from SpO2 Sensor Respiratory Rate Blood Pressure 129/100 129/100 129/100 Blood Pressure [Left Arm] Blood Pressure Mean 113 113 113 Blood Pressure Mean [Left Arm] Pulse Oximetry Oxygen Delivery Method Sepsis Recent Fever Within 48 Hours Sepsis New/Unexplained Change in Mental Status Sepsis Action Taken by Nursing 03/03/25 17:01 03/03/25 17:01 03/03/25 17:12 Temperature Temperature Source Pulse Rate 97 H Pulse Rate [Apical] Pulse Rate from SpO2 Sensor Respiratory Rate 14 Blood Pressure 129/100 129/100 Blood Pressure [Left Arm] Blood Pressure Mean 113 113 Blood Pressure Mean [Left Arm] Pulse Oximetry Oxygen Delivery Method Sepsis Recent Fever Within 48 Hours Sepsis New/Unexplained Change in Mental Status Sepsis Action Taken by Nursing Laboratory Data 03/03/25 14:50 03/03/25 14:50 Lab Results 03/03/25 Range/Units 14:50 WBC 5.26 (4.8-10.8) K/ul RBC 4.67 L (4.70-6.10) M/uL Hgb 12.5 L (14.0-18.0) g/dL Hct 37.6 L (42.0-52.0) % MCV 80.5 (80.0-100.0) fL MCH 26.8 (25.0-34.0) pg MCHC 33.2 (32.0-36.0) g/dL RDW Std Deviation 46.8 H (36.4-46.3) fL RDW Coeff of Virgil 16.2 H (11.5-14.5) % Plt Count 304 (130-400) K/uL MPV 8.4 L (9.4-12.4) fL Immature Gran % (Auto) 0.2 % Neut % (Auto) 65.3 % Lymph % (Auto) 24.0 % Piute % (Auto) 9.3 % Eos % (Auto) 0.4 % Baso % (Auto) 0.8 % Neut # (Auto) 3.44 (1.40-6.50) K/uL Lymph # (Auto) 1.26 (1.20-3.40) K/uL Piute # (Auto) 0.49 (0.11-0.59) K/uL Eos # (Auto) 0.02 (0.00-0.50) K/uL Baso # (Auto) 0.04 (0.00-0.20) K/uL Immature Gran # (Auto) 0.01 (0.01-0.20) K/uL Sodium 139 (136-145) mmol/L Potassium 4.0 (3.5-5.1) mmol/L Chloride 103 (98-107) mmol/L Carbon Dioxide 28 (21-32) mmol/L Anion Gap 8 (3-11) BUN 13 (6-23) mg/dl Creatinine 0.89 (0.6-1.4) mg/dl Est Cr Clr Drug Dosing 89.7 ml/min eGFR 100.58 BUN/Creatinine Ratio 14.6 (10-20) Glucose 80 (70-99(Fasting)) mg/dl Calcium 9.0 (8.6-10.3) mg/dl Magnesium 2.2 (1.7-2.4) mg/dl Total Bilirubin 0.2 (0.2-1.0) mg/dl AST 20 (13-39) U/L ALT 12 (7-52) U/L Alkaline Phosphatase 86 (34-104) U/L Troponin I High Sens 4.9 (0-20) pg/ml Total Protein 7.2 (6.0-8.3) gm/dl Albumin 3.9 (3.4-5.0) gm/dl Globulin 3.3 (2.5-4.0) gm/dl Albumin/Globulin Ratio 1.2 (0.9-2) Lipase 21 (11-82) U/L Ethyl Alcohol mg/dL 14.0 H (<10.0) mg/dl Administered Medications Discontinued Medications Lorazepam (Lorazepam 1 Mg/1 Ml Syr Ed Inj Use) 2 mg IV ONE STA Stop: 03/03/25 15:00 Last Admin: 03/03/25 15:20 Dose: 2 mg Documented By: COLLEEN Lorazepam (Lorazepam 1 Mg/1 Ml Syr Ed Inj Use) Confirm Administered Dose 2 mg .ROUTE .STK-MED ONE Stop: 03/03/25 15:01 Last Admin: 03/03/25 15:20 Dose: Not Given Documented By: COLLEEN Imaging Data Radiologist's Impression: Chest X-Ray 03/03/25 14:19 Exam: AP Portable Chest Exam reason: Nonspecific chest pain Comparison: 02/28/2025 Technique: A single AP portable view of the chest was obtained Findings: The lungs are well-expanded. No focal areas of consolidation are identified. The cardiac and mediastinal silhouettes are within normal limits. There is no pneumothorax and no acute bony abnormalities are seen. Impression: No acute cardiopulmonary abnormalities Electronically signed by Alverto Kahn 03-03-2025 3:[address] 03/03/25 14:35 EXAMINATION: Head CT without CLINICAL HISTORY: Patient acting inappropriate, asking for money, police involved. Not able to respond to questions. PRIORS: 02/28/2025 TECHNIQUE: Contiguous axial images were obtained through the head without the use of intravenous contrast. Sagittal and coronal reformations are supplied. FINDINGS: Mild parenchymal volume loss noted. Alarcon-white differentiation is preserved. No edema or midline shift. No intra-axial or extra-axial hemorrhage. Ventricles are normal in size and configuration. Brainstem and cerebellum have a normal appearance. Calvarium unremarkable. Paranasal sinuses and mastoid air cells are well-pneumatized. Globes are intact. No retrobulbar abnormality. IMPRESSION: No CT evidence of an acute intracranial abnormality. If clinically appropriate, brain MRI could be obtained as appropriate. Electronically signed by Nabila Thakkar 03-03-2025 3:17 PM Discharge Plan Visit Data Chief Complaint: Hypertension Stated Complaint: pt asked to come to hospital ED Provider: Tomás Aguirre Discharge Problem: Altered mental status, Anemia, Weakness Condition: Fair Forms Stand Alone Forms: [facility] [employer] Prescriptions Prescriptions: No Action Unobtainable Rx Instructions: PT UNABLE TO ANSWER QUESTIONS AT THIS TIME. MEDS LISTED ON EXT MED HX, UNABLE TO VERIFY ANY OF THEM. Referrals Referrals: Katia Martin MD [Primary Care Provider] - Discharge Problem: Altered mental status Qualifiers: Altered mental status type: unspecified Qualified Code(s): R41.82 - Altered mental status, unspecified Anemia Qualifiers: Anemia type: unspecified type Qualified Code(s): D64.9 - Anemia, unspecified
[2025-03-03 15:02] LABS: Hematocrit (blood only) 37.6 % (42.0-52.0); Hemoglobin 12.5 g/dL (14.0-18.0); Immature Granulocytes # (auto) 0.01 K/uL (0.01-0.20); Immature Granulocytes % (auto) 0.2 %; Mean Corpuscular Hemoglobin 26.8 pg (25.0-34.0); Mean Corpuscular Volume 80.5 fL (80.0-100.0); Platelet Count 304 K/uL (130-400); RDW Standard Deviation 46.8 fL (36.4-46.3); Red Blood Count 4.67 M/uL (4.70-6.10); White Blood Count 5.26 K/ul (4.8-10.8)
--- NOTE | 2025-03-03 15:03 | XRay Report ---
Exam: AP Portable Chest Exam reason: Nonspecific chest pain Comparison: 02/28/2025 Technique: A single AP portable view of the chest was obtained Findings: The lungs are well-expanded. No focal areas of consolidation are identified. The cardiac and mediastinal silhouettes are within normal limits. There is no pneumothorax and no acute bony abnormalities are seen. Impression: No acute cardiopulmonary abnormalities Electronically signed by Alverto Kahn 03-03-2025 3:03 PM
--- NOTE | 2025-03-03 15:17 | CT Scan Report ---
EXAMINATION: Head CT without CLINICAL HISTORY: Patient acting inappropriate, asking for money, police involved. Not able to respond to questions. PRIORS: 02/28/2025 TECHNIQUE: Contiguous axial images were obtained through the head without the use of intravenous contrast. Sagittal and coronal reformations are supplied. FINDINGS: Mild parenchymal volume loss noted. Alarcon-white differentiation is preserved. No edema or midline shift. No intra-axial or extra-axial hemorrhage. Ventricles are normal in size and configuration. Brainstem and cerebellum have a normal appearance. Calvarium unremarkable. Paranasal sinuses and mastoid air cells are well-pneumatized. Globes are intact. No retrobulbar abnormality. IMPRESSION: No CT evidence of an acute intracranial abnormality. If clinically appropriate, brain MRI could be obtained as appropriate. Electronically signed by Nabila Thakkar 03-03-2025 3:17 PM
[2025-03-03 15:20] LABS: Alanine Aminotransferase 12.0 U/L (7-52); Albumin Globulin Ratio 1.2 (0.9-2); Albumin Level 3.9 gm/dl (3.4-5.0); Alkaline Phosphatase 86.0 U/L (34-104); Anion Gap 8.0 (3-11); Bilirubin,Total 0.2 mg/dl (0.2-1.0); Blood Urea Nitrogen 13.0 mg/dl (6-23); Calcium 9.0 mg/dl (8.6-10.3); Carbon Dioxide 28.0 mmol/L (21-32); Chloride 103.0 mmol/L (98-107); Creatinine Clr Calc Pharmacy 89.7 ml/min; Globulin 3.3 gm/dl (2.5-4.0); Glucose 80.0 mg/dl (70-99(Fasting)); Lipase 21.0 U/L (11-82); Magnesium 2.2 mg/dl (1.7-2.4); Potassium 4.0 mmol/L (3.5-5.1); Sodium 139.0 mmol/L (136-145); Total Protein 7.2 gm/dl (6.0-8.3)
[2025-03-03] MEDS: LORazepam 1 MG/1 ML SYR ED Inj Use ONE (15:20)
[2025-03-03] MEDS: LORazepam 1 MG/1 ML SYR ED Inj Use IV STA (15:20)
--- NOTE | 2025-03-03 16:33 | History & Physical Report ---
Date of Service March 03, 2025 Assessment & Plan (1) Episode of confusion: Plan: 54-year-old male with history of diabetes,hypertension, dyslipidemia, chronic anemia, mood disorder/schizophrenia, smoking and alcohol use who was brought in by the police this afternoon after being found to be confused at a gas station this afternoon. Episode of confusion secondary to alcohol intoxication Blood alcohol level 14.0 Urine drug screen pending CT head: No acute process drinks 2 beers per day, last drink yesterday as per patient Start alcohol withdrawal protocol with as needed Ativan supportive care, IV fluids Cough Chest x-ray no acute process Check for flu RSV and COVID Other chronic medical problems Diabetes type 2- not taking any medications, A1c as of 2 days ago was 5.8 Hypertension- Continue amlodipine Dyslipidemia DVT prophylaxis SCDs for now Full code Disposition Admit to [facility] telemetry plan of care discussed with patient in detail and at length all questions answered He is understanding, agreeable, comfortable with the plan of care total time spent 50 minutes including discussion with ER provider, review of outpatient inpatient records, history taking and physical examination, formulation of plan of care, etc. History of Present Illness Chief Complaint: Confusion by police noted this afternoon Primary Care Provider: Katia Martin MD 54-year-old male with history of diabetes,hypertension, dyslipidemia, chronic anemia, mood disorder/schizophrenia, smoking and alcohol use who was brought in by the police this afternoon after being found to be confused at a gas station this afternoon. Patient was just discharged from [facility] 2 days ago after being admitted for alcohol intoxication. earlier this afternoon, the patient was noticed by the police to be somewhat confused, asking money from people at the gas station. He was then brought to the ER for evaluation As per ER provider Dr. Aguirre, the patient was confused, agitated upon arrival, requiring lorazepam 2 mg IV prior to CT head CT head: No acute process On my exam, the patient was sleeping but was arousable to verbal and tactile stimuli He was under drowsy side but conversant, asking if I can hand him the sandwich which was at the bedside. He was already oriented x 2-3, answering most questions appropriately States he has not been feeling well since yesterday, reports subjective fevers and chills, some cough cough, but no shortness of breath, headache, dizziness, abdominal pain, problems urination or bowel movement. He admits to drinking 2 beers per day Last drink was yesterday Denies substance abuse including cannabis products No other new symptoms Allergies Allergy/AdvReac Type Severity Reaction Status Date / Time No Known Allergies Allergy Verified 02/20/25 19:32 Home Medications Medication Instructions Recorded Confirmed Type Unobtainable 02/19/25 03/03/25 History Past Med/Surg History Problem List (Updated 03/03/25 @ 16:25 by John Leblanc MD) Episode of confusion Prediabetes Psychiatric diagnosis Altered mental status (Acute) Abdominal pain (Acute) Hypertension (Acute) Alcohol use disorder (Acute) Hypertension (Acute) Chest pain (Acute) Alcohol withdrawal (Acute) T2DM (type 2 diabetes mellitus) Hypokalemia Metabolic encephalopathy (Acute) Altered mental state (Acute) Alcohol intoxication (Acute) COVID-19 (Acute) Encephalopathy Misuse of prescription only drugs (Acute) Hyponatremia (Acute) Alcoholic intoxication (Acute) Alcohol withdrawal AMS (altered mental status) (Acute) Dehydration (Acute) Altered mental status (Acute) Hypoxia (Acute) Nausea (Acute) Left sided abdominal pain (Acute) Alcohol use with intoxication (Acute) Alcohol abuse (Acute) Right arm pain (Acute) Medical History HTN (hypertension) Bronchitis Depression Family History Other Coronary heart disease Social History Smoking Status: Current every day smoker Tobacco Type: Cigarettes Cigarettes Per Day: 3; Second Hand Exposure: No; Do You Dip or Chew Tobacco: No; Hx Alcohol Use: Yes Alcohol type: beer Hx Substance Use: No Preferred Language: Lao Communication Ability: Effective [employer]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 Beliefs That Will Affect Care: None Current Living Situation: Alone and Homeless Current Living Situation Comment: with significant other Feels Safe at Home: Yes and Declines to Answer Gender Identity: Male Assistive Devices: None Review of Systems Review of Systems: all noted and negative except for above Physical Exam Physical Exam: General- oriented x 3, not in distress, speaks in sentences with no effort or accessory muscle use poorly kempt Head- atraumatic Eyes- PERRL, EOMI, anicteric ENT- oropharynx clear Neck- supple, no JVD, no adenopathy, no thyromegaly; carotids +2/2, no bruits appreciated Lungs- clear to auscultation bilaterally, no rales/wheezes Heart- normal rate, regular rhythm; no murmur, no gallop, no rub appreciated Abdomen- normal bowel sounds, nondistended, soft, nontender, no masses or hepatosplenomegaly Extremities- no pretibial edema, no calf tenderness; peripheral pulses intact Neuro- alert, oriented x 3; CN 2-12 grossly intact; motor 5/5 bilaterally;sensation 100% on all extremities; no other gross focal neurologic deficits Skin- warm & dry Results & Data Results & Data Vital Signs (Past 12 Hours) Vital Signs Temp Pulse Pulse Resp BP BP Pulse Ox 03/03/25 15:31 92 H 03/03/25 15:21 90 12 149/103 H 93 03/03/25 14:42 96 03/03/25 14:15 36.2 C L 102 H 18 156/99 H 99 O2 Del Method 03/03/25 15:31 03/03/25 15:21 Room Air 03/03/25 14:42 Room Air 03/03/25 14:15 Room Air all noted and reviewed including below
[2025-03-03] MEDS ORDERED: LORazepam Inj 1 MG in SYRINGE 0.5 ML IV PRN (16:37)
[2025-03-03] MEDS ORDERED: LORazepam Inj 2 MG in SYRINGE 1 ML IV PRN (16:37)
[2025-03-03] MEDS ORDERED: LORazepam Inj 3 MG in SYRINGE 1.5 ML IV PRN (16:37)
[2025-03-03] MEDS: SODIUM CHLORIDE 0.9% 1,000 ML IV SCH (18:30)
[2025-03-03 19:05] LABS: Chlamydia pneumoniae PCR Not Detected (NotDetected); Coronavirus 229E PCR Not Detected (NotDetected); Coronavirus CoV-2 (COVID19)PCR Not Detected (NotDetected); Coronavirus HKU1 PCR Not Detected (NotDetected); Coronavirus NL63 PCR Not Detected (NotDetected); Coronavirus OC43PCR Not Detected (NotDetected); Human Metapneumovirus PCR Not Detected (NotDetected); Parainfluenza Virus 1 PCR Not Detected (NotDetected); Parainfluenza Virus 2 PCR Not Detected (NotDetected); Parainfluenza Virus 3 PCR Not Detected (NotDetected); Parainfluenza Virus 4 PCR Not Detected (NotDetected); Respiratory Syncytial VirusPCR Not Detected (NotDetected); Rhinovirus/Enterovirus PCR Not Detected (NotDetected)
[2025-03-03] MEDS: ACETAMINOPHEN 325 MG TAB PO PRN (23:49)
--- NOTE | 2025-03-04 06:16 | Electrocardiogram Report ---
Test Reason : Blood Pressure : */* mmHG Vent. Rate : 97 BPM Atrial Rate : 97 BPM P-R Int : 136 ms QRS Dur : 80 ms QT Int : 364 ms P-R-T Axes : 61 22 43 degrees QTcB Int : 462 ms Normal sinus rhythm Normal ECG When compared with ECG of 28-Feb-2025 14:35, No significant change Confirmed by Terell Sterling ([id number]) on 03/04/2025 6:16:38 AM Referred By: REFERRED SELF Confirmed By: Terell Sterling
[2025-03-04 06:40] LABS: Hematocrit (blood only) 32.7 % (42.0-52.0); Hemoglobin 11.0 g/dL (14.0-18.0); Immature Granulocytes # (auto) 0.01 K/uL (0.01-0.20); Immature Granulocytes % (auto) 0.3 %; Mean Corpuscular Hemoglobin 27.2 pg (25.0-34.0); Mean Corpuscular Volume 80.7 fL (80.0-100.0); Platelet Count 297 K/uL (130-400); RDW Standard Deviation 46.5 fL (36.4-46.3); Red Blood Count 4.05 M/uL (4.70-6.10); White Blood Count 3.60 K/ul (4.8-10.8)
[2025-03-04 07:10] LABS: Alanine Aminotransferase 9.0 U/L (7-52); Albumin Level 3.5 gm/dl (3.4-5.0); Alkaline Phosphatase 68.0 U/L (34-104); Anion Gap 6.0 (3-11); Bilirubin,Total 0.2 mg/dl (0.2-1.0); Blood Urea Nitrogen 16.0 mg/dl (6-23); Calcium 8.2 mg/dl (8.6-10.3); Carbon Dioxide 27.0 mmol/L (21-32); Chloride 108.0 mmol/L (98-107); Creatinine Clr Calc Pharmacy 129.2 ml/min; Glucose 95.0 mg/dl (70-99(Fasting)); Magnesium 2.1 mg/dl (1.7-2.4); Potassium 3.4 mmol/L (3.5-5.1); Sodium 141.0 mmol/L (136-145); Total Protein 6.1 gm/dl (6.0-8.3)
[2025-03-04] MEDS: THIAMINE HCL 100 MG TAB PO SCH (09:00)
[2025-03-04] MEDS: POTASSIUM CHLORIDE 10 MEQ TABCR PO ONE (09:00)
[2025-03-04] MEDS: FOLIC ACID 1 MG TAB PO SCH (09:00)
--- NOTE | 2025-03-04 13:12 | Hospitalist Progress Note ---
Date of Service March 04, 2025 Assessment & Plan (1) Episode of confusion: Plan: 54-year-old male with history of diabetes,hypertension, dyslipidemia, chronic anemia, mood disorder/schizophrenia, smoking and alcohol use who was brought in by the police this afternoon after being found to be confused at a gas station this afternoon. Alcohol intoxication Toxic encephalopathy likely due to above --CT head:No CT evidence of an acute intracranial abnormality. If clinically appropriate, brain MRI could be obtained as appropriate. --Blood alcohol level 14.0 --Toxicology screen negative Drinks 2 beers per day, last drin 1 day prior to admission per patient Counseled to quit alcohol use as able Ativan as needed Received IV fluids Continue thiamine, folic acid Monitor for withdrawal Cough Chest x-ray no acute process BioFire negative Other chronic medical problems Noncompliance Diabetes type 2- not taking any medications, A1c as of 2 days ago was 5.8 Hypertension- Continue amlodipine Dyslipidemia Unsure currently home medications medications patient is taking DVT Px: SCDs for now CODE STATUS Full code Disposition To be determined Admission and Anticipated Discharge Date Admission Date: March 03, 2025 Subjective Patient is seen at bedside Uncooperative and refuses physical exam Unable to obtain much history No obvious distress of alcohol withdrawal States feeling tired. " I am resting" Review of Systems Review of Systems: Other Physical Exam Physical Exam: refused physical exam Results & Data Results & Data Vital Signs (Past 12 Hours) Vital Signs Temp Pulse Pulse Resp BP Pulse Ox O2 Del Method 03/04/25 11:27 36.6 C 82 20 134/85 95 Room Air 03/04/25 08:12 36.9 C 87 16 143/83 H 96 Room Air 03/04/25 06:45 68 03/04/25 02:39 36.7 C 86 18 124/70 98 Room Air Laboratory Results Short CBC 03/03/25 03/04/25 Range/Units 14:50 05:55 WBC 5.26 3.60 L (4.8-10.8) K/ul Hgb 12.5 L 11.0 L (14.0-18.0) g/dL Hct 37.6 L 32.7 L (42.0-52.0) % Plt Count 304 297 (130-400) K/uL BMP 03/03/25 03/04/25 14:50 05:55 Sodium 139 141 Potassium 4.0 3.4 L Chloride 103 108 H Carbon Dioxide 28 27 BUN 13 16 Creatinine 0.89 0.68 Glucose 80 95 Calcium 9.0 8.2 L Liver Function 03/03/25 03/04/25 Range/Units 14:50 05:55 Total Bilirubin 0.2 0.2 (0.2-1.0) mg/dl Direct Bilirubin 0.1 (0-0.2) mg/dl AST 20 13 (13-39) U/L ALT 12 9 (7-52) U/L Alkaline Phosphatase 86 68 (34-104) U/L Albumin 3.9 3.5 (3.4-5.0) gm/dl
[2025-03-05 07:51] LABS: Hematocrit (blood only) 34.6 % (42.0-52.0); Hemoglobin 11.3 g/dL (14.0-18.0); Mean Corpuscular Hemoglobin 26.7 pg (25.0-34.0); Mean Corpuscular Volume 81.8 fL (80.0-100.0); Platelet Count 286 K/uL (130-400); RDW Standard Deviation 48.6 fL (36.4-46.3); Red Blood Count 4.23 M/uL (4.70-6.10); White Blood Count 3.97 K/ul (4.8-10.8)
[2025-03-05 08:06] LABS: Anion Gap 5.0 (3-11); Blood Urea Nitrogen 12.0 mg/dl (6-23); Calcium 8.2 mg/dl (8.6-10.3); Carbon Dioxide 27.0 mmol/L (21-32); Chloride 106.0 mmol/L (98-107); Creatinine Clr Calc Pharmacy 135.2 ml/min; Glucose 91.0 mg/dl (70-99(Fasting)); Potassium 3.7 mmol/L (3.5-5.1); Sodium 138.0 mmol/L (136-145)
--- NOTE | 2025-03-05 10:30 | Psychiatric Consultation ---
Date of Consultation March 05, 2025 Impression / Recommendations Impression Mr. Duenas is a 54-year-old man, admitted for altered mental status, with consult to psychiatry for ? capacity to leave AMA and refused treatment. Regarding psychiatric diagnoses, the differential is quite broad, since patient was not able to provide details of his symptoms. Presented as guarded and suspicious, and is on an antipsychotic medication. There is report that he has a history of schizophrenia, but the Seroquel is would be at suboptimal dosing for that diagnosis. Could not confirm or deny the presence of active psychosis such as hallucinations or delusions at this time. Dementia or delirium are also both possible. His baseline is not clear, so it is difficult to say whether his disorientation is acute or not. Disorientation and agitation could both be symptoms of an agitated delirium. Conversely, paranoia, impulsiveness, disorientation could all be symptoms of dementia with behavioral disturbance. He is at risk of cognitive impairment due to chronic alcohol abuse and elevated cardiovascular risk. Additionally, if he does have schizophrenia, he could have cognitive decline related to that. Head CT showed mild volume loss, but no acute findings that would explain altered mental status. His inability to participate in the evaluation could represent disorganization of thought, but on the other hand he could be choosing to not participate. We did attempt several times to explain why participation in engagement was in his best interest to be able to leave, and which was in line with his wishes. Despite efforts from multiple staff, he could not demonstrate any understanding of his options, risks or benefits of leaving versus staying. I could not establish that he has any insight into his medical illnesses or even is oriented at this time. For these reasons at this time, he does not have capacity to leave AMA. If he attempts to leave AMA, security should be called. If he becomes agitated, as needed medication should be given. If he declines oral medication, and is having unsafe behavior, IM medication could be given. I recommend that the hospitalist order IM Haldol 5 mg and Ativan 1 mg as needed should agitation occur. Recommend continuing to offer his home medications and encouraged treatment adherence. Hopefully if these boundaries are set, and he is able to get some antipsychotic medications in him, his mentation may clear. Additionally I do recommend hospital medicine primary team continue to work up any relevant signs or symptoms that could suggest causes of encephalopathy/AMS. Case management may need to get involved, since patient is homeless, and currently lacks capacity. Unclear if he will need placement, or if he will clear with further treatment. Overall, I spent a total of 60 minutes on this patient's care, including review of chart/records, direct evaluation of the patient, coordination with nursing, interdisciplinary team meeting, and documentation. (1) Altered mental status: Altered mental status type: unspecified Qualified Code(s): R41.82 - Altered mental status, unspecified (2) Alcohol use disorder: Psych History Identifying Data ] is a []-year-old [] with a history of [], admit on [] for []. Consult is by the hospitalist service for []. Adolfo Duenas is a 54-year-old male with a history of hypertension, chronic anemia, dyslipidemia, prediabetes, alcohol abuse and possibly schizophrenia or mood disorder. He was admitted on for altered mental status., Consult is by the hospitalist service for evaluation of capacity to leave AMA, and to refuse medications. Chief Complaint " I want to leave". History of Present Illness Mr. Duenas is not previously known to the psychiatric department, but frequents the emergency room. He has had a total of 5 visits so far in February. At times he is discharged and returns the next day. He presents for a variety of reasons including chest pain, abdominal pain, etc. He typically is intoxicated. He was medically admitted on when he presented with confusion. He returned to baseline within a day and was discharged on 03/01/2025. He was then brought back to the emergency room again on 03/03/2025 accompanied by police. He was reportedly walking around the streets asking for money, and appeared "slightly confused" and requested to go to the hospital. He was disoriented to place and year, smelled of marijuana, and was "covered in urine." Police communicated to the ED staff that they were concerned about patient's "competency." He is reportedly supposed to be taking several psychiatric medications, including Lexapro 15mg, Seroquel XR 150mg, hydroxyzine 25mg. Also prescribed propranolol (not clear whether this is for anxiety or blood pressure), lisinopril, amlodipine, metformin at home with varying degrees of treatment adherence. BP on admission was elevated to 180s over 100s. He has been refusing exam by the hospitalist. Security was called yesterday due to patient being rude to staff, but he did calm down after that. Today, he has been refusing medications and requesting to leave AMA. I met with patient in his room, along with the psychiatric liaison nurse. He was at that time fixated on leaving AMA, and getting his clothing returned to him. We attempted to explain to the patient it was in his best interest to talk with us, since demonstrating capacity when he could leave the hospital. Attempted to ask orientation questions, and requested patient to describe why he was in the hospital, and why he was had gotten treatment for. Also tended to ask patient about his chronic conditions. To all of these lines of questioning, patient would only respond that he wants to leave. This is despite several attempts to explain and answering these questions would actually help him be able to leave. We also involved the floor nurse, who had a bit more rapport with the patient. She also attempted to engage the patient in answering some of these questions, but he continuously refused. He was psychomotor agitated, often standing and pacing, and even entering the [facility]. He did not become violent during the encounter. Was explained to him that he could not leave until he was able to participate in this discussion. Before leaving the unit, nursing was aware to call security if patient tried to leave AMA. Past Psychiatric History Previous Psych History: reported diagnosis of schizophrenia Or a mood disorder. Details are unclear and patient would not provide. He has not been previously admitted to the behavioral health unit here. Per chart review, patient has history of significant alcohol abuse. noelle segovia did attend [facility] for alcohol detox within the past year. He's presented numerous times to the emergency room in the setting of intoxication. During this admission, his blood alcohol level was 14.0. UDS was unfortunately not obtained. No signs or symptoms of alcohol withdrawal have been reported. Allergies Allergy/AdvReac Type Severity Reaction Status Date / Time No Known Allergies Allergy Verified 02/20/25 19:32 Home Medications Medication Instructions Recorded Confirmed Type Unobtainable 02/19/25 03/03/25 History Patient History Medical History HTN (hypertension) Bronchitis Depression Family History Other Coronary heart disease Social History Smoking Status: Current every day smoker Tobacco Type: Cigarettes Cigarettes Per Day: 3; Second Hand Exposure: No; Do You Dip or Chew Tobacco: No; Hx Alcohol Use: Yes Alcohol type: beer Hx Substance Use: No Preferred Language: Mongolian Communication Ability: Effective 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 Does raise his voice at times. Would repeat 1 phrase, "I just want to leave." Affect: + irritable affect and + constricted affect Mood: + irritable mood Thought Process: + perseveration Thought Content: + preoccupation Suicidal Thoughts: denies suicidal thoughts, denies suicidal plan and denies suicidal intent Homicidal Thoughts: denies homicidal thoughts, denies homicidal plan and denies homicidal intent none reported could not assess due to poor participation by patient Insight: + impaired insight Judgment: + impaired judgement Vital Signs (Past 24 Hours): Last Vital Signs Temp 36.8 C 03/05/25 07:48 Pulse 80 03/05/25 07:48 Resp 16 03/05/25 07:48 BP 138/80 03/05/25 07:48 Pulse Ox 96 03/05/25 07:48 O2 Del Method Room Air 03/05/25 08:15 Results & Data (PSY) Medications Administered Acetaminophen (Acetaminophen 325 Mg Tab) 650 mg PO Q4H PRN PRN Reason: Pain or Fever Stop: 04/02/25 19:15 Last Admin: 03/03/25 23:49 Dose: 650 mg Documented By: GIAN Amlodipine Besylate (Amlodipine Besylate 5 Mg Tab) 5 mg PO QAM [facility] Stop: 04/03/25 08:59 Last Admin: 03/05/25 08:15 Dose: 5 mg Documented By: Admin: 03/04/25 09:00 Dose: 5 mg Documented By: DEBORA Folic Acid (Folic Acid 1 Mg Tab) 1 mg PO [facility] Stop: 04/03/25 08:59 Last Admin: 03/05/25 08:15 Dose: 1 mg Documented By: Admin: 03/04/25 09:00 Dose: 1 mg Documented By: DEBORA Thiamine HCl (Thiamine Hcl 100 Mg Tab) 100 mg PO [facility] Stop: 04/03/25 08:59 Last Admin: 03/05/25 08:15 Dose: 100 mg Documented By: Admin: 03/04/25 09:00 Dose: 100 mg Documented By: DEBORA Coding Level of Care Code 21386 IN/OBS CONSULT LVL 4,60M Diagnoses Altered mental status R41.82 Altered mental status type: unspecified Alcohol use disorder F10.90
--- NOTE | 2025-03-05 14:16 | Hospitalist Progress Note ---
Date of Service March 05, 2025 Assessment & Plan (1) Episode of confusion: Plan: 54-year-old male with history of diabetes,hypertension, dyslipidemia, chronic anemia, mood disorder/schizophrenia, smoking and alcohol use who was brought in by the police this afternoon after being found to be confused at a gas station this afternoon. Alcohol intoxication Toxic encephalopathy likely due to above --CT head:No CT evidence of an acute intracranial abnormality. If clinically appropriate, brain MRI could be obtained as appropriate. --Blood alcohol level 14.0 --Toxicology screen negative Drinks 2 beers per day, last drink 1 day prior to admission per patient Medical Assistant to quit alcohol use Ativan as needed Received IV fluids Continue thiamine, folic acid Monitor for withdrawal Currently no signs of alcohol withdrawal Appreciate psychiatry input--cannot leave AMA per psych Currently unable to assess patient has medical decision-making capacity Cough Chest x-ray no acute process BioFire negative Monitor Other chronic medical problems Noncompliance Diabetes type 2- not taking any medications, A1c as of 2 days ago was 5.8 Hypertension- Continue amlodipine Dyslipidemia Unsure currently home medications medications patient is taking DVT Px: SCDs for now CODE STATUS Full code Disposition To be determined Admission and Anticipated Discharge Date Admission Date: March 05, 2025 Subjective Patient is seen and examined at bedside Poor historian Offers no complaints Currently no signs of withdrawal Discussed with psychiatry today Review of Systems Review of Systems: Other Physical Exam Physical Exam: Physical Exam: Vitals signs as noted above General Appearance:Moderately built and nourished, no apparent distress Head: normocephalic, Atraumatic Eyes: normal inspection, EOMI Neck: supple, Trachea midline Respiratory/Chest: Normal breath sounds, CTA, No accessory muscle use Cardiovascular: S1, S2, No murmur Abdomen/GI:Soft, Non tender, Bowel sounds present Extremities/Musculoskeletal:normal inspection, no edema Neurologic/Psych: Alert, awake, seemed to be oriented, grossly no focal neurological deficits Skin: normal color, warm Results & Data Results & Data Vital Signs (Past 12 Hours) Vital Signs Temp Pulse Pulse Resp BP Pulse Ox O2 Del Method 03/05/25 08:15 Room Air 03/05/25 07:48 36.8 C 80 16 138/80 96 Room Air 03/05/25 06:45 85 03/05/25 05:30 36.8 C 03/05/25 03:33 77 16 127/79 98 Room Air Laboratory Results Short CBC 03/05/25 Range/Units 07:01 WBC 3.97 L (4.8-10.8) K/ul Hgb 11.3 L (14.0-18.0) g/dL Hct 34.6 L (42.0-52.0) % Plt Count 286 (130-400) K/uL BMP 03/05/25 07:01 Sodium 138 Potassium 3.7 Chloride 106 Carbon Dioxide 27 BUN 12 Creatinine 0.65 Glucose 91 Calcium 8.2 L
[2025-03-06 07:36] LABS: Hematocrit (blood only) 34.2 % (42.0-52.0); Hemoglobin 11.4 g/dL (14.0-18.0); Mean Corpuscular Hemoglobin 27.1 pg (25.0-34.0); Mean Corpuscular Volume 81.2 fL (80.0-100.0); Platelet Count 309 K/uL (130-400); RDW Standard Deviation 47.7 fL (36.4-46.3); Red Blood Count 4.21 M/uL (4.70-6.10); White Blood Count 3.41 K/ul (4.8-10.8)
[2025-03-06 07:50] VITALS: RESP 16; TEMP 98; O2SAT 99
[2025-03-06 07:59] LABS: Anion Gap 6.0 (3-11); Blood Urea Nitrogen 14.0 mg/dl (6-23); Calcium 8.4 mg/dl (8.6-10.3); Carbon Dioxide 26.0 mmol/L (21-32); Chloride 106.0 mmol/L (98-107); Creatinine Clr Calc Pharmacy 127.0 ml/min; Glucose 98.0 mg/dl (70-99(Fasting)); Magnesium 2.3 mg/dl (1.7-2.4); Potassium 3.7 mmol/L (3.5-5.1); Sodium 138.0 mmol/L (136-145)
--- NOTE | 2025-03-06 11:40 | Psychiatric Progress Note ---
Date of Service March 06, 2025 Impression / Recommendations Impression Mr. Duenas is a 54-year-old man, admitted for altered mental status, with consult to psychiatry for ? capacity to leave AMA and refuse treatment. Regarding psychiatric diagnoses, the differential is quite broad, since patient was not able to provide details of his symptoms. Presented as guarded and suspicious, and is on an antipsychotic medication. There is report that he has a history of schizophrenia, but the Seroquel is would be at suboptimal dosing for that diagnosis. Could not confirm or deny the presence of active psychosis such as hallucinations or delusions at this time. Dementia or delirium are also both possible. His baseline is not clear, so it is difficult to say whether his disorientation is acute or not. Disorientation and agitation could both be symptoms of an agitated delirium. Conversely, paranoia, impulsiveness, disorientation could all be symptoms of dementia with behavioral disturbance. He is at risk of cognitive impairment due to chronic alcohol abuse and elevated cardiovascular risk. Additionally, if he does have schizophrenia, he could have cognitive decline related to that. Head CT showed mild volume loss, but no acute findings that would explain altered mental status. 03/06/25: Patient is less irritable today, and fully oriented. Continues to request discharge. He remains quite guarded. This could represent baseline paranoia. However, he has maintained appropriate behavior and is not a risk of harm to others, says he has been able to tolerate frustration and has not been aggressive or making homicidal statements. Regarding harm to self, he has not made any suicidal statements since here, and indicates he plans to take care of himself after discharge. There is no indication for at 302, and he is not interested in a voluntary psych admission. His assessment of himself is that "I will be fine" if he leaves the hospital. He is aware that he feels better when he takes his medication. At this point, he is physically/medically stable, so his assessment that he is stable matches the reality. Since he is medically ready for discharge, the risk of him leaving the hospital is low, and the threshold for capacity is consequently also low. Therefore today, he does meet criteria for having capacity to leave the hospital. Disposition is complicated by pt's homelessness, however this is not a reason to continue hospitalization if he is medically stable. Recommend case management be consulted, to provide any resources available for shelters/housing, if possible. Overall, I spent a total of 40 minutes on this patient's care, including review of chart/records, direct evaluation of the patient, coordination with nursing, interdisciplinary team meeting, and documentation. (1) Altered mental status: (2) Alcohol use disorder: Interval History Identifying Information dAolfo Duenas is a 54-year-old male with a history of hypertension, chronic anemia, dyslipidemia, prediabetes, alcohol abuse and possibly schizophrenia or mood disorder. He was admitted on for altered mental status., Consult is by the hospitalist service for evaluation of capacity to leave AMA, and to refuse medications. Chief Complaint "I want to go home today". Subjective Subjective Patient was seen & assessed and interval progress reviewed with psychiatric liaison and the floor nurse. Patient has been accepting his medications and maintaining appropriate behavior. He is reportedly eating and sleeping well. He does continue to refuse exams. He is continuingly requesting discharge. Nursing notes indicate he tends to pace and mumble to himself. Medically, he has been stable. I met with patient in his room, along with the psychiatric liaison. Patient was moderately more cooperative today. He was fully oriented. He was able to state he has a history of depression, and needs to be on his medications. He identified his outpatient provider that treats his depression. He stated that when he does not take his medication, "I do not feel good." He would like to leave the hospital today, and did state this repeatedly. He also said repeatedly "I will be all right." Despite expressing frustration, he did remain calm and remained seated for the encounter. No agitated or aggressive behavior. He did, after several rounds of similar questioning however request to be done talking. Physical Exam Psychiatric Orientation: alert and + guarded Apperance: appropriately dressed and appropriately groomed Eye Contact: + fair eye contact Motor Behavior: steady gait and station; n tremor Mumbled, with a stutter Affect: + constricted affect Mood: + irritable mood Thought Process: + perseveration Thought Content: + preoccupation Suicidal Thoughts: denies suicidal thoughts, denies suicidal plan and denies suicidal intent Homicidal Thoughts: denies homicidal thoughts, denies homicidal plan and denies homicidal intent Hallucinations: no auditory hallucinations and no visual hallucinations none reported, did not appear to be actively responding. Cognition: remote memory grossly intact and attention grossly intact Estimated Intelligence: consistent with education level Insight: + fair insight Judgment: + fair judgement Vital Signs (Past 24 Hours) Last Vital Signs Temp 36.7 C 03/06/25 07:49 Pulse 72 03/06/25 07:49 Resp 16 03/06/25 07:49 BP 141/92 H 03/06/25 07:49 Pulse Ox 99 03/06/25 07:49 O2 Del Method Room Air 03/06/25 07:49 Results & Data ([facility]) Laboratory Results Laboratory Results - last 24 hr 03/06/25 06:49 WBC 3.41 L RBC 4.21 L Hgb 11.4 L Hct 34.2 L MCV 81.2 MCH 27.1 MCHC 33.3 RDW Std Deviation 47.7 H RDW Coeff of Virgil 16.2 H Plt Count 309 MPV 8.8 L Sodium 138 Potassium 3.7 Chloride 106 Carbon Dioxide 26 Anion Gap 6 BUN 14 Creatinine 0.67 Est Cr Clr Drug Dosing 127.0 eGFR 109.58 BUN/Creatinine Ratio 20.9 H Glucose 98 Calcium 8.4 L Magnesium 2.3 Current Inpatient Medications Current Inpatient Medications: Current Inpatient Medications Acetaminophen (Acetaminophen 325 Mg Tab) 650 mg PO Q4H PRN PRN Reason: Pain or Fever Stop: 04/02/25 19:15 Last Admin: 03/03/25 23:49 Dose: 650 mg Amlodipine Besylate (Amlodipine Besylate 5 Mg Tab) 5 mg PO [facility] Stop: 04/03/25 08:59 Last Admin: 03/06/25 07:40 Dose: 5 mg Folic Acid (Folic Acid 1 Mg Tab) 1 mg PO [facility] Stop: 04/03/25 08:59 Last Admin: 03/06/25 07:40 Dose: 1 mg Hydralazine HCl (Hydralazine Hcl 20 Mg/Ml Vial) 5 mg IV Q6H PRN PRN Reason: systolic bp > 160 Stop: 04/02/25 16:52 Lorazepam 1 mg/ Syringe 1 mls @ 2 mls/min IV UD PRN; Protocol PRN Reason: AWSS 6,7 (Sx Triggered) Stop: 04/02/25 16:36 Lorazepam 2 mg/ Syringe 2 mls @ 2 mls/min IV UD PRN; Protocol PRN Reason: AWSS 8,9 (Sx Triggered) Stop: 04/02/25 16:36 Lorazepam 3 mg/ Syringe 3 mls @ 2 mls/min IV ONCE PRN; Protocol PRN Reason: AWSS 10 & Above(Sx Triggered) Stop: 04/02/25 16:36 Lorazepam (Lorazepam 2 Mg/1 Ml Vial) 1 mg IM Q4H PRN PRN Reason: Agitation Stop: 04/05/25 02:59 Thiamine HCl (Th[facility]amine Hcl 100 Mg Tab) [facility] Stop: 04/03/25 08:59 Last Admin: 03/06/25 07:40 Dose: 100 mg (1) Altered mental status Altered mental status type: unspecified Qualified Code(s): R41.82 - Altered mental status, unspecified
[2025-03-06 11:41] VITALS: BP 134/86; PULSE 68
--- NOTE | 2025-03-06 15:05 | Discharge Summary ---
Date of Service March 06, 2025 Admission HPI Per Admitting Provider 54-year-old male with history of diabetes,hypertension, dyslipidemia, chronic anemia, mood disorder/schizophrenia, smoking and alcohol use who was brought in by the police this afternoon after being found to be c onfused at a gas station this afternoon. Patient was just discharged from [facility] 2 days ago after being admitted for alcohol intoxication. earlier this afternoon, the patient was noticed by the police to be somewhat confused, asking money from people at the gas station. He was then brought to the ER for evaluation As per ER provider Dr. Aguirre, the patient was confused, agitated upon arrival, requiring lorazepam 2 mg IV prior to CT head CT head: No acute process On my exam, the patient was sleeping but was arousable to verbal and tactile stimuli He was under drowsy side but conversant, asking if I can hand him the sandwich which was at the bedside. He was already oriented x 2-3, answering most questions appropriately States he has not been feeling well since yesterday, reports subjective fevers and chills, some cough cough, but no shortness of breath, headache, dizziness, abdominal pain, problems urination or bowel movement. He admits to drinking 2 beers per day Last drink was yesterday Denies substance abuse including cannabis products No other new symptoms Admission Exam Per Admitting Provider General- oriented x 3, not in distress, speaks in sentences with no effort or accessory muscle use poorly kempt Head- atraumatic Eyes- PERRL, EOMI, anicteric ENT- oropharynx clear Neck- supple, no JVD, no adenopathy, no thyromegaly; carotids +2/2, no bruits appreciated Lungs- clear to auscultation bilaterally, no rales/wheezes Heart- normal rate, regular rhythm; no murmur, no gallop, no rub appreciated Abdomen- normal bowel sounds, nondistended, soft, nontender, no masses or hepatosplenomegaly Extremities- no pretibial edema, no calf tenderness; peripheral pulses intact Neuro- alert, oriented x 3; CN 2-12 grossly intact; motor 5/5 bilaterally;sensation 100% on all extremities; no other gross focal neurologic deficits Skin- warm & dry Principal Diagnosis Episode of confusion Alcohol intoxication Toxic encephalopathy likely due to above Discharge Exam General Appearance:Moderately built and nourished, no apparent distress Head: normocephalic, Atraumatic Eyes: normal inspection, EOMI Neck: supple Respiratory/Chest: Normal breath sounds, CTA, No accessory muscle use Cardiovascular: S1, S2, No murmur Abdomen/GI:Soft, Non tender, Bowel sounds present Extremities/Musculoskeletal:normal inspection, no edema Neurologic/Psych: Alert, awake, seemed to be oriented, answers simple questions appropriately, grossly no focal neurological deficits Skin: normal color, warm Discharge Data Allergies Allergy/AdvReac Type Severity Reaction Status Date / Time No Known Allergies Allergy Verified 02/20/25 19:32 Consultations 03/03/25 15:39 ED Decision to Admit Stat 03/04/25 14:52 Consult Psychiatry Routine Ordered Studies 03/03/25 14:35 CT head/brain wo con Stat FINDINGS: Mild parenchymal volume loss noted. Alarcon-white differentiation is preserved. No edema or midline shift. No intra-axial or extra-axial hemorrhage. Ventricles are normal in size and configuration. Brainstem and cerebellum have a normal appearance. Calvarium unremarkable. Paranasal sinuses and mastoid air cells are well-pneumatized. Globes are intact. No retrobulbar abnormality. IMPRESSION: No CT evidence of an acute intracranial abnormality. If clinically appropriate, brain MRI could be obtained as appropriate. Hospital Course (1) Episode of confusion: 54-year-old male with history of diabetes,hypertension, dyslipidemia, chronic anemia, mood disorder/schizophrenia, smoking and alcohol use who was brought in by the police this afternoon after being found to be confused at a gas station this afternoon. Alcohol intoxication Toxic encephalopathy likely due to above --CT head:No CT evidence of an acute intracranial abnormality. If clinically appropriate, brain MRI could be obtained as appropriate. --Blood alcohol level 14.0 --Toxicology screen negative Drinks 2 beers per day, last drink 1 day prior to admission per patient Counseled to quit alcohol use Ativan as needed Received IV fluids Continue thiamine, folic acid Monitor for withdrawal Currently no signs of alcohol withdrawal Appreciate psychiatry input-- yesterday pt seen and "cannot leave AMA" per psych, today seen again by psychiatry and given pt cooperative and taking his medications, answering appropriately, "today, he does meet criteria for having capacity to leave the hospital" Pt wishes to be discharged, discussed w/ CM as pt seems to be homeless, resources provided Cough Chest x-ray no acute process BioFire negative Monitor Other chronic medical problems Noncompliance Diabetes type 2- not taking any medications, A1c as of 2 days ago was 5.8 Hypertension- Continue amlodipine Dyslipidemia Unsure currently home medications patient is taking Total Time Total Time Spent Total Time Spent (In Minutes): 40 Discharge Plan Discharge Items Patient Disposition: Home - Self-Care Reason For Visit: ALCOHOL INTOXICATION Discharge Diagnosis: Episode of confusion Alcohol intoxication Toxic encephalopathy likely due to above Condition on Discharge: Fair Activity: Per Instructions section Non-emergency contact: Primary Care Provider Call non-emergency contact if: you have any medication questions and your symptoms worsen Follow-up/Referrals: Katia Martin MD [Primary Care Provider] - ( Date & Time 03/12/2025 11:20 AM Provider: Katia Martin MD General Internal Medicine [facility] ) Diet: Carb Consistent or DM2 and Heart Healthy Addtl Attending Provider Instructions: Follow up with your primary care doctor within 1 week. Make sure to take your medications as prescribed. It is strongly recommended that you abstain from alcohol. If you can, monitor your blood pressure and discuss your numbers with your doctors. Further adjustment in your medications may be needed. Pending Studies at Discharge: No Stand-Alone Forms: My [employer], Smoking Cessation Medications and DC Order Prescriptions: New amlodipine 5 mg Tablet 5 mg PO QAM Qty: 30 0RF folic acid 1 mg Tablet 1 mg PO QAM Qty: 30 0RF thiamine HCl (vitamin B1) 100 mg Tablet 100 mg PO QAM Qty: 30 0RF No Action Unobtainable Rx Instructions: PT UNABLE TO ANSWER QUESTIONS AT THIS TIME. MEDS LISTED ON EXT MED HX, UNABLE TO VERIFY ANY OF THEM. Discharge Orders: Discharge Order (Routine); Ordered 03/06/25 Ordered By: Craig Tavera Admission Data Admit Date/Time: 03/05/25 11:37 Attending Provider: Craig Tavera Admit Provider: John Leblanc Primary Care Provider: Katia Martin Other Providers: John Leblanc; Dayna Cox; Minh Batista; Isa Duenas; Liz Luna; Jared Humphries; Calderon Strauss; Meli Paiz; Hellen Mulligan; Leonard Bertrand
== END 2025-03-06 17:00 | disposition home or self-care (01) | DRG 896 ==
LOC: ED 14:15 → EDINP 14:15 → SUATTDRO 16:37 → 2N 23:10 → SUATTDRO 03-05 11:37